=== PATIENT | male | born 1940 | race Caucasian/White ===

== ENCOUNTER 2020-01-09 10:23 | Inpatient (IN) | payer OTHER ==
[2020-01-09 10:56] LABS: Absolute Lymphocytes (CBC) 0.7 K/uL (0.7-4.9); Basophils % 0.4 % (0-1.3); Hematocrit 31.2 % (39.6-49.0); Lymphocytes % 7.2 % (15.3-44.8); MPV 8.4 fL (7.6-11.3); RBC Red Blood Cell Count 3.66 M/uL (4.33-5.43)
[2020-01-09 11:03] LABS: Protime INR 1.85
[2020-01-09 11:17] LABS: C-Reactive Protein 14.9 mg/L (<3.00); Potassium 4.8 mmol/L (3.5-5.1); Troponin (Emerg Dept Use Only) 0.05 ng/mL (0.0-0.045)
[2020-01-09 11:18] LABS: Urine Bacteria NONE SEEN /HPF (NONE SEEN); Urine Culture Reflex Order NOT NEEDED; Urine RBC <5 /HPF (NONE SEEN)
[2020-01-09] MEDS ORDERED: VANCOMYCIN/NS 1 gm 1 GM/250 ML BAG IV ONE (12:00)
--- NOTE | 2020-01-09 12:00 | RAD REPORT ---
EXAM DESCRIPTION: US - Lower Extremity Arterial Bilat - 01/09/2020 11:17 am CLINICAL HISTORY: RLE erythema and decreased pulse, dusky LLE Leg pain COMPARISON: No comparisons TECHNIQUE: Bilateral lower extremity arterial Doppler examination was performed with waveform tracin g and ankle brachial pressure measurements. FINDINGS: Doppler interrogation of both lower extremity arterial systems was performed. Triphasic waveforms are seen throughout the right lower extremity arterial system. The right poplitea l and distal vessels demonstrate mildly blunted monophasic waveforms. Left lower extremity true low system shows triphasic to biphasic waveforms throughout. No high-grade stenosis or occlusion. IMPRESSION: Distal right lower extremity arterial system demonstrates monophasic waveform suggesting mild distal peripheral vascular disease.
--- NOTE | 2020-01-09 12:01 | RAD REPORT ---
EXAM DESCRIPTION: RAD - Chest Single View - 01/09/2020 11:55 am CLINICAL HISTORY: FEVER Chest pain. COMPARISON: No comparisons FINDINGS: Portable technique limits examination quality. Mild interstitial pulmonary edema is seen. The heart is moderately enlarged in size. Dual lead pacer device is present. IMPRESSION: Mild CHF versus volume overload pattern.
--- NOTE | 2020-01-09 12:20 | EDPHYS ---
Physician Documentation [facility] Name: Man Crowley Age: 79 yrs Sex: Male : 1940 Arrival Date: 01/09/2020 Time: 10:25 Bed 4 Private MD: ED Physician Fermin Gomes HPI: 01/08 10:32 This 79 yrs old Male presents to ER via Unassigned with complaints of Altered rn Mental Status. 10:32 The patient presents with decreased mental status. Onset: The symptoms/episode rn began/occurred at an unknown time. Possible causes: unknown. It is unknown whether or not the patient has had similar symptoms in the past. It is unknown whether or not the patient has recently seen a physician. Sent by [facility] for fever to 102, AMS. Per [facility], noted this morning, given 1g tylenol, has been seeing wound care for weeping skin bilateral lower ext, no reports on any recent changes. Patient denies focal problem, denies cough/sob/chest pain/abd pain/vomiting/diarrhea. Reports legs hurt a little. . Historical: - Allergies: 11:13 Eliquis; sv 11:13 Blueberry; sv - Home Meds: 11:13 aspirin 81 mg Oral TbEC 1 tab once daily [Active]; atorvastatin 40 mg oral tab 1 tab sv once daily [Active]; furosemide 40 mg Oral tab 1 tab 2 times per day [Active]; gabapentin 300 mg oral cap 1 cap 3 times per day [Active]; lisinopril 20 mg Oral tab 1 tab once daily [Active]; melatonin 3 mg Oral tab nightly [Active]; metoprolol succinate 25 mg oral Tb24 1 tab once daily [Active]; mupirocin 2 % topical oint daily [Active]; polyethylene glycol 3350 17 gram oral pwpk 1 packet once daily [Active]; potassium chloride 20 mEq Oral TbER 1 tab once daily [Active]; trazodone 150 mg Oral tab nightly [Active]; Xarelto 20 mg oral tab 1 tab once daily [Active]; acetic acid 0.25 % IR soln three times a day [Active]; - PMHx: 11:13 DVT; bilateral; Hypertension; CHF; Obesity; Nonrheumatic aortic valve stenosis; Sleep sv Apnea; Prosthetic heart valve; osteoarthritis; - Immunization history:: Adult Immunizations. - Family history:: not pertinent. - Social history:: Smoking status: Patient denies any tobacco usage or history of. - Hospitalizations: : No recent hospitalization is reported. 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 Exam: 10:32 Constitutional: Overweight male, no acute distress Head/Face: Normocephalic, rn atraumatic. ENT: dry MM Cardiovascular: Tachycardic, regular Respiratory: Speaking full sentences, unlabored. No increased work of breathing, no retractions or nasal flaring. Abdomen/GI: soft, non-tender MS/ Extremity: + diminished pulses RLE dorsalis pedis, + RLE with warmth and redness, blanches, with weeping wounds and crusting between toes, no fluctuance. Erythema and warmth travels upward towards R knee. Neuro: Awake and alert, GCS 15, oriented to person, place, and situation. Vital Signs: 10:28 BP 75 / 46; Pulse 114; Resp 26; Temp 99(O); Pulse Ox 97% on 5 lpm NC; sv 11:00 BP 79 / 53; Pulse 113; Resp 27; Pulse Ox 97% on 5 lpm NC; sv 11:36 BP 94 / 64; Pulse 114; Resp 24; Pulse Ox 100% on 5 lpm NC; sv 12:41 BP 91 / 69; Pulse 113 MON; Resp 16; Pulse Ox 97% on 5 lpm NC; sv 13:45 BP 100 / 77; Pulse 112 MON; Resp 14; Pulse Ox 98% on 5 lpm NC; sv 14:32 BP 84 / 57; Pulse 113; Resp 15; Pulse Ox 96% on 5 lpm NC; sv 14:36 BP 117 / 69; Pulse 113; Resp 22; Pulse Ox 100% on 5 lpm NC; sv 15:22 BP 116 / 90; Pulse 112; Resp 23; Pulse Ox 98% on 5 lpm NC; sv 12:41 Sinus tachycardia sv 13:45 Sinus tachycardia sv MDM: 10:29 Patient medically screened. rn 12:16 Differential Diagnosis: sepsis, UTI, volume depletion, cellulitis. Data reviewed: vital rn signs, nurses notes, lab test result(s). 12:18 Counseling: I had a detailed discussion with the patient and/or guardian regarding: the rn historical points, exam findings, and any diagnostic results supporting the discharge/admit diagnosis, lab results, radiology results, the need for further work-up and treatment in the hospital. Response to treatment: the patient's symptoms have mildly improved after treatment, and as a result, I will admit patient. Admission orders: after a detailed discussion of the patient's condition and case, the admit orders are written by me. ED course: Admitted to Dr. Corbin for cellulitis, sepsis, improving with fluids, being gentle with fluid administration 2/2 CHF and xray already shows some pulmonary edema. . 01/08 10:32 Order name: C-Reactive Protein; Complete Time: 11:34 rn 01/08 10:32 Order name: Basic Metabolic Panel; Complete Time: 11:34 rn 01/08 10:32 Order name: Blood Culture Adult (2) rn 01/08 10:32 Order name: CBC with Diff rn 01/08 10:32 Order name: Lactate; Complete Time: 11:34 rn 01/08 10:32 Order name: Procalcitonin; Complete Time: 11:34 rn 01/08 10:32 Order name: Protime (+inr); Complete Time: 11:34 rn 01/08 10:32 Order name: Ptt, Activated; Complete Time: 11:34 rn 01/08 10:32 Order name: Troponin (emerg Dept Use Only); Complete Time: 11:34 rn 01/08 10:32 Order name: Urine Microscopic Only; Complete Time: 11:34 rn 01/08 10:32 Order name: Urine Culture rn 01/08 10:32 Order name: BNP; Complete Time: 11:34 rn 01/08 10:59 Order name: Urine Dipstick--Ancillary (enter results) em1 01/08 12:18 Order name: COVID-19 rn 01/08 10:32 Order name: Chest Single View XRAY; Complete Time: 12:14 rn 01/08 10:32 Order name: Cardiac monitoring; Complete Time: 10:57 rn 01/08 10:32 Order name: EKG - Nurse/Tech; Complete Time: 10:57 rn 01/08 10:32 Order name: IV Saline Lock - Large Bore; Complete Time: 11:16 rn 01/08 10:32 Order name: Labs collected and sent; Complete Time: 11:16 rn 01/08 10:32 Order name: Lower Extremity Arterial Bilat US; Complete Time: 12:14 rn 01/08 12:52 Order name: CBC Smear Scan EDMS 01/08 12:52 Order name: SARS-COV-2 RT PCR EDMS 01/08 13:26 Order name: EKG Electrocardiogram; Complete Time: 13:47 EDMS 01/08 14:16 Order name: Lactate Sepsis 2 HR Follow-up EDMS 01/08 10:32 Order name: O2 Per Protocol; Complete Time: 11:16 rn 01/08 10:32 Order name: O2 Sat Monitoring; Complete Time: 11:16 rn 01/08 10:32 Order name: Urine Dipstick-Ancillary (obtain specimen); Complete Time: 10:57 rn Administered Medications: 10:52 Drug: NS 0.9% 500 ml Route: IV; Rate: bolus; Site: right forearm; sv 11:41 Follow up: Response: No adverse reaction; IV Status: Completed infusion; IV Intake: sv 500ml 12:13 Drug: vancoMYCIN 1 grams Route: IVPB; Infused Over: 2 hrs; Site: right wrist; hb 14:10 Follow up: Response: No adverse reaction; IV Status: Completed infusion; IV Intake: sv 250ml 12:30 Drug: NS 0.9% 250 ml Route: IV; Rate: bolus; Site: right forearm; sv 12:50 Follow up: Response: No adverse reaction; IV Status: Completed infusion; IV Intake: sv 250ml Disposition: 12:18 Critical Care:. rn Disposition: 01/09/20 12:19 Hospitalization ordered by Iván Corbin for Inpatient Admission. Preliminary diagnosis are Cellulitis of right lower limb, Sepsis, unspecified organism, Hypotension, unspecified. - Bed requested for Telemetry/MedSurg (Inpatient). - Status is Inpatient Admission. sv - Condition is Stable. - Problem is new. - Symptoms have improved. Critical care time excluding procedures: 12:18 Critical care time: Bedside Care: 30 minutes. Total time: 30 minutes rn Signatures: Dispatcher [employer] EDSaima Bradshaw RN RN sv Nieto, Roman, MD MD rn Baxter, Heather, RN RN hb Corrections: (The following items were deleted from the chart) 11:16 10:32 Willoughby ordered. rn sv 11:16 10:32 Accucheck ordered. rn sv 12:52 12:19 CORONAVIRUS ordered. EDKS EDMS 15:48 12:19 Hospitalization Ordered by Iván Corbin for Inpatient Admission. Preliminary sv diagnosis is Cellulitis of right lower limb; Sepsis, unspecified organism; Hypotension, unspecified. Bed requested for Telemetry/MedSurg (Inpatient). Status is Inpatient Admission. Condition is Stable. Problem is new. Symptoms have improved. rn
--- NOTE | 2020-01-09 12:20 | ER ---
Nurse's Notes [facility] Name: Man Crowley Age: 79 yrs Sex: Male : 1940 Arrival Date: 01/09/2020 Time: 10:25 Bed 4 Private MD: Diagnosis: Cellulitis of right lower limb;Sepsis, unspecified organism;Hypotension, unspecified Presentation: 01/08 10:17 Chief complaint: EMS states: called out from [facility] for AMS x 1 day and leg wounds. sv BP 80/67 HR-114 ETCO2-22 RR-24 88% RA O2 \T\ 6L per NC O2 sat up to 96%. Pt has dressing to bilateral extremities. Coronavirus screen: Client denies travel out of the [place] in the last 14 days. At this time, the client does not indicate any symptoms associated with coronavirus-19. Ebola Screen: No symptoms or risks identified at this time. 10:17 Method Of Arrival: EMS: [facility] sv 10:28 Initial Sepsis Screen: Does the patient meet any 2 criteria? RR > 20 per min. Systolic sv BP < 90 mmHg. Mean Arterial Pressure (MAP) < 65. HR > 90 bpm. Yes Does the patient have a suspected source of infection? Yes: Skin breakdown/wound If YES to both, name of provider notified: Fermin Gomes MD. Risk Assessment: Do you want to hurt yourself or someone else? Patient reports no desire to harm self or others. Onset of symptoms was January 08, 2020. 10:28 Acuity: LUIS 2 sv Triage Assessment: 10:20 General: Appears in no apparent distress. comfortable, obese, well developed, Behavior sv is calm, cooperative, appropriate for age. Pain: Denies pain. Neuro: Level of Consciousness is awake, alert, obeys commands, Oriented to person, place, time, situation, Moves all extremities. Speech is normal. Cardiovascular: Rhythm is sinus tachycardia. Respiratory: Airway is patent Respiratory effort is even, unlabored, Respiratory pattern is symmetrical, tachypnea. : smells of urine. Derm: Skin is normal, Wound noted right leg and left leg Wound is LLE is scaly, dusky. RLE is red, swollen, taut. Historical: - Allergies: 11:13 Eliquis; sv 11:13 Blueberry; sv - Home Meds: 11:13 aspirin 81 mg Oral TbEC 1 tab once daily [Active]; atorvastatin 40 mg oral tab 1 tab sv once daily [Active]; furosemide 40 mg Oral tab 1 tab 2 times per day [Active]; gabapentin 300 mg oral cap 1 cap 3 times per day [Active]; lisinopril 20 mg Oral tab 1 tab once daily [Active]; melatonin 3 mg Oral tab nightly [Active]; metoprolol succinate 25 mg oral Tb24 1 tab once daily [Active]; mupirocin 2 % topical oint daily [Active]; polyethylene glycol 3350 17 gram oral pwpk 1 packet once daily [Active]; potassium chloride 20 mEq Oral TbER 1 tab once daily [Active]; trazodone 150 mg Oral tab nightly [Active]; Xarelto 20 mg oral tab 1 tab once daily [Active]; acetic acid 0.25 % IR soln three times a day [Active]; - PMHx: 11:13 DVT; bilateral; Hypertension; CHF; Obesity; Nonrheumatic aortic valve stenosis; Sleep sv Apnea; Prosthetic heart valve; osteoarthritis; - Immunization history:: Adult Immunizations. - Family history:: not pertinent. - Social history:: Smoking status: Patient denies any tobacco usage or history of. - Hospitalizations: : No recent hospitalization is reported. Screenin:15 Abuse screen: Denies threats or abuse. Denies injuries from another. Nutritional sv screening: No deficits noted. Tuberculosis screening: No symptoms or risk factors identified. Fall Risk No fall in past 12 months (0 pts). Secondary diagnosis (15 points) impaired mobility, IV access (20 points). Ambulatory Aid- None/Bed Rest/Nurse Assist (0 pts). Gait- Normal/Bed Rest/Wheelchair (0 pts) Mental Status- Oriented to own ability (0 pts). Total Wellington Fall Scale indicates Low Risk Score (25-44 pts). Fall prevention measures have been instituted. Side Rails Up X 2 Placed close to Nursing Station Frequent Obs/Assesments occuring As available Patient and Family Educated on Fall Prevention Program and strategies. Assessment: 11:37 Reassessment: Patient appears in no apparent distress at this time. No changes from sv previously documented assessment. Patient and/or family updated on plan of care and expected duration. Pain level reassessed. Patient is alert, oriented x 3, equal unlabored respirations, skin warm/dry/pink. 12:30 Reassessment: Patient appears in no apparent distress at this time. No changes from sv previously documented assessment. Patient and/or family updated on plan of care and expected duration. Pain level reassessed. Patient is alert, oriented x 3, equal unlabored respirations, skin warm/dry/pink. COVID-19 sent. 13:20 Reassessment: Patient appears in no apparent distress at this time. No changes from sv previously documented assessment. Patient and/or family updated on plan of care and expected duration. Pain level reassessed. Patient is alert, oriented x 3, equal unlabored respirations, skin warm/dry/pink. 13:46 Reassessment: Called Dr Corbin to get admission orders, stated he would be down to see sv the pt. 13:56 Reassessment: Repeat lactate sent. sv 14:04 Reassessment: Dr Corbin at bedside. sv 14:10 Reassessment: Patient appears in no apparent distress at this time. No changes from sv previously documented assessment. Patient and/or family updated on plan of care and expected duration. Pain level reassessed. Patient is alert, oriented x 3, equal unlabored respirations, skin warm/dry/pink. 15:55 Reassessment: Patient appears in no apparent distress at this time. No changes from sv previously documented assessment. Patient and/or family updated on plan of care and expected duration. Pain level reassessed. Vital Signs: 10:28 BP 75 / 46; Pulse 114; Resp 26; Temp 99(O); Pulse Ox 97% on 5 lpm NC; sv 11:00 BP 79 / 53; Pulse 113; Resp 27; Pulse Ox 97% on 5 lpm NC; sv 11:36 BP 94 / 64; Pulse 114; Resp 24; Pulse Ox 100% on 5 lpm NC; sv 12:41 BP 91 / 69; Pulse 113 MON; Resp 16; Pulse Ox 97% on 5 lpm NC; sv 13:45 BP 100 / 77; Pulse 112 MON; Resp 14; Pulse Ox 98% on 5 lpm NC; sv 14:32 BP 84 / 57; Pulse 113; Resp 15; Pulse Ox 96% on 5 lpm NC; sv 14:36 BP 117 / 69; Pulse 113; Resp 22; Pulse Ox 100% on 5 lpm NC; sv 15:22 BP 116 / 90; Pulse 112; Resp 23; Pulse Ox 98% on 5 lpm NC; sv 12:41 Sinus tachycardia sv 13:45 Sinus tachycardia sv ED Course: 10:25 Patient arrived in ED. ds1 10:25 alarm security or surveillance monitor on. Pulse ox on. NIBP on. sv 10:29 Fermin Gomes MD is Attending Physician. rn 10:30 Arm band placed on. sv 10:35 First set of blood cultures drawn by me. sv 10:42 Second set of blood cultures drawn. Inserted saline lock: 20 gauge in right forearm, sv using aseptic technique. Blood collected. Flushed right forearm with 5 ml normal saline. 10:48 Saima Wakefield, JUSTIN is Primary Nurse. sv 10:54 Urine collected: clean catch specimen, clear. mh5 10:54 Patient has correct armband on for positive identification. Placed in gown. Bed in low mh5 position. Call light in reach. Side rails up X 1. Warm blanket given. CHANGED INTO CLEAN DIAPER. alarm security or surveillance monitor on. Pulse ox on. NIBP on. 10:56 Urine Culture Sent. mh5 10:57 Urine Microscopic Only Sent. mh5 11:00 Lower Extremity Arterial Bilat US In Process Unspecified. EDMS 11:07 Triage completed. sv 11:13 EKG done, by ED staff, reviewed by Fermin Gomes MD. mh5 11:16 Notified ED physician of a critical lab result(s). lactatt-2.1. sv 11:55 Chest Single View XRAY In Process Unspecified. EDMS 12:19 Iván Corbin is Hospitalizing Provider. rn 12:42 Awaiting bed assignment. sv 12:44 COVID-19 Sent. sv 13:57 Repeat lab(s) drawn. by mt, sent to lab. mh5 14:37 Awaiting bed assignment. sv 15:47 No provider procedures requiring assistance completed. Patient admitted, IV remains in sv place. intact. Administered Medications: 10:52 Drug: NS 0.9% 500 ml Route: IV; Rate: bolus; Site: right forearm; sv 11:41 Follow up: Response: No adverse reaction; IV Status: Completed infusion; IV Intake: sv 500ml 12:13 Drug: vancoMYCIN 1 grams Route: IVPB; Infused Over: 2 hrs; Site: right wrist; hb 14:10 Follow up: Response: No adverse reaction; IV Status: Completed infusion; IV Intake: sv 250ml 12:30 Drug: NS 0.9% 250 ml Route: IV; Rate: bolus; Site: right forearm; sv 12:50 Follow up: Response: No adverse reaction; IV Status: Completed infusion; IV Intake: sv 250ml Intake: 11:41 IV: 500ml; Total: 500ml. sv 12:50 IV: 250ml; Total: 750ml. sv 14:10 IV: 250ml; Total: 1000ml. sv Outcome: 12:19 Decision to Hospitalize by Provider. rn 15:47 Admitted to ICU accompanied by nurse, via stretcher, room ICU, with chart, Report sv called to Tari ANDERSON 15:47 Condition: stable 15:47 Instructed on the need for admit. 15:48 Patient left the ED. sv Signatures: Dispatcher [employer] EDSaima Bradshaw RN RN sv Sanford, Demi ds1 Fermin Gomes MD MD rn Baxter, Heather, RN RN hb Martinez, Maria [facility] Corrections: (The following items were deleted from the chart) 11:14 10:28 BP 75 / 46; Pulse 114bpm; Resp 26bpm; Pulse Ox 97% 5 lpm Nasal Cannula; sv sv 11:41 10:17 Chief complaint: EMS states: called out from [facility] for AMS x 1 day and leg sv wounds. BP 80/67 HR-114 ETCO2-22 RR-24 88% RA O2 \T\ 6L per NC O2 sat up to 96%. sv
[2020-01-09 12:51] LABS: Anisocytosis 1+; Blood Morphology Comment NOTED (NOT SEEN); Ovalocytes 1+; Platelet Estimate DECR; Teardrop Cell 1+; White Blood Cell Scan OK (OK)
[2020-01-09 14:27] LABS: Urine Blood NEGATIVE (NEG); Urine Glucose NEGATIVE (NEG); Urine Protein NEGATIVE (NEG); Urine Specific Gravity 1.015 (1.005-1.030)
--- NOTE | 2020-01-09 14:47 | P.HP ---
Certification for Inpatient Patient admitted to: Inpatient With expected LOS: >2 Midnights Practitioner: I am a practitioner with admitting privileges, knowledge of patient current condition, hospital course, and medical plan of care. Services: Services provided to patient in accordance with Admission requirements found in Title 42 Section 412.3 of the Code of Federal Regulations Patient History Date of Service: 01/09/20 Reason for admission: INFECTED LOWER EXTREMITY WOUND History of Present Illness: 79-year-old senior living resident with a history of lower extremity lymphedema, hypertension, chronic diastolic heart failure on Lasix therapy was brought to the emergency department due to altered mental status, hypotension and worsening right lower extremity wound. Patient noted to have systolic blood pressure in the low 80s, tachycardia. Patient received about 750 mg bolus of normal saline, systolic blood pressure up to the low 90s. He has no leukocytosis. Pro leida citonin and CRP elevated, normal lactate. Chest x-ray showed mild CHF or volume overload. There is a concern for septic shock secondary infected lower extremity wound. Patient given a dose of IV vancomycin in the ED. He was awake and oriented during my assessment in the ED. Patient is admitted for further management. Allergies No Known Allergies Allergy (Verified 12/28/19 14:42) - Past Medical/Surgical History -: Chronic lower extremity lymphedema -: Chronic diastolic heart failure -: Hypertension -: Peripheral neuropathy -: Hyperlipidemia - Family History Family History: Reviewed- Non-Contributory - Social History Smoking Status: Never smoker Alcohol use: No Place of Residence: Longterm Review of Systems Other: Patient complaining of low back pain. Except as documented, all other systems reviewed and negative. Physical Examination - Physical Exam General: Alert, In no apparent distress, Oriented x3 HEENT: Mucous membr. moist/pink Neck: Supple, JVD not distended, No Thyromegaly Respiratory: Clear to auscultation bilaterally, Normal air movement Cardiovascular: Normal S1 S2, Other (Tachycardia) Gastrointestinal: Normal bowel sounds, Soft and benign, Non-distended Musculoskeletal: Swelling (Bilateral lower extremity), Erythema (Right leg) Integumentary: Venous stasis ulcer (Right leg), Other (Weeping venous stasis dermatitis of right leg. Left lower extremity xerosis.) Neurological: Normal speech, Normal strength at 5/5 x4 extr - Studies Laboratory Data (last 24 hrs) 01/09/20 10:42: PT 21.6 H, INR 1.85, APTT 35.5 01/09/20 10:42: WBC 9.9, Hgb 10.6 L, Hct 31.2 L, Plt Count 126 L 01/09/20 10:42: Sodium 138, Potassium 4.8, BUN 46 H, Creatinine 1.76 H, Glucose 94 Assessment and Plan - Problems (Diagnosis) (1) Septic shock Current Visit: Yes Status: Acute (2) Wound of lower extremity Current Visit: Yes Status: Acute (3) COPD (chronic obstructive pulmonary disease) Current Visit: No Status: Acute (4) Dementia Current Visit: No Status: Acute (5) Lymphedema Current Visit: No Status: Acute (6) Chronic kidney disease, stage 3 Current Visit: Yes Status: Acute - Plan Admit to ICU. Start aggressive antibiotic therapy-IV cefepime and vancomycin. Slow IV hydration given pulmonary vascular congestion. Low threshold for using vasopressors. Follow blood cultures. Wound care consult Hold Lasix given hypotension Keep lower extremities elevated. Monitor renal function, optimize electrolytes. Insert Willoughby catheter for strict I&Os. - Advance Directives Does patient have a Living Will: No Does patient have a Durable POA for Healthcare: No - Code Status/Comfort Care Code Status: Full Code
[2020-01-09 16:59] VITALS: BMI 35.4
[2020-01-09] MEDS ORDERED: VANCOMYCIN/NS 1 gm 1 GM/250 ML BAG IVPB SCH (17:00)
[2020-01-09] MEDS ORDERED: ONDANSETRON 4 MG/2 ML VIAL IV PRN (17:00)
[2020-01-09] MEDS: NA CHLORIDE 0.9% 1,000 ML IV SCH (17:21)
[2020-01-09] MEDS ORDERED: NA CHLORIDE 0.9% 1,000 ML ONE (17:29)
[2020-01-09] MEDS ORDERED: VANCOMYCIN 2 GM in NA CHLORIDE 0.9% 500 ML IVPB SCH (18:00)
[2020-01-09] MEDS: CEFEPIME/SWI 1gm 10 ML IVP SCH (18:14)
--- NOTE | 2020-01-09 20:00 | EKG ---
Test Date: 2020-01-09 Test Time: 11:07:03 Hook And Eye Machine Operator: NOEMI MEASUREMENT RESULTS: Intervals: Rate: 113 NV: 184 QRSD: 166 QT: 334 QTc: 458 [place]: P: 109 NV: 184 QRS: 259 T: 47 INTERPRETIVE STATEMENTS: Suspect arm lead reversal, interpretation assumes no reversal Sinus tachycardia Right bundle branch block Abnormal ECG Compared to ECG 05/16/2001 19:56:00 Left anterior fascicular block no longer present Bifascicular block no longer present Electronically Signed On 01-09-20 19:59:16 CDT by Melchor Umanzor
[2020-01-09] MEDS ORDERED: CEFEPIME 1 GM/VIAL IV SCH (21:00)
[2020-01-10] MEDS ORDERED: NA CHLORIDE 0.9% 1,000 ML ONE (03:27)
[2020-01-10 04:23] LABS: Absolute Lymphocytes (CBC) 0.7 K/uL (0.7-4.9); Basophils % 0.5 % (0-1.3); Lymphocytes % 6.8 % (15.3-44.8); MPV 8.6 fL (7.6-11.3); RBC Red Blood Cell Count 3.59 M/uL (4.33-5.43)
[2020-01-10 04:24] LABS: Protime INR 1.64
[2020-01-10 05:01] LABS: Magnesium 2.2 mg/dL (1.8-2.4); Phosphorus 2.8 mg/dL (2.5-4.9); Potassium 4.4 mmol/L (3.5-5.1)
[2020-01-10] MEDS: NA CHLORIDE 0.9% 1,000 ML IV SCH (05:57)
[2020-01-10] MEDS: CEFEPIME/SWI 1gm 10 ML IVP SCH (09:09)
[2020-01-10] MEDS ORDERED: IPRATROPIUM BROM 0.5MG/2.5ML NEB PRN (14:14)
--- NOTE | 2020-01-10 14:18 | P.PN ---
Subjective Date of Service: 01/10/20 Chief Complaint: INFECTED LOWER EXTREMITY WOUND Patient currently denies any complain. His blood pressure has improved. He has been afebrile. No change in his bilateral lower extremities swelling. Patient has been in and out of atrial fibrillation. Physical Examination - Vital Signs Temperature: 97.4 F Blood Pressure: 120/60 Pulse: 95 Respirations: 20 Pulse Ox (%): 98 - Physical Exam General: Alert, Obese Neck: Supple Respiratory: Clear to auscultation bilaterally, Normal air movement Cardiovascular: Normal S1 S2, Edema (3+ edema bilateral lower extremity), Irregular heart rate/rhythm Gastrointestinal: Normal bowel sounds, Soft and benign, Non-distended, No tenderness Musculoskeletal: Swelling (Bilateral lower extremities) Integumentary: Other (Erythema, weeping sores-right leg. Hemosiderin staining anad xerosis-left leg.) Neurological: Other (Nonfocal) Assessment And Plan - Current Problems (Diagnosis) (1) Septic shock Current Visit: Yes Status: Acute (2) Wound of lower extremity Current Visit: Yes Status: Acute (3) COPD (chronic obstructive pulmonary disease) Current Visit: No Status: Acute (4) Dementia Current Visit: No Status: Acute (5) Lymphedema Current Visit: No Status: Acute (6) Chronic kidney disease, stage 3 Current Visit: Yes Status: Acute - Plan Transition to the medical floor Continue antibiotic therapy-IV cefepime and vancomycin. Discontinue IV fluid. Follow blood cultures. Wound care team to see patient Resume Lasix at a lower dose. Keep lower extremities elevated. Monitor renal function, optimize electrolytes. Maintain Willoughby catheter. Resume Xarelto for AFib anticoagulation history of DVT. Low dose metoprolol to control heart rate as his blood pressure would permit. PT to evaluate.
[2020-01-10] MEDS: ACETIC ACID 0.25% IRRIG IRR SCH (17:00)
[2020-01-10] MEDS: METOPROLOL TAR 25 MG TAB PO SCH (17:24)
[2020-01-10] MEDS: VANCOMYCIN 2 GM in NA CHLORIDE 0.9% 500 ML IVPB SCH (17:25)
[2020-01-10] MEDS: TRAZODONE 150 MG TAB PO SCH (20:56)
[2020-01-10] MEDS: GABAPENTIN 300 MG CAP PO SCH (20:57)
[2020-01-10] MEDS: MELATONIN 3 MG TABLET PO SCH (20:57)
[2020-01-10] MEDS: ATORVASTATIN 40 MG TAB PO SCH (20:57)
[2020-01-10] MEDS: PROMOD 30 ML DOSE PO SCH (20:58)
[2020-01-11] MEDS: NA CHLORIDE 0.9% 1,000 ML IV SCH ×2 (00:13→08:53)
[2020-01-11 04:18] LABS: Absolute Lymphocytes (CBC) 0.9 K/uL (0.7-4.9); Basophils % 0.4 % (0-1.3); Hematocrit 31.3 % (39.6-49.0); Lymphocytes % 11.1 % (15.3-44.8); MPV 8.7 fL (7.6-11.3); RBC Red Blood Cell Count 3.64 M/uL (4.33-5.43)
[2020-01-11 04:43] LABS: Potassium 4.3 mmol/L (3.5-5.1)
[2020-01-11] MEDS: METOPROLOL TAR 25 MG TAB PO SCH ×2 (06:05→17:02)
[2020-01-11] MEDS: ASPIRIN EC 81 MG TAB PO SCH (08:44)
[2020-01-11] MEDS: POTASSIUM CL SA 10 MEQ TAB PO SCH (08:44)
[2020-01-11] MEDS: GABAPENTIN 300 MG CAP PO SCH ×3 (08:44→20:19)
[2020-01-11] MEDS: POLYETHYL GLY 3350 17 GM/DOSE PO SCH (08:45)
[2020-01-11] MEDS: MUPIROCIN 2% OINT 22GM TUBE TOP SCH (08:45)
[2020-01-11] MEDS: PROMOD 30 ML DOSE PO SCH ×2 (08:46→20:20)
[2020-01-11] MEDS: RIVAROXABAN 20 MG TABLET PO SCH (08:50)
[2020-01-11] MEDS ORDERED: FUROSEMIDE 40 MG/4 ML VIAL IV SCH (09:00)
[2020-01-11] MEDS: CEFEPIME/SWI 1gm 10 ML IVP SCH (10:05)
--- NOTE | 2020-01-11 13:44 | P.PN ---
Subjective Date of Service: 01/11/20 Chief Complaint: INFECTED LOWER EXTREMITY WOUND Patient reports pain in her bilaterally which is chronic. He is currently normotensive. Right lower extremity lymphedema/dermatitis is wrapped. Physical Examination - Vital Signs Temperature: 98.4 F Blood Pressure: 137/92 Pulse: 117 Respirations: 20 Pulse Ox (%): 96 - Physical Exam General: Alert, In no apparent distress, Obese Neck: Supple Respiratory: Clear to auscultation bilaterally, Diminished Cardiovascular: Normal S1 S2, Edema (3+ edema of bilateral lower extremities.), Irregular heart rate/rhythm Gastrointestinal: Normal bowel sounds, Soft and benign Musculoskeletal: Swelling (Bilateral lower extremities) Integumentary: Other (Right lower extremity erythema/venostasis dermatitis wrapped.) Neurological: Other (Bilateral lower extremity weakness likely from debility.) - Studies Microbiology Data (last 24 hrs): 01/09/20 10:40 Catheterized Urine [place]ier Count - Final BETWEEN 10,000 & 100,000 CFU/ML 01/09/20 10:40 Catheterized Urine - Final MIXED DMITRY. Assessment And Plan - Current Problems (Diagnosis) (1) Septic shock Current Visit: Yes Status: Acute (2) Wound of lower extremity Current Visit: Yes Status: Acute (3) COPD (chronic obstructive pulmonary disease) Current Visit: No Status: Acute (4) Dementia Current Visit: No Status: Acute (5) Lymphedema Current Visit: No Status: Acute (6) Chronic kidney disease, stage 3 Current Visit: Yes Status: Acute - Plan Continue antibiotic therapy-IV cefepime and vancomycin for 1 more day and transition to oral antibiotics. Blood cultures: No growth to date. Urine cultures: Mixed growth. Wound care team input appreciated. Start IV Lasix monitor blood pressure closely. Keep lower extremities elevated. Monitor renal function and optimize electrolytes. Maintain Willoughby catheter. Continue Xarelto. Continue metoprolol for rate control PT Advanced care planning: Discussed patient's current functional status. Patient is currently wheelchair-bound but able to independently transfer from bed to the wheelchair at baseline. He has not been able to move from bed yet. Physical therapy will assess patient and begin therapy. Goal is for patient to be able to transfer independently. He is an assisted living facility. Discharge planning: Disposition to assisted living facility with home health for PT. Patient is full code. Time spent discussing goals of care was about 25 min.
[2020-01-11] MEDS: VANCOMYCIN 2 GM in NA CHLORIDE 0.9% 500 ML IVPB SCH (17:01)
[2020-01-11] MEDS: ATORVASTATIN 40 MG TAB PO SCH (20:19)
[2020-01-11] MEDS: TRAZODONE 150 MG TAB PO SCH (20:19)
[2020-01-11] MEDS: MELATONIN 3 MG TABLET PO SCH (20:19)
[2020-01-12 04:05] LABS: Basophils % 0.4 % (0-1.3); Lymphocytes % 11.5 % (15.3-44.8); MPV 8.8 fL (7.6-11.3); RBC Red Blood Cell Count 3.82 M/uL (4.33-5.43)
[2020-01-12 04:12] LABS: Potassium 4.3 mmol/L (3.5-5.1)
[2020-01-12] MEDS: METOPROLOL TAR 25 MG TAB PO SCH ×2 (05:33→17:23)
[2020-01-12] MEDS: POLYETHYL GLY 3350 17 GM/DOSE PO SCH (09:00)
[2020-01-12] MEDS: PROMOD 30 ML DOSE PO SCH (09:00)
[2020-01-12] MEDS: RIVAROXABAN 20 MG TABLET PO SCH (09:31)
[2020-01-12] MEDS: POTASSIUM CL SA 10 MEQ TAB PO SCH (09:32)
[2020-01-12] MEDS: CEFEPIME/SWI 1gm 10 ML IVP SCH (09:32)
[2020-01-12] MEDS: GABAPENTIN 300 MG CAP PO SCH ×2 (09:32→14:42)
[2020-01-12] MEDS: FUROSEMIDE 40 MG/4 ML VIAL IV SCH ×2 (09:33→17:24)
[2020-01-12] MEDS: MUPIROCIN 2% OINT 22GM TUBE TOP SCH (09:33)
[2020-01-12] MEDS: ASPIRIN EC 81 MG TAB PO SCH (09:33)
--- NOTE | 2020-01-12 15:31 | P.PN ---
Subjective Date of Service: 01/12/20 Chief Complaint: INFECTED LOWER EXTREMITY WOUND Patient is doing much better today. He has been able to transfer from bed and walk with a walker. Patient lower-extremity edema have improved significantly. Physical Examination - Vital Signs Temperature: 98 F Blood Pressure: 160/92 Pulse: 114 Respirations: 16 Pulse Ox (%): 95 - Physical Exam General: Alert, In no apparent distress Neck: Supple Respiratory: Clear to auscultation bilaterally, Normal air movement Cardiovascular: Regular rate/rhythm, Normal S1 S2, Edema (Bilateral lower extremities) Gastrointestinal: Normal bowel sounds, Soft and benign, No tenderness Musculoskeletal: Other (Bilateral lower extremity lymphedema.) Integumentary: Other (Venostasis dermatitis-bilateral lower extremities.) Assessment And Plan - Current Problems (Diagnosis) (1) Septic shock Current Visit: Yes Status: Acute (2) Wound of lower extremity Current Visit: Yes Status: Acute (3) COPD (chronic obstructive pulmonary disease) Current Visit: No Status: Acute (4) Dementia Current Visit: No Status: Acute (5) Lymphedema Current Visit: No Status: Acute (6) Chronic kidney disease, stage 3 Current Visit: Yes Status: Acute - Plan Discontinue IV antibiotics. Start oral Augmentin and doxycycline Blood cultures: No growth to date. Urine cultures: Mixed growth. Wound care team input appreciated. Continue IV Lasix. Keep lower extremities elevated. Monitor renal function and optimize electrolytes. Discontinue Willoughby catheter. Continue Xarelto. Continue metoprolol for rate control PT. 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 Assisted living versus skilled rehab placement.
[2020-01-12] MEDS: ACETIC ACID 0.25% IRRIG IRR SCH (16:29)
[2020-01-12] MEDS: ATORVASTATIN 40 MG TAB PO SCH (20:58)
[2020-01-12] MEDS: DOXYCYCLINE 100 MG CAP PO SCH (20:58)
[2020-01-12] MEDS: AMOX/K CLAV 875 MG TAB PO SCH (20:58)
[2020-01-13] MEDS: MELATONIN 3 MG TABLET PO SCH ×2 (01:17→20:53)
[2020-01-13] MEDS: TRAZODONE 150 MG TAB PO SCH ×2 (01:17→20:53)
[2020-01-13] MEDS: GABAPENTIN 300 MG CAP PO SCH ×4 (01:17→20:53)
[2020-01-13] MEDS: PROMOD 30 ML DOSE PO SCH ×3 (01:18→20:53)
[2020-01-13] MEDS: METOPROLOL TAR 25 MG TAB PO SCH ×2 (06:26→17:30)
[2020-01-13] MEDS: ASPIRIN EC 81 MG TAB PO SCH (09:31)
[2020-01-13] MEDS: POTASSIUM CL SA 10 MEQ TAB PO SCH (09:31)
[2020-01-13] MEDS: DOXYCYCLINE 100 MG CAP PO SCH ×2 (09:31→20:53)
[2020-01-13] MEDS: RIVAROXABAN 20 MG TABLET PO SCH (09:31)
[2020-01-13] MEDS: POLYETHYL GLY 3350 17 GM/DOSE PO SCH (09:32)
[2020-01-13] MEDS: AMOX/K CLAV 875 MG TAB PO SCH ×2 (09:32→20:53)
[2020-01-13] MEDS: FUROSEMIDE 40 MG/4 ML VIAL IV SCH ×2 (09:32→17:31)
[2020-01-13] MEDS: MUPIROCIN 2% OINT 22GM TUBE TOP SCH (09:33)
--- NOTE | 2020-01-13 13:10 | P.PN ---
Subjective Date of Service: 01/13/20 Chief Complaint: INFECTED LOWER EXTREMITY WOUND Patient has no complain. He has improved clinically. His lower extremity edema continue to improve. Physical Examination - Vital Signs Temperature: 98.4 F Blood Pressure: 110/83 Pulse: 127 Respirations: 20 Pulse Ox (%): 97 - Physical Exam General: Alert, In no apparent distress Neck: Supple Respiratory: Clear to auscultation bilaterally, Normal air movement Cardiovascular: Regular rate/rhythm, Normal S1 S2, Edema Gastrointestinal: Normal bowel sounds, Soft and benign, No tenderness Musculoskeletal: Other (Bilateral lower extremity lymphedema) Integumentary: Other (venous stasis dermatitis bilateral lower extremities, worse on the right.) Neurological: Other (Nonfocal) Assessment And Plan - Current Problems (Diagnosis) (1) Septic shock Current Visit: Yes Status: Resolved (2) Wound of lower extremity Current Visit: Yes Status: Acute (3) COPD (chronic obstructive pulmonary disease) Current Visit: No Status: Acute (4) Dementia Current Visit: No Status: Acute (5) Lymphedema Current Visit: No Status: Acute (6) Chronic kidney disease, stage 3 Current Visit: Yes Status: Acute - Plan Oral Augmentin and doxycycline Blood cultures: No growth to date. Urine cultures: Mixed growth. Wound care team input appreciated. Continue wound care. Continue and titrate IV Lasix. Keep lower extremities elevated. Monitor renal function and optimize electrolytes. Continue Xarelto. Continue metoprolol for rate control Continue PT. pony worker consult for discharge planning. Patient planned for disposition to skilled rehab.
[2020-01-13] MEDS: ATORVASTATIN 40 MG TAB PO SCH (20:53)
[2020-01-14] MEDS: METOPROLOL TAR 25 MG TAB PO SCH ×2 (06:00→17:08)
[2020-01-14] MEDS: FUROSEMIDE 40 MG/4 ML VIAL IV SCH ×2 (08:19→17:07)
[2020-01-14] MEDS: ASPIRIN EC 81 MG TAB PO SCH (08:19)
[2020-01-14] MEDS: POLYETHYL GLY 3350 17 GM/DOSE PO SCH (08:19)
[2020-01-14] MEDS: RIVAROXABAN 20 MG TABLET PO SCH (08:19)
[2020-01-14] MEDS: GABAPENTIN 300 MG CAP PO SCH ×3 (08:19→20:34)
[2020-01-14] MEDS: AMOX/K CLAV 875 MG TAB PO SCH ×2 (08:19→20:34)
[2020-01-14] MEDS: DOXYCYCLINE 100 MG CAP PO SCH ×2 (08:19→20:34)
[2020-01-14] MEDS: POTASSIUM CL SA 10 MEQ TAB PO SCH (08:19)
[2020-01-14] MEDS: PROMOD 30 ML DOSE PO SCH ×2 (08:20→20:35)
[2020-01-14] MEDS: MUPIROCIN 2% OINT 22GM TUBE TOP SCH (08:20)
--- NOTE | 2020-01-14 13:41 | P.PN ---
Subjective Date of Service: 01/14/20 Chief Complaint: INFECTED LOWER EXTREMITY WOUND Patient has no complain. Patient states he is doing much better He has improved clinically. His lower extremity edema has improved significantly. Patient is more mobile and functional. Physical Examination - Vital Signs Temperature: 97.9 F Blood Pressure: 111/69 Pulse: 120 Respirations: 16 Pulse Ox (%): 92 - Physical Exam General: In no apparent distress Neck: Supple, JVD not distended Respiratory: Clear to auscultation bilaterally, Normal air movement Cardiovascular: Regular rate/rhythm, Normal S1 S2 Gastrointestinal: Normal bowel sounds, Soft and benign, No tenderness Musculoskeletal: Other (Bilateral lower extremity lymphedema.) Integumentary: Other (Bilateral lower extremity venostasis dermatitis, worse on the right.) Neurological: Other (Nonfocal) - Studies Microbiology Data (last 24 hrs): 01/09/20 10:35 Blood - Blood Aerobic Blood Culture - Final No growth in 5 days. 01/09/20 10:35 Blood - Blood Anaerobic Blood Culture - Final No growth in 5 days. 01/09/20 10:42 Blood - Blood Aerobic Blood Culture - Final No growth in 5 days. 01/09/20 10:42 Blood - Blood Anaerobic Blood Culture - Final No growth in 5 days. Assessment And Plan - Current Problems (Diagnosis) (1) Septic shock Current Visit: Yes Status: Resolved (2) Wound of lower extremity Current Visit: Yes Status: Acute (3) COPD (chronic obstructive pulmonary disease) Current Visit: No Status: Acute (4) Dementia Current Visit: No Status: Acute (5) Lymphedema Current Visit: No Status: Acute (6) Chronic kidney disease, stage 3 Current Visit: Yes Status: Acute - Plan Oral Augmentin and doxycycline. Patient planned for 7 days of antibiotics Blood cultures: No growth to date. Urine cultures: Mixed growth. Wound care team input appreciated. Continue wound care. Continue IV Lasix for 1 more day. Keep lower extremities elevated. Continue Xarelto. Continue metoprolol for rate control Continue PT. Patient planned for disposition to skilled rehab.
[2020-01-14] MEDS: ATORVASTATIN 40 MG TAB PO SCH (20:35)
[2020-01-14] MEDS: TRAZODONE 150 MG TAB PO SCH (22:09)
[2020-01-14] MEDS: MELATONIN 3 MG TABLET PO SCH (22:09)
[2020-01-15] MEDS: ACETAMINOPHEN 500 MG TAB PO PRN ×2 (02:12→20:47)
[2020-01-15] MEDS: METOPROLOL TAR 25 MG TAB PO SCH ×2 (05:40→16:52)
[2020-01-15] MEDS: FUROSEMIDE 40 MG/4 ML VIAL IV SCH (08:28)
[2020-01-15] MEDS: AMOX/K CLAV 875 MG TAB PO SCH ×2 (08:28→20:46)
[2020-01-15] MEDS: DOXYCYCLINE 100 MG CAP PO SCH ×2 (08:28→20:46)
[2020-01-15] MEDS: POLYETHYL GLY 3350 17 GM/DOSE PO SCH (08:28)
[2020-01-15] MEDS: POTASSIUM CL SA 10 MEQ TAB PO SCH (08:28)
[2020-01-15] MEDS: GABAPENTIN 300 MG CAP PO SCH ×3 (08:28→20:46)
[2020-01-15] MEDS: RIVAROXABAN 20 MG TABLET PO SCH (08:28)
[2020-01-15] MEDS: ASPIRIN EC 81 MG TAB PO SCH (08:28)
[2020-01-15] MEDS: MUPIROCIN 2% OINT 22GM TUBE TOP SCH (08:29)
[2020-01-15] MEDS: PROMOD 30 ML DOSE PO SCH ×2 (08:29→20:47)
[2020-01-15] MEDS: ACETIC ACID 0.25% IRRIG IRR SCH (13:49)
--- NOTE | 2020-01-15 14:57 | P.PN ---
Subjective Date of Service: 01/15/20 Chief Complaint: INFECTED LOWER EXTREMITY WOUND Patient has no complain. Patient states he is doing much better His lower extremity edema has improved significantly. Significant diuresis with negative fluid balance from yesterday. Patient is more mobile and functional. Physical Examination - Vital Signs Temperature: 98.2 F Blood Pressure: 92/73 Pulse: 124 Respirations: 18 Pulse Ox (%): 100 - Physical Exam General: Alert, In no apparent distress Neck: Supple Respiratory: Clear to auscultation bilaterally, Normal air movement Cardiovascular: Regular rate/rhythm, Normal S1 S2, Edema (Bilateral lower extremities) Gastrointestinal: Soft and benign, No tenderness Musculoskeletal: Other (Bilateral lower extremity lymphedema.) Integumentary: Other (Bilateral lower extremity venostasis dermatitis, worse on the right.) Neurological: Other (Nonfocal.) - Studies Microbiology Data (last 24 hrs): 01/09/20 10:35 Blood - Blood Aerobic Blood Culture - Final No growth in 5 days. 01/09/20 10:35 Blood - Blood Anaerobic Blood Culture - Final No growth in 5 days. 01/09/20 10:42 Blood - Blood Aerobic Blood Culture - Final No growth in 5 days. 01/09/20 10:42 Blood - Blood Anaerobic Blood Culture - Final No growth in 5 days. Assessment And Plan - Current Problems (Diagnosis) (1) Septic shock Current Visit: Yes Status: Resolved (2) Wound of lower extremity Current Visit: Yes Status: Acute (3) COPD (chronic obstructive pulmonary disease) Current Visit: No Status: Acute (4) Dementia Current Visit: No Status: Acute (5) Lymphedema Current Visit: No Status: Acute (6) Chronic kidney disease, stage 3 Current Visit: Yes Status: Acute - Plan Oral Augmentin and doxycycline. Patient planned for 7 days of antibiotics Blood cultures: No growth to date. Urine cultures: Mixed growth. Wound care team input appreciated. Continue wound care. Transition IV Lasix to to oral. Keep lower extremities elevated. Continue Xarelto. Continue metoprolol for rate control Continue PT. Patient planned for disposition to skilled rehab.
[2020-01-15] MEDS: FUROSEMIDE 40 MG TABLET PO SCH (16:52)
[2020-01-15] MEDS: MELATONIN 3 MG TABLET PO SCH (20:46)
[2020-01-15] MEDS: TRAZODONE 150 MG TAB PO SCH (20:46)
[2020-01-15] MEDS: ATORVASTATIN 40 MG TAB PO SCH (20:46)
[2020-01-16 04:21] LABS: Potassium 3.7 mmol/L (3.5-5.1)
[2020-01-16] MEDS ORDERED: POTASSIUM CL SA 10 MEQ TAB PO ONE (04:40)
[2020-01-16] MEDS: METOPROLOL TAR 25 MG TAB PO SCH ×2 (05:09→17:03)
[2020-01-16] MEDS: PROMOD 30 ML DOSE PO SCH ×2 (09:00→21:36)
[2020-01-16] MEDS: AMOX/K CLAV 875 MG TAB PO SCH ×2 (10:32→21:35)
[2020-01-16] MEDS: RIVAROXABAN 20 MG TABLET PO SCH (10:32)
[2020-01-16] MEDS: ASPIRIN EC 81 MG TAB PO SCH (10:32)
[2020-01-16] MEDS: FUROSEMIDE 40 MG TABLET PO SCH ×2 (10:33→17:02)
[2020-01-16] MEDS: DOXYCYCLINE 100 MG CAP PO SCH ×2 (10:33→21:35)
[2020-01-16] MEDS: GABAPENTIN 300 MG CAP PO SCH ×3 (10:33→21:35)
[2020-01-16] MEDS: POLYETHYL GLY 3350 17 GM/DOSE PO SCH (10:33)
[2020-01-16] MEDS: POTASSIUM CL SA 10 MEQ TAB PO SCH (10:33)
--- NOTE | 2020-01-16 16:06 | P.PN ---
Subjective Date of Service: 01/16/20 Chief Complaint: INFECTED LOWER EXTREMITY WOUND Subjective: Improving (reports doing well, concerned about exercise tolerance, wanting to go to rehab) Physical Examination - Vital Signs Temperature: 98.7 F Blood Pressure: 103/65 Pulse: 122 Respirations: 20 Pulse Ox (%): 100 - Physical Exam General: Alert, In no apparent distress HEENT: Sclerae nonicteric Neck: Supple Respiratory: Clear to auscultation bilaterally, Normal air movement Cardiovascular: Edema (Bilateral lower extremities), Irregular heart rate/rhythm Gastrointestinal: Soft and benign, Non-distended, No tenderness Integumentary: Other (Bilateral lower extremity lymphedema) Neurological: Normal speech, Normal affect Assessment & Plan Physician Review Additional Text: Septic shock Wound of lower extremity Chronic diastolic heart failure Lymphedema Chronic kidney disease, stage 3 Dementia HTN COPD Septic shock Wound of lower extremity -transitioned to oral Augmentin and doxy. plan for total 7 days of antibiotis -blood cultures: NGTD, Urine: mixed chen -wound care consulted Chronic diastolic heart failure Lymphedema Chronic kidney disease, stage 3 -transitioned from IV lasix to PO -kidney function stable -continuing to improve Dementia Chronic Aflutter -continue home beta cecil, xarelto HTN -holding her home lisinopril in setting of low-normal BP COPD (chronic obstructive pulmonary disease) -stable, no acute exacerbation Dispo: to skilled rehab, pending approval Time Spent Managing Pts Care (In Minutes): 33
[2020-01-16] MEDS: MELATONIN 3 MG TABLET PO SCH (21:35)
[2020-01-16] MEDS: ATORVASTATIN 40 MG TAB PO SCH (21:35)
[2020-01-16] MEDS: TRAZODONE 150 MG TAB PO SCH (21:35)
[2020-01-16] MEDS: MUPIROCIN 2% OINT 22GM TUBE TOP SCH (22:07)
[2020-01-17 04:38] LABS: BUN Blood Urea Nitrogen 24 mg/dL (7-18); Bicarbonate 32 mmol/L (21-32); Glucose Level 96 mg/dL (74-106); Sodium Level 141 mmol/L (136-145)
[2020-01-17] MEDS: METOPROLOL TAR 25 MG TAB PO SCH ×2 (06:26→16:45)
[2020-01-17] MEDS: AMOX/K CLAV 875 MG TAB PO SCH ×2 (08:34→20:32)
[2020-01-17] MEDS: RIVAROXABAN 20 MG TABLET PO SCH (08:34)
[2020-01-17] MEDS: POTASSIUM CL SA 10 MEQ TAB PO SCH (08:34)
[2020-01-17] MEDS: ASPIRIN EC 81 MG TAB PO SCH (08:34)
[2020-01-17] MEDS: DOXYCYCLINE 100 MG CAP PO SCH ×2 (08:34→20:32)
[2020-01-17] MEDS: FUROSEMIDE 40 MG TABLET PO SCH ×2 (08:35→16:50)
[2020-01-17] MEDS: GABAPENTIN 300 MG CAP PO SCH ×3 (08:35→20:32)
[2020-01-17] MEDS: POLYETHYL GLY 3350 17 GM/DOSE PO SCH (08:35)
[2020-01-17] MEDS: PROMOD 30 ML DOSE PO SCH ×2 (08:36→20:33)
[2020-01-17] MEDS: MUPIROCIN 2% OINT 22GM TUBE TOP SCH (08:37)
[2020-01-17] MEDS: ENSURE HIGH PROTEIN 237 ML CAN PO SCH (13:10)
--- NOTE | 2020-01-17 15:03 | P.PN ---
Subjective Date of Service: 01/17/20 Chief Complaint: INFECTED LOWER EXTREMITY WOUND Subjective: No new changes (continuing to feel well. RLE wrapped overnight feels ready to get out of the hospital) Physical Examination - Vital Signs Temperature: 98.3 F Blood Pressure: 90/61 Pulse: 121 Respirations: 20 Pulse Ox (%): 99 - Physical Exam General: Alert, In no apparent distress HEENT: EOMI, Sclerae nonicteric Neck: Supple, JVD not distended Respiratory: Clear to auscultation bilaterally, Normal air movement Cardiovascular: Regular rate/rhythm, Normal S1 S2 Gastrointestinal: Soft and benign, Non-distended, No tenderness Integumentary: Other (bilateral lower extremity lymphedema. RLE wrapped in PAMELLA bandage) Neurological: Normal speech, Normal affect Assessment & Plan Physician Review Additional Text: Septic shock Wound of lower extremity Chronic diastolic heart failure Lymphedema Chronic kidney disease, stage 3 Dementia HTN COPD Septic shock Wound of lower extremity -transitioned to oral Augmentin and doxy. plan for total 7 days of antibiotics -blood cultures: NGTD, Urine: mixed chen -wound care consulted for RLE wounds Chronic diastolic heart failure Lymphedema Chronic kidney disease, stage 3 -transitioned from IV lasix to PO (home dose) -kidney function stable -continuing to improve Dementia Chronic Aflutter -continue home beta cecil, xarelto HTN -holding home lisinopril in setting of low-normal BP COPD (chronic obstructive pulmonary disease) -stable, no acute exacerbation Dispo: to skilled rehab, pending approval could benefit from PT as well as wound care Time Spent Managing Pts Care (In Minutes): 25
[2020-01-17] MEDS: ACETIC ACID 0.25% IRRIG IRR SCH (17:01)
[2020-01-17] MEDS: TRAZODONE 150 MG TAB PO SCH (20:32)
[2020-01-17] MEDS: ATORVASTATIN 40 MG TAB PO SCH (20:32)
[2020-01-17] MEDS: MELATONIN 3 MG TABLET PO SCH (20:32)
[2020-01-18 04:28] LABS: BUN Blood Urea Nitrogen 24 mg/dL (7-18); Bicarbonate 33 mmol/L (21-32); Glucose Level 90 mg/dL (74-106); Potassium 3.8 mmol/L (3.5-5.1); Sodium Level 141 mmol/L (136-145)
[2020-01-18] MEDS: METOPROLOL TAR 25 MG TAB PO SCH ×2 (06:22→17:02)
[2020-01-18] MEDS ORDERED: POTASSIUM CL SA 10 MEQ TAB PO ONE (08:00)
[2020-01-18] MEDS: POTASSIUM CL SA 10 MEQ TAB PO SCH (08:46)
[2020-01-18] MEDS: AMOX/K CLAV 875 MG TAB PO SCH ×2 (08:47→21:15)
[2020-01-18] MEDS: DOXYCYCLINE 100 MG CAP PO SCH ×2 (08:47→21:15)
[2020-01-18] MEDS: FUROSEMIDE 40 MG TABLET PO SCH ×2 (08:47→16:53)
[2020-01-18] MEDS: RIVAROXABAN 20 MG TABLET PO SCH (08:47)
[2020-01-18] MEDS: ASPIRIN EC 81 MG TAB PO SCH (08:47)
[2020-01-18] MEDS: PROMOD 30 ML DOSE PO SCH ×2 (08:48→21:00)
[2020-01-18] MEDS: ENSURE HIGH PROTEIN 237 ML CAN PO SCH (08:48)
[2020-01-18] MEDS: GABAPENTIN 300 MG CAP PO SCH ×3 (08:48→21:15)
[2020-01-18] MEDS: POLYETHYL GLY 3350 17 GM/DOSE PO SCH (08:50)
[2020-01-18] MEDS: MUPIROCIN 2% OINT 22GM TUBE TOP SCH (08:55)
--- NOTE | 2020-01-18 15:50 | P.PN ---
Subjective Date of Service: 01/18/20 Chief Complaint: INFECTED LOWER EXTREMITY WOUND Subjective: No new changes (Continuing to do well, working with physical therapy, without complaints this morning) Physical Examination - Vital Signs Temperature: 97.8 F Blood Pressure: 112/73 Pulse: 51 Respirations: 18 Pulse Ox (%): 95 - Physical Exam General: Alert, In no apparent distress Neck: No LAD Respiratory: Clear to auscultation bilaterally, Normal air movement Cardiovascular: Regular rate/rhythm Gastrointestinal: Soft and benign, Non-distended, No tenderness Integumentary: Other (Bilateral lymphedema, RLE: Wrapped in Raciel bandage, ABD pads with slight serous drainage) Neurological: Normal speech, Normal affect Assessment & Plan Physician Review Additional Text: Septic shock Wound of lower extremity Chronic diastolic heart failure Lymphedema Chronic kidney disease, stage 3 Dementia HTN COPD Septic shock Wound of lower extremity -transitioned to oral Augmentin and doxy. Day 9 of antibiotics, will complete 10 days total -blood cultures: NGTD, Urine: mixed chen -wound care consulted for RLE wounds Chronic diastolic heart failure Lymphedema Chronic kidney disease, stage 3 -transitioned from IV lasix to PO (home dose) a few days ago -kidney function stable -continuing to improve Dementia Chronic Aflutter -continue home beta cecil, xarelto HTN -holding home lisinopril in setting of low-normal BP COPD (chronic obstructive pulmonary disease) -stable, no acute exacerbation Dispo: Had peer to peer review with [employer] - patient does not qualify for rehab, but will prepared for SNF. SW/CM discussing options with family patient will highly benefit from PT/OT Time Spent Managing Pts Care (In Minutes): 25
[2020-01-18] MEDS: ATORVASTATIN 40 MG TAB PO SCH (21:15)
[2020-01-18 21:41] VITALS: O2SAT 98
[2020-01-18] MEDS: MELATONIN 3 MG TABLET PO SCH (23:57)
[2020-01-18] MEDS: TRAZODONE 150 MG TAB PO SCH (23:57)
[2020-01-19 04:19] LABS: Potassium 3.9 mmol/L (3.5-5.1)
[2020-01-19] MEDS: METOPROLOL TAR 25 MG TAB PO SCH ×2 (06:33→18:03)
[2020-01-19] MEDS: AMOX/K CLAV 875 MG TAB PO SCH (08:42)
[2020-01-19] MEDS: RIVAROXABAN 20 MG TABLET PO SCH (08:42)
[2020-01-19] MEDS: ASPIRIN EC 81 MG TAB PO SCH (08:42)
[2020-01-19] MEDS: ACETAMINOPHEN 500 MG TAB PO PRN (08:42)
[2020-01-19] MEDS: DOXYCYCLINE 100 MG CAP PO SCH (08:42)
[2020-01-19] MEDS: POLYETHYL GLY 3350 17 GM/DOSE PO SCH (08:43)
[2020-01-19] MEDS: ENSURE HIGH PROTEIN 237 ML CAN PO SCH (08:43)
[2020-01-19] MEDS: FUROSEMIDE 40 MG TABLET PO SCH ×2 (08:43→18:02)
[2020-01-19] MEDS: POTASSIUM CL SA 10 MEQ TAB PO SCH (08:43)
[2020-01-19] MEDS: GABAPENTIN 300 MG CAP PO SCH ×2 (08:43→15:16)
[2020-01-19] MEDS: PROMOD 30 ML DOSE PO SCH (08:44)
[2020-01-19] MEDS: MUPIROCIN 2% OINT 22GM TUBE TOP SCH (08:45)
--- NOTE | 2020-01-19 11:30 | P.PN ---
Subjective Date of Service: 01/19/20 Chief Complaint: INFECTED LOWER EXTREMITY WOUND Subjective: No new changes (Reports overall doing well, walking from bed to chair, no chest pain, no shortness of breath. States right lower extremity is improving - less swollen, skin is healing) Review of Systems 10-point ROS is otherwise unremarkable Physical Examination - Vital Signs Temperature: 98.2 F Blood Pressure: 106/59 Pulse: 60 Respirations: 18 Pulse Ox (%): 99 - Physical Exam General: Alert, In no apparent distress, Obese HEENT: Sclerae nonicteric Neck: Supple, No LAD Respiratory: Clear to auscultation bilaterally, Normal air movement Cardiovascular: Irregular heart rate/rhythm Gastrointestinal: Soft and benign, Non-distended, No tenderness Integumentary: Other (b/l lower extremity lymphedema, right worse than left. RLE: dressing taking down this morning, erythema and minimal serous drainage on dorsum of foot. healing, no ulcerations) Neurological: Normal speech, Normal affect Assessment & Plan Physician Review Additional Text: Septic shock Wound of lower extremity Chronic diastolic heart failure Lymphedema Chronic kidney disease, stage 3 Dementia Chronic aflutter HTN COPD Septic shock Wound of lower extremity -transitioned to oral Augmentin and doxy. Day 10 of 10 antibiotics today -blood cultures: NGTD, Urine: mixed chen -wound care consulted for RLE wounds - continues alginate dressings, kerlix, irving bandage Chronic diastolic heart failure Lymphedema Chronic kidney disease, stage 3 -transitioned from IV lasix to PO (home dose) a few days ago -kidney function stable, doing well Dementia Chronic Aflutter -continue home beta cecil, xarelto HTN -holding home lisinopril in setting of low-normal BP COPD (chronic obstructive pulmonary disease) -stable, no acute exacerbation Dispo: [employer] denied rehab, but stated will qualify for SNF. SW/CM discussing options with family Patient will highly benefit from PT/OT Time Spent Managing Pts Care (In Minutes): 25
[2020-01-19] MEDS ORDERED: CYCLOBENZAPRINE 10 MG TAB PO ONE (11:39)
--- NOTE | 2020-01-19 16:32 | P.DS ---
Admission Date: 01/09/20 Discharge Date: 01/19/20 Disposition: TRANSFER TO JAIL Reason for Admission: INFECTED LOWER EXTREMITY WOUND Consultations: none Procedures: CXR (01/08): mild interstitial pulmonary edema is seen. heart is moderately enlarged. dual lead pacer device is present B/L lower extremity doppler U/S (01/08): Distal right lower extremity arterial system demonstrates monophasic waveform suggesting mild distal peripheral vascular disease Problem List Septic shock secondary to RLE cellulitis Chronic diastolic heart failure Lymphedema Chronic kidney disease, stage 3 Dementia Chronic aflutter/afib HTN COPD Brief History of Present Illness: 79-year-old snf resident with a history of lower extremity lymphedema, hypertension, chronic diastolic heart failure on Lasix therapy was brought to the emergency department due to altered mental status, hypotension and worsening right lower extremity wound. Patient noted to have systolic blood pressure in the low 80s, tachycardia. Patient received about 750 mg bolus of normal saline, systolic blood pressure up to the low 90s. He has no leukocytosis. Pro calcitonin and CRP elevated, normal lactate. Chest x-ray showed mild CHF or volume overload. There is a concern for septic shock secondary infected lower extremity wound. Hospital Course: Patient was treated for septic shock secondary to his RLE cellulitis with IV antibiotics and eventually transitioned to oral Augmentin and Doxycycline. His cultures remained negative. He was initially treated with IV lasix as well to aid in diuresis of his lower extremity edema / lymphedema. Over the course of his hospitalization his lower extremity edema improved and his RLE skin abrasions / weeping improved as well. (wound care noted below). His kidney function remained stable during his hospitalization. The patient and his family wanted the patient to go to inpatient rehab for aggressive physical therapy as patient had been minimally ambulatory over the past few months. Unfortunately his insurance denied approval for inpatient rehab, but he was able to get approval for SNF. He was ultimately discharged to a SNF on 01/18 for further wound care and physical therapy. He completed a 10 day course of antibiotics. Of note, patient was prescribed Tylenol #3 prior to admission, unknown reason. PDMP was reviewed and no red flags. He did not complain of significant pain and this was not continued during his hospitalization. He did not ask for it either so I removed it from his active medications. Vital Signs/Physical Exam: Temp Pulse Resp BP Pulse Ox 98.4 F 108 H 18 101/52 L 96 01/19/20 12:00 01/19/20 12:00 01/19/20 12:00 01/19/20 12:00 01/19/20 12:00 General: Alert, In no apparent distress, Obese HEENT: Mucous membr. moist/pink, Sclerae nonicteric Neck: JVD not distended Respiratory: Clear to auscultation bilaterally, Normal air movement Cardiovascular: Irregular heart rate/rhythm Gastrointestinal: Soft and benign, Non-distended, No tenderness Integumentary: Other (bilateral lower extremity lymphedema. RLE: slightly more erythematous, weeping minimal serous drainage on dorsal aspect of foot, no ulcerations.) Neurological: Normal speech, Normal affect Laboratory Data at Discharge: WBC 8.6 K/uL (4.3-10.9) 01/12/20 03:22 Hgb 10.8 g/dL (13.6-17.9) L 01/12/20 03:22 Hct 33.0 % (39.6-49.0) L 01/12/20 03:22 Plt Count 111 K/uL (152-406) L 01/12/20 03:22 PT 19.2 SECONDS (9.5-12.5) H 01/10/20 03:47 INR 1.64 01/10/20 03:47 APTT 35.5 SECONDS (24.3-36.9) 01/09/20 10:42 Sodium 140 mmol/L (136-145) 01/19/20 03:23 Potassium 3.9 mmol/L (3.5-5.1) 01/19/20 03:23 BUN 23 mg/dL (7-18) H 01/19/20 03:23 Creatinine 0.90 mg/dL (0.55-1.3) 01/19/20 03:23 Glucose 87 mg/dL (74-106) 01/19/20 03:23 Phosphorus 2.8 mg/dL (2.5-4.9) 01/10/20 03:47 Magnesium 2.0 mg/dL (1.8-2.4) 01/17/20 03:38 Home Medications: Acetic Acid 0.25% [Acetic Acid 0.25%*] 1,000 ml IRR M,W,F 01/09/20 Aspirin [Aspirin EC 81 MG] 81 mg PO DAILY 01/09/20 Atorvastatin Calcium [Lipitor] 40 mg PO BEDTIME 01/09/20 Furosemide 40 mg PO BID 01/09/20 Gabapentin 300 mg PO TID 01/09/20 Ipratropium Neb [Atrovent*] 1 aer NEB Q6HP PRN 01/09/20 Melatonin [Melatonin*] 3 mg PO BEDTIME 01/09/20 Mupirocin 2 % TOP DAILY 01/09/20 Polyethyl Gly 3350 [Glycolax*] 17 gm PO DAILY 01/09/20 Potassium Chloride [K-Dur] 20 meq PO DAILY 01/09/20 Rivaroxaban [Xarelto] 20 mg PO DAILY 01/09/20 Trazodone [Desyrel*] 150 mg PO BEDTIME 01/09/20 Metoprolol Tartrate [Lopressor*] 12.5 mg PO BID 30 Days #30 tab 01/19/20 New Medications: Metoprolol Tartrate [Lopressor*] 12.5 mg PO BID 30 Days #30 tab Patient Discharge Instructions: Follow up with PCP within 1 week of discharge from SNF. BLE wound care: soap & water, A&D ointment. RLE: Algisite & ABD pads to draining areas. Kerlix & PAMELLA to 2" below knee. Wednesday, Wed, Wed - acetic acid on RLE Diet: AHA Activity: Ad jessika Time spent managing pt's care (in minutes): 35
[2020-01-19 17:08] VITALS: BP 125/70; TEMP 98.1
== END 2020-01-19 19:00 | DRG 871 ==
LOC: ER 10:23 → ERHOLD 14:29 → 4TH 01-10 11:09
PROVIDERS: ADMIT Internal Medicine; ATTEND Hospitalist
DX: A41.9 Sepsis, unspecified organism (principal); R65.21 Severe sepsis with septic shock; I50.32 Chronic diastolic (congestive) heart failure; I13.0 Hypertensive heart and chronic kidney disease with heart failure and stage 1 through stage 4 chronic kidney disease, or unspecified chronic kidney disease; N17.9 Acute kidney failure, unspecified; I48.92 Unspecified atrial flutter; L03.115 Cellulitis of right lower limb; N18.3 Chronic kidney disease, stage 3 (moderate); E78.5 Hyperlipidemia, unspecified; F03.90 Unspecified dementia, unspecified severity, without behavioral disturbance, psychotic disturbance, mood disturbance, and anxiety; J44.9 Chronic obstructive pulmonary disease, unspecified; I89.0 Lymphedema, not elsewhere classified; E66.9 Obesity, unspecified; Z68.35 Body mass index [BMI] 35.0-35.9, adult; Z88.8 Allergy status to other drugs, medicaments and biological substances; Z91.018 Allergy to other foods; Z79.82 Long term (current) use of aspirin; Z79.01 Long term (current) use of anticoagulants; Z79.899 Other long term (current) drug therapy; Z86.718 Personal history of other venous thrombosis and embolism; Z95.2 Presence of prosthetic heart valve; Z99.3 Dependence on wheelchair; Z20.828 Contact with and (suspected) exposure to other viral communicable diseases
CPT/HCPCS: 36415; 71045; 80048; 80202; 81003; 81015; 82947; 83605; 83735; 83880; 84100; 84145; 84484; 85025; 85610; 85730; 86140; 87040; 87086; 87088; 93005; 93925; 97110; 97112; 97161; 97530; 99251; 99285; J0692; J1940; J2405; J3370; J7030; J7040; U0003

== ENCOUNTER 2020-04-17 21:42 | Inpatient (IN) | payer OTHER ==
--- OUTSIDE RECORDS SUMMARY | 2020-04-17 21:44 | XMS REPORT | Continuity of Care Document ---
:1940 Author Organization [facility] Address [address] [place] [address] Care Team Providers Name Role Phone Macie COLUNGA T. Primary Care Physician Deven Abreu MD Attending Clinician Doctor Unassigned, Name Attending Clinician Unavailable Janes Ledezma MD Attending Clinician Problems Condition Condition Condition Status Onset Resolution Last Treating Co mments Source Name Details Category Date Date Treatment Clinician Date Sciatica Sciatica Disease Active [place] on 11-25 Methodi 00:00: st 00 Allergies, Adverse Reactions, Alerts This patient has no known allergies or adverse reactions. Family History Family Member Diagnosis Comments Start Date Stop Date Source [facility] mother [facility] Social History Social Habit Start Date Stop Date Quantity Comments Source Sex Assigned At [facility] Alcohol intake 2016-12-01 2016-12-01 Current drinker [facility] 00:00:00 00:00:00 of alcohol (finding) Alcohol Comment 2016-11-25 2016-11-25 Very rare [facility] Smoking Status Start Date Stop Date Source Never smoker [facility] Medications Ordered Filled Start Stop Current Ordering Indication Dosage Frequency Signature Comments Components Source Medication Medication Date Date Medication? Clinician (SIG) Name Name sildenafil Yes 100mg Q24H Take 100 [place] (VIAGRA) 8-01 mg by [facility] 100 MG 12:31: mouth st tablet 09 daily as needed for erectile dysfunctio n. albuterol Yes 2{puff} Q6H Inhale 2 [place] (PROAIR 8-01 puffs Methodi HFA,PROVENT 12:31: every 6 st [place] 09 (six) HFA,VENTOLI hours as N HFA) 90 needed for mcg/actuati wheezing. on inhaler cyclobenzap Yes 10mg Q.5D Take 10 mg Blackman rine 8- by mouth 2 Methodi (FLEXERIL) 12:31: (two) st 10 mg 09 times a tablet day as needed for muscle spasms. lisinopril- Yes 1{tbl} QD Take 1 [place] hydrochloro 8- tablet by Met hodmarlin thiazide 12:31: mouth st (PRINZIDE,Z 09 daily. ESTORETIC) 20-25 mg per tablet zolpidem Yes 10mg QD Take 10 mg Eleazar ston (AMBIEN) 10 12-01 by mouth Meth tyler mg tablet 12:31: nightly as st 09 needed for sleep. Procedures This patient has no known procedures. Plan of Care Planned Activity Planned Date Details Comments Source Future Scheduled 2019-12-02 INFLUENZA VACCINE [place] [facility] 00:00:00 [code = INFLUENZA VACCINE] Future Scheduled 2004-11-21 65+ PNEUMOCOCCAL [place] [facility] 00:00:00 VACCINE (1 of 1 - PPSV23) [code = 65+ PNEUMOCOCCAL VACCINE (1 of 1 - PPSV23)] Future Scheduled 1989-11-21 SHINGLES VACCINES (#1) [facility] 00:00:00 [code = SHINGLES VACCINES (#1)] Future Scheduled 1955 COVID-19 VACCINE (#1) [facility] 00:00:00 [code = COVID-19 VACCINE (#1)] Encounters Start End Encounter Admission Attending Care Care Encounter Source Date/Time Date/Time Type Type Clinicians Facility Department ID 2020-02-01 2020-02-01 Telephone ELIJAH Abreu [id number] 00:00:00 00:00:00 [facility] [id number] Clear [id number] [place] [address] [phone] Medical [address] 2019-11-24 2019-11-24 Orders Doctor JHON [id number] 00:00:00 00:00:00 Only Unassigned, HALIMA [id number] [place] [facility] [id number] 2019-07-05 2019-07-05 Non [facility], [facility] [id number] 00:00:00 00:00:00 Facility Asha [facility] [id number] Janes [facility] [id number] [place] [id number] [facility] Results This patient has no known results.
--- OUTSIDE RECORDS SUMMARY | 2020-04-17 21:44 | XMS REPORT | Clinical Summary ---
:1940 Author Organization [facility] Address [address] [place] [address] Care Team Providers Name Role Phone Salvador Quijano MD Primary Care Provider Allergies No Known Active Allergies Medications Medication Sig Dispensed Refills Start Date End Date Status sildenafil (VIAGRA) 100 Take 100 mg by 0 Active MG tablet mouth daily as needed for erectile dysfunction. albuterol (PROAIR Inhale 2 puffs 0 Active HFA,PROVENTIL every 6 (six) HFA,VENTOLIN HFA) 90 hours as needed mcg/actuation inhaler for wheezing. cyclobenzaprine Take 10 mg by 0 Active (FLEXERIL) 10 mg tablet mouth 2 (two) times a day as needed for muscle spasms. lisinopril-hydrochloroth Take 1 tablet by 0 Active iazide mouth daily. (PRINZIDE,ZESTORETIC) 20-25 mg per tablet zolpidem (AMBIEN) 10 mg Take 10 mg by 0 Active tablet mouth nightly as needed for sleep. Active Problems Problem Noted Date Sciatica 11/25/2016 Surgical History Surgery Date Site/Laterality Comments KNEE ARTHROPLASTY 05/03/2012 - 05/02/2013 Left CARDIAC SURGERY CHOLECYSTECTOMY, LAPAROSCOPIC Medical History Medical History Date Comments Sleep apnea Asthma Pulmonary embolism (HCC) Cataract COPD (chronic obstructive pulmonary disease) (HCC) Deep vein thrombosis (HCC) History of transfusion Anemia Depression Coronary artery disease Hypertension Arthritis Sleep apnea, obstructive HLD (hyperlipidemia) Erectile dysfunction Family History Medical History Relation Name Comments Cancer Father Cancer Mother Heart disease Mother Relation Name Status Comments Father Mother Social History Tobacco Use Types Packs/Day Years Used Date Never Smoker Alcohol Use Drinks/Week oz/Week Comments Yes Very rare Sex Assigned at Date Recorded Not on file Last Filed Vital Signs Not on file Plan of Treatment Health Maintenance Due Date Last Done Comments COVID-19 VACCINE (#1) 1956 SHINGLES VACCINES (#1) 11/21/1989 65+ PNEUMOCOCCAL VACCINE (1 of 1 - PPSV23) 11/21/2004 INFLUENZA VACCINE 12/02/2019 Results Not on fileafter 04/17/2019 Insurance Payer Benefit Plan / Subscriber ID Effective Dates Phone Addre ss Type Group HUMANA EXCHANGE HUMANA PPO [id number] 2009-Present Exchange EXCHANGE HUMANA HUMANA CHOICE [id number] 2016-Present PPO CARE PPO Advance Directives For more information, please contact: [phone] Type Date Recorded 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
--- OUTSIDE RECORDS SUMMARY | 2020-04-17 21:44 | XMS REPORT | Summary of Care ---
:1940 Author Organization [facility] Address [address] [place] [id number] Care Team Providers Name Role Phone Grisel Oliva DO Primary Care Provider Reason for Visit Reason Comments Follow-up Encounter Details Date Type Department Care Team Description 02/01/2020 Telephone [facility] Cardiology, Tera Hoyt MD Follow-up [id number] [place] [address], [address] [place] [address] [place] [address] [phone] Allergies Active Allergy Reactions Severity Noted Date Comments Blueberry Shortness of Breath Medium 04/05/2019 Apixaban Rash Medium 01/17/2019 documented as of this encounter (statuses as of 02/01/2020) Medications Medication Sig Dispensed Refills Start Date End Date Status atorvastatin 40 mg Take 1 tablet by 30 tablet 3 12/09/2018 Active tabletIndications: mouth daily. SOB (shortness of breath) furosemide 40 mg Take 1 tablet by 30 tablet 3 12/09/2018 Active tabletIndications: mouth daily. SOB (shortness of breath) Polyethylene Glycol Take 1 Packet by 30 Packet 3 12/09/2018 Active 3350 (MIRALAX) 17 mouth daily. gram powderIndications: SOB (shortness of breath) lisinopril 20 mg Take 20 mg by 0 Active tablet mouth daily. gabapentin 300 mg Take 300 mg by 0 Active capsule mouth 3 (three) times daily. traZODone 100 mg Take 1 tablet by 0 12/28/2018 Active tablet mouth at bedtime. rivaroxaban (XARELTO) Take 1 tablet by 30 tablet 11 02/25/2019 Active 20 mg mouth daily. tabletIndications: S/P TAVR (transcatheter aortic valve replacement) aspirin 81 mg EC Take 1 tablet by 90 tablet 2 05/16/2019 Active tabletIndications: mouth daily. 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 melatonin 3 mg tablet Take 1 tablet by 0 06/07/2019 Active mouth at bedtime. acetaminophen-codeine Take 1 tablet by 120 tablet 0 07/17/2019 Active 300-30 mg mouth every 6 tabletIndications: (six) hours. Chronic pain of right knee documented as of this encounter (statuses as of 02/01/2020) Active Problems Problem Noted Date Knee pain 05/29/2019 Encounter for postoperative enabling of ICD 04/05/2019 S/P TAVR (transcatheter aortic valve replacement) 02/01 Aortic valve stenosis, etiology of cardiac valve disea se unspecified 02/10/2019 Overview: Added automatically from request for paramjit gomez [id number] Community acquired pneumonia 11/21/2018 SOB (shortness of breath) 11/19/2018 documented as of this encounter (statuses as of 02/01/2020) Social History Tobacco Use Types Packs/Day Years Used Date Never Smoker Smokeless Tobacco: Never Used Alcohol Use Drinks/Week oz/Week Comments Not Currently Sex Assigned at Date Recorded Not on file documented as of this encounter Last Filed Vital Signs Not on filedocumented in this encounter Miscellaneous Notes Telephone Encounter - Pily Hairston RN - 02/01/2020 3:21 PM CDTSpoke with patient to schedule follow up appointment. Patient stated that he is now in a jail in [place] and will be unable to follow up with our office for his 1 year s/p TAVR appointment and echo. I asked if I could arrange a telehealth appointment and he stated that he would rather not at this time. documented in this encounter Plan of Treatment Date Type Specialty Care Team Description 03/26/2020 Office Visit Cardiology Faculty, Cardiology Valve Health Maintenance Due Date Last Done Comments DTaP,Tdap,and Td Vaccines (1 - Tdap) 11/21/1958 Zoster Recombinant Vaccine (SHINGRIX) (1 of 2) 11/21/1989 Medicare Wellness Visit 11/21/2004 PNEUMOCOCCAL VACCINES 65+ (1 of 1 - PPSV23) 11/21/2004 INFLUENZA VACCINE (#1) 2020 Depression Screening 05/16/2020 05/16/2019 documented as of this encounter Implants Implanted Type Area Mortar Worker Device Shelf Model / Identifier Expiration Serial / Date Lot Occlusion Device, Gabriel Proglide 6f #[id number] - Sn/A OCCLUSION Right: Gabriel 11/30/2020 [id number] / Implanted: Qty: 2 on 02/23/2019 by Zack Coulter MD at [facility] DEVICE PlayWith N/A / Inc [id number] Rankin Padmaja 3 Tavr Valve VALVE Heart Rankin Life 11/12/2020 [id number] / Implanted: Qty: 1 on 02/23/2019 by Zack Coulter MD at [facility] Science [id number] / 0 documented as of this encounter Results Not on filedocumented in this encounter Insurance Payer Benefit Plan / Subscriber ID Effective Dates Phone Addre ss Type Group HUMANA - HUMANA [id number] 2017-[facility] [place] Adv MANAGED MEDICARE ERS t PPO MEDICARE documented as of this encounter Advance Directives Name Relationship Healthcare Agent Communication Relationship Ivy Crowley Child 2 - Health Care Agent (Medical Power of Modeling Analyst) (Mob ile)
[2020-04-17] MEDS ORDERED: NA CHLORIDE 0.9% 2,000 ML ONE (22:09)
[2020-04-17 22:15] LABS: Absolute Lymphocytes (CBC) 0.6 K/uL (0.7-4.9); Basophils % 0.4 % (0-1.3); Hematocrit 27.9 % (39.6-49.0); Lymphocytes % 8.2 % (15.3-44.8); MPV 9.3 fL (7.6-11.3); RBC Red Blood Cell Count 3.16 M/uL (4.33-5.43)
[2020-04-17 22:19] LABS: Protime INR 1.91
[2020-04-17] MEDS ORDERED: VANCOMYCIN 1 GM/VIAL ONE (22:23)
[2020-04-17] MEDS ORDERED: NA CHLORIDE 0.9% 250 ML ONE (22:23)
[2020-04-17 22:30] LABS: ALT/SGPT 15 U/L (12-78); AST/SGOT 23 U/L (15-37); Albumin 2.5 g/dL (3.4-5.0); Alkaline Phosphatase 88 U/L (45-117); Amylase 26 U/L (25-115); BUN Blood Urea Nitrogen 50 mg/dL (7-18); Bicarbonate 28 mmol/L (21-32); Bilirubin Direct 0.5 mg/dL (0-0.2); Bilirubin Total 0.9 mg/dL (0.2-1.0); CKMB Creatine Kinase MB < 1.0 ng/mL (0.3-3.6); Creatine Phosphokinase 70 U/L (39-308); Glucose Level 82 mg/dL (74-106); Lipase 79 U/L (73-393); NT PRO-BNP 2163 pg/mL (<450); Protein, Total 6.8 g/dL (6.4-8.2); Sodium Level 141 mmol/L (136-145); Troponin (Emerg Dept Use Only) 0.06 ng/mL (0.0-0.045)
[2020-04-17] MEDS ORDERED: NOREPINEPHRINE 4mg/D5W 250mL 4 MG/250 ML BAG IV ONE (22:50)
[2020-04-17 23:12] LABS: Blood Morphology Comment NOT SEEN (NOT SEEN); Platelet Estimate DECR
[2020-04-17 23:35] LABS: Arterial Blood Carboxyhemoglob 1.4 % (0-1.5); Blood Gas Oxyhemoglobin 97.6 % (94-97); Blood O2 Saturation 99.8 % (92-98.5)
--- NOTE | 2020-04-18 00:30 | ER ---
Nurse's Notes [facility] Name: Man Crowley Age: 79 yrs Sex: Male : 1940 Arrival Date: 04/17/2020 Time: 21:48 Bed 3 Private MD: Diagnosis: Right Lower Extremity Cellulitis;Sepsis Presentation: 04/17 21:49 Chief complaint: EMS states: were called out for being lethargic, hypotensive 80's em systolic, on scene had 103 temp, was sinus tach, and SPO2 88%, was given 1 G [employer]IE[employer] STATION and 1 L, 18 G LAC, pt A\T\Ox3. Coronavirus screen: Client denies travel out of the [place] in the last 14 days. Ebola Screen: Patient negative for fever greater than or equal to 101.5 degrees Fahrenheit, and additional compatible Ebola Virus Disease symptoms Patient denies exposure to infectious person. Patient denies travel to an Ebola-affected area in the 21 days before illness onset. No symptoms or risks identified at this time. Initial Sepsis Screen: Does the patient meet any 2 criteria? RR > 20 per min. Temp <36.0*C (96.8*F)) or > 38.3*C (100.9*F). HR > 90 bpm. Yes Does the patient have a suspected source of infection? Yes: Productive cough/pneumonia Skin breakdown/wound If YES to both, name of provider notified: Juan Miguel Santos MD. Risk Assessment: Do you want to hurt yourself or someone else? Patient reports no desire to harm self or others. Onset of symptoms was April 17, 2020. 21:49 Method Of Arrival: EMS: [facility] em 21:49 Acuity: LUIS 1 em Historical: - Allergies: 21:52 Blueberry; em 21:52 Eliquis; em - PMHx: 21:52 CHF; DVT; bilateral; Hypertension; Nonrheumatic aortic valve stenosis; Obesity; em osteoarthritis; Prosthetic heart valve; Sleep Apnea; - Immunization history:: Adult Immunizations unknown. - Social history:: Smoking status: unknown. Screenin:22 Abuse screen: Denies threats or abuse. Nutritional screening: No deficits noted. ea Tuberculosis screening: No symptoms or risk factors identified. Fall Risk IV access (20 points). Assessment: 22:00 General: Appears uncomfortable, obese, Behavior is appropriate for age, drowsy. Pain: ea Denies pain. Neuro: Level of Consciousness is groggy. Oriented to person, place, time. Cardiovascular: Patient's skin is warm and dry. Cardiovascular: lymphedema noted to abner lower extremity, redness, swelling and warmth noted to right lower extremity . Respiratory: Airway is patent Respiratory effort is labored, Respiratory pattern is tachypnea. GI: Abdomen is obese. Derm: Skin is dry, Skin is pale, Skin temperature is warm. 22:52 Reassessment: Patient and/or family updated on plan of care and expected duration. Pain ea level reassessed. Respiratory at bedside, pt placed on BiPAP, pt tolerating well. 23:39 Reassessment: Daughter Ivy Dumont [phone]. ea 04/18 07:00 Reassessment: RECD REPORT FROM CHILO ANDERSON. PT ON ER HOLD, SEE [facility] FOR DOCUMENTATION.bp Vital Signs: 04/17 21:49 BP 70 / 55; Pulse 114; Resp 24; Temp 100.9(O); Pulse Ox 88% on R/A; em 21:52 Pulse Ox 93% on 3 lpm NC; em 22:05 Weight 104.33 kg; rr5 22:49 BP 85 / 57; Pulse 112; Resp 32; Temp 100.8; Pulse Ox 100% on Non-rebreather mask; ea 04/18 00:43 BP 83 / 41; Pulse 99; Resp 20; Temp 99.6; Pulse Ox 28% ; ea 04/17 21:49 placed on NC 3 LPM em ED Course: 21:48 Patient arrived in ED. em 21:51 Triage completed. em 21:52 Arm band placed on. em 21:53 Juan Miguel Santos MD is Attending Physician. 7 22:00 Patient has correct armband on for positive identification. Placed in gown. Bed in low ea position. Call light in reach. Side rails up X2. conveyor monitor on. Pulse ox on. NIBP on. 22:00 Inserted saline lock: 20 gauge in right forearm, using aseptic technique. Blood ea collected. 22:20 Solomon Marquez, RN is Primary Nurse. rr5 22:20 Yeni Rutherford, JUSTIN is Primary Nurse. ea 22:24 Chest Single View XRAY In Process Unspecified. EDMS 22:32 [place]by cath inserted, using sterile technique, 16 Fr., by ED staff, balloon inflated, to ea gravity drainage, urine specimen collected. returned clear yellow urine. Patient tolerated well. 23:11 Notified ED physician of a critical lab result(s). 26 percent bands. sg 04/18 00:15 Assisted provider with central line placement. Set up central line tray. Triple lumen ea line placed in left internal jugular. Line placed by Juan Miguel Santos MD Placement verified by blood return, Dressed with Tegaderm, Patient tolerated well. 00:29 Kyree Saavedra MD is Hospitalizing Provider. mh7 00:56 Praveen Brown MD is Hospitalizing Provider. mh7 00:59 Patient admitted, IV remains in place. ea 07:12 Primary Nurse role handed off by Yeni Rutherford, RN bp 07:12 Giovanni Ochoa, RN is Primary Nurse. bp Administered Medications: 04/17 22:00 Drug: NS 0.9% (30 ml/kg) 30 ml/kg Route: IV; Rate: bolus; Site: right antecubital; ea 23:24 Follow up: Response: No adverse reaction; IV Status: Completed infusion; IV Intake: ea 2000ml 22:15 Drug: vancoMYCIN 1 grams Route: IVPB; Infused Over: 2 hrs; Site: right forearm; ea 04/18 00:00 Follow up: Response: No adverse reaction; IV Status: Completed infusion; IV Intake: ea 250ml 04/17 23:30 Drug: Levophed (4 mg/250 mL D5W 4 mcg/min Route: IV; Rate: calculated rate; Site: left ea antecubital; 04/18 00:59 Follow up: IV Status: Infusion continued upon admission ea 00:42 Drug: Cefepime 1 grams Route: IVPB; Rate: 200 ml/hr; Infused Over: 30 mins; Site: right ea forearm; 01:20 Follow up: Response: No adverse reaction; IV Status: Completed infusion ea Intake: 04/17 22:15 IV: 1000ml (IV Fluid); Total: 1000ml. ea 23:24 IV: 2000ml; Total: 3000ml. ea 04/18 00:00 IV: 250ml; Total: 3250ml. ea Outcome: 00:30 Decision to Hospitalize by Provider. mh7 00:59 Admitted to ER Hold. Please see [facility] for further documentation. ea 00:59 Condition: stable 00:59 Instructed on the need for admit, Demonstrated understanding of instructions. 04/19 12:24 Patient left the ED. ph Signatures: Dispatcher [employer] EDGarcia Cope, RN RN Celestine Mectalf RN RN em Ingrdi Juan RN RN Yeni Rutherford RN Giovanni Shannon ea RN Solomon Lowry RN RN rr5 Juan Miguel Santos MD MD 7 Corrections: (The following items were deleted from the chart) 04/17 21:53 21:49 Acuity: LUIS 2 em em 21:54 21:49 Chief complaint: EMS states: were called out for being lethargic, hypotensive em 80's systolic, on scene had 103 temp, was sinus tach, and SPO2 88%, was given 1 G [employer]ATION, pt A\T\Ox3 em
--- NOTE | 2020-04-18 00:30 | EDPHYS ---
Physician Documentation [facility] Name: Man Crowley Age: 79 yrs Sex: Male : 1940 Arrival Date: 04/17/2020 Time: 21:48 Bed 3 Private MD: CATHI Physician Juan Miguel Santos HPI: 04/18 00:30 This 79 yrs old Male presents to ER via EMS with complaints of hypotension, mh7 lethargic. 00:31 Hypotension, lethargic. Onset: The symptoms/episode began/occurred today. Severity of mh7 symptoms: At their worst the symptoms were severe today, in the emergency department the symptoms have improved moderately. Patient brought to ED by EMS from assisted living due to lethargy and hypotension. Patient found to have fever on arrival to ED. . Historical: - Allergies: 04/17 21:52 Blueberry; em 21:52 Eliquis; em - PMHx: 21:52 CHF; DVT; bilateral; Hypertension; Nonrheumatic aortic valve stenosis; Obesity; em osteoarthritis; Prosthetic heart valve; Sleep Apnea; - Immunization history:: Adult Immunizations unknown. - Social history:: Smoking status: unknown. ROS: 04/18 00:31 Eyes: Negative for injury, pain, redness, and discharge, ENT: Negative for injury, mh7 pain, and discharge, Neck: Negative for injury, pain, and swelling, Cardiovascular: Negative for chest pain, palpitations, and edema. Abdomen/GI: Negative for abdominal pain, nausea, vomiting, diarrhea, and constipation, Back: Negative for injury and pain, : Negative for injury, bleeding, discharge, and swelling. Psych: Negative for depression, anxiety, suicide ideation, homicidal ideation, and hallucinations, Allergy/Immunology: Negative for hives, rash, and allergies, Endocrine: Negative for neck swelling, polydipsia, polyuria, polyphagia, and marked weight changes, Hematologic/Lymphatic: Negative for swollen nodes, abnormal bleeding, and unusual bruising. Respiratory: Positive for cough, with no reported sputum. MS/extremity: Positive for erythema, swelling. Skin: Positive for cellulitis, erythema, swelling, of the right leg. Exam: 00:31 Head/Face: Normocephalic, atraumatic. Eyes: Pupils equal round and reactive to light, mh7 extra-ocular motions intact. Lids and lashes normal. Conjunctiva and sclera are non-icteric and not injected. Cornea within normal limits. Periorbital areas with no swelling, redness, or edema. Neck: Trachea midline, no thyromegaly or masses palpated, and no cervical lymphadenopathy. Supple, full range of motion without nuchal rigidity, or vertebral point tenderness. No Meningismus. Chest/axilla: Normal chest wall appearance and motion. Nontender with no deformity. No lesions are appreciated. Cardiovascular: Regular rate and rhythm with a normal S1 and S2. No gallops, murmurs, or rubs. Normal PMI, no JVD. No pulse deficits. 00:31 Abdomen/GI: Soft, non-tender, with normal bowel sounds. No distension or tympany. No guarding or rebound. No evidence of tenderness throughout. Back: No spinal tenderness. No costovertebral tenderness. Full range of motion. Male : Normal genitalia with no discharge or lesions. 00:31 Neuro: Awake and alert, GCS 15, oriented to person, place, time, and situation. Cranial nerves II-XII grossly intact. Motor strength 5/5 in all extremities. Sensory grossly intact. Cerebellar exam normal. Normal gait. 00:31 Psych: Awake, alert, with orientation to person, place and time. Behavior, mood, and affect are within normal limits. 00:31 Constitutional: The patient appears alert, awake, febrile, obviously ill. 00:31 Respiratory: mild respiratory distress is noted, Respirations: tachypnea, that is mild, Breath sounds: rales, that are mild, are scattered, rhonchi, that are moderate, are scattered, Respiratory rate: 24 00:31 Musculoskeletal/extremity: Extremities: noted in the right leg: erythema, swelling, ROM: intact in all extremities, Circulation is intact in all extremities. Pulses: are normal with no appreciated deficits, Sensation intact. Compartment Syndrome exam of affected extremity: is normal. no numbness, no tingling, no sensation deficit, no palor, no weak pulses, Joints: All joints appear normal with full range of motion. Weight bearing: is unable to bear weight. 00:31 Skin: cellulitis, that is moderate, well demarcated, on the right leg. Vital Signs: 04/17 21:49 BP 70 / 55; Pulse 114; Resp 24; Temp 100.9(O); Pulse Ox 88% on R/A; em 21:52 Pulse Ox 93% on 3 lpm NC; em 22:05 Weight 104.33 kg; rr5 22:49 BP 85 / 57; Pulse 112; Resp 32; Temp 100.8; Pulse Ox 100% on Non-rebreather mask; ea 04/18 00:43 BP 83 / 41; Pulse 99; Resp 20; Temp 99.6; Pulse Ox 28% ; ea 04/17 21:49 placed on NC 3 LPM em Procedures: 04/18 00:51 Central Line: the site was prepped with Betadine, in sterile fashion, a triple lumen mh7 catheter was inserted, in the left internal jugular vein, in 1 attempts. placement was verified, by CXR, by blood return, the site was dressed with Tegaderm, the patient tolerated the procedure, well. MDM: 00:27 Differential diagnosis: viral Infection, bacterial infection, bronchitis, pneumonia mh7 UTI, Cellulitis, Sepsis. Data reviewed: vital signs, nurses notes, EMS record, old medical records, lab test result(s), cardiac enzymes, CBC, electrolytes, Flu: urinalysis, EKG, radiologic studies, plain films. Data interpreted: Pulse oximetry: on 6L(s) per nasal canula, is 96 %. Interpretation: acceptable. Counseling: I had a detailed discussion with the patient and/or guardian regarding: the historical points, exam findings, and any diagnostic results supporting the discharge/admit diagnosis, lab results, radiology results, the need for further work-up and treatment in the hospital. Response to treatment: the patient's symptoms have mildly improved after treatment. 00:30 Patient medically screened. [facility] 04/17 21:54 Order name: Amylase, Serum; Complete Time: 22:30 [facility] 04/17 21:54 Order name: Basic Metabolic Panel; Complete Time: 22:30 [facility] 04/17 21:54 Order name: Blood Culture Adult (2) [facility] 04/17 21:54 Order name: CBC with Diff; Complete Time: 00:23 [facility] 04/17 21:54 Order name: Ckmb; Complete Time: 22:30 [facility] 04/17 21:54 Order name: CPK; Complete Time: 22:30 [facility] 04/17 21:54 Order name: Lactate; Complete Time: 22:26 [facility] 04/17 21:54 Order name: LFT's; Complete Time: 22:30 [facility] 04/17 21:54 Order name: Lipase; Complete Time: 22:30 [facility] 04/17 21:54 Order name: Procalcitonin; Complete Time: 00:23 [facility] 04/17 21:54 Order name: Protime (+inr); Complete Time: 22:26 [facility] 04/17 21:54 Order name: Ptt, Activated; Complete Time: 22:26 [facility] 04/17 21:54 Order name: Troponin (emerg Dept Use Only); Complete Time: 22:30 [facility] 04/17 21:54 Order name: Urine Microscopic Only [facility] 04/17 21:54 Order name: Influenza Screen (a \T\ B); Complete Time: 00:23 [facility] 04/17 21:54 Order name: Arterial Blood Gas; Complete Time: 00:23 [facility] 04/17 22:07 Order name: NT PRO-BNP; Complete Time: 22:30 [facility] 04/17 22:24 Order name: Manual Differential; Complete Time: 00:23 [facility] 04/17 22:54 Order name: Urine Dipstick--Ancillary (enter results) 04/17 22:55 Order name: Urine Dipstick-Ancillary [facility] 04/17 23:40 Order name: SARS-COV-2 RT PCR; Complete Time: 00:23 [facility] 04/18 06:12 Order name: Vancomycin Level Trough [facility] 04/19 06:21 Order name: Lactate [facility] 04/19 06:35 Order name: D-Dimer [facility] 04/19 06:43 Order name: CBC with Automated Diff [facility] 04/19 07:35 Order name: Procalcitonin [facility] 04/19 07:45 Order name: Comprehensive Metabolic Panel [facility] 04/19 07:45 Order name: Phosphorus [facility] 04/17 21:54 Order name: Chest Single View XRAY [facility] 04/17 21:54 Order name: Accucheck; Complete Time: 04:29 [facility] 04/17 21:54 Order name: Cardiac monitoring; Complete Time: 22:21 [facility] 04/17 21:54 Order name: EKG - Nurse/Tech; Complete Time: 22:21 [facility] 04/17 21:54 Order name: IV Saline Lock - Large Bore; Complete Time: 22:22 [facility] 04/17 21:54 Order name: Labs collected and sent; Complete Time: 22:22 [facility] 04/17 21:54 Order name: O2 Per Protocol; Complete Time: 22:22 [facility] 04/17 21:54 Order name: O2 Sat Monitoring; Complete Time: 22:22 [facility] 04/17 21:54 Order name: Urine Dipstick-Ancillary (obtain specimen); Complete Time: 22:54 [facility] 04/18 00:23 Order name: Chest Single View XRAY [facility] 04/18 11:17 Order name: RAD [facility] 04/19 07:45 Order name: NT PRO-BNP [facility] 04/19 07:45 Order name: C-Reactive Protein [facility] 04/19 07:45 Order name: Magnesium [facility] 04/19 08:13 Order name: RAD [facility] 04/19 08:21 Order name: Vitamin B12 Level [facility] 04/19 08:52 Order name: CBC Smear Scan EDNE Administered Medications: 04/17 22:00 Drug: NS 0.9% (30 ml/kg) 30 ml/kg Route: IV; Rate: bolus; Site: right antecubital; 23:24 Follow up: Response: No adverse reaction; IV Status: Completed infusion; IV Intake: ea 2000ml 22:15 Drug: vancoMYCIN 1 grams Route: IVPB; Infused Over: 2 hrs; Site: right forearm; ea 04/18 00:00 Follow up: Response: No adverse reaction; IV Status: Completed infusion; IV Intake: ea 250ml 04/17 23:30 Drug: Levophed (4 mg/250 mL D5W 4 mcg/min Route: IV; Rate: calculated rate; Site: left ea antecubital; 04/18 00:59 Follow up: IV Status: Infusion continued upon admission 00:42 Drug: Cefepime 1 grams Route: IVPB; Rate: 200 ml/hr; Infused Over: 30 mins; Site: right ea forearm; 01:20 Follow up: Response: No adverse reaction; IV Status: Completed infusion Disposition: 04/18/20 00:30 Hospitalization ordered by Praveen Brown for Inpatient Admission. Preliminary diagnosis are Right Lower Extremity Cellulitis, Sepsis. - Bed requested for Telemetry/MedSurg (Inpatient). - Status is Inpatient Admission. ph - Condition is Critical. - Problem is new. - Symptoms have improved. Signatures: Dispatcher [employer] [facility] Patti Akers, RN JUSTIN Celestine Tan, RN RN em Helena Naidu, RN RN tl1 Ingrid Juan, RN JUSTIN Yeni Rutherford RN Juan Miguel Bhagat ea, MD MD [facility] Corrections: (The following items were deleted from the chart) 04/17 22:07 21:57 PROBNP+C.LAB.BRZ ordered. [facility] 22:38 21:55 CORONAVIRUS+MR.LAB.BRZ ordered. [facility] 04/18 00:39 00:31 Central Line: the site was prepped with Betadine, in sterile fashion, a triple mh7 lumen catheter was inserted, in the left internal jugular vein, in 1 attempts. [facility] 00:49 00:30 Hospitalization Ordered by Kyree Saavedra MD for Inpatient Admission. Preliminary tl1 diagnosis is Right Lower Extremity Cellulitis; Sepsis. Bed requested for Telemetry/MedSurg (Inpatient). Status is Inpatient Admission. Condition is Critical. Problem is new. Symptoms have improved. [facility] 00:56 00:49 04/18/2020 00:30 Hospitalization Ordered by Kyree Saavedra MD for Inpatient [facility] Admission. Preliminary diagnosis is Right Lower Extremity Cellulitis; Sepsis. Bed requested for [facility] ER HOLD. Status is Inpatient Admission. Condition is Critical. Problem is new. Symptoms have improved. tl1 04/19 11:11 04/18 00:56 04/18/2020 00:30 Hospitalization Ordered by Praveen Brown MD for Inpatient Admission. Preliminary diagnosis is Right Lower Extremity Cellulitis; Sepsis. Bed requested for [facility] ER HOLD. Status is Inpatient Admission. Condition is Critical. Problem is new. Symptoms have improved. [facility] 04/19 12:24 11:11 04/18/2020 00:30 Hospitalization Ordered by Praveen Brown MD for Inpatient Admission. Preliminary diagnosis is Right Lower Extremity Cellulitis; Sepsis. Bed requested for Telemetry/MedSurg (Inpatient). Status is Inpatient Admission. Condition is Critical. Problem is new. Symptoms have improved.
[2020-04-18] MEDS ORDERED: CEFEPIME/SWI 1gm 10 ML ONE ×2 (00:50→08:29)
[2020-04-18] MEDS ORDERED: NA CHLORIDE 0.9% 500 ML IV PRN (01:53)
[2020-04-18] MEDS: NA CHLORIDE 0.9% 1,000 ML IV SCH ×3 (01:53→11:30)
[2020-04-18] MEDS ORDERED: ONDANSETRON 4 MG/2 ML VIAL IV PRN (01:53)
[2020-04-18] MEDS ORDERED: NOREPINEPHRINE 4 MG in D5W 250 ML IV PRN (01:53)
[2020-04-18] MEDS ORDERED: VANCOMYCIN 1.25 GM in NA CHLORIDE 0.9% 250 ML IVPB SCH (02:00)
[2020-04-18 02:29] VITALS: BMI 32.1
[2020-04-18] MEDS ORDERED: NA CHLORIDE 0.9% 500 ML ONE (03:12)
[2020-04-18] MEDS ORDERED: NA CHLORIDE 0.9% 1,000 ML ONE ×3 (03:12→18:10)
[2020-04-18] MEDS: ALBUTEROL 2.5 MG/3 ML NEB SOL NEB SCH ×4 (03:20→19:45)
[2020-04-18] MEDS: IPRATROPIUM BROM 0.5MG/2.5ML NEB SCH ×3 (03:20→13:40)
[2020-04-18] MEDS ORDERED: IPRATROPIUM BROM 0.5MG/2.5ML ONE ×3 (03:31→13:31)
[2020-04-18] MEDS ORDERED: NOREPINEPHRINE 4mg/D5W 250mL 4 MG/250 ML BAG IV ONE (06:06)
[2020-04-18] MEDS: PANTOPRAZOLE 40 MG INJ IVP SCH (07:30)
[2020-04-18] MEDS ORDERED: ALBUTEROL 2.5 MG/3 ML NEB SOL ONE ×3 (07:41→19:57)
[2020-04-18] MEDS ORDERED: PNEUMOCOCCAL VACCINE 0.5 ML IMVAC ONE ×2 (08:00→08:13)
[2020-04-18] MEDS ORDERED: PANTOPRAZOLE 40 MG INJ ONE (08:12)
--- NOTE | 2020-04-18 08:45 | RAD REPORT ---
EXAM DESCRIPTION: RAD - Chest Single View - 04/17/2020 10:26 pm CLINICAL HISTORY: Fever;Cough Chest pain. COMPARISON: Chest Single View dated 01/09/2020; Chest Single View dated 04/18/2020 FINDINGS: Portable technique limits examination quality. Mild pulmonary edema is seen. The heart is moderately enlarged with a dual lead pacer device. No disp laced fractures. IMPRESSION: Mild CHF suspected.
[2020-04-18] MEDS: VANCOMYCIN 1.75 GM in NA CHLORIDE 0.9% 500 ML IVPB SCH (09:00)
[2020-04-18] MEDS ORDERED: CEFEPIME 1 GM/VIAL IV SCH (09:00)
[2020-04-18] MEDS: CEFEPIME/SWI 1gm 10 ML IV SCH (09:00)
--- NOTE | 2020-04-18 11:16 | RAD REPORT ---
EXAM DESCRIPTION: PXR Chest, 1 View CLINICAL HISTORY: The patient is 79 years old and is Male; central line placement TECHNIQUE: Frontal view of the chest. COMPARISON: No relevant prior studies available. FINDINGS: LUNGS: Mild diffuse interstitial infiltrates are noted. PLEURAL SPACE: Unremarkable. No pneumothorax. HEART: The cardiac silhouette is enlarged. MEDIASTINUM: Unremarkable. BONES/JOINTS: Unremarkable. VASCULATURE: Prominence of central vasculature is noted. TUBES, LINES AND DEVICES: Left IJ central venous catheter is present with the tip in the region of the SVC. Left-sided pacemaker is present. IMPRESSION: 1. Left IJ central venous catheter is present with the tip in the region of the SVC. 2. Cardiomegaly with findings suggestive of vascular congestion. 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 The interpreting r adiologist is fully responsible for the content of the report.
[2020-04-18] MEDS ORDERED: IPRATROPIUM BROM 0.5MG/2.5ML NEB PRN (11:29)
[2020-04-18] MEDS ORDERED: HYDROCORTISONE SUC 100 MG INJ IV ONE (11:30)
[2020-04-18] MEDS: FENTANYL CITR 100 MCG/2 ML IV PRN ×2 (11:30→15:30)
[2020-04-18] MEDS ORDERED: ALBUMIN HUMAN 25% 100 ML IV ONE ×3 (11:30→17:00)
[2020-04-18] MEDS: GABAPENTIN 300 MG CAP PO SCH ×2 (14:00→20:29)
[2020-04-18] MEDS ORDERED: GABAPENTIN 300 MG CAP ONE ×2 (15:48→20:36)
[2020-04-18] MEDS ORDERED: FENTANYL CITR 100 MCG/2 ML ONE (15:49)
[2020-04-18] MEDS ORDERED: APIXABAN 5 MG TABLET ONE (15:49)
[2020-04-18] MEDS ORDERED: RIVAROXABAN 10 MG TABLET PO SCH (17:00)
[2020-04-18] MEDS: RIVAROXABAN 20 MG TABLET PO SCH (17:00)
[2020-04-18] MEDS: TRAZODONE 150 MG TAB PO SCH (20:18)
[2020-04-18] MEDS: METOPROLOL TAR 25 MG TAB PO SCH (20:18)
[2020-04-18] MEDS: ATORVASTATIN 40 MG TAB PO SCH (20:18)
[2020-04-18] MEDS: HYDROCORTISONE SUC 100 MG INJ IV SCH (20:29)
[2020-04-18] MEDS ORDERED: METHYLPREDNISOLONE 40 MG INJ ONE (20:36)
[2020-04-18] MEDS ORDERED: HYDROCORTISONE SUC 100 MG INJ ONE (20:48)
[2020-04-19] MEDS: NA CHLORIDE 0.9% 1,000 ML IV SCH ×2 (00:50→16:16)
[2020-04-19] MEDS: ALBUTEROL 2.5 MG/3 ML NEB SOL NEB SCH ×4 (01:20→20:00)
[2020-04-19] MEDS ORDERED: ALBUTEROL 2.5 MG/3 ML NEB SOL ONE ×2 (01:21→08:23)
[2020-04-19] MEDS ORDERED: NA CHLORIDE 0.9% 1,000 ML ONE (03:25)
[2020-04-19 06:25] LABS: Absolute Lymphocytes (CBC) 0.4 K/uL (0.7-4.9); Basophils % 0.2 % (0-1.3); Hematocrit 24.8 % (39.6-49.0); Lymphocytes % 4.5 % (15.3-44.8); MPV 9.2 fL (7.6-11.3); RBC Red Blood Cell Count 2.81 M/uL (4.33-5.43)
[2020-04-19] MEDS: PANTOPRAZOLE 40 MG INJ IVP SCH (07:30)
[2020-04-19 07:44] LABS: Albumin 2.5 g/dL (3.4-5.0); Bilirubin Total 1.2 mg/dL (0.2-1.0); Magnesium 2.5 mg/dL (1.8-2.4); Phosphorus 2.7 mg/dL (2.5-4.9); Potassium 4.1 mmol/L (3.5-5.1); Protein, Total 6.7 g/dL (6.4-8.2)
--- NOTE | 2020-04-19 07:48 | P.HP ---
Certification for Inpatient Patient admitted to: Inpatient With expected LOS: >2 Midnights Patient will require the following post-hospital care: None Practitioner: I am a practitioner with admitting privileges, knowledge of patient current condition, hospital course, and medical plan of care. Services: Services provided to patient in accordance with Admission requirements found in Title 42 Section 412.3 of the Code of Federal Regulations Patient History Date of Service: 04/18/20 Reason for admission: Patient is admitted for cellulitis with septic shock History of Present Illness: Patient is an 79-year-old gentleman who came to the hospital with cellulitis of the right lower extremity. He has had significant edema for quite a while. He came in slightly confused and the assisted living were he was at sent to the hospital. He came into the emergency room for further evaluation. He is a patient of Dr. Brown. He has followed him for many years. 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 He has been of relatively good health until the last 5-10 years. He has declined quite a bit. In the emergency room, he was hypotensive. Was started on Levophed. His procalcitonin level was elevated. Blood cultures were sent off. His history of congestive heart failure, diastolic dysfunction. He will be admitted to the hospital and will monitor his volume status closely. Will need to hydrate him aggressively initially chest get him out of his septic shock. The will cut his fluids down quickly afterwards once we are off the Levophed drip. He is on BiPAP at this time but we are gradually weaning him off of that as well. Allergies apixaban [From Eliquis] Allergy (Verified 01/10/20 10:54) Rash blueberry Allergy (Verified 01/10/20 10:54) Rash Home Medications: Acetic Acid 0.25% [Acetic Acid 0.25%*] 1,000 ml IRR M,W,F 01/09/20 Aspirin [Aspirin EC 81 MG] 81 mg PO DAILY 01/09/20 Atorvastatin Calcium [Lipitor] 40 mg PO BEDTIME 01/09/20 Furosemide 40 mg PO BID 01/09/20 Gabapentin 300 mg PO TID 01/09/20 Ipratropium Neb [Atrovent*] 1 aer NEB Q6HP PRN 01/09/20 Melatonin [Melatonin*] 3 mg PO BEDTIME 09/08/20 Mupirocin 2 % TOP DAILY 01/09/20 Polyethyl Gly 3350 [Glycolax*] 17 gm PO DAILY 01/09/20 Potassium Chloride [K-Dur] 20 meq PO DAILY 01/09/20 Rivaroxaban [Xarelto] 20 mg PO DAILY 01/09/20 Trazodone [Desyrel*] 150 mg PO BEDTIME 01/09/20 Metoprolol Tartrate [Lopressor*] 12.5 mg PO BID 30 Days #30 tab 01/19/20 - Past Medical/Surgical History Has patient received pneumonia vaccine in the past: Yes Diabetic: No -: Chronic lower extremity lymphedema -: Chronic diastolic heart failure -: Hypertension -: Peripheral neuropathy -: Hyperlipidemia -: Endoscopy -: Pacemaker placement -: Cardiac catheterization -: Left knee replacement - Family History Father Family History: Reviewed- Non-Contributory - Social History Smoking Status: Never smoker Alcohol use: No CD- Drugs: No Caffeine use: No Place of Residence: [place] Review of Systems 10-point ROS is otherwise unremarkable Physical Examination - Vital Signs Temperature: 98.5 F Blood Pressure: 122/85 Pulse: 112 Respirations: 24 Pulse Ox (%): 96 - Physical Exam General: Alert, In no apparent distress, Oriented x3, Obese HEENT: Atraumatic, PERRLA, Mucous membr. moist/pink, EOMI, Sclerae nonicteric Neck: Supple, 2+ carotid pulse no bruit, No LAD, Without JVD or thyroid abnormality Respiratory: Diminished, Other Cardiovascular: Regular rate/rhythm, Normal S1 S2 Gastrointestinal: Normal bowel sounds, Soft and benign, Non-distended, No tenderness Musculoskeletal: No tenderness Integumentary: Skin lesion, Tenderness/swelling, Erythema, Warmth Neurological: Normal speech, Normal strength at 5/5 x4 extr, Normal tone, Sensation intact, Cranial nerves 3-12 intact, Normal affect, Abnormal gait Lymphatics: No axilla or inguinal lymphadenopathy Assessment & Plan - Problems (Diagnosis) (1) Cellulitis of leg, right Current Visit: Yes Status: Acute (2) CAD (coronary artery disease) Current Visit: Yes Status: Acute (3) COPD (chronic obstructive pulmonary disease) Current Visit: No Status: Acute (4) Hypertension Current Visit: No Status: Acute (5) Lymphedema Current Visit: No Status: Acute (6) Osteoarthritis Current Visit: No Status: Acute (7) Pacemaker Current Visit: No Status: Acute (8) Sleep apnea Current Visit: No Status: Acute (9) Wound of lower extremity Current Visit: No Status: Acute (10) Septic shock Current Visit: No Status: Resolved - Plan 1. Continue with IV antibiotic 2. Monitor volume status closely while we hydrate 3. Continue Levophed-gradually wean off 4. Gentle IV hydration 5. Albumin for hypoalbuminemia and to assist w/ improving blood pressure 6. Strict blood sugar monitoring 7. Pain control 8. Monitor renal function closely 9. Recheck procalcitonin level 10. Monitor in ICU 11. Resume beta-cecil therapy and anti coagulation 12. GI and DVT prophylaxis Discharge Plan: Home Plan to discharge in: Greater than 2 days - Advance Directives Does patient have a Living Will: Yes Does patient have a Durable POA for Healthcare: No - Code Status/Comfort Care Code Status Assessed: Yes Code Status: Full Code Critical Care: Yes Time Spent Managing PTS Care (In Minutes): 45
--- NOTE | 2020-04-19 08:12 | RAD REPORT ---
EXAM DESCRIPTION: RAD - Chest Single View - 04/19/2020 6:13 am CLINICAL HISTORY: pneumonia COMPARISON: April 18 TECHNIQUE: AP portable chest image was obtained 04/19/2020 6:13 am . FINDINGS: Respiratory motion degradation is present. Interstitial and patchy alveolar opacities are present similar to the prior study. Motion exaggerates the lung parenchymal opacification. Cardiomega ly is present with widening of the mediastinum accentuated due to the patient rotation. Left subclavi an pacemaker remains in place. Left jugular vascular access catheter remains in place. No pneumothora x or enlarging pleural effusion. No acute bony abnormality seen. No acute aortic findings suspected. IMPRESSION: Bilateral interstitial and alveolar opacities accentuated by respiratory motion. No sign ificant change from April 18. Stable cardiomegaly.
[2020-04-19 08:52] LABS: Blood Morphology Comment NOTED (NOT SEEN); Ovalocytes 1+; Platelet Estimate DECR; White Blood Cell Scan OK (OK)
[2020-04-19] MEDS: GABAPENTIN 300 MG CAP PO SCH ×4 (09:00→22:27)
[2020-04-19] MEDS: MUPIROCIN 2% OINT 22GM TUBE TOP SCH (09:00)
[2020-04-19] MEDS: ACETIC ACID 0.25% IRRIG IRR SCH (09:00)
[2020-04-19] MEDS: ASPIRIN EC 81 MG TAB PO SCH (09:00)
[2020-04-19] MEDS: VANCOMYCIN 1.75 GM in NA CHLORIDE 0.9% 500 ML IVPB SCH (09:00)
[2020-04-19] MEDS ORDERED: RIVAROXABAN 20 MG TABLET PO SCH (09:00)
[2020-04-19] MEDS: HYDROCORTISONE SUC 100 MG INJ IV SCH (09:00)
[2020-04-19] MEDS: METOPROLOL TAR 25 MG TAB PO SCH ×3 (09:00→22:00)
[2020-04-19] MEDS: CEFEPIME/SWI 1gm 10 ML IV SCH (09:00)
[2020-04-19] MEDS ORDERED: ALBUMIN HUMAN 25% 100 ML IV ONE (09:11)
[2020-04-19] MEDS ORDERED: METOPROLOL TARTRATE 5 MG/5 ML INJ IV STA ×3 (09:11→20:51)
[2020-04-19] MEDS ORDERED: GABAPENTIN 300 MG CAP ONE (09:28)
[2020-04-19] MEDS ORDERED: HYDROCORTISONE SUC 100 MG INJ ONE (09:28)
[2020-04-19] MEDS ORDERED: PANTOPRAZOLE 40 MG INJ ONE (09:29)
[2020-04-19] MEDS ORDERED: ASPIRIN EC 81 MG TAB PO ONE (09:29)
[2020-04-19] MEDS ORDERED: MUPIROCIN 2% OINT 22GM TUBE TOP ONE (09:29)
[2020-04-19] MEDS ORDERED: CEFEPIME/SWI 1gm 10 ML ONE (09:29)
[2020-04-19] MEDS ORDERED: ALBUMIN HUMAN 25% 50 ML IV ONE (09:52)
[2020-04-19] MEDS ORDERED: METOPROLOL TARTRATE 5 MG/5 ML INJ IV ONE (09:52)
[2020-04-19] MEDS ORDERED: METOPROLOL TAR 25 MG TAB ONE (09:52)
[2020-04-19] MEDS: RIVAROXABAN 20 MG TABLET PO SCH (16:16)
[2020-04-19] MEDS ORDERED: CYANOCOBALAMIN 1000MCG/ML INJ IM ONE (18:23)
[2020-04-19] MEDS ORDERED: FUROSEMIDE 40 MG/4 ML VIAL IV ONE (18:25)
[2020-04-19] MEDS ORDERED: DIGOXIN 0.25 MG/ML AMP IV ONE (20:57)
[2020-04-19] MEDS ORDERED: HYDROCORTISONE SUC 100 MG INJ IV SCH (21:00)
[2020-04-19] MEDS ORDERED: DIGOXIN 0.25 MG/ML AMP ONE (21:13)
[2020-04-19] MEDS: TRAZODONE 150 MG TAB PO SCH (22:27)
[2020-04-19] MEDS: ATORVASTATIN 40 MG TAB PO SCH (22:27)
[2020-04-19] MEDS: FENTANYL CITR 100 MCG/2 ML IV PRN (22:32)
[2020-04-20 00:31] LABS: Urine Appearance CLOUDY; Urine Bilirubin NEGATIVE (NEG); Urine Blood 3+ (NEG); Urine Color YELLOW; Urine Glucose NEGATIVE (NEG); Urine Protein 1+ (NEG); Urine Urobilinogen 0.2 mg/dL (0.2-1.0)
[2020-04-20 00:35] LABS: Urine Microscopic Reflex ORDER UMIC
[2020-04-20] MEDS: FUROSEMIDE 40 MG/4 ML VIAL IV SCH ×3 (00:55→16:55)
[2020-04-20 01:00] LABS: Urine Amorphous Sediment 1+ /HPF (NONE SEEN); Urine Bacteria 20-50 /HPF (NONE SEEN); Urine Mucus 1+ /HPF (NONE SEEN); Urine RBC TNTC /HPF (NONE SEEN)
[2020-04-20] MEDS: IPRATROPIUM BROM 0.5MG/2.5ML NEB PRN (01:30)
[2020-04-20] MEDS: ALBUTEROL 2.5 MG/3 ML NEB SOL NEB SCH ×4 (02:00→20:00)
[2020-04-20 05:14] LABS: Arterial Blood Carboxyhemoglob 1.5 % (0-1.5); Blood Gas Oxyhemoglobin 93.2 % (94-97); Blood O2 Saturation 95.5 % (92-98.5)
[2020-04-20 06:05] LABS: Absolute Lymphocytes (CBC) 0.4 K/uL (0.7-4.9); Basophils % 0.2 % (0-1.3); Hematocrit 26.9 % (39.6-49.0); Lymphocytes % 4.4 % (15.3-44.8); MPV 9.5 fL (7.6-11.3); RBC Red Blood Cell Count 3.03 M/uL (4.33-5.43)
[2020-04-20 06:21] LABS: Albumin 2.6 g/dL (3.4-5.0); Bilirubin Total 1.1 mg/dL (0.2-1.0); Magnesium 2.5 mg/dL (1.8-2.4); Phosphorus 2.9 mg/dL (2.5-4.9); Potassium 4.2 mmol/L (3.5-5.1); Protein, Total 6.7 g/dL (6.4-8.2)
--- NOTE | 2020-04-20 06:59 | P.PN ---
Subjective Date of Service: 04/19/20 Patient is feeling better overall. He does have some shortness of breath. We will go ahead and diurese him since he got a large amount of fluids yesterday and today and we will finally able to get him weaned off of the Levophed. Continue with IV antibiotic therapy along with wound care therapy. Encourage physical therapy. Working on trying to get patient over to [facility]. May need to repeat echocardiogram. Will check a BNP level. We will start patient on a low-dose Lasix. We can probably continue this in 24-48 hours. Stress dose steroids are also being weaned down. Patient was in septic shock on arrival but this has improved. Will need to monitor his volume status closely. Patient wears a BiPAP at night for resting. This will be also ordered for this evening. Review of Systems 10-point ROS is otherwise unremarkable Physical Examination - Vital Signs Temperature: 97.0 F Blood Pressure: 114/60 Pulse: 113 Respirations: 26 Pulse Ox (%): 97 - Physical Exam General: Alert, In no apparent distress, Oriented x3, Obese Neck: Supple, JVD not distended Respiratory: Diminished, Crackles/rales Cardiovascular: Regular rate/rhythm, Normal S1 S2, No murmurs Gastrointestinal: Normal bowel sounds, Soft and benign, Non-distended, No tenderness Musculoskeletal: No clubbing, Swelling, Erythema, Tenderness Integumentary: Tenderness/swelling, Erythema, Warmth Neurological: Normal strength at 5/5 x4 extr, Sensation intact, Cranial nerves 3-12 intact, Normal affect Lymphatics: No axilla or inguinal lymphadenopathy - Studies Medications List Reviewed: Yes Assessment & Plan - Problems (Diagnosis) (1) Cellulitis of leg, right Current Visit: Yes Status: Acute (2) CAD (coronary artery disease) Current Visit: Yes Status: Acute (3) COPD (chronic obstructive pulmonary disease) Current Visit: No Status: Acute (4) Hypertension Current Visit: No Status: Acute (5) Lymphedema Current Visit: No Status: Acute (6) Osteoarthritis Current Visit: No Status: Acute (7) Pacemaker Current Visit: No Status: Acute (8) Sleep apnea Current Visit: No Status: Acute (9) Wound of lower extremity Current Visit: No Status: Acute (10) Septic shock Current Visit: No Status: Resolved - Plan 1. Continue with IV antibiotic 2. Monitor volume status closely; 3. Levophed--weaned off 4. heplock IV and lasix 5. Albumin for hypoalbuminemia and to assist w/ improving blood pressure 6. Strict blood sugar monitoring 7. Pain control 8. Monitor renal function closely 9. Recheck procalcitonin level 10. Transfer to Gen med/surg 11. Resume beta-cecil therapy and anti coagulation 12. GI and DVT prophylaxis Discharge Plan: Longterm Plan to discharge in: Greater than 2 days - Advance Directives Does patient have a Living Will: Yes Does patient have a Durable POA for Healthcare: No - Code Status/Comfort Care Code Status: Full Code Critical Care: No Time Spent Managing PTS Care (In Minutes): 35
[2020-04-20] MEDS: HYDROCORTISONE SUC 100 MG INJ IV SCH ×2 (08:23→20:38)
[2020-04-20] MEDS: PANTOPRAZOLE 40 MG INJ IVP SCH (08:23)
[2020-04-20] MEDS: CYANOCOBALAMIN 1,000 MCG TAB SL SCH (08:24)
[2020-04-20] MEDS: METOPROLOL TAR 25 MG TAB PO SCH ×2 (08:24→20:39)
[2020-04-20] MEDS: GABAPENTIN 300 MG CAP PO SCH ×3 (08:24→20:39)
[2020-04-20] MEDS: ASPIRIN EC 81 MG TAB PO SCH (08:25)
[2020-04-20] MEDS: VANCOMYCIN 1.75 GM in NA CHLORIDE 0.9% 500 ML IVPB SCH (08:25)
[2020-04-20] MEDS: MUPIROCIN 2% OINT 22GM TUBE TOP SCH (08:25)
--- NOTE | 2020-04-20 08:30 | RAD REPORT ---
EXAM DESCRIPTION: RAD - Chest Single View - 04/20/2020 6:03 am CLINICAL HISTORY: pneumonia COMPARISON: April 19 TECHNIQUE: AP portable chest image was obtained 04/20/2020 6:03 am . FINDINGS: Respiratory motion degradation is present along with significant rotation. Pleural and par enchymal opacification in the left lung field has not changed. Development of a small right pleural e ffusion is suspected. Right lung parenchymal opacification not significantly different. Enlarged card iac silhouette remains. No pneumothorax. IMPRESSION: Chest is not significantly different from the prior day study. Patient does appear to conner ve developed a small right pleural effusion.
[2020-04-20] MEDS: CEFEPIME/SWI 1gm 10 ML IV SCH ×2 (09:00→10:36)
--- NOTE | 2020-04-20 10:48 | P.PN ---
Subjective Date of Service: 04/20/20 Chief Complaint: Patient is admitted for cellulitis with septic shock Subjective: No new changes, No C/O voiced Review of Systems 10-point ROS is otherwise unremarkable Physical Examination - Vital Signs Temperature: 97.0 F Blood Pressure: 117/66 Pulse: 113 Respirations: 20 Pulse Ox (%): 94 - Physical Exam General: Alert, In no apparent distress, Oriented x3 HEENT: Atraumatic, Normocephalic Neck: Supple Respiratory: Clear to auscultation bilaterally Cardiovascular: Regular rate/rhythm, Normal S1 S2 Capillary refill: <2 Seconds Gastrointestinal: Soft and benign, Non-distended Musculoskeletal: No clubbing Integumentary: Tenderness/swelling, Erythema, Warmth Neurological: Normal speech Lymphatics: No axilla or inguinal lymphadenopathy - Studies Medications List Reviewed: Yes Assessment & Plan - Problems (Diagnosis) (1) Cellulitis of leg, right Current Visit: Yes Status: Acute (2) COPD (chronic obstructive pulmonary disease) Current Visit: No Status: Acute (3) Chronic kidney disease, stage 3 Current Visit: No Status: Acute (4) Wound of lower extremity Current Visit: No Status: Acute (5) Septic shock Current Visit: No Status: Resolved Physician Review Additional Text: Continue with IV antibiotic Monitor closely under telemetry Was on Levophed which was weaned off Cultures negative so far Monitor volume status closely; Albumin for hypoalbuminemia and to assist w/ improving blood pressure Strict blood sugar monitoring Pain control Monitor renal function closely Resume home medication and titrate as needed GI and DVT prophylaxis Discharge Plan: Intermediate Plan to discharge in: Greater than 2 days Time Spent Managing Pts Care (In Minutes): 42
[2020-04-20] MEDS: ACETAMINOPHEN 325 MG TABLET PO PRN ×2 (11:23→20:52)
--- NOTE | 2020-04-20 13:59 | EKG ---
Test Date: 2020-04-19 Test Time: 20:03:41 Utility Manager: RT-O MEASUREMENT RESULTS: Intervals: Rate: 136 DC: 136 QRSD: 154 QT: 412 QTc: 620 [place]: P: 73 DC: 136 QRS: 246 T: 32 INTERPRETIVE STATEMENTS: Sinus tachycardia with fusion complexes Right bundle branch block Abnormal ECG Compared to ECG 04/19/2020 20:02:48 No significant changes Electronically Signed On 04-20-20 13:58:20 IRRIGATION TECHNICIAN by Melchor Umanzor
--- NOTE | 2020-04-20 13:59 | EKG ---
Test Date: 2020-04-19 Test Time: 20:02:48 [place] Supervisor: RT-O MEASUREMENT RESULTS: Intervals: Rate: 136 ND: 160 QRSD: 156 QT: 408 QTc: 614 [place]: P: 91 ND: 160 QRS: 244 T: 44 INTERPRETIVE STATEMENTS: Suspect arm lead reversal, interpretation assumes no reversal Sinus tachycardia with fusion complexes Right bundle branch block Abnormal ECG Compared to ECG 04/17/2020 21:47:31 Fusion complex(es) now present Myocardial infarct finding no longer present Electronically Signed On 04-20-20 13:58:21 BIOMEDICAL SERVICE ENGINEER by Melchor Umanzor
--- NOTE | 2020-04-20 14:56 | PN ---
Date of Progress Note: 04/20/2020 Subjective: Mr. Crowley is an 79-year-old who came in on 04/18/2020 initially for sepsis, hypotension requiring Levophed. He also has rapid chronic atrial fibrillation secondary to sepsis, cellulitis, hypoxia, and anemia. He has been getting digoxin and beta-blockers as well as Lasix, Lipitor, aspiri n, Xarelto, antibiotics and inhalers. His heart rate remains at about 120-130, although he is asympt omatic with it. He is not complaining of any shortness of breath. He does not having any chest pain or palpitation. I would continue his present regimen for now. He has an echocardiogram pending for early next week. I would suggest increasing the dose of beta-cecil for heart rate control as long as his blood pressure tolerates it. His other issues include chronic diastolic congestive heart vu lure, history of DVT, aortic stenosis status post bioprosthetic aortic valve, obesity, sleep apnea, C OPD, and chronic renal disease appears to be stable at this point. We will continue to follow him. ARNIE/CAROLANN Voice ID: [id number] Report ID: [id number]
--- NOTE | 2020-04-20 15:06 | CON ---
Date of Consultation: 04/18/2020 Reason For Consultation: Atrial fibrillation with rapid ventricular response. History Of Present Illness: Mr. Crowley is an 79-year-old [facility]. He stays at [facility]. He came in with severe sepsis secondary UTI, elevated procalcitonin. He was found to be in atria l fibrillation with rapid ventricular response. His atrial fibrillation is chronic. He is intoleran t to Eliquis because of bleeding. He is now on Xarelto. He also has cellulitis and nonhealing leg w ounds. Mr. Crowley does not have any palpitation or syncope. He denied chest pain. He denied any un explained nausea, vomiting, or diaphoresis. He denied any PND, orthopnea, or pedal edema. Past Medical History: Includes aortic stenosis, status post aortic valve replacement, obesity, sleep apnea, COPD, chronic renal disease, history of DVT and history of chronic diastolic congestive heart failure. Allergies: INCLUDE BLUEBERRY AND ELIQUIS. Review of Systems: Negative. Social History: Positive for being a penitentiary resident. Family History: Noncontributory. Medications: Medications at home include aspirin, Lipitor, Lasix, metoprolol. Physical Examination: GENERAL: Mr. Crowley is bedridden, alert, and oriented x3. VITAL SIGNS: Stable. He was afebrile. He was in atrial fibrillation, rate of 120. HEENT: Negative. NECK: Supple with no bruit. CHEST: Reveals decreased breath sound bilaterally with some expiratory wheezing. CARDIAC: Revealed atrial fibrillation. No murmurs, gallops, or rubs. Abdomen: Obese, but benign. EXTREMITIES: Revealed no clubbing or cyanosis. He has 1+ edema and he has a nonhealing wound on the left leg. Diagnostic Data: Chest x-ray shows small pleural effusion. He has had an arterial Doppler showing diffuse peripheral arterial disease in the past. His saturati on is 95% on CPAP, BiPAP. His hemoglobin is 8.8. D-dimer was 930. EKG showed AFib, rate 113. BNP is 5093. Procalcitonin 2.80. Impression And Plan: 1.Sepsis, initially hypotensive on Levophed that has been stopped. 2.Chronic atrial fibrillation with rapid ventricular response, appropriate for him being septic and dehydrated and anemic. 3.History of deep vein thrombosis. 4.History of chronic diastolic congestive heart failure. 5.History of aortic valve replacement that is bioprosthetic. 6.Obesity. 7.Sleep apnea. 8.Chronic obstructive pulmonary disease. 9.Allergy to Eliquis. 10.Chronic renal disease. 11.Peripheral arterial disease. I think we need to continue his aspirin Lipitor, digoxin, metoprolol, Xarelto, Lasix, antibiotics, an d inhalers for now. Echocardiogram is pending. He is not a candidate for any further cardiac interv ention at this point. Hopefully, his rate will improve after his sepsis is treated better. ARNIE/CAROLANN Voice ID: [id number] Report ID: [id number]
[2020-04-20] MEDS: RIVAROXABAN 20 MG TABLET PO SCH (16:56)
[2020-04-20] MEDS: ATORVASTATIN 40 MG TAB PO SCH (20:38)
[2020-04-20] MEDS: TRAZODONE 150 MG TAB PO SCH (20:40)
[2020-04-21] MEDS: FUROSEMIDE 40 MG/4 ML VIAL IV SCH ×3 (00:45→16:57)
[2020-04-21] MEDS: ALBUTEROL 2.5 MG/3 ML NEB SOL NEB SCH ×2 (02:20→07:45)
[2020-04-21 05:46] LABS: Magnesium 2.5 mg/dL (1.8-2.4); Phosphorus 3.4 mg/dL (2.5-4.9); Potassium 3.9 mmol/L (3.5-5.1)
[2020-04-21 05:47] LABS: Absolute Lymphocytes (CBC) 0.6 K/uL (0.7-4.9); Basophils % 0.3 % (0-1.3); Hematocrit 26.5 % (39.6-49.0); Lymphocytes % 9.2 % (15.3-44.8); MPV 9.9 fL (7.6-11.3); RBC Red Blood Cell Count 2.95 M/uL (4.33-5.43)
[2020-04-21] MEDS: ASPIRIN EC 81 MG TAB PO SCH (08:19)
[2020-04-21] MEDS: GABAPENTIN 300 MG CAP PO SCH ×3 (08:19→20:24)
[2020-04-21] MEDS: VANCOMYCIN 1.75 GM in NA CHLORIDE 0.9% 500 ML IVPB SCH (08:19)
[2020-04-21] MEDS: CYANOCOBALAMIN 1,000 MCG TAB SL SCH (08:20)
[2020-04-21] MEDS: METOPROLOL TAR 25 MG TAB PO SCH ×2 (08:20→20:24)
[2020-04-21] MEDS: HYDROCORTISONE SUC 100 MG INJ IV SCH ×2 (08:21→20:23)
[2020-04-21] MEDS: MUPIROCIN 2% OINT 22GM TUBE TOP SCH (08:23)
[2020-04-21] MEDS: PANTOPRAZOLE 40 MG INJ IVP SCH (08:33)
[2020-04-21] MEDS ORDERED: ALBUTEROL 2.5 MG/3 ML NEB SOL NEB PRN (09:05)
--- NOTE | 2020-04-21 09:12 | P.PN ---
Subjective Date of Service: 04/21/20 Chief Complaint: Patient is admitted for cellulitis with septic shock Subjective: No new changes (Patient) Still tachycardic up to 136 Denies chest pain or shortness of breath Blood pressure stable Afebrile Review of Systems 10-point ROS is otherwise unremarkable Physical Examination - Vital Signs Temperature: 97.0 F Blood Pressure: 153/80 Pulse: 87 Respirations: 17 Pulse Ox (%): 96 - Physical Exam General: Alert, In no apparent distress, Obese HEENT: Atraumatic, Normocephalic Neck: Supple, 2+ carotid pulse no bruit Respiratory: Diminished, Crackles/rales Cardiovascular: Other (Tachycardia), Irregular heart rate/rhythm Capillary refill: <2 Seconds Gastrointestinal: Soft and benign, W/out hepatosplenomegaly Musculoskeletal: No clubbing, No swelling Integumentary: Rash(es), Tenderness/swelling Neurological: Normal speech, Normal strength at 5/5 x4 extr Lymphatics: No axilla or inguinal lymphadenopathy - Studies Medications List Reviewed: Yes Assessment & Plan - Problems (Diagnosis) (1) Cellulitis of leg, right Current Visit: Yes Status: Acute (2) COPD (chronic obstructive pulmonary disease) Current Visit: No Status: Acute (3) Chronic kidney disease, stage 3 Current Visit: No Status: Acute (4) Wound of lower extremity Current Visit: No Status: Acute Physician Review Additional Text: Continue with IV antibiotic Monitor closely under telemetry Was on Levophed which was weaned off Cultures negative so far Monitor volume status closely; Albumin for hypoalbuminemia and to assist w/ improving blood pressure Strict blood sugar monitoring Pain control Monitor renal function closely Resume home medication and titrate as needed Patient still tachycardic, history of chronic diastolic CHF and AFib Appreciate help from cardiology Restarted on Xarelto and digoxin Monitor closely under telemetry slightly short of breath on oxygen supplementation Will get an x-ray of the chest Pulmonology consulted GI and DVT prophylaxis Time Spent Managing Pts Care (In Minutes): 42
[2020-04-21] MEDS: DIGOXIN 0.125 MG TABLET PO SCH (10:35)
[2020-04-21] MEDS: CEFEPIME/SWI 1gm 10 ML IV SCH (10:35)
--- NOTE | 2020-04-21 10:53 | RAD REPORT ---
EXAM DESCRIPTION: RAD - Chest Single View - 04/21/2020 10:19 am CLINICAL HISTORY: SOB Chest pain. COMPARISON: Chest Single View dated 04/20/2020; Chest Single View dated 04/19/2020; Chest Single Vie w dated 04/18/2020; Chest Single View dated 04/17/2020 FINDINGS: Portable technique limits examination quality. Mild pulmonary edema with bilateral pleural again seen, slightly progressive. Heart moderately enlarg ed with pacer device present. No displaced fractures. IMPRESSION: Mild to moderate CHF versus volume overload pattern. The findings are mildly progressive since yesterday's study.
[2020-04-21] MEDS: RIVAROXABAN 20 MG TABLET PO SCH (16:57)
[2020-04-21] MEDS: ACETAMINOPHEN 325 MG TABLET PO PRN (18:13)
[2020-04-21] MEDS: ATORVASTATIN 40 MG TAB PO SCH (20:24)
[2020-04-21] MEDS: SODIUM CHLORIDE 0.9% 10ML INJ IV PRN (20:25)
[2020-04-21] MEDS: TRAZODONE 150 MG TAB PO SCH (20:25)
[2020-04-22] MEDS: FUROSEMIDE 40 MG/4 ML VIAL IV SCH ×2 (00:31→09:01)
[2020-04-22] MEDS: HYDROCORTISONE SUC 100 MG INJ IV SCH (08:59)
[2020-04-22] MEDS: ASPIRIN EC 81 MG TAB PO SCH (09:01)
[2020-04-22] MEDS: PANTOPRAZOLE 40 MG INJ IVP SCH (09:01)
[2020-04-22] MEDS: GABAPENTIN 300 MG CAP PO SCH ×3 (09:01→20:37)
[2020-04-22] MEDS: DIGOXIN 0.125 MG TABLET PO SCH (09:01)
[2020-04-22] MEDS: CYANOCOBALAMIN 1,000 MCG TAB SL SCH (09:02)
[2020-04-22] MEDS: METOPROLOL TAR 25 MG TAB PO SCH ×2 (09:02→20:37)
[2020-04-22] MEDS: VANCOMYCIN 1.75 GM in NA CHLORIDE 0.9% 500 ML IVPB SCH (09:39)
[2020-04-22] MEDS: ACETIC ACID 0.25% IRRIG IRR SCH (10:31)
[2020-04-22] MEDS: CEFEPIME/SWI 1gm 10 ML IV SCH (10:32)
[2020-04-22] MEDS: MUPIROCIN 2% OINT 22GM TUBE TOP SCH (10:32)
[2020-04-22] MEDS ORDERED: LEVALBUTEROL 0.63 MG/3 ML NEB NEB PRN (11:12)
--- NOTE | 2020-04-22 11:15 | P.PN ---
Subjective Date of Service: 04/22/20 <Tres Garvin - Last Filed: 04/22/20 11:59> Date of Service: 04/22/20 Primary Care Provider: Dr. Brown Chief Complaint: Patient is admitted for cellulitis with septic shock Subjective: Improving <Abdirahman Lyle - Last Filed: 04/22/20 12:18> Review of Systems General: Weakness Respiratory: Cough, Shortness of Breath <Tres Garvin - Last Filed: 04/22/20 11:59> Physical Examination - Physical Exam General: Alert Respiratory: Clear to auscultation bilaterally, Normal air movement <Tres Garvin - Last Filed: 04/22/20 11:59> - Vital Signs Temperature: 97.2 F Blood Pressure: 158/80 Pulse: 98 Respirations: 20 Pulse Ox (%): 94 - Physical Exam General: Alert, In no apparent distress, Oriented x3, Cooperative HEENT: Atraumatic Neck: Supple Respiratory: Clear to auscultation bilaterally, Normal air movement Cardiovascular: Irregular heart rate/rhythm (AFib rate controlled) Gastrointestinal: No tenderness, No masses, No rebound, No guarding Integumentary: Other (Right lower extremity shows improvement with erythema, swelling.) Neurological: Normal speech, Normal strength at 5/5 x4 extr, Normal tone, Normal affect - Studies Medications List Reviewed: Yes <Abdirahman Lyle - Last Filed: 04/22/20 12:18> Assessment & Plan - Problems (Diagnosis) (1) COPD (chronic obstructive pulmonary disease) Current Visit: No Status: Acute Qualifiers: COPD type: unspecified COPD Qualified Code(s): J44.9 - Chronic obstructive pulmonary disease, unspecified <Tres Garvin - Last Filed: 04/22/20 11:59> Discharge Plan: Other (penitentiary facility) Plan to discharge in: 48 Hours Physician Review Additional Text: Impression: Right lower extremity cellulitis with septic shock resolved Atrial fibrillation on chronic anti coagulation therapy Acute on chronic renal disease stage III COPD on chronic oxygen Hypertension Chronic diastolic CHF Hyperlipidemia Neuropathy Plan: Right lower extremity cellulitis with septic shock resolved: Patient much improved. Discontinue cefepime and vancomycin. Will switch over to Augmentin and doxycycline orally. Physical therapy to assess for skilled placement evaluation. Advanced care planning address in detail-30 min. Spoke with daughter who reports patient comes from [facility]. She prefers that the patient go to [facility]. Will have social sciences professor address this in detail. Will also discuss this in detail with his PCP. Atrial fibrillation on chronic anti coagulation therapy: Continue with Xarelto. Increase metoprolol for better rate control. Patient also on digoxin Acute on chronic renal disease stage III: Overall stable. COPD on chronic oxygen: Pulmonology provided prednisone. Continue with oxygen to maintain sats above 93%. Dayami added. Hypertension: Continue to adjust medication. Chronic diastolic CHF: Discontinue IV Lasix. Switch to oral Lasix. Continue 1500 cc per day fluid restriction. Hyperlipidemia: Continue with medication Neuropathy: Continue medication Time Spent Managing Pts Care (In Minutes): 55 <Abdirahman Lyle - Last Filed: 04/22/20 12:18>
--- NOTE | 2020-04-22 11:56 | P.CNS ---
Date of Consult: 04/22/20 Primary Care Provider: Dr. Brown Chief Complaint: COPD History of Present Illness: Patient has a history of COPD heavy smoker still complaining of chronic dyspnea has gotten worse over the past 2 weeks he was admitted with cellulitis of his right leg blood cultures are all negative he is improving Allergies apixaban [From Eliquis] Allergy (Verified 01/10/20 10:54) Rash blueberry Allergy (Verified 01/10/20 10:54) Rash Home Medications: Acetic Acid 0.25% [Acetic Acid 0.25%*] 1,000 ml IRR M,W,F 01/09/20 Aspirin [Aspirin EC 81 MG] 81 mg PO DAILY 01/09/20 Atorvastatin Calcium [Lipitor] 40 mg PO BEDTIME 01/09/20 Furosemide 40 mg PO BID 01/09/20 Gabapentin 300 mg PO TID 01/09/20 Ipratropium Neb [Atrovent*] 1 aer NEB Q6HP PRN 01/09/20 Melatonin [Melatonin*] 3 mg PO BEDTIME 01/09/20 Mupirocin 2 % TOP DAILY 01/09/20 Polyethyl Gly 3350 [Glycolax*] 17 gm PO DAILY 01/09/20 Potassium Chloride [K-Dur] 20 meq PO DAILY 01/09/20 Rivaroxaban [Xarelto] 20 mg PO DAILY 01/09/20 Trazodone [Desyrel*] 150 mg PO BEDTIME 01/09/20 Metoprolol Tartrate [Lopressor*] 12.5 mg PO BID 30 Days #30 tab 01/19/20 - Past Medical/Surgical History Diabetic: No -: Chronic lower extremity lymphedema -: Chronic diastolic heart failure -: Hypertension -: Peripheral neuropathy -: Hyperlipidemia -: Endoscopy -: Pacemaker placement -: Cardiac catheterization -: Left knee replacement - Family History Father Family History: Reviewed- Non-Contributory - Social History Alcohol use: No CD- Drugs: No Caffeine use: No Place of Residence: [facility] Review of Systems 10-point ROS is otherwise unremarkable General: Weakness Respiratory: Cough, Shortness of Breath Physical Examination Temp Pulse Resp BP Pulse Ox 97.2 F 98 H 20 158/80 H 94 04/22/20 11:14 04/22/20 11:14 04/22/20 11:14 04/22/20 11:14 04/22/20 11:14 General: Alert, Oriented x3, Mild distress Respiratory: Expiratory wheezes Cardiovascular: Regular rate/rhythm, Edema Gastrointestinal: Normal bowel sounds, Non-distended - Problems (1) COPD (chronic obstructive pulmonary disease) Current Visit: No Status: Acute Plan: Patient is 79 years of age admitted with sepsis cellulitis is improving he has COPD hypoxic hypercarbic evaluate for home O2 patient is mildly anemic patient has a pacemaker chest x-ray rotated BNP is over 7000 may have underlying heart failure no evidence of ongoing sepsis the renal function is normal patient is in AFib add Brovana change to p.o. antibiotics Qualifiers: COPD type: unspecified COPD Qualified Code(s): J44.9 - Chronic obstructive pulmonary disease, unspecified
[2020-04-22] MEDS: ARFORMOTEROL TARTRATE 15 MCG/2 ML VIAL.NEB NEB SCH ×2 (11:58→19:50)
--- NOTE | 2020-04-22 14:30 | RAD REPORT ---
EXAM DESCRIPTION: RAD - Chest Pa And Lat (2 Views) - 04/22/2020 1:59 pm CLINICAL HISTORY: Possible CHF Chest pain. COMPARISON: Chest Single View dated 04/21/2020; Chest Single View dated 04/20/2020; Chest Single Vie w dated 04/19/2020; Chest Single View dated 04/18/2020 FINDINGS: Bilateral pulmonary opacities are present, having the appearance of pulmonary edema. Small bilateral pleural effusions are noted. Heart is moderately enlarged in size with dual lead pacer dev ice present. IMPRESSION: Mild CHF pattern is seen, essentially stable since comparative study.
[2020-04-22] MEDS: RIVAROXABAN 20 MG TABLET PO SCH (16:08)
[2020-04-22] MEDS: FUROSEMIDE 40 MG TABLET PO SCH (16:09)
[2020-04-22] MEDS ORDERED: FUROSEMIDE 20 MG/ 2ML VIAL IV SCH (17:00)
[2020-04-22] MEDS: TRAZODONE 150 MG TAB PO SCH (20:36)
[2020-04-22] MEDS: ATORVASTATIN 40 MG TAB PO SCH (20:36)
[2020-04-22] MEDS: AMOX/K CLAV 500 MG TAB PO SCH (20:36)
[2020-04-22] MEDS: MELATONIN 3 MG TABLET PO SCH (20:37)
[2020-04-22] MEDS: predniSONE 20 MG TAB PO SCH (20:37)
[2020-04-22] MEDS: DOXYCYCLINE 100 MG CAP PO SCH (20:37)
[2020-04-22] MEDS: SODIUM CHLORIDE 0.9% 10ML INJ IV PRN (20:38)
[2020-04-23 05:34] LABS: Magnesium 2.3 mg/dL (1.8-2.4)
[2020-04-23 05:39] LABS: Absolute Lymphocytes (CBC) 0.5 K/uL (0.7-4.9); Basophils % 0.3 % (0-1.3); Hematocrit 27.3 % (39.6-49.0); MPV 9.8 fL (7.6-11.3); RBC Red Blood Cell Count 3.07 M/uL (4.33-5.43)
--- NOTE | 2020-04-23 08:05 | PN ---
Date of Progress Note: 04/21/2020 Mr. Crowley had come in with rapid atrial fibrillation, most likely secondary to dehydration and sepsi s. He has COPD. He has chronic systolic congestive heart failure. Patient is on inhalers for COPD. He is on Lasix for his congestive heart failure. He is on antibiotics for his sepsis. His atrial fibrillation rate is down after digoxin and beta-cecil. He is on Xarelto. We can certainly increa se the beta-cecil dose on an as-needed basis for his heart rate. His last heart rate is 93. His O 2 saturation is 96% on nasal cannula 3 L. His last hemoglobin is 8.9. We will continue present ottoniel shaw. I am ready to sign off his case for now. I will be available for questions if the need arises. ARNIE/CAROLANN Voice ID: [id number] Report ID: [id number]
--- NOTE | 2020-04-23 08:40 | ECHO ---
HEIGHT: 5 ft 11 in WEIGHT: 230 lb 0 oz DATE OF STUDY: 04/22/[address]: Melchor Umanzor MD 2-DIMENSIONAL: YES M.MODE: YES DOPPLER: YES COLOR FLOW: YES TDS: YES PORTABLE: NO DEFINITY: NO BUBBLE STUDY: NO DIAGNOSIS: ATRIAL FIBRILLATION CARDIAC HISTORY: CATHERIZATION: YES SURGERY: NO PROSTHETIC VALVE: YES PACEMAKER: YES MEASUREMENTS (cm) DIASTOLIC (NORMALS) SYSTOLIC (NORMALS) IVSd 1.3 (0.6-1.2) LA Diam 3.5 (1.9-4.0) LVEF 55-60% LVIDd 3.1 (3.5-5.7) LVIDs 2.4 (2.0-3.5) %FS 21% LVPWd 1.3 (0.6-1.2) Ao Diam 3.0 (2.0-3.7) 2 DIMENSIONAL ASSESSMENT: RIGHT ATRIUM: NORMAL LEFT ATRIUM: NORMAL RIGHT VENTRICLE: NORMAL LEFT VENTRICLE: SEE BELOW TRICUSPID VALVE: MITRAL VALVE: PULMONIC VALVE: NORMAL AORTIC VALVE: PROSTHESIS IN PLACE PERICARDIAL EFFUSION: NONE AORTIC ROOT: NORMAL LEFT VENTRICULAR WALL MOTION: SEPTAL WALL MOTION LIKELY POST SURGERY CHANGES. DOPPLER/COLOR FLOW: SEE BELOW. COMMENTS: NORMAL LEFT VENTRICULAR EJECTION FRACTION 55-60% WITH SEPTAL WALL MOTION LIKELY POST SURGICAL. MODERATE TRICUSPID REGURGITATION. MILD MITRAL REGURGITATION. SEVERE PULMONARY HYPERTENSION WITH RIGHT VENTRICULAR SYSTOLIC PRESSURE OF >60 mmHg. AORTIC PROSTHESIS IS PLACED, POOR WINDOWS BUT FUNCTIONING WELL WITH DVI OF 0.54 TECHNOLOGIST: Primitivo ARNETT
[2020-04-23] MEDS: ARFORMOTEROL TARTRATE 15 MCG/2 ML VIAL.NEB NEB SCH ×2 (08:52→20:10)
[2020-04-23] MEDS: DOXYCYCLINE 100 MG CAP PO SCH ×2 (09:00→20:45)
[2020-04-23] MEDS ORDERED: VANCOMYCIN 1.5 GM in NA CHLORIDE 0.9% 500 ML IVPB SCH (09:00)
[2020-04-23] MEDS: PANTOPRAZOLE 40 MG INJ IVP SCH (10:17)
[2020-04-23] MEDS: predniSONE 20 MG TAB PO SCH ×2 (10:17→20:44)
[2020-04-23] MEDS: METOPROLOL TAR 25 MG TAB PO SCH ×2 (10:18→20:44)
[2020-04-23] MEDS: GABAPENTIN 300 MG CAP PO SCH ×3 (10:18→20:44)
[2020-04-23] MEDS: DIGOXIN 0.125 MG TABLET PO SCH (10:18)
[2020-04-23] MEDS: AMOX/K CLAV 500 MG TAB PO SCH ×2 (10:18→20:44)
[2020-04-23] MEDS: ASPIRIN EC 81 MG TAB PO SCH (10:19)
[2020-04-23] MEDS: FUROSEMIDE 40 MG TABLET PO SCH ×2 (10:19→18:32)
[2020-04-23] MEDS: CYANOCOBALAMIN 1,000 MCG TAB SL SCH (10:28)
[2020-04-23] MEDS: MUPIROCIN 2% OINT 22GM TUBE TOP SCH (13:50)
[2020-04-23] MEDS: RIVAROXABAN 20 MG TABLET PO SCH (18:32)
[2020-04-23] MEDS: ATORVASTATIN 40 MG TAB PO SCH (20:44)
[2020-04-23] MEDS: MELATONIN 3 MG TABLET PO SCH (20:44)
[2020-04-23] MEDS: TRAZODONE 150 MG TAB PO SCH (20:44)
[2020-04-24 05:53] LABS: Absolute Lymphocytes (CBC) 0.7 K/uL (0.7-4.9); Basophils % 0.3 % (0-1.3); Hematocrit 26.7 % (39.6-49.0); Lymphocytes % 11.5 % (15.3-44.8); MPV 9.8 fL (7.6-11.3); RBC Red Blood Cell Count 3.01 M/uL (4.33-5.43)
[2020-04-24 06:06] LABS: BUN Blood Urea Nitrogen 35 mg/dL (7-18); Bicarbonate 38 mmol/L (21-32); Glucose Level 116 mg/dL (74-106); Sodium Level 146 mmol/L (136-145)
[2020-04-24 06:07] LABS: Magnesium 2.3 mg/dL (1.8-2.4); Potassium 3.9 mmol/L (3.5-5.1)
[2020-04-24] MEDS: LEVALBUTEROL 0.63 MG/3 ML NEB NEB PRN (08:30)
[2020-04-24] MEDS: ARFORMOTEROL TARTRATE 15 MCG/2 ML VIAL.NEB NEB SCH ×2 (08:30→19:35)
[2020-04-24 08:57] LABS: Blood Morphology Comment NOT SEEN (NOT SEEN); Platelet Estimate DECR
[2020-04-24] MEDS: DOXYCYCLINE 100 MG CAP PO SCH ×2 (09:00→21:06)
[2020-04-24] MEDS: ACETIC ACID 0.25% IRRIG IRR SCH (09:00)
[2020-04-24] MEDS: MUPIROCIN 2% OINT 22GM TUBE TOP SCH (09:00)
[2020-04-24] MEDS: PANTOPRAZOLE 40 MG INJ IVP SCH (10:39)
[2020-04-24] MEDS: GABAPENTIN 300 MG CAP PO SCH ×3 (10:40→21:07)
[2020-04-24] MEDS: AMOX/K CLAV 500 MG TAB PO SCH ×2 (10:40→21:06)
[2020-04-24] MEDS: CYANOCOBALAMIN 1,000 MCG TAB SL SCH (10:41)
[2020-04-24] MEDS: predniSONE 20 MG TAB PO SCH ×2 (10:41→21:06)
[2020-04-24] MEDS: FUROSEMIDE 40 MG TABLET PO SCH ×2 (10:41→16:30)
[2020-04-24] MEDS: ASPIRIN EC 81 MG TAB PO SCH (10:41)
[2020-04-24] MEDS: METOPROLOL TAR 25 MG TAB PO SCH ×2 (10:42→21:06)
[2020-04-24] MEDS: DIGOXIN 0.125 MG TABLET PO SCH (10:42)
--- NOTE | 2020-04-24 13:52 | CON ---
History Of Present Illness: The patient is an 79-year-old male. I was consulted for evaluation of r ight lower extremity cellulitis and also septic shock. The patient has significant history of lymphe laz. The patient denies any headache, nausea, vomiting, chest pain, abdominal pain, constipation, o r diarrhea. Feeling better since he has been in the hospital. Denies any other problem. The patien t has significant past medical history of lymphedema for 3 years and being treated by the primary car e doctor. Also has atrial fibrillation, COPD. Past Medical History: As per HPI. Social History: Nonsmoker, nondrinker. Medications: Augmentin and doxycycline. See MAR for other medications. Allergies: APIXABAN AND BLUEBERRY. Review of Systems: A 10-point review was performed. Physical Examination: General: This is an 79-year-old male, lying in bed, not in any acute cardiopulmonary distress. Vital Signs: Temperature 98.2, pulse 70, respirations 20, blood pressure 105/61. HEENT: Unremarkable. Neck: Supple. Lungs: Basal crackles. Heart: S1, S2. Regular. Abdomen: Soft, nontender. Bowel sounds present. Extremities: 2+ nonpitting edema with erythematous changes to the right leg. Laboratory Data: Shows WBC 6000, hemoglobin 8.6, platelets are 99 with thrombocytopenia and anemia. Chemistry shows sodium 146, potassium 3.9, chloride 107, bicarb 38, BUN 35, creatinine 0.8, glucose 116. Procalcitonin is 0.93. Culture shows no growth from the urine. Blood cultures are negative fo r 5 days. Assessment And Plan: 1.Right lower extremity cellulitis in an 79-year-old male with history of lymphedema and septic shoc k. The patient is doing much better. I agree with rehab for the patient. 2.Chronic obstructive pulmonary disease and anemia and thrombocytopenia. We will monitor for signs of infection. Continue supportive care. Keep legs elevated when possible. We will recommend the zafar sanchez to go to rehab for further management. NF/MODL Voice ID: [id number] Report ID: [id number]
[2020-04-24] MEDS: RIVAROXABAN 20 MG TABLET PO SCH (16:30)
[2020-04-24] MEDS: ATORVASTATIN 40 MG TAB PO SCH (21:07)
[2020-04-24] MEDS: MELATONIN 3 MG TABLET PO SCH (21:07)
[2020-04-24] MEDS: TRAZODONE 150 MG TAB PO SCH (21:08)
[2020-04-25 05:19] LABS: Absolute Lymphocytes (CBC) 0.6 K/uL (0.7-4.9); Basophils % 0.2 % (0-1.3); Hematocrit 26.3 % (39.6-49.0); Lymphocytes % 9.6 % (15.3-44.8); MPV 8.7 fL (7.6-11.3); RBC Red Blood Cell Count 2.97 M/uL (4.33-5.43)
[2020-04-25 05:30] LABS: Magnesium 2.2 mg/dL (1.8-2.4); Potassium 4.1 mmol/L (3.5-5.1)
[2020-04-25] MEDS: GABAPENTIN 300 MG CAP PO SCH ×3 (08:20→20:44)
[2020-04-25] MEDS: DOXYCYCLINE 100 MG CAP PO SCH ×2 (08:20→20:44)
[2020-04-25] MEDS: predniSONE 20 MG TAB PO SCH ×2 (08:20→20:44)
[2020-04-25] MEDS: DIGOXIN 0.125 MG TABLET PO SCH (08:20)
[2020-04-25] MEDS: PANTOPRAZOLE 40 MG INJ IVP SCH (08:20)
[2020-04-25] MEDS: ASPIRIN EC 81 MG TAB PO SCH (08:21)
[2020-04-25] MEDS: AMOX/K CLAV 500 MG TAB PO SCH ×2 (08:21→20:44)
[2020-04-25] MEDS: METOPROLOL TAR 25 MG TAB PO SCH ×2 (08:21→20:45)
[2020-04-25] MEDS: FUROSEMIDE 40 MG TABLET PO SCH ×2 (08:21→16:47)
[2020-04-25] MEDS: CYANOCOBALAMIN 1,000 MCG TAB SL SCH (08:22)
[2020-04-25] MEDS: ARFORMOTEROL TARTRATE 15 MCG/2 ML VIAL.NEB NEB SCH ×2 (08:45→20:50)
[2020-04-25] MEDS: LEVALBUTEROL 0.63 MG/3 ML NEB NEB PRN (08:45)
[2020-04-25] MEDS ORDERED: BISACODYL 10 MG RECTAL SUPP PR ONE (13:08)
--- NOTE | 2020-04-25 15:38 | PN ---
Date of Progress Note: 04/25/2020 The patient continues to feel better physically and mentally as well. The edema continues to improve as well as cellulitis. Vital signs are stable. Awaiting insurance clearance for disposition. Seen by infectious disease. Recommended continuation of oral antibiotics for at least the next 4 to 5 da ys; however, since we are coming to [place] weekend, I suspect the insurance situation will not maryam nged and therefore, we will continue to monitor him here. Biggest problem he has now is constipation . This should be treated symptomatically. HR/MODL Voice ID: [id number] Report ID: [id number]
--- NOTE | 2020-04-25 15:38 | PN ---
Date of Progress Note: 04/25/2020 The patient awaiting insurance's decision as far as transfer to . His vital signs are stab le. He feels considerably better. Mental status is improved. Physically, other than in the leg, edema seems to have improved as well compared to the initial edema has gone down considerabl y probable baseline. We will consult Infectious Disease for his length of antibiotic treatment. HR/MODL Voice ID: [id number] Report ID: [id number]
[2020-04-25] MEDS: RIVAROXABAN 20 MG TABLET PO SCH (16:47)
[2020-04-25] MEDS: MUPIROCIN 2% OINT 22GM TUBE TOP SCH (16:48)
[2020-04-25] MEDS: MELATONIN 3 MG TABLET PO SCH (20:44)
[2020-04-25] MEDS: ATORVASTATIN 40 MG TAB PO SCH (20:44)
[2020-04-25] MEDS: TRAZODONE 150 MG TAB PO SCH (20:45)
[2020-04-26 04:56] LABS: Absolute Lymphocytes (CBC) 0.6 K/uL (0.7-4.9); Basophils % 0.3 % (0-1.3); Hematocrit 28.5 % (39.6-49.0); Lymphocytes % 11.9 % (15.3-44.8); MPV 8.5 fL (7.6-11.3); RBC Red Blood Cell Count 3.18 M/uL (4.33-5.43)
[2020-04-26 05:11] LABS: BUN Blood Urea Nitrogen 31 mg/dL (7-18); Glucose Level 109 mg/dL (74-106); Potassium 3.9 mmol/L (3.5-5.1); Sodium Level 148 mmol/L (136-145)
[2020-04-26 05:13] LABS: Bicarbonate 42 mmol/L (21-32)
[2020-04-26] MEDS: ARFORMOTEROL TARTRATE 15 MCG/2 ML VIAL.NEB NEB SCH ×2 (07:57→20:15)
[2020-04-26] MEDS: PANTOPRAZOLE 40 MG INJ IVP SCH (08:52)
[2020-04-26] MEDS: GABAPENTIN 300 MG CAP PO SCH ×3 (08:52→20:44)
[2020-04-26] MEDS: ASPIRIN EC 81 MG TAB PO SCH (08:52)
[2020-04-26] MEDS: CYANOCOBALAMIN 1,000 MCG TAB SL SCH (08:52)
[2020-04-26] MEDS: DIGOXIN 0.125 MG TABLET PO SCH (08:52)
[2020-04-26] MEDS: predniSONE 20 MG TAB PO SCH (08:52)
[2020-04-26] MEDS: DOXYCYCLINE 100 MG CAP PO SCH ×2 (08:52→20:43)
[2020-04-26] MEDS: AMOX/K CLAV 500 MG TAB PO SCH ×2 (08:52→20:44)
[2020-04-26] MEDS: FUROSEMIDE 40 MG TABLET PO SCH (08:54)
[2020-04-26] MEDS: METOPROLOL TAR 25 MG TAB PO SCH ×2 (08:54→20:42)
--- NOTE | 2020-04-26 12:26 | P.PN ---
Subjective Date of Service: 04/26/20 Primary Care Provider: Dr. Brown Chief Complaint: COPD Subjective: Improving (Patient is improving breathing is doing better bicarbonate is mildly elevated is a little hypernatremic is probably volume depleted) Review of Systems General: Weakness Respiratory: Shortness of Breath Physical Examination - Vital Signs Temperature: 97.4 F Blood Pressure: 139/75 Pulse: 69 Respirations: 18 Pulse Ox (%): 96 - Physical Exam General: Alert, Oriented x3 Respiratory: Clear to auscultation bilaterally, Diminished Cardiovascular: Regular rate/rhythm - Studies Medications List Reviewed: Yes Assessment & Plan - Problems (Diagnosis) (1) COPD (chronic obstructive pulmonary disease) Current Visit: No Status: Acute Plan: Patient has underlying COPD is becoming more hypernatremic have started him on half-normal saline bicarbonate is elevated most likely to contraction alkalosis is white count is normal he is on p.o. antibiotics blood gases only shows mild hypernatremia patient is on Lasix twice a day patient has normal left ventricular function severe pulmonary hypertension [place] secondary to some diastolic dysfunction I recommend adding spironolactone instead of Lasix patient is anti coagulated Qualifiers: COPD type: unspecified COPD Qualified Code(s): J44.9 - Chronic obstructive pulmonary disease, unspecified Physician Review Additional Text: Impression: Right lower extremity cellulitis with septic shock resolved Atrial fibrillation on chronic anti coagulation therapy Acute on chronic renal disease stage III COPD on chronic oxygen Hypertension Chronic diastolic CHF Hyperlipidemia Neuropathy Plan: Right lower extremity cellulitis with septic shock resolved: Patient much improved. Discontinue cefepime and vancomycin. Will switch over to Augmentin and doxycycline orally. Physical therapy to assess for skilled placement evaluation. Advanced care planning address in detail-30 min. Spoke with daughter who reports patient comes from [facility]. She prefers t hat the patient go to [facility] skilled facility. Will have social work faculty member address this in detail. Will also discuss this in detail with his PCP. Atrial fibrillation on chronic anti coagulation therapy: Continue with Xarelto. Increase metoprolol for better rate control. Patient also on digoxin Acute on chronic renal disease stage III: Overall stable. COPD on chronic oxygen: Pulmonology provided prednisone. Continue with oxygen to maintain sats above 93%. Dayami added. Hypertension: Continue to adjust medication. Chronic diastolic CHF: Discontinue IV Lasix. Switch to oral Lasix. Continue 1500 cc per day fluid restriction. Hyperlipidemia: Continue with medication Neuropathy: Continue medication
[2020-04-26] MEDS: ACETAMINOPHEN 325 MG TABLET PO PRN (14:00)
[2020-04-26] MEDS: NACHLORIDE 0.45% 1,000 ML IV SCH (14:00)
--- NOTE | 2020-04-26 14:15 | PN ---
Date of Progress Note: 04/26/2020 The patient states he feels considerably better today. He is much more orientated. He is eating and urinating and his bowel movements are starting to function and he is still awaiting placement depend ing on it on Wednesday morning. In the meantime, his dressing was changed to Bactroban. There was some cracking noted in the lymphedematous portion of the right leg, however, he has marked decrease in th e edema, combination of the CHF chronic with acute response and the lymphedema. He will continue to be wrapped and evaluated for placement. HR/MODL Voice ID: [id number] Report ID: [id number]
[2020-04-26] MEDS: MUPIROCIN 2% OINT 22GM TUBE TOP SCH (14:30)
[2020-04-26] MEDS: RIVAROXABAN 20 MG TABLET PO SCH (16:42)
[2020-04-26] MEDS: ATORVASTATIN 40 MG TAB PO SCH (20:42)
[2020-04-26] MEDS: MELATONIN 3 MG TABLET PO SCH (20:44)
[2020-04-26] MEDS: TRAZODONE 150 MG TAB PO SCH (20:44)
[2020-04-27] MEDS: NACHLORIDE 0.45% 1,000 ML IV SCH ×2 (03:10→15:05)
[2020-04-27] MEDS: AMOX/K CLAV 500 MG TAB PO SCH ×2 (08:28→20:13)
[2020-04-27] MEDS: CYANOCOBALAMIN 1,000 MCG TAB SL SCH (08:28)
[2020-04-27] MEDS: METOPROLOL TAR 25 MG TAB PO SCH ×2 (08:28→20:14)
[2020-04-27] MEDS: ASPIRIN EC 81 MG TAB PO SCH (08:29)
[2020-04-27] MEDS: GABAPENTIN 300 MG CAP PO SCH ×3 (08:29→20:13)
[2020-04-27] MEDS: DOXYCYCLINE 100 MG CAP PO SCH ×2 (08:29→20:13)
[2020-04-27] MEDS: DIGOXIN 0.125 MG TABLET PO SCH (08:30)
[2020-04-27] MEDS: MUPIROCIN 2% OINT 22GM TUBE TOP SCH (08:31)
[2020-04-27] MEDS: PANTOPRAZOLE 40 MG INJ IVP SCH (08:34)
[2020-04-27] MEDS ORDERED: predniSONE 20 MG TAB PO SCH (09:00)
[2020-04-27] MEDS: IPRATROPIUM BROM 0.5MG/2.5ML NEB PRN ×2 (09:50→19:55)
[2020-04-27] MEDS: LEVALBUTEROL 0.63 MG/3 ML NEB NEB PRN (09:50)
[2020-04-27] MEDS: ARFORMOTEROL TARTRATE 15 MCG/2 ML VIAL.NEB NEB SCH ×2 (09:50→19:55)
[2020-04-27] MEDS ORDERED: SPIRONOLACTONE 25 MG TABLET PO ONE (12:51)
[2020-04-27] MEDS: RIVAROXABAN 20 MG TABLET PO SCH (16:31)
--- NOTE | 2020-04-27 18:06 | PN ---
Date of Progress Note: 04/27/2020 Patient states he feels more comfortable today. He is urinating better. Bowel movement is still maximilian ewhat of a problem. I will put him on stool softener and laxative as necessary. Discussion of dispo sition, he says he [facility] [place] a number of m onths ago. We will discuss this further with Case Planner on Wednesday morning. HR/MODL Voice ID: [id number] Report ID: [id number]
[2020-04-27] MEDS: MELATONIN 3 MG TABLET PO SCH (20:13)
[2020-04-27] MEDS: ATORVASTATIN 40 MG TAB PO SCH (20:14)
[2020-04-27] MEDS: TRAZODONE 150 MG TAB PO SCH (20:15)
[2020-04-28] MEDS: NACHLORIDE 0.45% 1,000 ML IV SCH ×3 (03:55→18:20)
[2020-04-28] MEDS: ARFORMOTEROL TARTRATE 15 MCG/2 ML VIAL.NEB NEB SCH ×2 (08:00→19:40)
[2020-04-28] MEDS: AMOX/K CLAV 500 MG TAB PO SCH ×2 (08:17→20:47)
[2020-04-28] MEDS: ASPIRIN EC 81 MG TAB PO SCH (08:17)
[2020-04-28] MEDS: PANTOPRAZOLE 40MG TABLET PO SCH (08:18)
[2020-04-28] MEDS: CYANOCOBALAMIN 1,000 MCG TAB SL SCH (08:18)
[2020-04-28] MEDS: DIGOXIN 0.125 MG TABLET PO SCH (08:18)
[2020-04-28] MEDS: GABAPENTIN 300 MG CAP PO SCH ×3 (08:18→20:47)
[2020-04-28] MEDS: SPIRONOLACTONE 25 MG TABLET PO SCH (08:18)
[2020-04-28] MEDS: DOXYCYCLINE 100 MG CAP PO SCH ×2 (08:19→20:46)
[2020-04-28] MEDS: MUPIROCIN 2% OINT 22GM TUBE TOP SCH (08:19)
[2020-04-28] MEDS: METOPROLOL TAR 25 MG TAB PO SCH ×2 (10:49→20:46)
--- NOTE | 2020-04-28 15:59 | PN ---
Date of Progress Note: 04/28/2020 The patient states he feels better today; however, his walking is still limited. Disposition discuss ion was made with the patient as far as Rehab and Nursing. He prefers [facility] to which he has been before; however, I feel to get a more mobilized. Physical therapy intensity would be greater in [facility]. A will be held tomorrow morning and further discussion will be made wit h the patient after the consultation as far as where to send him. HR/MODL Voice ID: [id number] Report ID: [id number]
[2020-04-28] MEDS: RIVAROXABAN 20 MG TABLET PO SCH (17:08)
[2020-04-28] MEDS: TRAZODONE 150 MG TAB PO SCH (20:46)
[2020-04-28] MEDS: ATORVASTATIN 40 MG TAB PO SCH (20:46)
[2020-04-28] MEDS: MELATONIN 3 MG TABLET PO SCH (20:47)
[2020-04-29] MEDS: NACHLORIDE 0.45% 1,000 ML IV SCH (06:06)
[2020-04-29] MEDS: ARFORMOTEROL TARTRATE 15 MCG/2 ML VIAL.NEB NEB SCH ×2 (08:05→20:25)
[2020-04-29] MEDS ORDERED: IPRATROPIUM BROM 0.5MG/2.5ML NEB PRN (08:48)
[2020-04-29] MEDS: DOXYCYCLINE 100 MG CAP PO SCH ×2 (09:00→21:00)
[2020-04-29] MEDS: MUPIROCIN 2% OINT 22GM TUBE TOP SCH (09:00)
[2020-04-29] MEDS: ACETIC ACID 0.25% IRRIG IRR SCH (09:00)
[2020-04-29] MEDS: PANTOPRAZOLE 40MG TABLET PO SCH (09:31)
[2020-04-29] MEDS: BISACODYL E.C. 5 MG TAB PO PRN (09:31)
[2020-04-29] MEDS: GABAPENTIN 300 MG CAP PO SCH ×3 (09:31→21:21)
[2020-04-29] MEDS: ASPIRIN EC 81 MG TAB PO SCH (09:32)
[2020-04-29] MEDS: CYANOCOBALAMIN 1,000 MCG TAB SL SCH (09:32)
[2020-04-29] MEDS: AMOX/K CLAV 500 MG TAB PO SCH ×2 (09:32→21:21)
[2020-04-29] MEDS: DIGOXIN 0.125 MG TABLET PO SCH (09:32)
[2020-04-29] MEDS: SPIRONOLACTONE 25 MG TABLET PO SCH (09:32)
[2020-04-29] MEDS: METOPROLOL TAR 25 MG TAB PO SCH ×2 (10:06→21:00)
--- NOTE | 2020-04-29 13:30 | PN ---
Date of Progress Note: 04/29/2020 Subjective: Basically stable as far as symptoms are concerned. The patient has decided to go to SNF unit in [place] where he has been in the past. We will therefore put this in motion and discontinu e the idea of him going to rehab. He has some hypernatremia. We will try D5 to improve this and con tinue on his spironolactone. Legs seem to be stabilized as far as the infection and size is concerne d. If the electrolytes are normal tomorrow, he can perhaps be transferred in the next day or so. HR/MODL Voice ID: [id number] Report ID: [id number]
[2020-04-29] MEDS: D5W 1,000 ML IV SCH (13:59)
[2020-04-29] MEDS: RIVAROXABAN 20 MG TABLET PO SCH (18:02)
[2020-04-29] MEDS: TRAZODONE 150 MG TAB PO SCH (21:20)
[2020-04-29] MEDS: ATORVASTATIN 40 MG TAB PO SCH (21:22)
[2020-04-30] MEDS: D5W 1,000 ML IV SCH ×2 (02:48→16:33)
[2020-04-30] MEDS: ARFORMOTEROL TARTRATE 15 MCG/2 ML VIAL.NEB NEB SCH ×2 (07:45→20:05)
[2020-04-30] MEDS: MUPIROCIN 2% OINT 22GM TUBE TOP SCH (09:00)
[2020-04-30] MEDS: DOXYCYCLINE 100 MG CAP PO SCH ×2 (09:00→21:04)
[2020-04-30] MEDS: CYANOCOBALAMIN 1,000 MCG TAB SL SCH (09:00)
[2020-04-30] MEDS: GABAPENTIN 300 MG CAP PO SCH ×3 (09:11→21:06)
[2020-04-30] MEDS: ASPIRIN EC 81 MG TAB PO SCH (09:11)
[2020-04-30] MEDS: DIGOXIN 0.125 MG TABLET PO SCH (09:12)
[2020-04-30] MEDS: SPIRONOLACTONE 25 MG TABLET PO SCH (09:12)
[2020-04-30] MEDS: AMOX/K CLAV 500 MG TAB PO SCH ×2 (09:12→21:04)
[2020-04-30] MEDS: METOPROLOL TAR 25 MG TAB PO SCH ×2 (09:13→21:00)
[2020-04-30] MEDS: PANTOPRAZOLE 40MG TABLET PO SCH (09:13)
[2020-04-30 10:25] LABS: ALT/SGPT 28 U/L (12-78); AST/SGOT 24 U/L (15-37); Albumin 2.2 g/dL (3.4-5.0); Alkaline Phosphatase 85 U/L (45-117); BUN Blood Urea Nitrogen 16 mg/dL (7-18); Bicarbonate 37 mmol/L (21-32); Bilirubin Total 1.7 mg/dL (0.2-1.0); Glucose Level 120 mg/dL (74-106); Potassium 3.8 mmol/L (3.5-5.1); Protein, Total 5.6 g/dL (6.4-8.2); Sodium Level 140 mmol/L (136-145)
[2020-04-30] MEDS ORDERED: FUROSEMIDE 20 MG/ 2ML VIAL IV ONE (15:00)
--- NOTE | 2020-04-30 15:03 | PN ---
Date of Progress Note: 04/30/2020 Subjective: The patient seems with increased dyspnea today, slight increase in the fluid in his legs . Will use Lasix IV. Continue on the spironolactone as well. Denied placement in the rehab. Await ing placement in the SNF unit at [facility]. The patient has done well on BiPAP. We will start this again until we see what use of Lasix does in regard to his dyspnea and if stable, possibly coul d be discharged to SNF Unit tomorrow or the next day. His has improved considerably with the anabaptism of the D5. HR/MODL Voice ID: [id number] Report ID: [id number]
[2020-04-30] MEDS: RIVAROXABAN 20 MG TABLET PO SCH (16:34)
[2020-04-30] MEDS ORDERED: FUROSEMIDE 20 MG TABLET PO ONE (17:12)
[2020-04-30] MEDS: ATORVASTATIN 40 MG TAB PO SCH (21:00)
[2020-04-30] MEDS: MELATONIN 3 MG TABLET PO SCH (21:06)
[2020-04-30] MEDS: TRAZODONE 150 MG TAB PO SCH (21:06)
[2020-04-30] MEDS: ENSURE HIGH PROTEIN 237 ML CAN PO PRN (21:10)
[2020-05-01] MEDS: D5W 1,000 ML IV SCH (05:56)
[2020-05-01 07:28] LABS: Absolute Lymphocytes (CBC) 0.9 K/uL (0.7-4.9); Basophils % 0.5 % (0-1.3); Hematocrit 26.4 % (39.6-49.0); Lymphocytes % 13.5 % (15.3-44.8); MPV 9.4 fL (7.6-11.3)
[2020-05-01 07:47] LABS: BUN Blood Urea Nitrogen 14 mg/dL (7-18); Bicarbonate 38 mmol/L (21-32); Glucose Level 103 mg/dL (74-106); Potassium 3.9 mmol/L (3.5-5.1); Sodium Level 141 mmol/L (136-145)
[2020-05-01] MEDS: ARFORMOTEROL TARTRATE 15 MCG/2 ML VIAL.NEB NEB SCH (08:08)
[2020-05-01] MEDS: PANTOPRAZOLE 40MG TABLET PO SCH (08:43)
[2020-05-01] MEDS: DIGOXIN 0.125 MG TABLET PO SCH (08:43)
[2020-05-01] MEDS: SPIRONOLACTONE 25 MG TABLET PO SCH (08:44)
[2020-05-01] MEDS: DOXYCYCLINE 100 MG CAP PO SCH ×2 (08:44→20:42)
[2020-05-01] MEDS: ASPIRIN EC 81 MG TAB PO SCH (08:44)
[2020-05-01] MEDS: AMOX/K CLAV 500 MG TAB PO SCH ×2 (08:44→20:42)
[2020-05-01] MEDS: METOPROLOL TAR 25 MG TAB PO SCH ×2 (08:45→20:43)
[2020-05-01] MEDS: GABAPENTIN 300 MG CAP PO SCH ×3 (08:45→20:42)
[2020-05-01] MEDS: CYANOCOBALAMIN 1,000 MCG TAB SL SCH (08:46)
[2020-05-01 12:06] LABS: Arterial Blood Carboxyhemoglob 1.9 % (0-1.5); Blood Gas Oxyhemoglobin 95.4 % (94-97); Blood O2 Saturation 98.3 % (92-98.5)
--- NOTE | 2020-05-01 12:17 | P.PN ---
Subjective Date of Service: 05/01/20 Primary Care Provider: Dr. Brown Chief Complaint: COPD Subjective: Improving (Patient is doing very well as a little beta chest congestion this morning very weak) Review of Systems General: Weakness Respiratory: Shortness of Breath Physical Examination - Vital Signs Temperature: 97.6 F Blood Pressure: 138/64 Pulse: 69 Respirations: 20 Pulse Ox (%): 98 - Physical Exam General: Alert, Oriented x3 Respiratory: Expiratory wheezes Cardiovascular: No edema, Normal S1 S2 - Studies Medications List Reviewed: Yes Assessment & Plan - Problems (Diagnosis) (1) COPD (chronic obstructive pulmonary disease) Current Visit: No Status: Acute Plan: Patient admitted with COPD doing better continue with bronchodilators labs all reviewed bicarbonate as decline continue with spironolactone and Lasix p.r.n. in addition he will need a long-acting bronchodilator recommend adding some trilogy right now patient has hypoxemia and hypercarbia Qualifiers: COPD type: unspecified COPD Qualified Code(s): J44.9 - Chronic obstructive pulmonary disease, unspecified Physician Review Additional Text: I
--- NOTE | 2020-05-01 13:21 | RAD REPORT ---
EXAM DESCRIPTION: RAD - Chest Single View - 05/01/2020 1:01 pm CLINICAL HISTORY: COPD Chest pain. COMPARISON: Chest Pa And Lat (2 Views) dated 04/22/2020; Chest Single View dated 04/21/2020; Chest S farheen View dated 04/20/2020; Chest Single View dated 04/19/2020 FINDINGS: Portable technique limits examination quality. Bilateral pulmonary opacities are again noted, slightly progressive since the comparative study. The heart is prominent in size with dual lead pacer device present. Small bilateral pleural effusions. IMPRESSION: Mild worsening in lung aeration since comparative study.
[2020-05-01] MEDS: DULERA 200/5 (MOMETASONE/FORMOTEROL) INHALER IH SCH ×2 (13:32→20:44)
[2020-05-01] MEDS: MUPIROCIN 2% OINT 22GM TUBE TOP SCH (13:34)
[2020-05-01] MEDS ORDERED: FUROSEMIDE 20 MG/ 2ML VIAL IV ONE (15:00)
--- NOTE | 2020-05-01 15:17 | PN ---
Date of Progress Note: 05/01/2020 Subjective: The patient seems somewhat better today, both mentally and physically, although his melvin ry problem was still persistent. Examination of his legs showed no evidence of cellulitis. The breanna a has remained less than the originally, although some lymphedema is obviously still present. States he is not having trouble breathing. His oxygen situation is stabilized. He needed BiPAP 1 episode just today. His electrolytes and chemistries were back to baseline. Awaiting insurance okay for [facility] in the SNF. HR/MODL Voice ID: [id number] Report ID: [id number]
[2020-05-01] MEDS: RIVAROXABAN 20 MG TABLET PO SCH (16:56)
[2020-05-01] MEDS ORDERED: FUROSEMIDE 20 MG TABLET PO ONE (17:00)
[2020-05-01] MEDS: IPRATROPIUM BROM 0.5MG/2.5ML NEB SCH (19:30)
[2020-05-01] MEDS: MELATONIN 3 MG TABLET PO SCH (20:42)
[2020-05-01] MEDS: ATORVASTATIN 40 MG TAB PO SCH (20:43)
[2020-05-01] MEDS: TRAZODONE 150 MG TAB PO SCH (20:43)
[2020-05-02] MEDS: IPRATROPIUM BROM 0.5MG/2.5ML NEB SCH (02:55)
[2020-05-02] MEDS ORDERED: FUROSEMIDE 20 MG/ 2ML VIAL IV ONE (06:40)
--- NOTE | 2020-05-02 08:48 | RAD REPORT ---
EXAM DESCRIPTION: RAD - Chest Single View - 05/02/2020 6:07 am CLINICAL HISTORY: COPD Chest pain. COMPARISON: Chest Single View dated 05/01/2020; Chest Pa And Lat (2 Views) dated 04/22/2020; Chest S farheen View dated 04/21/2020; Chest Single View dated 04/20/2020 FINDINGS: Portable technique limits examination quality. Moderate bilateral pulmonary edema is again noted, unchanged. The heart is significantly enlarged wit h dual lead pacer device present. Left-sided venous catheter is stable. Moderate bilateral pleural ef fusions are again seen, unchanged. IMPRESSION: Moderate CHF or volume overload pattern remains stable since comparative study.
[2020-05-02] MEDS: CYANOCOBALAMIN 1,000 MCG TAB SL SCH (09:00)
[2020-05-02] MEDS: DULERA 200/5 (MOMETASONE/FORMOTEROL) INHALER IH SCH ×2 (09:00→21:00)
[2020-05-02] MEDS: DOXYCYCLINE 100 MG CAP PO SCH ×2 (09:00→21:00)
[2020-05-02] MEDS: MUPIROCIN 2% OINT 22GM TUBE TOP SCH (09:00)
[2020-05-02] MEDS: PANTOPRAZOLE 40MG TABLET PO SCH (09:27)
[2020-05-02] MEDS: SPIRONOLACTONE 25 MG TABLET PO SCH ×2 (09:27→21:47)
[2020-05-02] MEDS: ASPIRIN EC 81 MG TAB PO SCH (09:27)
[2020-05-02] MEDS: AMOX/K CLAV 500 MG TAB PO SCH ×2 (09:28→21:47)
[2020-05-02] MEDS: GABAPENTIN 300 MG CAP PO SCH ×3 (09:28→21:47)
[2020-05-02] MEDS: METOPROLOL TAR 25 MG TAB PO SCH ×2 (09:28→21:46)
[2020-05-02] MEDS: DIGOXIN 0.125 MG TABLET PO SCH (09:28)
[2020-05-02] MEDS: ACETIC ACID 0.25% IRRIG IRR SCH (09:30)
--- NOTE | 2020-05-02 11:33 | P.PN ---
Subjective Date of Service: 05/02/20 Primary Care Provider: Dr. Brown Chief Complaint: COPD Subjective: Improving (Patient had is a significant desat last night he is doing much better usually is worse at night) Review of Systems General: Weakness Respiratory: Shortness of Breath Physical Examination - Vital Signs Temperature: 97 F Blood Pressure: 133/60 Pulse: 75 Respirations: 20 Pulse Ox (%): 95 - Physical Exam General: In no apparent distress, Oriented x3 Respiratory: Expiratory wheezes Cardiovascular: Normal S1 S2, Edema - Studies Medications List Reviewed: Yes Assessment & Plan - Problems (Diagnosis) (1) COPD (chronic obstructive pulmonary disease) Current Visit: No Status: Acute Plan: Patient admitted with COPD doing better continue with bronchodilators labs all reviewed bicarbonate as decline continue with spironolactone and Lasix p.r.n. in addition he will need a long-acting bronchodilator recommend adding some trilogy right now patient has hypoxemia and hypercarbia increase spironolactone to 25 b.i.d. at 20 mg of Lasix p.o. Qualifiers: COPD type: unspecified COPD Qualified Code(s): J44.9 - Chronic obstructive pulmonary disease, unspecified (2) Chronic respiratory failure with hypoxia and hypercapnia Current Visit: Yes Status: Acute Plan: Patient has chronic respiratory failure secondary to severe COPD patient needs noninvasive positive pressure ventilation to prevent hospital readmission zafar sanchez will benefit from a trilogy volume and later for nocturnal and daytime uses needed reduce the risk of hospitalization home BiPAP insufficient due to severity of the condition evaluate for LTAC Discharge Plan: LTAC
[2020-05-02] MEDS: FUROSEMIDE 40 MG TABLET PO SCH (13:05)
[2020-05-02] MEDS: RIVAROXABAN 20 MG TABLET PO SCH (16:59)
[2020-05-02] MEDS: MELATONIN 3 MG TABLET PO SCH (21:00)
[2020-05-02] MEDS: TRAZODONE 150 MG TAB PO SCH (21:46)
[2020-05-02] MEDS: ATORVASTATIN 40 MG TAB PO SCH (21:47)
[2020-05-03] MEDS: FUROSEMIDE 40 MG TABLET PO SCH (08:43)
[2020-05-03] MEDS: AMOX/K CLAV 500 MG TAB PO SCH ×2 (08:43→21:25)
[2020-05-03] MEDS: DIGOXIN 0.125 MG TABLET PO SCH (08:43)
[2020-05-03] MEDS: GABAPENTIN 300 MG CAP PO SCH ×3 (08:43→21:25)
[2020-05-03] MEDS: ASPIRIN EC 81 MG TAB PO SCH (08:45)
[2020-05-03] MEDS: PANTOPRAZOLE 40MG TABLET PO SCH (08:45)
[2020-05-03] MEDS: SPIRONOLACTONE 25 MG TABLET PO SCH ×2 (08:45→21:24)
[2020-05-03] MEDS: METOPROLOL TAR 25 MG TAB PO SCH ×2 (08:45→21:24)
[2020-05-03] MEDS: DOXYCYCLINE 100 MG CAP PO SCH ×2 (08:46→21:00)
[2020-05-03] MEDS: CYANOCOBALAMIN 1,000 MCG TAB SL SCH (08:46)
[2020-05-03] MEDS: DULERA 200/5 (MOMETASONE/FORMOTEROL) INHALER IH SCH ×2 (08:48→21:27)
[2020-05-03] MEDS: MUPIROCIN 2% OINT 22GM TUBE TOP SCH (08:49)
[2020-05-03] MEDS: ACETIC ACID 0.25% IRRIG IRR SCH (09:00)
--- NOTE | 2020-05-03 12:00 | PN ---
Date of Progress Note: 05/02/2020 Patient seems to be in the a.m., when he had a significant desaturation episode, responded well to accelerated oxygen with a BiPAP. He has also been notified that the SNF transfer has been n ot okay, pending, however, in view of his findings today's episode, I think the best solution is the sepsis and cellulitis of really under good control. He is on oral antibiotics only. 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 Therefore, we will refile the disposition perhaps to a LTAC. HR/MODL Voice ID: [id number] Report ID: [id number]
--- NOTE | 2020-05-03 12:03 | PN ---
Date of Progress Note: 05/03/2020 Patient had a better night. He states he feels okay today. However, he has mostly been in bed. He stated he has some occasional episodes of difficulty swallowing, which he says has been going on for a couple of weeks. We should evaluate this further on Wednesday with a barium swallow, as I do not thin k to be any insurance decision until then on LTAC for respiratory problems. HR/MODL Voice ID: [id number] Report ID: [id number]
[2020-05-03 14:56] LABS: Blood Gas Oxyhemoglobin 90.7 % (94-97); Blood O2 Saturation 93.8 % (92-98.5)
[2020-05-03] MEDS: RIVAROXABAN 20 MG TABLET PO SCH (16:51)
[2020-05-03] MEDS: MELATONIN 3 MG TABLET PO SCH (21:00)
[2020-05-03] MEDS: TRAZODONE 150 MG TAB PO SCH (21:25)
[2020-05-03] MEDS: ATORVASTATIN 40 MG TAB PO SCH (21:25)
[2020-05-04] MEDS: DOXYCYCLINE 100 MG CAP PO SCH ×2 (09:00→21:00)
[2020-05-04] MEDS: PANTOPRAZOLE 40MG TABLET PO SCH (09:31)
[2020-05-04] MEDS: DIGOXIN 0.125 MG TABLET PO SCH (09:31)
[2020-05-04] MEDS: METOPROLOL TAR 25 MG TAB PO SCH ×2 (09:31→21:01)
[2020-05-04] MEDS: CYANOCOBALAMIN 1,000 MCG TAB SL SCH (09:32)
[2020-05-04] MEDS: SPIRONOLACTONE 25 MG TABLET PO SCH ×2 (09:32→20:59)
[2020-05-04] MEDS: ASPIRIN EC 81 MG TAB PO SCH (09:32)
[2020-05-04] MEDS: GABAPENTIN 300 MG CAP PO SCH ×3 (09:32→20:58)
[2020-05-04] MEDS: AMOX/K CLAV 500 MG TAB PO SCH ×2 (09:32→20:58)
[2020-05-04] MEDS: SODIUM CHLORIDE 0.9% 10ML INJ IV PRN (09:32)
[2020-05-04] MEDS: FUROSEMIDE 40 MG TABLET PO SCH (09:32)
[2020-05-04] MEDS: ACETAMINOPHEN 500 MG TAB PO PRN ×2 (09:50→16:02)
[2020-05-04] MEDS: DULERA 200/5 (MOMETASONE/FORMOTEROL) INHALER IH SCH ×2 (10:00→21:01)
[2020-05-04 14:13] LABS: Absolute Lymphocytes (CBC) 0.8 K/uL (0.7-4.9); Hematocrit 25.4 % (39.6-49.0); Lymphocytes % 14.4 % (15.3-44.8); MPV 9.7 fL (7.6-11.3); RBC Red Blood Cell Count 2.87 M/uL (4.33-5.43)
[2020-05-04 14:22] LABS: BUN Blood Urea Nitrogen 16 mg/dL (7-18); Bicarbonate 39 mmol/L (21-32); Glucose Level 86 mg/dL (74-106); Potassium 4.6 mmol/L (3.5-5.1); Sodium Level 142 mmol/L (136-145)
[2020-05-04] MEDS: MUPIROCIN 2% OINT 22GM TUBE TOP SCH (15:00)
[2020-05-04] MEDS: RIVAROXABAN 20 MG TABLET PO SCH (16:02)
[2020-05-04] MEDS ORDERED: FUROSEMIDE 20 MG/ 2ML VIAL IV ONE (17:11)
--- NOTE | 2020-05-04 18:32 | PN ---
Date of Progress Note: 05/04/2020 Patient continues to regress somewhat on his pulmonary problems, although he states he is not having trouble breathing and in fact, he does with minimal exertion. Discussion with the family at length a bout disposition was made. Possibility of hospice was considered. They decided on DNR and this was added to the chart. Hospice will also be consulted. In the meantime, we will continue with the harriet thing situation as is. HR/MODL Voice ID: [id number] Report ID: [id number]
[2020-05-04] MEDS: TRAZODONE 150 MG TAB PO SCH (20:58)
[2020-05-04] MEDS: ATORVASTATIN 40 MG TAB PO SCH (21:00)
[2020-05-04] MEDS: MELATONIN 3 MG TABLET PO SCH (21:02)
[2020-05-05 06:08] LABS: Absolute Lymphocytes (CBC) 0.8 K/uL (0.7-4.9); Hematocrit 25.9 % (39.6-49.0); Lymphocytes % 15.8 % (15.3-44.8); MPV 9.8 fL (7.6-11.3); RBC Red Blood Cell Count 2.92 M/uL (4.33-5.43)
[2020-05-05 06:33] LABS: BUN Blood Urea Nitrogen 17 mg/dL (7-18); Glucose Level 85 mg/dL (74-106); Potassium 4.3 mmol/L (3.5-5.1); Sodium Level 141 mmol/L (136-145)
[2020-05-05 06:37] LABS: Bicarbonate 42 mmol/L (21-32)
[2020-05-05] MEDS: MUPIROCIN 2% OINT 22GM TUBE TOP SCH (09:00)
[2020-05-05] MEDS: CYANOCOBALAMIN 1,000 MCG TAB SL SCH (10:57)
[2020-05-05] MEDS: FUROSEMIDE 40 MG TABLET PO SCH (10:57)
[2020-05-05] MEDS: AMOX/K CLAV 500 MG TAB PO SCH ×2 (10:57→21:06)
[2020-05-05] MEDS: GABAPENTIN 300 MG CAP PO SCH ×3 (10:57→21:06)
[2020-05-05] MEDS: METOPROLOL TAR 25 MG TAB PO SCH ×2 (10:57→21:07)
[2020-05-05] MEDS: ASPIRIN EC 81 MG TAB PO SCH (10:57)
[2020-05-05] MEDS: DIGOXIN 0.125 MG TABLET PO SCH (10:58)
[2020-05-05] MEDS: PANTOPRAZOLE 40MG TABLET PO SCH (10:58)
[2020-05-05] MEDS: SPIRONOLACTONE 25 MG TABLET PO SCH ×2 (10:58→21:06)
[2020-05-05] MEDS: DULERA 200/5 (MOMETASONE/FORMOTEROL) INHALER IH SCH ×2 (10:58→21:08)
[2020-05-05] MEDS: DOXYCYCLINE 100 MG CAP PO SCH ×2 (10:59→21:09)
[2020-05-05] MEDS: ENSURE HIGH PROTEIN 237 ML CAN PO PRN (12:54)
[2020-05-05] MEDS: D5W 1,000 ML IV SCH (13:35)
[2020-05-05] MEDS: RIVAROXABAN 20 MG TABLET PO SCH (17:37)
--- NOTE | 2020-05-05 17:42 | PN ---
Date of Progress Note: 05/05/2020 The patient basically status quo except for the hemoglobin, which continues to drop. He is on blood thinners, however, these are of some consequence due to his underlying cardiac disease. We will re-d iscuss the case with Cardiology and in the meantime given 1 unit of packed cells. Also given some IV fluids as his intake is decreased. Considerably, he is also felt today too fatigued to do PT in vie w of the multiple underlying pathology. I feel prudent to administer the blood. The disposition is on hold until this is stabilized. He has maintained his oxygen for the most part on nasal cannula fl uctuating between 5 and 6. We will continue with the present breathing regimen. HR/MODL Voice ID: [id number] Report ID: [id number]
[2020-05-05] MEDS ORDERED: NA CHLORIDE 0.9% 250 ML ONE (18:30)
--- NOTE | 2020-05-05 19:11 | P.PN ---
Subjective Date of Service: 05/09/20 Primary Care Provider: Dr. Brown Chief Complaint: Chronic respiratory failure Subjective: Improving (Patient is improving doing better he does better on BiPAP very weak) Review of Systems General: Weakness Respiratory: Shortness of Breath Physical Examination - Vital Signs Temperature: 97.5 F Blood Pressure: 104/51 Pulse: 63 Respirations: 20 Pulse Ox (%): 96 - Physical Exam General: Alert, In no apparent distress, Oriented x3 Respiratory: Clear to auscultation bilaterally, Diminished Cardiovascular: Regular rate/rhythm, Edema - Studies Medications List Reviewed: Yes Assessment & Plan - Problems (Diagnosis) (1) COPD (chronic obstructive pulmonary disease) Current Visit: No Status: Acute Plan: COPD stable tolerating inhaler vital signs oxygenation satisfactory Qualifiers: COPD type: unspecified COPD Qualified Code(s): J44.9 - Chronic obstructive pulmonary disease, unspecified (2) Chronic respiratory failure with hypoxia and hypercapnia Current Visit: Yes Status: Acute Plan: Chronic respiratory failure patient is hypercapnic qualifies for noninvasive ventilator mildly anemic prognosis poor I have also added Diamox Dc Lasix his white count is now normal cellulitis under control
[2020-05-05] MEDS: TRAZODONE 150 MG TAB PO SCH (21:00)
[2020-05-05] MEDS: MELATONIN 3 MG TABLET PO SCH (21:00)
[2020-05-05] MEDS: predniSONE 10 MG TAB PO SCH (21:06)
[2020-05-05] MEDS: ATORVASTATIN 40 MG TAB PO SCH (21:07)
[2020-05-06 00:58] LABS: Hematocrit 27.3 % (39.6-49.0)
[2020-05-06 04:42] LABS: Absolute Lymphocytes (CBC) 0.6 K/uL (0.7-4.9); Basophils % 0.7 % (0-1.3); Hematocrit 27.3 % (39.6-49.0); Lymphocytes % 13.4 % (15.3-44.8); MPV 9.7 fL (7.6-11.3); RBC Red Blood Cell Count 3.12 M/uL (4.33-5.43)
[2020-05-06 05:08] LABS: BUN Blood Urea Nitrogen 16 mg/dL (7-18); Bicarbonate 40 mmol/L (21-32); Glucose Level 106 mg/dL (74-106); Potassium 4.3 mmol/L (3.5-5.1); Sodium Level 141 mmol/L (136-145)
[2020-05-06] MEDS: ACETIC ACID 0.25% IRRIG IRR SCH (09:00)
[2020-05-06] MEDS: MUPIROCIN 2% OINT 22GM TUBE TOP SCH (09:00)
[2020-05-06] MEDS: DOXYCYCLINE 100 MG CAP PO SCH ×2 (09:00→20:54)
[2020-05-06] MEDS: CYANOCOBALAMIN 1,000 MCG TAB SL SCH (09:20)
[2020-05-06] MEDS: ASPIRIN EC 81 MG TAB PO SCH (09:20)
[2020-05-06] MEDS: predniSONE 10 MG TAB PO SCH ×2 (09:20→20:50)
[2020-05-06] MEDS: AMOX/K CLAV 500 MG TAB PO SCH ×2 (09:20→20:50)
[2020-05-06] MEDS: DIGOXIN 0.125 MG TABLET PO SCH (09:21)
[2020-05-06] MEDS: SPIRONOLACTONE 25 MG TABLET PO SCH ×2 (09:21→20:52)
[2020-05-06] MEDS: METOPROLOL TAR 25 MG TAB PO SCH ×2 (09:21→20:51)
[2020-05-06] MEDS: GABAPENTIN 300 MG CAP PO SCH ×3 (09:21→20:51)
[2020-05-06] MEDS: PANTOPRAZOLE 40MG TABLET PO SCH (09:21)
[2020-05-06] MEDS: DULERA 200/5 (MOMETASONE/FORMOTEROL) INHALER IH SCH ×2 (09:24→20:52)
[2020-05-06] MEDS: acetaZOLAMIDE 250 MG TAB PO SCH (10:18)
--- NOTE | 2020-05-06 14:52 | PN ---
Date of Progress Note: 05/06/2020 The patient seems more alert today since he got his unit of blood. His strength has improved slightl y. He is willing to do PT. They are waiting barium swallow. If his blood work remained stable, the possibility could be to discharge to a custodial within the next 24-48 hours. HR/MODL Voice ID: [id number] Report ID: [id number]
--- NOTE | 2020-05-06 15:03 | RAD REPORT ---
EXAM DESCRIPTION: RAD - Barium Swallow Modified - 05/06/2020 2:50 pm CLINICAL HISTORY: Dysphagia FINDINGS: laryngeal penetration cleared. No aspiration seen. pharyngeal residue trace vallecula unable to visualize esophagus due to body habitus fluoro time 2.08 14 fluoroscopic spot series obtained
[2020-05-06] MEDS: RIVAROXABAN 20 MG TABLET PO SCH (17:31)
[2020-05-06] MEDS: BISACODYL E.C. 5 MG TAB PO PRN (20:50)
[2020-05-06] MEDS: ATORVASTATIN 40 MG TAB PO SCH (20:50)
[2020-05-06] MEDS: MELATONIN 3 MG TABLET PO SCH (20:51)
[2020-05-06] MEDS: SODIUM CHLORIDE 0.9% 10ML INJ IV PRN (20:53)
[2020-05-06] MEDS: ENSURE HIGH PROTEIN 237 ML CAN PO PRN (20:54)
[2020-05-07] MEDS: TRAZODONE 150 MG TAB PO SCH ×2 (00:35→21:51)
[2020-05-07 04:27] LABS: Absolute Lymphocytes (CBC) 0.6 K/uL (0.7-4.9); Basophils % 0.4 % (0-1.3); Hematocrit 29.3 % (39.6-49.0); Lymphocytes % 13.7 % (15.3-44.8); RBC Red Blood Cell Count 3.32 M/uL (4.33-5.43)
[2020-05-07 04:48] LABS: BUN Blood Urea Nitrogen 15 mg/dL (7-18); Bicarbonate 39 mmol/L (21-32); Glucose Level 113 mg/dL (74-106); Potassium 4.5 mmol/L (3.5-5.1); Sodium Level 140 mmol/L (136-145)
[2020-05-07] MEDS: D5W 1,000 ML IV SCH (07:23)
[2020-05-07] MEDS: DOXYCYCLINE 100 MG CAP PO SCH ×2 (09:00→20:33)
[2020-05-07] MEDS: AMOX/K CLAV 500 MG TAB PO SCH (10:37)
[2020-05-07] MEDS: acetaZOLAMIDE 250 MG TAB PO SCH (10:37)
[2020-05-07] MEDS: DIGOXIN 0.125 MG TABLET PO SCH (10:38)
[2020-05-07] MEDS: ASPIRIN EC 81 MG TAB PO SCH (10:38)
[2020-05-07] MEDS: GABAPENTIN 300 MG CAP PO SCH ×3 (10:38→20:33)
[2020-05-07] MEDS: CYANOCOBALAMIN 1,000 MCG TAB SL SCH (10:39)
[2020-05-07] MEDS: predniSONE 10 MG TAB PO SCH ×2 (10:39→20:32)
[2020-05-07] MEDS: METOPROLOL TAR 25 MG TAB PO SCH ×2 (10:39→20:32)
[2020-05-07] MEDS: SPIRONOLACTONE 25 MG TABLET PO SCH ×2 (10:40→20:33)
[2020-05-07] MEDS: PANTOPRAZOLE 40MG TABLET PO SCH (10:41)
[2020-05-07] MEDS: DULERA 200/5 (MOMETASONE/FORMOTEROL) INHALER IH SCH ×2 (10:44→21:00)
[2020-05-07] MEDS: MUPIROCIN 2% OINT 22GM TUBE TOP SCH (10:45)
--- NOTE | 2020-05-07 11:14 | PN ---
n Subjective: Patient is lying in bed, sitting in easy chair. Denies any headache, nausea, vomiting, chest pain, abdominal pain, constipation, or diarrhea. Objective: Vital Signs: Stable. Lungs: Basal crackles. Heart: S1, S2. Regular. Abdomen: Soft, nontender. Bowel sounds present. Extremities: 1+ edema with erythematous changes noted on both legs. No open wounds at this time. Laboratory Data: Reviewed. Assessment/plan: Cellulitis of lower extremity with stasis dermatitis and stasis edema. Continue th e wraps. Continue current treatment. No new recommendation at this time. Keep legs elevated when p ossible. Monitor for signs of infection. NF/MODL Voice ID: [id number] Report ID: [id number]
--- NOTE | 2020-05-07 15:38 | PN ---
Date of Progress Note: 05/07/2020 The patient seems somewhat better today as far as his breathing. His orientation has improved consid erably. His hemoglobin is stabilized. We will continue on his blood thinners. Disposition remains a problem. There are some questions whether there are any local handle him with BiPAP. I nquiries will be made by Social Service Department as far as a further placement. HR/MODL Voice ID: [id number] Report ID: [id number]
[2020-05-07] MEDS: RIVAROXABAN 20 MG TABLET PO SCH (17:25)
[2020-05-07] MEDS: ATORVASTATIN 40 MG TAB PO SCH (20:33)
[2020-05-07] MEDS: MELATONIN 3 MG TABLET PO SCH (20:33)
[2020-05-08] MEDS: ACETIC ACID 0.25% IRRIG IRR SCH (09:00)
[2020-05-08] MEDS: CYANOCOBALAMIN 1,000 MCG TAB SL SCH (09:00)
[2020-05-08] MEDS: DOXYCYCLINE 100 MG CAP PO SCH ×2 (09:00→21:00)
[2020-05-08] MEDS: predniSONE 10 MG TAB PO SCH ×2 (09:34→21:03)
[2020-05-08] MEDS: METOPROLOL TAR 25 MG TAB PO SCH ×2 (09:35→21:03)
[2020-05-08] MEDS: GABAPENTIN 300 MG CAP PO SCH ×3 (09:36→21:03)
[2020-05-08] MEDS: PANTOPRAZOLE 40MG TABLET PO SCH (09:36)
[2020-05-08] MEDS: SODIUM CHLORIDE 0.9% 10ML INJ IV PRN (09:37)
[2020-05-08] MEDS: ASPIRIN EC 81 MG TAB PO SCH (09:37)
[2020-05-08] MEDS: DIGOXIN 0.125 MG TABLET PO SCH (09:37)
[2020-05-08] MEDS: SPIRONOLACTONE 25 MG TABLET PO SCH ×2 (09:37→21:03)
[2020-05-08] MEDS: acetaZOLAMIDE 250 MG TAB PO SCH (09:37)
[2020-05-08] MEDS: DULERA 200/5 (MOMETASONE/FORMOTEROL) INHALER IH SCH ×2 (09:39→21:05)
[2020-05-08] MEDS: MUPIROCIN 2% OINT 22GM TUBE TOP SCH (09:40)
[2020-05-08] MEDS: RIVAROXABAN 20 MG TABLET PO SCH (17:35)
--- NOTE | 2020-05-08 19:21 | PN ---
Date of Progress Note: 05/08/2020 The patient seems to be stabilized over the past 24 hours. He has been sitting in a chair for a numb er of hours now. His vital signs are more stable. He still requires nasal oxygen. He has a stable blood work. He will see if he can be transferred to [facility] which has stated they will allow him to take his breathing machine with him, especially the BiPAP, and we are awaiting insurance sharon shane. HR/MODL Voice ID: [id number] Report ID: [id number]
[2020-05-08] MEDS: MELATONIN 3 MG TABLET PO SCH (21:00)
[2020-05-08] MEDS: ATORVASTATIN 40 MG TAB PO SCH (21:03)
[2020-05-08] MEDS: D5W 1,000 ML IV SCH (21:05)
[2020-05-08] MEDS: TRAZODONE 150 MG TAB PO SCH (22:15)
[2020-05-09 05:29] LABS: Absolute Lymphocytes (CBC) 0.6 K/uL (0.7-4.9); Basophils % 0.2 % (0-1.3); Hematocrit 28.6 % (39.6-49.0); Lymphocytes % 14.9 % (15.3-44.8); MPV 9.1 fL (7.6-11.3); RBC Red Blood Cell Count 3.24 M/uL (4.33-5.43)
[2020-05-09 05:46] LABS: BUN Blood Urea Nitrogen 17 mg/dL (7-18); Bicarbonate 35 mmol/L (21-32); Glucose Level 109 mg/dL (74-106); Magnesium 2.1 mg/dL (1.8-2.4); Potassium 4.4 mmol/L (3.5-5.1); Sodium Level 140 mmol/L (136-145)
[2020-05-09] MEDS: METOPROLOL TAR 25 MG TAB PO SCH ×2 (09:00→21:00)
[2020-05-09] MEDS: DOXYCYCLINE 100 MG CAP PO SCH ×2 (09:00→21:00)
[2020-05-09] MEDS: CYANOCOBALAMIN 1,000 MCG TAB SL SCH (09:00)
[2020-05-09 09:04] LABS: Anisocytosis 1+; Blood Morphology Comment NOTED (NOT SEEN); Platelet Estimate DECR; Platelets, Giant FEW PRESENT; White Blood Cell Scan OK (OK)
[2020-05-09] MEDS: PANTOPRAZOLE 40MG TABLET PO SCH (09:46)
[2020-05-09] MEDS: ASPIRIN EC 81 MG TAB PO SCH (09:46)
[2020-05-09] MEDS: SPIRONOLACTONE 25 MG TABLET PO SCH ×2 (09:47→22:05)
[2020-05-09] MEDS: DIGOXIN 0.125 MG TABLET PO SCH (09:47)
[2020-05-09] MEDS: GABAPENTIN 300 MG CAP PO SCH ×3 (09:47→22:05)
[2020-05-09] MEDS: predniSONE 10 MG TAB PO SCH ×2 (09:47→22:06)
[2020-05-09] MEDS: acetaZOLAMIDE 250 MG TAB PO SCH (09:49)
[2020-05-09] MEDS: DULERA 200/5 (MOMETASONE/FORMOTEROL) INHALER IH SCH ×2 (09:53→21:00)
[2020-05-09] MEDS: MUPIROCIN 2% OINT 22GM TUBE TOP SCH (09:53)
--- NOTE | 2020-05-09 15:15 | PN ---
Subjective: The patient is sitting in easy chair, not in any acute distress. Objective: Vital Signs: Temperature 98.7, pulse 66, respiration 23, blood pressure 140/60. No simpson ges in examination. Lungs: Basal crackles. Heart: S1, S2 regular. Abdomen: Soft, nontender. Bowel sounds present. Extremities: Trace edema. Erythematous changes noted most likely is stasis dermatitis. Laboratory Data: Shows WBC 4.2, hemoglobin 9.2, and platelets are 67. No new labs available today. Assessment And Plan: Cellulitis of lower legs, right lower leg is improving. Stasis dermatitis. Co ntinue supportive care and wound care. We will follow the patient as needed. The patient is off ant ibiotic at this time. NF/MODL Voice ID: [id number] Report ID: [id number]
[2020-05-09] MEDS: RIVAROXABAN 20 MG TABLET PO SCH (16:52)
--- NOTE | 2020-05-09 20:49 | CON ---
Date of Consultation: 05/06/2020 Reason For Consultation: Possible bleeding from Eliquis, history of aortic valve replacement and def ibrillator. History Of Present Illness: Mr. Crowley is an 79-year-old male, who is a do not resuscitate, has mult iple medical problems including COPD, chronic dyspnea, admitted with cellulitis of his right leg, has a history of chronic lower extremity lymphedema, chronic diastolic congestive heart failure, hyperte nsion, peripheral neuropathy, hyperlipidemia, pacemaker defibrillator placement. He has been seen by Dr. Cleveland in my office for regular followup. When he initially came in, he was hypoxic and hyperca pnic, mildly anemic, elevated BNP, no sepsis, chronic atrial fibrillation. He was being treated for his cellulitis and COPD. Denied any chest pain. Denied any palpitation or syncope. Denied any feve r or chills. Denied PND or orthopnea. Denied chest pain, nausea or vomiting or diaphoresis. Past Medical History: As stated above. Allergies: ELIQUIS AND BLUEBERRY. Review of Systems: Negative. Social History: Positive for being a DNR. Medications: Presently include aspirin, Lipitor, Diamox, Lanoxin. He is on antibiotics, Neurontin, inhaler, Lopressor 25 mg b.i.d., Protonix 40 daily. He is on Xarelto 20 mg daily, prednisone 10 mg b .i.d. He is on Aldactone 25 mg 1 p.o. b.i.d. Physical Examination: Vital Signs: He was in atrial fibrillation, rate of 60, blood pressure was 160/80, respiratory rate was 20. He was afebrile. His saturation was 93% and is on a CPAP, BiPAP. HEENT: Negative. Neck: Supple. No bruit, lymphadenopathy, JVD, or thyromegaly. Chest: Reveals basilar rales with expiratory wheezing. Abdomen: Obese. Extremities: Revealed cellulitis and chronic lymphedema. Diagnostic Data: His creatinine was 0.54, hemoglobin was 9.1, white count was 4.1. His BNP was elev ated, creatinine is 0.54. Echocardiogram that was done in April showed an ejection fraction of 55 to 60%, normal bioprosthetic aortic valve, mild mitral regurgitation with severe pulmonary hypertens ion with right ventricular systolic pressure more than 60. Diastolic dysfunction. Last chest x-ray showed moderate congestive heart failure with volume overload. Last EKG showed paced rhythm with und erlying atrial fibrillation. Impression And Plan: 1.Cellulitis, chronic lower extremity lymphedema, being treated by Dr. Diego and Dr. Brown. 2.Chronic diastolic congestive heart failure. 3.Status post bioprosthetic aortic valve replacement, functioning well. 4.Severe pulmonary hypertension. 5.Hyperlipidemia. 6.Peripheral neuropathy. 7.DNR status. 8.History of pacemaker defibrillator placement. 9.Paroxysmal atrial fibrillation. I personally agree with his present regimen. I do not think we need to do any further cardiac workup . He just had a recent echocardiogram. I would definitely continue his metoprolol and Xarelto regar ding his atrial fibrillation. I would continue his Lasix and Aldactone and atorvastatin as well as a spirin. I think if he bleeds any more or if he becomes anemic, certainly stopping the aspirin would be reasonable and continue the Xarelto only. I will discuss the case further with Dr. Brown, but f or now, I will sign off his case. ARNIE/CAROLANN Voice ID: [id number] Report ID: [id number]
[2020-05-09] MEDS: MELATONIN 3 MG TABLET PO SCH (21:00)
[2020-05-09] MEDS: ATORVASTATIN 40 MG TAB PO SCH (22:05)
[2020-05-09] MEDS: TRAZODONE 150 MG TAB PO SCH (22:06)
--- NOTE | 2020-05-09 23:33 | PN ---
Date of Progress Note: 05/09/2020 Patient has had improvement in his breathing status. He is down to 3 on a nasal cannula. Arrangemen ts are being made, awaiting insurance, okay to go to SNF. Discussion is held with Pulmonology as far as use of his BiPAP there and apparently this will be taken care of as soon as he is okay to be admi tted there. He has had some changes in his medications as well with the addition of doxycycline for cellulitis of the leg. The digoxin 0.125 for cardiovascular problems and metoprolol was increased to 25 mg b.i.d. Continue on prednisone 10 mg and Diamox 125 was also added to the regimen. HR/MODL Voice ID: [id number] Report ID: [id number]
[2020-05-10 05:09] LABS: Absolute Lymphocytes (CBC) 0.6 K/uL (0.7-4.9); Basophils % 0.2 % (0-1.3); Hematocrit 28.8 % (39.6-49.0); Lymphocytes % 12.4 % (15.3-44.8); MPV 9.3 fL (7.6-11.3); RBC Red Blood Cell Count 3.22 M/uL (4.33-5.43)
[2020-05-10 05:27] LABS: BUN Blood Urea Nitrogen 18 mg/dL (7-18); Bicarbonate 35 mmol/L (21-32); Glucose Level 103 mg/dL (74-106); Potassium 4.4 mmol/L (3.5-5.1); Sodium Level 141 mmol/L (136-145)
[2020-05-10] MEDS: CYANOCOBALAMIN 1,000 MCG TAB SL SCH (09:00)
[2020-05-10] MEDS: ACETIC ACID 0.25% IRRIG IRR SCH (09:00)
[2020-05-10] MEDS: DOXYCYCLINE 100 MG CAP PO SCH ×2 (09:00→21:00)
[2020-05-10] MEDS: MUPIROCIN 2% OINT 22GM TUBE TOP SCH (09:12)
[2020-05-10] MEDS: DIGOXIN 0.125 MG TABLET PO SCH (09:12)
[2020-05-10] MEDS: ASPIRIN EC 81 MG TAB PO SCH (09:12)
[2020-05-10] MEDS: METOPROLOL TAR 25 MG TAB PO SCH ×2 (09:13→22:24)
[2020-05-10] MEDS: SPIRONOLACTONE 25 MG TABLET PO SCH ×2 (09:13→22:24)
[2020-05-10] MEDS: predniSONE 10 MG TAB PO SCH ×2 (09:13→22:24)
[2020-05-10] MEDS: acetaZOLAMIDE 250 MG TAB PO SCH (09:13)
[2020-05-10] MEDS: PANTOPRAZOLE 40MG TABLET PO SCH (09:13)
[2020-05-10] MEDS: GABAPENTIN 300 MG CAP PO SCH ×3 (09:13→22:24)
[2020-05-10] MEDS: DULERA 200/5 (MOMETASONE/FORMOTEROL) INHALER IH SCH ×2 (09:15→21:00)
[2020-05-10] MEDS: RIVAROXABAN 20 MG TABLET PO SCH (16:39)
[2020-05-10] MEDS: MELATONIN 3 MG TABLET PO SCH (21:00)
[2020-05-10] MEDS: ENSURE HIGH PROTEIN 237 ML CAN PO SCH (21:00)
[2020-05-10] MEDS: ATORVASTATIN 40 MG TAB PO SCH (22:25)
[2020-05-10] MEDS: TRAZODONE 150 MG TAB PO SCH (22:27)
[2020-05-11 05:22] LABS: Absolute Lymphocytes (CBC) 0.7 K/uL (0.7-4.9); Basophils % 0.7 % (0-1.3); Hematocrit 29.2 % (39.6-49.0); Lymphocytes % 14.1 % (15.3-44.8); MPV 9.5 fL (7.6-11.3); RBC Red Blood Cell Count 3.28 M/uL (4.33-5.43)
[2020-05-11 05:28] LABS: BUN Blood Urea Nitrogen 25 mg/dL (7-18); Bicarbonate 33 mmol/L (21-32); Glucose Level 106 mg/dL (74-106); Potassium 4.4 mmol/L (3.5-5.1); Sodium Level 141 mmol/L (136-145)
[2020-05-11] MEDS: ENSURE HIGH PROTEIN 237 ML CAN PO SCH ×2 (09:00→23:08)
[2020-05-11] MEDS: CYANOCOBALAMIN 1,000 MCG TAB SL SCH (09:00)
[2020-05-11] MEDS: DULERA 200/5 (MOMETASONE/FORMOTEROL) INHALER IH SCH ×2 (09:00→21:00)
[2020-05-11] MEDS: DOXYCYCLINE 100 MG CAP PO SCH ×2 (09:00→23:00)
[2020-05-11] MEDS: MUPIROCIN 2% OINT 22GM TUBE TOP SCH (09:00)
[2020-05-11] MEDS: GABAPENTIN 300 MG CAP PO SCH ×3 (09:24→23:15)
[2020-05-11] MEDS: DIGOXIN 0.125 MG TABLET PO SCH (09:24)
[2020-05-11] MEDS: ASPIRIN EC 81 MG TAB PO SCH ×2 (09:24→23:01)
[2020-05-11] MEDS: METOPROLOL TAR 25 MG TAB PO SCH ×2 (09:25→23:01)
[2020-05-11] MEDS: SPIRONOLACTONE 25 MG TABLET PO SCH ×2 (09:25→23:02)
[2020-05-11] MEDS: predniSONE 10 MG TAB PO SCH ×2 (09:26→23:03)
[2020-05-11] MEDS: acetaZOLAMIDE 250 MG TAB PO SCH (09:26)
[2020-05-11] MEDS: PANTOPRAZOLE 40MG TABLET PO SCH (09:26)
--- NOTE | 2020-05-11 12:24 | P.PN ---
Subjective Date of Service: 05/11/20 Primary Care Provider: Dr. Brown Chief Complaint: Chronic respiratory failure Subjective: Other (Patient stable this time.) Physical Examination - Vital Signs Temperature: 96.4 F Blood Pressure: 126/64 Pulse: 61 Respirations: 20 Pulse Ox (%): 97 - Physical Exam General: Alert HEENT: Atraumatic Neck: Supple Respiratory: Clear to auscultation bilaterally Cardiovascular: Normal pulses, Regular rate/rhythm Neurological: Normal speech, Normal strength at 5/5 x4 extr, Normal tone - Studies Medications List Reviewed: Yes Assessment & Plan Discharge Plan: Other (longterm) Plan to discharge in: 48 Hours Physician Review Additional Text: Impression: Dyspnea secondary to acute on chronic respiratory failure with hypoxia and hypercapnia secondary to COPD complicated with severe pulmonary HTN Atrial fibrillation on chronic anticoagulation Cellulitis of the lower extremity Plan: Awaiting approval to go to skilled facility to continue with current treatment plan. Continue with BIPAP and oxygen. Diuretics adjusted. Medication adjusted yesterday. Continue with antibiotics. May go to SNF today if approved and accepted. Time Spent Managing Pts Care (In Minutes): 55
[2020-05-11] MEDS: RIVAROXABAN 20 MG TABLET PO SCH (16:23)
[2020-05-11] MEDS: MELATONIN 3 MG TABLET PO SCH (21:00)
[2020-05-11] MEDS: ATORVASTATIN 40 MG TAB PO SCH (23:02)
[2020-05-11] MEDS: TRAZODONE 150 MG TAB PO SCH (23:03)
[2020-05-12 05:56] LABS: Absolute Lymphocytes (CBC) 0.6 K/uL (0.7-4.9); Basophils % 0.2 % (0-1.3); Hematocrit 28.5 % (39.6-49.0); Lymphocytes % 11.5 % (15.3-44.8); MPV 9.3 fL (7.6-11.3); RBC Red Blood Cell Count 3.23 M/uL (4.33-5.43)
[2020-05-12 06:09] LABS: BUN Blood Urea Nitrogen 22 mg/dL (7-18); Bicarbonate 35 mmol/L (21-32); Glucose Level 101 mg/dL (74-106); Magnesium 1.9 mg/dL (1.8-2.4); Potassium 4.3 mmol/L (3.5-5.1); Sodium Level 140 mmol/L (136-145)
[2020-05-12] MEDS: GABAPENTIN 300 MG CAP PO SCH ×3 (09:00→21:22)
[2020-05-12] MEDS: DULERA 200/5 (MOMETASONE/FORMOTEROL) INHALER IH SCH ×2 (09:00→21:00)
[2020-05-12] MEDS: MUPIROCIN 2% OINT 22GM TUBE TOP SCH (09:00)
[2020-05-12] MEDS: ENSURE HIGH PROTEIN 237 ML CAN PO SCH ×2 (09:00→21:28)
[2020-05-12] MEDS: DIGOXIN 0.125 MG TABLET PO SCH (09:00)
[2020-05-12] MEDS: acetaZOLAMIDE 250 MG TAB PO SCH (09:02)
[2020-05-12] MEDS: DOXYCYCLINE 100 MG CAP PO SCH ×2 (09:03→21:21)
[2020-05-12] MEDS: METOPROLOL TAR 25 MG TAB PO SCH ×2 (09:05→21:00)
[2020-05-12] MEDS: predniSONE 10 MG TAB PO SCH ×2 (09:05→21:22)
[2020-05-12] MEDS: PANTOPRAZOLE 40MG TABLET PO SCH (09:05)
[2020-05-12] MEDS: CYANOCOBALAMIN 1,000 MCG TAB SL SCH (09:05)
[2020-05-12] MEDS: SPIRONOLACTONE 25 MG TABLET PO SCH ×2 (09:05→21:00)
--- NOTE | 2020-05-12 13:02 | P.PN ---
Subjective Date of Service: 05/12/20 Primary Care Provider: Dr. Brown Chief Complaint: Chronic respiratory failure Subjective: Improving, Doing well Physical Examination - Vital Signs Temperature: 96.9 F Blood Pressure: 124/59 Pulse: 60 Respirations: 18 Pulse Ox (%): 95 - Physical Exam General: Alert, Cooperative HEENT: Atraumatic Neck: Supple Respiratory: Clear to auscultation bilaterally Cardiovascular: Normal pulses, Regular rate/rhythm Gastrointestinal: Normal bowel sounds Neurological: Normal speech, Normal strength at 5/5 x4 extr, Normal tone - Studies Medications List Reviewed: Yes Assessment & Plan Discharge Plan: Other (SNF) Plan to discharge in: 24 Hours Physician Review Additional Text: Impression: Dyspnea secondary to acute on chronic respiratory failure with hypoxia and hypercapnia secondary to COPD complicated with severe pulmonary HTN Atrial fibrillation on chronic anticoagulation Cellulitis of the lower extremity Plan: Patient main stable. Patient uses BiPAP at times. Maintain oxygen above 93%. Continue antibiotic therapy. Diuretics and medications have been adjusted. Continue with current plan of care. PCP-Dr. Brown will come on board on Wednesday. Awaiting approval for skilled placement. If approved tomorrow patient can be discharged. I will turn the service over to the hospitalist team tomorrow. If the patient remains here on Wednesday then PCP will continue care. Time Spent Managing Pts Care (In Minutes): 55
[2020-05-12] MEDS: RIVAROXABAN 20 MG TABLET PO SCH (17:17)
[2020-05-12] MEDS: MELATONIN 3 MG TABLET PO SCH (21:00)
[2020-05-12] MEDS: TRAZODONE 150 MG TAB PO SCH (21:21)
[2020-05-12] MEDS: BISACODYL E.C. 5 MG TAB PO PRN (21:21)
[2020-05-12] MEDS: ATORVASTATIN 40 MG TAB PO SCH (21:23)
[2020-05-13 05:10] LABS: Absolute Lymphocytes (CBC) 0.8 K/uL (0.7-4.9); Basophils % 0.1 % (0-1.3); Hematocrit 27.8 % (39.6-49.0); Lymphocytes % 15.8 % (15.3-44.8); MPV 9.9 fL (7.6-11.3); RBC Red Blood Cell Count 3.18 M/uL (4.33-5.43)
[2020-05-13 05:22] LABS: BUN Blood Urea Nitrogen 25 mg/dL (7-18); Bicarbonate 33 mmol/L (21-32); Glucose Level 106 mg/dL (74-106); Magnesium 1.9 mg/dL (1.8-2.4); Potassium 4.3 mmol/L (3.5-5.1); Sodium Level 140 mmol/L (136-145)
[2020-05-13] MEDS: ASPIRIN EC 81 MG TAB PO SCH (08:59)
[2020-05-13] MEDS: DOXYCYCLINE 100 MG CAP PO SCH ×2 (08:59→20:54)
[2020-05-13] MEDS: CYANOCOBALAMIN 1,000 MCG TAB SL SCH (08:59)
[2020-05-13] MEDS: METOPROLOL TAR 25 MG TAB PO SCH ×2 (08:59→20:58)
[2020-05-13] MEDS: GABAPENTIN 300 MG CAP PO SCH ×3 (08:59→20:54)
[2020-05-13] MEDS: predniSONE 10 MG TAB PO SCH ×2 (08:59→20:57)
[2020-05-13] MEDS: acetaZOLAMIDE 250 MG TAB PO SCH (08:59)
[2020-05-13] MEDS: SPIRONOLACTONE 25 MG TABLET PO SCH ×2 (08:59→20:54)
[2020-05-13] MEDS: DIGOXIN 0.125 MG TABLET PO SCH (09:00)
[2020-05-13] MEDS: ACETIC ACID 0.25% IRRIG IRR SCH (09:00)
[2020-05-13] MEDS: ENSURE HIGH PROTEIN 237 ML CAN PO SCH ×2 (09:00→20:58)
[2020-05-13] MEDS: PANTOPRAZOLE 40MG TABLET PO SCH (09:00)
[2020-05-13] MEDS: MUPIROCIN 2% OINT 22GM TUBE TOP SCH (09:00)
[2020-05-13] MEDS: DULERA 200/5 (MOMETASONE/FORMOTEROL) INHALER IH SCH ×2 (09:00→20:53)
--- NOTE | 2020-05-13 14:41 | PN ---
Subjective: The patient is sitting in easy chair, not in any acute distress. Objective: Vital Signs: Temperature 98.5, pulse 61, respirations 18, blood pressure 140/65. Lungs: Basal crackles. Heart: S1, S2. Regular. Abdomen: Soft, nontender. Bowel sounds present. Extremities: Trace edema. Laboratory Data: WBC 5.1, hemoglobin 9, platelets are 65. Chemistry shows sodium 140, potassium 4.3 , chloride 106, bicarb 33, BUN 25, creatinine 0.6, glucose is 106. The patient is currently on 3 L nasal cannula. Assessment And Plan: Cellulitis of right lower extremity, chronic obstructive pulmonary disease, con gestive heart failure. Continue supportive care and monitor for signs of infection. No other recomm endation at this time. NF/MODL Voice ID: [id number] Report ID: [id number]
[2020-05-13] MEDS: RIVAROXABAN 20 MG TABLET PO SCH (17:32)
[2020-05-13] MEDS: ATORVASTATIN 40 MG TAB PO SCH (20:54)
[2020-05-13] MEDS: TRAZODONE 150 MG TAB PO SCH (20:54)
[2020-05-13] MEDS: MELATONIN 3 MG TABLET PO SCH (21:00)
[2020-05-14 04:43] LABS: Absolute Lymphocytes (CBC) 0.8 K/uL (0.7-4.9); Basophils % 0.2 % (0-1.3); Hematocrit 27.7 % (39.6-49.0); Lymphocytes % 16.4 % (15.3-44.8); MPV 9.7 fL (7.6-11.3); RBC Red Blood Cell Count 3.17 M/uL (4.33-5.43)
[2020-05-14 04:59] LABS: BUN Blood Urea Nitrogen 28 mg/dL (7-18); Bicarbonate 34 mmol/L (21-32); Glucose Level 110 mg/dL (74-106); Potassium 4.4 mmol/L (3.5-5.1); Sodium Level 140 mmol/L (136-145)
[2020-05-14] MEDS: ENSURE HIGH PROTEIN 237 ML CAN PO SCH ×2 (09:00→20:59)
[2020-05-14] MEDS: MUPIROCIN 2% OINT 22GM TUBE TOP SCH (09:00)
[2020-05-14] MEDS: DOXYCYCLINE 100 MG CAP PO SCH ×2 (09:00→20:56)
[2020-05-14] MEDS: GABAPENTIN 300 MG CAP PO SCH ×3 (09:23→20:56)
[2020-05-14] MEDS: METOPROLOL TAR 25 MG TAB PO SCH ×2 (09:23→20:57)
[2020-05-14] MEDS: CYANOCOBALAMIN 1,000 MCG TAB SL SCH (09:23)
[2020-05-14] MEDS: DIGOXIN 0.125 MG TABLET PO SCH (09:24)
[2020-05-14] MEDS: SPIRONOLACTONE 25 MG TABLET PO SCH ×2 (09:24→20:57)
[2020-05-14] MEDS: predniSONE 10 MG TAB PO SCH ×2 (09:24→20:56)
[2020-05-14] MEDS: acetaZOLAMIDE 250 MG TAB PO SCH (09:24)
[2020-05-14] MEDS: ASPIRIN EC 81 MG TAB PO SCH (09:24)
[2020-05-14] MEDS: PANTOPRAZOLE 40MG TABLET PO SCH (09:24)
[2020-05-14] MEDS: DULERA 200/5 (MOMETASONE/FORMOTEROL) INHALER IH SCH ×2 (09:25→20:59)
--- NOTE | 2020-05-14 15:27 | P.PN ---
Subjective Date of Service: 05/13/20 No new complaints; patient is feeling better. Swelling has improved in his lower extremity. He is excited to go home. Arrangements are being made by case planner to plan for discharge in the next 24-48 hours. Patient's PCP, Dr. Brown will take over patient's care in the morning. Review of Systems 10-point ROS is otherwise unremarkable Physical Examination - Vital Signs Temperature: 97.6 F Blood Pressure: 119/58 Pulse: 60 Respirations: 18 Pulse Ox (%): 94 - Physical Exam General: Alert, In no apparent distress HEENT: Atraumatic, PERRLA, EOMI Neck: Supple, JVD not distended Respiratory: Crackles/rales Cardiovascular: Regular rate/rhythm, Normal S1 S2 Gastrointestinal: Normal bowel sounds, Soft and benign, Non-distended, No tenderness Musculoskeletal: Swelling Neurological: Normal speech, Normal tone, Normal affect Lymphatics: No axilla or inguinal lymphadenopathy - Studies Medications List Reviewed: Yes Assessment & Plan - Problems (Diagnosis) (1) Cellulitis of leg, right Status: Acute (2) CAD (coronary artery disease) Status: Acute (3) COPD (chronic obstructive pulmonary disease) Status: Acute Qualifiers: COPD type: unspecified COPD Qualified Code(s): J44.9 - Chronic obstructive pulmonary disease, unspecified (4) Hypertension Status: Acute (5) Lymphedema Status: Acute (6) Osteoarthritis Status: Acute (7) Pacemaker Status: Acute (8) Sleep apnea Status: Acute (9) Wound of lower extremity Status: Acute (10) Septic shock Status: Resolved - Plan 1. Continue with IV antibiotic 2. Monitor volume status closely; 3. Outpatient arrangements for discharge being completed by case management 4. heplock IV and lasix 5. Albumin for hypoalbuminemia and to assist w/ improving blood pressure 6. Strict blood sugar monitoring 7. Pain control 8. Monitor renal function closely 9. Recheck procalcitonin level 10. Transfer to Gen med/surg 11. Resume beta-cecil therapy and anti coagulation 12. GI and DVT prophylaxis Discharge Plan: Home Plan to discharge in: Greater than 2 days - Advance Directives Does patient have a Living Will: Yes Does patient have a Durable POA for Healthcare: No - Code Status/Comfort Care Code Status: Full Code Critical Care: No Time Spent Managing PTS Care (In Minutes): 35
[2020-05-14] MEDS: RIVAROXABAN 20 MG TABLET PO SCH (17:34)
[2020-05-14] MEDS: MELATONIN 3 MG TABLET PO SCH (20:56)
[2020-05-14] MEDS: ATORVASTATIN 40 MG TAB PO SCH (20:57)
[2020-05-14] MEDS: TRAZODONE 150 MG TAB PO SCH (20:58)
[2020-05-15] MEDS: acetaZOLAMIDE 250 MG TAB PO SCH (08:55)
[2020-05-15] MEDS: ASPIRIN EC 81 MG TAB PO SCH (08:55)
[2020-05-15] MEDS: METOPROLOL TAR 25 MG TAB PO SCH (08:56)
[2020-05-15] MEDS: GABAPENTIN 300 MG CAP PO SCH ×2 (08:56→13:10)
[2020-05-15] MEDS: predniSONE 10 MG TAB PO SCH (08:56)
[2020-05-15] MEDS: SPIRONOLACTONE 25 MG TABLET PO SCH (08:56)
[2020-05-15] MEDS: PANTOPRAZOLE 40MG TABLET PO SCH (08:56)
[2020-05-15] MEDS: DOXYCYCLINE 100 MG CAP PO SCH (08:57)
[2020-05-15] MEDS: DIGOXIN 0.125 MG TABLET PO SCH (08:58)
[2020-05-15] MEDS: ENSURE HIGH PROTEIN 237 ML CAN PO SCH (08:58)
[2020-05-15] MEDS: ACETIC ACID 0.25% IRRIG IRR SCH (09:00)
[2020-05-15] MEDS: CYANOCOBALAMIN 1,000 MCG TAB SL SCH (09:01)
[2020-05-15] MEDS: DULERA 200/5 (MOMETASONE/FORMOTEROL) INHALER IH SCH (09:02)
[2020-05-15] MEDS: MUPIROCIN 2% OINT 22GM TUBE TOP SCH (09:03)
[2020-05-15 11:17] VITALS: O2SAT 96
[2020-05-15 12:49] VITALS: TEMP 97.6
--- NOTE | 2020-05-15 13:47 | PN ---
Subjective: The patient is sitting in easy chair, not in any acute distress. Denies any headache, n ausea, vomiting, chest pain, abdominal pain, constipation, or diarrhea. Objective: Vital Signs: Temperature 97.6, pulse 60, respirations 20, blood pressure 124/60. Lungs: Basal crackles. Heart: S1, S2. Regular. Abdomen: Soft, nontender. Bowel sounds present. EXTREMITIES: Trace edema. Laboratory Data: WBC from yesterday 4.9, hemoglobin 9, platelets are 74. Chemistry shows sodium 140 , potassium 4.4, chloride 34, bicarb 28, creatinine 0.6, glucose is 110. Assessment And Plan: Right lower extremity cellulitis with stasis dermatitis and hyperpigmentation. The patient has thrombocytopenia and anemia of chronic disease. Continue supportive care. The vinod ent is currently on doxycycline. No new recommendation at this time. Keep legs elevated. NF/MODL Voice ID: [id number] Report ID: [id number]
[2020-05-15] MEDS: RIVAROXABAN 20 MG TABLET PO SCH (17:00)
--- NOTE | 2020-05-15 18:08 | PN ---
Date of Progress Note: 05/15/2020 The patient has tolerated nasal cannula O2, which is a marked improvement from a few days ago; erikae r, he is still having significant trouble transferring according to the staff, although the patient s till feels that is improved as well. He is not mobile; however, he is using a wheelchair at home ayan or to having this episode. Physical therapy has improved his condition considerably. Awaiting insur ance as far as disposition to a SNF is concerned. Vital signs remained stable. HR/MODL Voice ID: [id number] Report ID: [id number]
[2020-05-22 02:31] VITALS: BP 119/58
--- NOTE | 2020-06-27 08:21 | DS ---
Date of Discharge: 05/15/2020 Hospital Course: The patient was admitted to the hospital on 04/18/2020. The patient presented to [facility] emergency room from the [place] [facility] with marked cellulitis of the right lower extremity with amy ed edema, dyspnea, and altered mental status. He was seen by the hospitalist with diffuse 2 days of his admission, he was obviously septic, slightly elevated procalcitonin. He required Levophed to con trol his blood pressure as he was markedly hypotensive. During this time, he was also seen by Cardio logy who felt that there is rapid atrial fibrillation was secondary to dehydration and sepsis. He wa nted to continue his beta-blockers and Xarelto, latter depending on his H and H and as depending on h is blood pressure. Within a few days he gradually stabilized and his mental status improved somewhat as well. However, he did have recurrent episodes of desaturation and required significant pulmonary therapy with BiPAP and inhalation. During this period of time, his cellulitis gradually improved on IV antibiotics and by 04/24/2020 his mental status has improved. His edema has gone down considerab ly from when he was admitted and determination of placement was discussed with the family and somewha t dependent on insurance decision as far as an LTAC, rehab, or SNF. His vital signs were stable and he was switched to oral antibiotics due to the holiday season who has some delay in his insurance det ermination and therefore he was kept in the hospital and PT was also consulted. By 04/26/2020, he wa s eating better and had a marked decrease in the edema with good response to diuresis. However, he w as still rather immobile, he felt he would like to return to [facility] where he has been stayin . He had some problems with constipation, required stool softener and laxatives. By 05/01/2020, hi s cellulitis was gone, lymph edema was still present. He stated he was not really dyspneic and his o xygen had stabilized, but he did require BiPAP from time to time. He was switched to nasal oxygen, s een by Pulmonology and monitored over the next few days. He had difficulty transferring basically im mobile and apparently he was using a wheelchair at home prior to the hospitalization episode. He was still awaiting insurance disposition for a SNF. He was restarted on his usual medication including his Xarelto, did receive 1 unit of blood which seemed to make a significant difference in his overall condition especially sepsis. He was seen once again by Cardiology on the , who felt that his car diac status was stable as it could be under the circumstances, aspirin was stopped and he was started on Xarelto. He did have some episodes of paroxysmal atrial fibrillation. After much discussion wit h the family, he was made a DNR. Because of the underlying cardiological problem, septic problem and he was given 1 unit of blood on the . For the next few days he did show significant improvement required with oxygen and decision was made to return him to the SNF and this wa s done. His condition is quite serious, however, he seemed to the stabilized. Final Diagnoses: 1.Cellulitis of lower leg. 2.Atrial fibrillation with rapid response. 3.Dehydration. 4.Sepsis. 5.Chronic systolic congestive heart failure. 6.Chronic obstructive pulmonary disease. 7.Anemia secondary to blood loss. 8.Altered mental status. HR/MODL Voice ID: [id number] Report ID: [id number]
== END 2020-05-15 17:12 | DRG 871 ==
LOC: ER 21:42 → ERHOLD 04-18 00:33 → 2ND 04-19 12:13
PROVIDERS: ADMIT Family Medicine; ATTEND Family Medicine
PROC: 02HV33Z Insertion of Infusion Device into Superior Vena Cava, Percutaneous Approach (ICD-10-PCS; principal; 2020-04-18)
PROC: 30233N1 Transfusion of Nonautologous Red Blood Cells into Peripheral Vein, Percutaneous Approach (ICD-10-PCS; 2020-05-05)
DX: A41.9 Sepsis, unspecified organism (principal); J96.21 Acute and chronic respiratory failure with hypoxia; I50.43 Acute on chronic combined systolic (congestive) and diastolic (congestive) heart failure; R65.21 Severe sepsis with septic shock; L03.115 Cellulitis of right lower limb; I13.0 Hypertensive heart and chronic kidney disease with heart failure and stage 1 through stage 4 chronic kidney disease, or unspecified chronic kidney disease; E87.1 Hypo-osmolality and hyponatremia; N18.30 Chronic kidney disease, stage 3 unspecified; M19.90 Unspecified osteoarthritis, unspecified site; E78.5 Hyperlipidemia, unspecified; E66.9 Obesity, unspecified; I25.10 Atherosclerotic heart disease of native coronary artery without angina pectoris; J44.9 Chronic obstructive pulmonary disease, unspecified; I89.0 Lymphedema, not elsewhere classified; G47.30 Sleep apnea, unspecified; E88.09 Other disorders of plasma-protein metabolism, not elsewhere classified; I73.9 Peripheral vascular disease, unspecified; I27.20 Pulmonary hypertension, unspecified; I48.0 Paroxysmal atrial fibrillation; L81.9 Disorder of pigmentation, unspecified; D63.8 Anemia in other chronic diseases classified elsewhere; G62.9 Polyneuropathy, unspecified; E86.0 Dehydration; D69.6 Thrombocytopenia, unspecified; K59.00 Constipation, unspecified; I87.2 Venous insufficiency (chronic) (peripheral); Z68.32 Body mass index [BMI] 32.0-32.9, adult; Z66 Do not resuscitate; Z91.018 Allergy to other foods; Z95.2 Presence of prosthetic heart valve; Z96.652 Presence of left artificial knee joint; Z79.82 Long term (current) use of aspirin; Z86.718 Personal history of other venous thrombosis and embolism; Z79.899 Other long term (current) drug therapy; Z79.01 Long term (current) use of anticoagulants; Z88.8 Allergy status to other drugs, medicaments and biological substances; Z99.81 Dependence on supplemental oxygen; Z20.822 Contact with and (suspected) exposure to COVID-19; Z23 Encounter for immunization
CPT/HCPCS: 36415; 51702; 71045; 71046; 74230; 80048; 80053; 80076; 80202; 81003; 81015; 82150; 82550; 82553; 82607; 82805; 83605; 83690; 83735; 83880; 84100; 84145; 84484; 85014; 85018; 85025; 85379; 85610; 85730; 86140; 86850; 86900; 86901; 87040; 87086; 87088; 87804; 90471; 90732; 92611; 93005; 93306; 94640; 94660; 94760; 97110; 97112; 97161; 97530; 97535; 99291; 99292; C9113; J0692; J1160; J1720; J1940; J2920; J3010; J3370; J3420; J7030; J7040; J7050; J7060; J7512; J7605; J7606; P9016; P9047; U0002; U0003

== ENCOUNTER 2020-06-25 16:55 | Inpatient (IN) | payer OTHER ==
--- OUTSIDE RECORDS SUMMARY | 2020-06-25 16:58 | XMS REPORT | Continuity of Care Document ---
:[address] [facility] t Address [address] [place] [address] Dr. [address] [place] [address] Care Team Providers Name Role Phone Macie COLUNGA, T. Primary Care Physician Jovani Donahue DO Attending Clinician Doctor Unassigned, Name Attending Clinician Unavailable Deven Abreu MD Attending Clinician Janes Ledezma MD Attending Clinician Problems Condition Condition Condition Status Onset Resolution Last Treating Co mments Source Name Details Category Date Date Treatment Clinician Date Sciatica Sciatica Disease Active [place] on 11-25 [place] 00:00: st 00 Allergies, Adverse Reactions, Alerts This patient has no known allergies or adverse reactions. Family History Family Member Diagnosis Comments Start Date Stop Date Source Natural father Cancer [facility] Natural mother Heart disease [facility] Social History Social Habit Start Date Stop Date Quantity Comments Source Sex Assigned At [facility] ethodi Alcohol intake 2016-12-01 2016-12-01 Current drinker [place] [facility] [place] 00:00:00 00:00:00 of alcohol (finding) Alcohol Comment 2016-11-25 2016-11-25 Very rare [facility] ethodist 00:00:00 00:00:00 Smoking Status Start Date Stop Date Source Never smoker [facility] Medications Ordered Filled Start Stop Current Ordering [...] 10mg Q.5D Take 10 mg [place] rine 8-01 by mouth 2 Methodi (FLEXERIL) 12:31: (two) st 10 mg 09 times a tablet day as needed for muscle spasms. lisinopril- Yes 1{tbl} QD Take 1 [place] hydrochloro 8-01 tablet by Met [place] thiazide 12:31: mouth st (PRINZIDE,Z 09 daily. ESTORETIC) 20-25 mg per tablet zolpidem Yes 10mg QD Take 10 mg Eleazar ston (AMBIEN) 10 8-01 by mouth Meth tylre mg tablet 12:31: nightly as st 09 needed for sleep. Procedures This patient has no known procedures. Plan of Care Planned Activity Planned Date Details Comments Source Future Scheduled 2019-12-02 INFLUENZA VACCINE [place] [facility] 00:00:00 [code = INFLUENZA VACCINE] Future Scheduled 2004-11-21 65+ PNEUMOCOCCAL [place] [facility] 00:00:00 VACCINE (1 of 1 - PPSV23) [code = 65+ PNEUMOCOCCAL VACCINE (1 of 1 - PPSV23)] Future Scheduled 1989-11-21 SHINGLES VACCINES (#1) [facility] 00:00:00 [code = SHINGLES VACCINES (#1)] Future Scheduled 1956 COVID-19 VACCINE (1 of [facility] 00:00:00 2) [code = COVID-19 VACCINE (1 of 2)] Encounters Start End Encounter Admission Attending Care Care Encounter Source Date/Time Date/Time Type Type Clinicians Facility Department ID 2020-05-09 2020-05-09 Patient ELIJAH Donahue [id number] 00:00:00 00:00:00 Outreach Kadeem PRIMARY [id number] [facility] [id number] [facility] [id number] 2020-05-06 2020-05-06 Orders Doctor HJON [id number] 00:00:00 00:00:00 Only Unassigned, HALIMA [id number] [facility] [id number] 2020-02-01 2020-02-01 Telephone [facility] [id number] 00:00:00 00:00:00 [facility] [id number] [place] [id number] [place] [id number] Medical [address] 2019-11-24 2019-11-24 Orders Doctor JHON [id number] 00:00:00 00:00:00 Only Unassigned, HALIMA [id number] [facility] [id number] 2019-07-05 2019-07-05 [facility] [id number] 00:00:00 00:00:00 Facility Asha [facility] [id number] [facility] [id number] [place] [id number] [facility] Results This patient has no known results.
[2020-06-25] MEDS ORDERED: NA CHLORIDE 0.9% 3,000 ML ONE (17:44)
[2020-06-25 18:19] LABS: Absolute Lymphocytes (CBC) 1.1 K/uL (0.7-4.9); Basophils % 0.2 % (0-1.3); Hematocrit 28.2 % (39.6-49.0); MPV 9.5 fL (7.6-11.3); RBC Red Blood Cell Count 3.17 M/uL (4.33-5.43)
[2020-06-25 18:22] LABS: Protime INR 3.09
[2020-06-25 18:29] LABS: Albumin 1.9 g/dL (3.4-5.0); Bilirubin Direct 0.5 mg/dL (0-0.2); CKMB Creatine Kinase MB 1.3 ng/mL (0.3-3.6); Protein, Total 5.7 g/dL (6.4-8.2); Troponin (Emerg Dept Use Only) 0.04 ng/mL (0.0-0.045)
[2020-06-25 18:36] LABS: SARS-COV-2 RT PCR NEGATIVE (NEGATIVE)
--- NOTE | 2020-06-25 19:02 | RAD REPORT ---
EXAM DESCRIPTION: CT - Head Brain Wo Cont - 06/25/2020 6:48 pm CLINICAL HISTORY: MENTAL STATUS CHANGE COMPARISON: No comparisons TECHNIQUE: Axial 5 mm thick images of the head were obtained without IV contrast. All CT scans are performed using dose optimization technique as appropriate and may include automated exposure control or mA/KV adjustment according to patient size. FINDINGS: No intracranial hemorrhage, mass, edema or shift of mid-line structures. No acute cortical based infarction. No cortical edema or sulcal effacement. Mild to moderate atrophy is present with v entricles in proportion. Chronic ischemic changes present in the cerebral white matter and the left b ivy ganglia. Arterial and physiologic calcifications are present. No abnormal extra-axial fluid jaki ections. Asymmetry is created by head tilt. Mastoid air cells and visualized portions of the paranasal sinuses are clear. No acute bony findings. IMPRESSION: Atrophy and chronic ischemic changes are present. No acute intracranial finding.
--- NOTE | 2020-06-25 19:08 | RAD REPORT ---
EXAM DESCRIPTION: RAD - Chest Single View - 06/25/2020 5:37 pm CLINICAL HISTORY: AMS, confusion, history of CHF COMPARISON: Portable May 02, 2020 TECHNIQUE: AP portable chest image was obtained 06/25/2020 5:37 pm . FINDINGS: Interstitial opacification is present throughout the lung armenta with some mild patchy air space opacification. Pattern is much less prominent than seen on the May 02 examination. Cardiom egaly is present with mild vascular engorgement. Pacemaker is in place. No pneumothorax. Small left p leural effusion is seen. No acute bony abnormality seen. No acute aortic findings suspected. IMPRESSION: Mild CHF/volume overload pattern. Findings are much less pronounced than seen on the May 02, 2020 study.
[2020-06-25 19:24] LABS: Platelet Estimate DECR; Toxic Granulation 1+
[2020-06-25 19:25] LABS: Blood Morphology Comment NOT SEEN (NOT SEEN); Platelets, Giant PRESENT
[2020-06-25] MEDS ORDERED: CEFTRIAXONE/SWI 1gm 1 GM/10 ML SYR ONE (19:26)
[2020-06-25 19:28] LABS: Urine Amorphous Sediment 2+ /HPF (NONE SEEN); Urine Bacteria <20 /HPF (NONE SEEN); Urine Mucus HEAVY /HPF (NONE SEEN); Urine RBC <5 /HPF (NONE SEEN)
[2020-06-25 19:58] LABS: Urine Blood TRACE (NEG); Urine Glucose NEGATIVE (NEG); Urine Protein TRACE (NEG); Urine Specific Gravity 1.025 (1.005-1.030)
--- NOTE | 2020-06-25 20:57 | ER ---
Nurse's Notes [facility] Name: Man Crowley Age: 79 yrs Sex: Male : 1940 Arrival Date: 06/25/2020 Time: 17:01 Bed 14 Private MD: Diagnosis: Hypotension;Altered mental status, unspecified;Sepsis, unspecified organism Presentation: 06/25 17:01 Chief complaint: EMS states: On ABX day 3 for UTI, NH reports confusion this afternoon. hb ABP 80s, HR 100, T99, on 2LNC home O2. Coronavirus screen: At this time, the client does not indicate any symptoms associated with coronavirus-19. Ebola Screen: No symptoms or risks identified at this time. Initial Sepsis Screen: Does the patient meet any 2 criteria? Altered Mental Status. HR > 90 bpm. Yes Does the patient have a suspected source of infection? Yes: Dysuria/Frequency/Urgency/UTI. Risk Assessment: Do you want to hurt yourself or someone else? Patient reports no desire to harm self or others. Onset of symptoms was June 25, 2020. 17:01 Method Of Arrival: EMS: [facility] hb 17:01 Acuity: LUIS 2 hb Historical: - Allergies: 17:05 Blueberry; hb 17:05 Eliquis; hb - Home Meds: 17:05 acetic acid 0.25 % IR soln three times a day [Active]; aspirin 81 mg Oral TbEC 1 tab hb once daily [Active]; atorvastatin 40 mg Oral tab 1 tab once daily [Active]; furosemide 40 mg Oral tab 1 tab 2 times per day [Active]; gabapentin 300 mg Oral cap 1 cap 3 times per day [Active]; lisinopril 20 mg Oral tab 1 tab once daily [Active]; melatonin 3 mg Oral tab nightly [Active]; metoprolol succinate 25 mg Oral Tb24 1 tab once daily [Active]; mupirocin 2 % Topical oint daily [Active]; polyethylene glycol 3350 17 gram Oral pwpk 1 packet once daily [Active]; potassium chloride 20 mEq Oral TbER 1 tab once daily [Active]; trazodone 150 mg Oral tab nightly [Active]; Xarelto 20 mg Oral tab 1 tab once daily [Active]; - PMHx: 17:05 Hypertension; DVT; bilateral; CHF; Nonrheumatic aortic valve stenosis; Obesity; hb osteoarthritis; Prosthetic heart valve; Sleep Apnea; - Immunization history:: Adult Immunizations up to date. - Social history:: Smoking status: Patient denies any tobacco usage or history of. Screenin:15 Abuse screen: Denies threats or abuse. Denies injuries from another. Nutritional hb screening: No deficits noted. Tuberculosis screening: No symptoms or risk factors identified. Fall Risk Total Wellington Fall Scale indicates High Risk Score (45 or more points). Fall prevention measures have been instituted. Side Rails Up X 2 Frequent Obs/Assessments Occuring As available patient and family educated on Fall Prevention Program and Strategies. Assessment: 17:15 General: Appears in no apparent distress. Behavior is calm, cooperative. Pain: Denies hb pain. Neuro: Level of Consciousness is obeys commands, lethargic, Oriented to person, place. Cardiovascular: Capillary refill < 3 seconds Patient's skin is warm and dry. Respiratory: Respiratory effort is even, unlabored, Respiratory pattern is regular, symmetrical. GI: No signs and/or symptoms were reported involving the gastrointestinal system. : No signs and/or symptoms were reported regarding the genitourinary system. EENT: No signs and/or symptoms were reported regarding the EENT system. Derm: Skin is pink, warm \T\ dry. Musculoskeletal: No signs and/or symptoms reported regarding the musculoskeletal system. 18:07 Reassessment: Patient appears in no apparent distress at this time. No changes from hb previously documented assessment. Patient and/or family updated on plan of care and expected duration. Pain level reassessed. 19:00 Reassessment: Patient appears in no apparent distress at this time. No changes from hb previously documented assessment. Patient and/or family updated on plan of care and expected duration. Pain level reassessed. 20:20 Reassessment: Patient appears in no apparent distress at this time. Patient and/or jb4 family updated on plan of care and expected duration. Pain level reassessed. Pt remains alert and oriented x3, pt's daughter reports that the patient is becoming more confused, blood pressure has not improved after NS bolus, provider notified of pt's current condition. 21:00 Reassessment: Patient appears in no apparent distress at this time. Patient and/or jb4 family updated on plan of care and expected duration. Pain level reassessed. Patient is alert, oriented x 3, equal unlabored respirations, skin warm/dry/pink. 22:00 Reassessment: Patient appears in no apparent distress at this time. Patient and/or jb4 family updated on plan of care and expected duration. Pain level reassessed. Patient is alert, oriented x 3, equal unlabored respirations, skin warm/dry/pink. Patient states symptoms have improved. 22:50 Reassessment: Patient appears in no apparent distress at this time. Patient and/or jb4 family updated on plan of care and expected duration. Pain level reassessed. Pt is resting in bed with eyes closed, respirations are even and unlabored. Vital Signs: 17:01 BP 62 / 43; Pulse 103; Resp 18; Temp 98.9; Pulse Ox 99% on R/A; Pain 0/10; hb 17:26 Weight 111.13 kg; dh3 18:06 BP 93 / 60; Pulse 93; Resp 17; Pulse Ox 100% on R/A; hb 20:20 BP 87 / 68; Pulse 103; Resp 17; Pulse Ox 100% on 3 lpm NC; jb4 21:00 BP 79 / 48; Pulse 102; Resp 17; Pulse Ox 100% on 3 lpm NC; jb4 21:15 BP 86 / 52; Pulse 103; Resp 16; Pulse Ox 100% on 3 lpm NC; jb4 21:25 BP 104 / 71; Pulse 106; Resp 18; Pulse Ox 100% on 3 lpm NC; jb4 21:45 BP 97 / 74; Pulse 102; Resp 16; Pulse Ox 100% on 3 lpm NC; jb4 22:15 BP 96 / 57; Pulse 102; Resp 17; Pulse Ox 100% on 3 lpm NC; jb4 22:50 BP 100 / 67; Pulse 105; Resp 17; Pulse Ox 100% on 3 lpm NC; jb4 ED Course: 17:01 Patient arrived in ED. hb 17:03 Triage completed. hb 17:05 Arm band placed on. hb 17:15 Patient has correct armband on for positive identification. Bed in low position. Call hb light in reach. Side rails up X 1. 17:15 Maintain EMS IV. Dressing intact. Good blood return noted. Site clean \T\ dry. Gauge \T\ hb site: 20g LAC. 17:18 Zack Sun NP is PHCP. pm1 17:18 Jian Christianson MD is Attending Physician. pm1 17:26 Rayne Dupree, RN is Primary Nurse. hb 17:37 Chest Single View XRAY In Process Unspecified. EDMS 18:48 CT Head Brain wo Cont In Process Unspecified. EDMS 19:39 Primary Nurse role handed off by Rayne Dupree RN mw2 20:29 Nic Nunez, RN is Primary Nurse. jb4 20:56 Praveen Brown MD is Hospitalizing Provider. pm1 21:45 Assisted provider with central line placement. Set up central line tray. Triple lumen jb4 line placed in right femoral. Line placed by Rodrigo Carmona MD Placement verified by blood return, Dressed with Tegaderm, Patient tolerated well. 22:55 Patient admitted, IV remains in place. [facility] 06/26 00:00 Report received from Phill ANDERSON. 09:38 Primary Nurse role handed off by Nic Nunez, JUSTIN 5 06/27 07:29 Giovanni Ochoa, JUSTIN is Primary Nurse. bp Administered Medications: 06/25 17:48 Drug: NS 0.9% (30 ml/kg) 30 ml/kg Route: IV; Rate: bolus; Site: left antecubital; hb 06/26 00:38 Follow up: Response: No adverse reaction; IV Status: Completed infusion 06/25 19:38 Drug: Rocephin 1 grams Route: IV; Rate: calculated rate; Site: left antecubital; [facility] 06/26 00:37 Follow up: Response: No adverse reaction; IV Status: Completed infusion 06/25 20:29 Drug: NS 0.9% 1000 ml Route: IV; Rate: 100 ml/hr; Site: left antecubital; [facility] 06/26 00:37 Follow up: Response: No adverse reaction; IV Status: Infusion continued upon admission 06/25 20:49 CANCELLED (Duplicate Order): vancoMYCIN 1 grams IVPB once over 2 hrs bb 21:25 Drug: Levophed (4 mg/250 mL D5W 4 mcg/min Route: IV; Rate: calculated rate; Site: left jb4 antecubital; 21:51 Follow up: Iv changed to Right groin [facility] 06/26 00:37 Follow up: Response: No adverse reaction; IV Status: Infusion continued upon admission 06/25 21:56 Drug: vancoMYCIN 1 grams Route: IVPB; Infused Over: 2 hrs; Site: right femoral; jb4 06/26 00:37 Follow up: Response: No adverse reaction; IV Status: Completed infusion Intake: Outcome: 06/25 20:57 Decision to Hospitalize by Provider. pm1 22:55 Admitted to ER Hold. Please see [facility] for further documentation. jb4 22:55 Condition: stable 22:55 Discharge instructions given to family, Instructed on the need for admit, Demonstrated understanding of instructions. 06/28 14:24 Admitted to Med/surg accompanied by tech, via stretcher, room 419, with chart, Report vg1 called to JUSTIN Light Condition: stable Instructed on the need for admit. 15:43 Patient left the ED. vg1 Signatures: Dispatcher [employer] EDMS Cindi Maldonado, RN RN aa5 Zack Sun, [facility] pm1 Rayne Dupree, RN RN Nic Medrano RN RN jb4 Kristin Basurto [facility] Emiliana Molina RN JUSTIN Giovanni Ochoa RN RN bp Edouard Cagle 2 Nell Holcomb RN RN vg1 Latisha Dwyer RN bb Corrections: (The following items were deleted from the chart) 06/25 22:55 20:20 BP 87 / 68; Pulse 103bpm; Resp 17bpm; Pulse Ox 100% RA; jb4 jb4
--- NOTE | 2020-06-25 20:58 | EDPHYS ---
Physician Documentation [facility] Name: Man Crowley Age: 79 yrs Sex: Male : 1940 Arrival Date: 06/25/2020 Time: 17:01 Bed 14 Private MD: CATHI Physician Jian Christianson HPI: 06/25 17:59 This 79 yrs old Male presents to ER via EMS with complaints of Altered Mental pm1 Status. 17:59 The patient presents with confusion. Onset: The symptoms/episode began/occurred 1 pm1 week(s) ago, and became worse today. Possible causes: sepsis, the patient has a known UTI history, the patient lives in a skilled nursing. Associated signs and symptoms: Pertinent positives: cough, Pertinent negatives: diarrhea, vomiting. Patient's baseline: Neuro: alert but confused, Motor: no deficits. 17:59 Admission through the ER for sepsis due to right lower extremity cellulitis 04/19/2020. pm1 17:[address] Brown. Patient with 1 week of AMS per daughter but worse today. He had labs pm1 on Wednesday and it was determined that he has a UTI. Started on Cipro. Today AMS is worse per skilled nursing and daughter. Historical: - Allergies: 17:05 Blueberry; hb 17:05 Eliquis; hb - Home Meds: 17:05 acetic acid 0.25 % IR soln three times a day [Active]; aspirin 81 mg Oral TbEC 1 tab hb once daily [Active]; atorvastatin 40 mg Oral tab 1 tab once daily [Active]; furosemide 40 mg Oral tab 1 tab 2 times per day [Active]; gabapentin 300 mg Oral cap 1 cap 3 times per day [Active]; lisinopril 20 mg Oral tab 1 tab once daily [Active]; melatonin 3 mg Oral tab nightly [Active]; metoprolol succinate 25 mg Oral Tb24 1 tab once daily [Active]; mupirocin 2 % Topical oint daily [Active]; polyethylene glycol 3350 17 gram Oral pwpk 1 packet once daily [Active]; potassium chloride 20 mEq Oral TbER 1 tab once daily [Active]; trazodone 150 mg Oral tab nightly [Active]; Xarelto 20 mg Oral tab 1 tab once daily [Active]; - PMHx: 17:05 Hypertension; DVT; bilateral; CHF; Nonrheumatic aortic valve stenosis; Obesity; hb osteoarthritis; Prosthetic heart valve; Sleep Apnea; - Immunization history:: Adult Immunizations up to date. - Social history:: Smoking status: Patient denies any tobacco usage or history of. ROS: 17:59 Constitutional: Negative for fever, chills, and weight loss, Cardiovascular: Negative pm1 for chest pain, palpitations, and edema, Abdomen/GI: Negative for abdominal pain, nausea, vomiting, diarrhea, and constipation, Back: Negative for injury and pain, MS/Extremity: Negative for injury and deformity, Skin: Negative for injury, rash, and discoloration. 17:59 Respiratory: Positive for cough, Negative for shortness of breath. 17:59 Neuro: Positive for altered mental status. Exam: 17:59 Constitutional: This is a well developed, well nourished patient who is awake, alert, pm1 and in no acute distress. Head/Face: Normocephalic, atraumatic. 17:59 Back: No spinal tenderness. No costovertebral tenderness. Full range of motion. 17:59 Cardiovascular: Exam negative for acute changes, Rate: tachycardic, actual rate is 105 bpm, Rhythm: regular, Pulses: no pulse deficits are appreciated. 17:59 Respiratory: the patient does not display signs of respiratory distress, Respirations: normal, Breath sounds: decreased breath sounds, are located in both bases. 17:59 Abdomen/GI: Inspection: obese Palpation: abdomen is soft and non-tender, in all quadrants. 17:59 Skin: Appearance: normal except for affected area, dried darkened skin to bilateral lower extremities. 2 small, 1 cm diameter stage 1-2 decubitus to buttocks and sacral area , abscess, not appreciated, cellulitis, is not appreciated. 17:59 Neuro: Orientation: to person, Not oriented to place, time, situation. Vital Signs: 17:01 BP 62 / 43; Pulse 103; Resp 18; Temp 98.9; Pulse Ox 99% on R/A; Pain 0/10; hb 17:26 Weight 111.13 kg; dh3 18:06 BP 93 / 60; Pulse 93; Resp 17; Pulse Ox 100% on R/A; hb 20:20 BP 87 / 68; Pulse 103; Resp 17; Pulse Ox 100% on 3 lpm NC; jb4 21:00 BP 79 / 48; Pulse 102; Resp 17; Pulse Ox 100% on 3 lpm NC; jb4 21:15 BP 86 / 52; Pulse 103; Resp 16; Pulse Ox 100% on 3 lpm NC; jb4 21:25 BP 104 / 71; Pulse 106; Resp 18; Pulse Ox 100% on 3 lpm NC; jb4 21:45 BP 97 / 74; Pulse 102; Resp 16; Pulse Ox 100% on 3 lpm NC; jb4 22:15 BP 96 / 57; Pulse 102; Resp 17; Pulse Ox 100% on 3 lpm NC; jb4 22:50 BP 100 / 67; Pulse 105; Resp 17; Pulse Ox 100% on 3 lpm NC; jb4 Procedures: 21:51 Central Line: the site was prepped with Betadine, in sterile fashion, a triple lumen pm1 catheter was inserted, in the right femoral vein, in 1 attempts. placement was verified, by blood return, the site was dressed with Tegaderm, using sterile technique, the patient tolerated the procedure, well. MDM: 17:18 Patient medically screened. pm1 20:43 Physician consultation: Praveen Brown MD regarding admission, patient's condition, and pm1 will see patient. 20:55 Data reviewed: vital signs. Counseling: I had a detailed discussion with the patient pm1 and/or guardian regarding: the historical points, exam findings, and any diagnostic results supporting the discharge/admit diagnosis, lab results, radiology results, the need for further work-up and treatment in the hospital. 06/25 17:19 Order name: Urine Culture pm06/25 17:19 Order name: Amylase, Serum pm1 06/25 17:19 Order name: Basic Metabolic Panel pm1 06/25 17:19 Order name: Blood Culture Adult (2) pm06/25 17:19 Order name: CBC with Diff pm06/25 17:19 Order name: Ckmb pm06/25 17:19 Order name: CPK pm06/25 17:19 Order name: Lactate; Complete Time: 18:20 pm06/25 17:19 Order name: LFT's; Complete Time: 18:35 pm06/25 17:19 Order name: Lipase; Complete Time: 18:35 pm1 06/25 17:19 Order name: Procalcitonin; Complete Time: 18:35 pm1 06/25 17:19 Order name: Protime (+inr); Complete Time: 18:35 pm1 06/25 17:19 Order name: Ptt, Activated; Complete Time: 18:35 pm1 06/25 17:19 Order name: Troponin (emerg Dept Use Only); Complete Time: 18:35 pm1 06/25 17:19 Order name: Urine Microscopic Only; Complete Time: 19:38 pm1 06/25 17:19 Order name: Urine Culture EDMS 06/25 17:19 Order name: Amylase; Complete Time: 18:35 EDMS 06/25 17:19 Order name: Basic Metabolic Panel; Complete Time: 18:35 EDMS 06/25 17:19 Order name: Blood Culture EDMS 06/25 17:19 Order name: CBC with Automated Diff; Complete Time: 19:38 EDMS 06/25 17:19 Order name: CKMB Creatine Kinase MB; Complete Time: 18:35 EDMS 06/25 17:19 Order name: Creatine Phosphokinase; Complete Time: 18:35 EDMS 06/25 17:22 Order name: Flu pm1 06/25 17:22 Order name: Strep; Complete Time: 18:48 pm1 06/25 18:36 Order name: COVID-19/FLU A+B; Complete Time: 18:38 EDMS 06/25 18:47 Order name: Throat Culture EDMS 06/25 19:11 Order name: Urine Dipstick--Ancillary (enter results) [facility] 06/25 19:11 Order name: Urine Dipstick-Ancillary; Complete Time: 19:59 EDMS 06/25 17:19 Order name: Chest Single View XRAY; Complete Time: 19:13 pm06/25 18:20 Order name: CT Head Brain wo Cont; Complete Time: 19:13 pm1 06/25 19:23 Order name: Manual Differential; Complete Time: 19:38 EDMS 06/26 05:51 Order name: CBC with Automated Diff EDMS 06/26 06:08 Order name: Basic Metabolic Panel EDMS 06/26 07:12 Order name: Manual Differential EDMS 06/26 08:25 Order name: Gram Stain--Aerobic Bottle EDMS 06/26 08:25 Order name: Gram Stain--Anaerobic Bottle EDMS 06/26 08:29 Order name: Gram Stain--Aerobic Bottle EDMS 06/26 08:29 Order name: Gram Stain--Anaerobic Bottle EDMS 06/26 14:55 Order name: Protime (+INR) EDMS 06/26 14:55 Order name: PTT, Activated Partial Thromb EDMS 06/26 15:38 Order name: Type and Screen EDMS 06/27 02:23 Order name: Hemoglobin EDMS 06/27 02:23 Order name: Hematocrit EDMS 06/27 04:55 Order name: CBC with Automated Diff EDMS 06/27 05:10 Order name: Basic Metabolic Panel EDMS 06/27 15:12 Order name: Vancomycin Level Trough EDMS 06/27 15:18 Order name: Potassium EDMS 06/28 03:32 Order name: Blood Culture EDMS 06/28 05:43 Order name: CBC with Automated Diff EDMS 06/28 05:45 Order name: Basic Metabolic Panel EDMS 06/28 08:26 Order name: Urine Culture EDMS 06/28 09:19 Order name: Manual Differential EDMS 06/28 09:26 Order name: Procalcitonin EDMS 06/28 13:54 Order name: Vancomycin Level Trough EDMS 06/28 14:49 Order name: Gram Stain--Aerobic Bottle EDMS 06/28 14:49 Order name: Gram Stain--Anaerobic Bottle EDMS 06/28 14:49 Order name: Gram Stain--Aerobic Bottle EDMS 06/28 14:49 Order name: Gram Stain--Anaerobic Bottle EDWA 06/25 17:19 Order name: Accucheck; Complete Time: 17:48 pm06/25 17:19 Order name: Cardiac monitoring; Complete Time: 17:48 pm06/25 17:19 Order name: EKG - Nurse/Tech; Complete Time: 17:48 pm06/25 17:19 Order name: IV Saline Lock - Large Bore; Complete Time: 17:48 pm06/25 17:19 Order name: Labs collected and sent; Complete Time: 17:48 pm06/25 17:19 Order name: O2 Per Protocol; Complete Time: 17:48 pm06/25 17:19 Order name: O2 Sat Monitoring; Complete Time: 17:48 pm1 06/25 17:19 Order name: Urine Dipstick-Ancillary (obtain specimen); Complete Time: 20:10 pm06/25 17:22 Order name: Straight Cath - Urine; Complete Time: 19:12 pm1 06/25 20:49 Order name: Central Line Kit; Complete Time: 20:50 pm1 Administered Medications: 17:48 Drug: NS 0.9% (30 ml/kg) 30 ml/kg Route: IV; Rate: bolus; Site: left antecubital; 06/26 00:38 Follow up: Response: No adverse reaction; IV Status: Completed infusion 06/25 19:38 Drug: Rocephin 1 grams Route: IV; Rate: calculated rate; Site: left antecubital; [facility] 06/26 00:37 Follow up: Response: No adverse reaction; IV Status: Completed infusion 06/25 20:29 Drug: NS 0.9% 1000 ml Route: IV; Rate: 100 ml/hr; Site: left antecubital; [facility] 06/26 00:37 Follow up: Response: No adverse reaction; IV Status: Infusion continued upon admission 06/25 20:49 CANCELLED (Duplicate Order): vancoMYCIN 1 grams IVPB once over 2 hrs 21:25 Drug: Levophed (4 mg/250 mL D5W 4 mcg/min Route: IV; Rate: calculated rate; Site: left [facility] antecubital; 21:51 Follow up: Iv changed to Right groin [facility] 06/26 00:37 Follow up: Response: No adverse reaction; IV Status: Infusion continued upon admission 06/25 21:56 Drug: vancoMYCIN 1 grams Route: IVPB; Infused Over: 2 hrs; Site: right femoral; [facility] 06/26 00:37 Follow up: Response: No adverse reaction; IV Status: Completed infusion Disposition: 06/25/20 20:57 Hospitalization ordered by Praveen Brown for Inpatient Admission. Preliminary diagnosis are Hypotension, Altered mental status, unspecified, Sepsis, unspecified organism. - Bed requested for Telemetry/MedSurg (Inpatient). - Status is Inpatient Admission. vg1 - Condition is Stable. - Problem is new. - Symptoms have improved. Addendum: 07/01/2020 06:08 Co-signature as Attending Physician, Jian Christianson MD I agree with the assessment and c conner plan of care. Signatures: Dispatcher [employer] Patti Lee RN RN dw Anderson, Corey, MD MD cha Garcia, Cindy, RN RN cg Marinas, Zack, BEARING RING ASSEMBLER BEARING RING ASSEMBLER pm1 Rayne Dupree, RN RN Nic Nunez, RN RN jb4 Rodrigo Carmona MD MD 4 Nell Holcomb, JUSTIN RN 1 Latisha Dwyer RN Emiliana Molina RN Corrections: (The following items were deleted from the chart) 06/25 17:52 17:28 CORONAVIRUS+MR.LAB.BRZ ordered. EDMS EDMS 20:49 20:48 vancoMYCIN 1 grams IVPB once over 2 hrs ordered. pm1 bb 20:57 20:57 Hospitalization Ordered by Praveen Brown MD for Inpatient Admission. Preliminary pm1 diagnosis is Hypotension; Altered mental status, unspecified; Sepsis, unspecified organism. Bed requested for Telemetry/MedSurg (Inpatient). Status is Inpatient Admission. Condition is Stable. Problem is new. Symptoms have improved. pm1 22:28 20:57 06/25/2020 20:57 Hospitalization Ordered by Praveen Brown MD for Inpatient cg Admission. Preliminary diagnosis is Hypotension; Altered mental status, unspecified; Sepsis, unspecified organism. Bed requested for Intensive Care Unit. Status is Inpatient Admission. Condition is Stable. Problem is new. Symptoms have improved. pm1 06/26 00:58 06/25 17:59 Admission through the ER for sepsis due to right lower extremity pm1 cellulitis, pm1 06/28 14:14 06/25 22:28 06/25/2020 20:57 Hospitalization Ordered by Praveen Brown MD for Inpatient dw Admission. Preliminary diagnosis is Hypotension; Altered mental status, unspecified; Sepsis, unspecified organism. Bed requested for [facility] ER HOLD. Status is Inpatient Admission. Condition is Stable. Problem is new. Symptoms have improved. cg 06/28 15:43 14:14 06/25/2020 20:57 Hospitalization Ordered by Praveen Brown MD for Inpatient vg1 Admission. Preliminary diagnosis is Hypotension; Altered mental status, unspecified; Sepsis, unspecified organism. Bed requested for Telemetry/MedSurg (Inpatient). Status is Inpatient Admission. Condition is Stable. Problem is new. Symptoms have improved. dw
[2020-06-25] MEDS ORDERED: NOREPINEPHRINE 4mg/D5W 250mL 4 MG/250 ML BAG IV ONE (21:14)
[2020-06-25] MEDS ORDERED: VANCOMYCIN 1 GM/VIAL ONE (21:45)
[2020-06-25] MEDS ORDERED: NA CHLORIDE 0.9% 250 ML ONE (21:50)
[2020-06-25] MEDS ORDERED: NOREPINEPHRINE 4 MG in D5W 250 ML IV PRN (23:32)
[2020-06-25] MEDS ORDERED: VANCOMYCIN/NS 1 gm 1 GM/250 ML BAG IVPB SCH (23:32)
[2020-06-26] MEDS ORDERED: VANCOMYCIN 2.75 GM in NA CHLORIDE 0.9% 500 ML IVPB ONE ×2
[2020-06-26] MEDS ORDERED: VANCOMYCIN 1.75 GM in NA CHLORIDE 0.9% 500 ML IVPB ONE ×2 (00:15→01:00)
[2020-06-26] MEDS ORDERED: NA CHLORIDE 0.9% 500 ML ONE (01:01)
[2020-06-26] MEDS ORDERED: VANCOMYCIN 1 GM/VIAL ONE (01:19)
[2020-06-26] MEDS: NA CHLORIDE 0.9% 1,000 ML IV SCH ×4 (02:00→22:00)
[2020-06-26] MEDS ORDERED: NA CHLORIDE 0.9% 1,000 ML ONE ×2 (03:33→13:16)
[2020-06-26] MEDS ORDERED: NOREPINEPHRINE 4mg/D5W 250mL 4 MG/250 ML BAG IV ONE (04:16)
[2020-06-26 05:45] LABS: Absolute Lymphocytes (CBC) 1.1 K/uL (0.7-4.9); Basophils % 0.2 % (0-1.3); Hematocrit 27.5 % (39.6-49.0); Lymphocytes % 5.2 % (15.3-44.8); RBC Red Blood Cell Count 3.09 M/uL (4.33-5.43)
[2020-06-26 06:08] LABS: BUN Blood Urea Nitrogen 27 mg/dL (7-18); Bicarbonate 17 mmol/L (21-32); Glucose Level 96 mg/dL (74-106); Potassium 3.4 mmol/L (3.5-5.1); Sodium Level 144 mmol/L (136-145)
[2020-06-26 07:10] LABS: Blood Morphology Comment NOT SEEN (NOT SEEN); Platelet Estimate DECR
[2020-06-26] MEDS: CEFEPIME/SWI 2gm 2 GM/20 ML SYR IV SCH ×2 (09:00→21:00)
[2020-06-26] MEDS ORDERED: CEFEPIME 2 GM VIAL IV SCH (09:00)
[2020-06-26] MEDS: VANCOMYCIN 1.75 GM in NA CHLORIDE 0.9% 500 ML IVPB SCH (14:00)
[2020-06-26 14:54] LABS: Protime INR 1.59
[2020-06-26] MEDS ORDERED: POLYETHYL GLY 3350 17 GM/DOSE PO PRN (15:19)
[2020-06-26] MEDS ORDERED: VANCOMYCIN 1.75 GM in NA CHLORIDE 0.9% 500 ML IVPB SCH (19:00)
--- NOTE | 2020-06-26 20:19 | PN ---
Date of Progress Note: 06/26/2020 Subjective: The patient has stabilized somewhat as far as his mental status, and according to his da ughter he is basically back at baseline, not confused as he was last night. His white count has drop ped slightly. Positive blood cultures x4, probable Staph. We will continue with the IV antibiotics. He is still on Levophed drip. We will continue to monitor this and trying to remove when feasible. The hemoglobin seems stable, little over 8 after marked hydration. Similar scenario to the last ad mission when he had cellulitis of his legs and due to the underlying cardiac status and general debil ity and obvious septic condition, I feel justified in giving a unit of blood at this time. Once this was done on the last admission, he showed marked improvement. We will continue to hold his hyperten patricia medicine as well as his blood thinners with the use of aspirin as he does have the chronic atria l fibrillation. We will continue to monitor his vital signs. The patient confirmed to be a DNR by kayce is daughter who has power of tax associate attorney for his medical care. Had a history and physical on [employer] and just complaint of altered mental status, anorexia, general malaise. History Of Present Illness: The patient presented to the emergency room with the above outlined symp toms. Apparently, he had what was felt to be a UTI a couple days earlier at the long-term where kayce gonzalez has been residing since he was hospitalized about a month ago for his severe cellulitis and pulmona ry distress. He was placed on Cipro and seemed to really somewhat for a short period of time and the n became markedly confused and was sent to the emergency room where he was obviously septic, hypotens angelo, and had altered mental status and was admitted and treated with boluses, Levophed, IV antibiotic s and monitored. His chest x-ray was basically normal for him. His CT scan showed significant chron ic ischemic changes. EKG showed some tachycardia. Past History: The patient has had significant cardiovascular problems including a valve replacement, DVTs, marked cellulitis of the lower extremities with lymphedema. However, this has improved. He h as had continued weight loss. Social History: Nonsmoker. Nondrinker. Family History: Noncontributory. Physical Examination: General: Patient is an obviously confused elderly male with stable vital signs other than a little s inus tachycardia. Head and Neck: Normocephalic. Pupils equal and reactive to light and accommodation. Fundi negative . Trachea midline. Thyroid not palpable. ENT: Negative. Chest: Clear to P and A. Cardiovascular: PMI midclavicular line. Heart: Sounds normal. Peripheral pulses are present and equal bilaterally. Abdomen: No organomegaly. Bowel sounds present. Extremities: Marked dehydration. Good tone and movement bilaterally. Reflexes physiologic. Rectal: Deferred. Impression: Sepsis, unknown etiology, hypotension, dehydration, marked altered mental status. Plan: As mentioned above place and be hydrated, monitor if necessary to maintain blood pressure, Lev ophed drip will be started and a septic workup will be instituted. HR/MODL Voice ID: [id number] Report ID: [id number]
[2020-06-26] MEDS ORDERED: ATORVASTATIN 20 MG TAB ONE (20:32)
[2020-06-26] MEDS ORDERED: GABAPENTIN 300 MG CAP ONE (20:32)
[2020-06-26] MEDS ORDERED: CEFEPIME/SWI 1gm 20 ML ONE (20:33)
[2020-06-26] MEDS ORDERED: MELATONIN 3 MG TABLET PO ONE (20:43)
[2020-06-26] MEDS ORDERED: NA CHLORIDE 0.9% 250 ML ONE (20:52)
[2020-06-26] MEDS: ATORVASTATIN 40 MG TAB PO SCH (21:00)
[2020-06-26] MEDS: MELATONIN 3 MG TABLET PO SCH (21:00)
[2020-06-26] MEDS: GABAPENTIN 300 MG CAP PO SCH (21:00)
[2020-06-27] MEDS ORDERED: NA CHLORIDE 0.9% 0 ML ONE (01:49)
[2020-06-27] MEDS ORDERED: VANCOMYCIN 1 GM/VIAL ONE (01:49)
[2020-06-27] MEDS ORDERED: NA CHLORIDE 0.9% 1,000 ML ONE ×2 (01:49→09:08)
[2020-06-27] MEDS ORDERED: NA CHLORIDE 0.9% 500 ML ONE ×2 (01:57→02:06)
[2020-06-27] MEDS: VANCOMYCIN 1.75 GM in NA CHLORIDE 0.9% 500 ML IVPB SCH (02:00)
[2020-06-27] MEDS: IPRATROPIUM BROM 0.5MG/2.5ML NEB PRN (02:15)
[2020-06-27 02:22] LABS: Hematocrit 30.2 % (39.6-49.0)
[2020-06-27] MEDS ORDERED: IPRATROPIUM BROM 0.5MG/2.5ML ONE (02:31)
[2020-06-27 04:53] LABS: Absolute Lymphocytes (CBC) 1.4 K/uL (0.7-4.9); Basophils % 0.2 % (0-1.3); Hematocrit 29.4 % (39.6-49.0); Lymphocytes % 10.7 % (15.3-44.8); MPV 9.4 fL (7.6-11.3)
[2020-06-27 05:07] LABS: BUN Blood Urea Nitrogen 16 mg/dL (7-18); Bicarbonate 18 mmol/L (21-32); Glucose Level 94 mg/dL (74-106); Sodium Level 143 mmol/L (136-145)
[2020-06-27 05:10] LABS: Potassium 2.8 mmol/L (3.5-5.1)
[2020-06-27] MEDS: KCL 20 MEQ/100 mL IVPB 20 MEQ/100 ML BAG IV SCH ×3 (08:00→12:00)
[2020-06-27] MEDS: NA CHLORIDE 0.9% 1,000 ML IV SCH ×2 (08:00→18:00)
[2020-06-27] MEDS: GABAPENTIN 300 MG CAP PO SCH ×3 (09:00→21:00)
[2020-06-27] MEDS: CEFEPIME/SWI 2gm 2 GM/20 ML SYR IV SCH (09:00)
[2020-06-27] MEDS: ASPIRIN EC 81 MG TAB PO SCH (09:00)
[2020-06-27] MEDS: RIVAROXABAN 20 MG TABLET PO SCH (09:00)
[2020-06-27] MEDS ORDERED: RIVAROXABAN 10 MG TABLET PO SCH (09:00)
[2020-06-27] MEDS: HOME MED 1 EA UNK (Fluticasone/Umeclidin/Vilanter [Trelegy Ellipta 200-62.5-25] Blst.W.Dev IH SCH (09:00)
[2020-06-27] MEDS ORDERED: NA CHLORIDE 0.9% 100 ML ONE (09:07)
[2020-06-27] MEDS ORDERED: GABAPENTIN 300 MG CAP ONE ×2 (09:07→21:57)
[2020-06-27] MEDS ORDERED: CEFEPIME 2 GM VIAL ONE (09:07)
[2020-06-27] MEDS ORDERED: ASPIRIN 81 MG CHEWABLE TABLET ONE (09:07)
[2020-06-27] MEDS ORDERED: KCL 20 MEQ/100 mL IVPB 60 MEQ/300 ML BAG IV ONE (09:08)
[2020-06-27 09:50] VITALS: BMI 33.3
[2020-06-27] MEDS ORDERED: FUROSEMIDE 20 MG/ 2ML VIAL IV ONE (13:30)
[2020-06-27] MEDS: ATORVASTATIN 40 MG TAB PO SCH (21:00)
[2020-06-27] MEDS: CEFTRIAXONE/SWI 1gm 1 GM/10 ML SYR IV SCH (21:00)
[2020-06-27] MEDS: MELATONIN 3 MG TABLET PO SCH (21:00)
[2020-06-27] MEDS ORDERED: ATORVASTATIN 20 MG TAB ONE (21:57)
[2020-06-27] MEDS ORDERED: CEFTRIAXONE/SWI 1gm 1 GM/10 ML SYR ONE (21:57)
[2020-06-27] MEDS ORDERED: MELATONIN 3 MG TABLET PO ONE (22:36)
[2020-06-28] MEDS ORDERED: ACETAMINOPHEN 325 MG TABLET ONE (02:29)
[2020-06-28] MEDS: NA CHLORIDE 0.9% 1,000 ML IV SCH ×2 (04:00→17:15)
[2020-06-28 05:37] LABS: Absolute Lymphocytes (CBC) 1.5 K/uL (0.7-4.9); Basophils % 0.2 % (0-1.3); Hematocrit 28.5 % (39.6-49.0); Lymphocytes % 12.5 % (15.3-44.8); MPV 9.1 fL (7.6-11.3); RBC Red Blood Cell Count 3.29 M/uL (4.33-5.43)
[2020-06-28 05:44] LABS: BUN Blood Urea Nitrogen 13 mg/dL (7-18); Bicarbonate 17 mmol/L (21-32); Glucose Level 91 mg/dL (74-106); Potassium 3.1 mmol/L (3.5-5.1); Sodium Level 143 mmol/L (136-145)
[2020-06-28] MEDS: ASPIRIN EC 81 MG TAB PO SCH (09:00)
[2020-06-28] MEDS: HOME MED 1 EA UNK (Fluticasone/Umeclidin/Vilanter [Trelegy Ellipta 200-62.5-25] Blst.W.Dev IH SCH (09:00)
[2020-06-28] MEDS: CEFTRIAXONE/SWI 1gm 1 GM/10 ML SYR IV SCH (09:00)
[2020-06-28] MEDS: RIVAROXABAN 20 MG TABLET PO SCH (09:00)
[2020-06-28] MEDS ORDERED: SPIRONOLACTONE 25 MG TABLET PO SCH (09:00)
[2020-06-28 09:19] LABS: Blood Morphology Comment NOT SEEN (NOT SEEN); Platelet Estimate DECR
--- NOTE | 2020-06-28 10:58 | P.CNS ---
Date of Consult: 06/28/20 Reason for Consult: ID Chief Complaint: Sepsis, AMS History of Present Illness: History: A 59-year-old male with a past medical history including significant cardiovascular disease, congestive heart failure, chronic atrial fibrillation presented to the emergency room with hypotension and altered mental status. Upon admission the patient is found have septic shock with positive anaerobic and anaerobic blood cultures-awaiting organism identification. The patient is currently on ceftriaxone 1 g q.12 hr IV. UA was negative. Chest x-ray was completed which showed signs of volume overload. Assist these have been consulted to monitor and manage patient's antibiotics. Patient also has significant wounds to bilateral upper and lower extremities including: bilateral stasis dermatitis, multiple bilateral lower extremity skin tears and hematomas, multiple upper extremity skin tears in hematomas, left heel deep tissue injury, left lateral foot deep tissue injury,and DTI left 5th metatarsal, bilateral buttocks deep tissue injury. Patient denies nausea, vomiting, diarrhea, shortness breath or chest pain. His perineum on 2 L via nasal cannula. 10 point RS has been completed with pertinent positives and negatives listed above. Plan of care discussed with Dr. Diego. Allergies apixaban [From Eliquis] Allergy (Verified 06/26/20 00:20) Rash blueberry Allergy (Verified 06/26/20 00:20) Rash Home Medications: Aspirin [Aspirin EC 81 MG] 81 mg PO DAILY 01/09/20 Atorvastatin Calcium [Lipitor] 40 mg PO BEDTIME 01/09/20 Gabapentin 300 mg PO TID 01/09/20 Ipratropium Neb [Atrovent*] 1 aer NEB Q6HP PRN 01/09/20 Melatonin [Melatonin*] 3 mg PO BEDTIME 01/09/20 Potassium Chloride [K-Dur] 20 meq PO DAILY 01/09/20 Rivaroxaban [Xarelto] 20 mg PO DAILY 01/09/20 Trazodone [Desyrel*] 150 mg PO BEDTIME 01/09/20 Metoprolol Tartrate [Lopressor*] 12.5 mg PO BID 30 Days #30 tab 01/19/20 Spironolactone 25 mg PO 30 MIN BEFORE HS #30 tablet 05/09/20 acetaZOLAMIDE [Diamox] 250 mg PO DAILY 30 Days #30 tab 05/09/20 Acetaminophen [Tylenol] 650 mg PO Q6H PRN 06/26/20 Ascorbic Acid 500 mg PO DAILY 06/26/20 Codeine/APAP [Tylenol W/Codeine #3 tab] 1 tab PO Q12H PRN 06/26/20 Docusate Sodium 100 mg PO BID PRN 06/26/20 Fluticasone/Umeclidin/Vilanter [Trelegy Ellipta 200-62.5-25] 1 each IH DAILY 06/26/20 Mirtazapine 15 mg PO BEDTIME 06/26/20 Polyethylene Glycol 3350 [Glycolax] 17 gm PO DAILY PRN 06/26/20 - Past Medical/Surgical History Diabetic: No -: Chronic lower extremity lymphedema -: Chronic diastolic heart failure -: Hypertension -: Peripheral neuropathy -: Hyperlipidemia -: Aortic Valve Stenosis -: DVT -: Endoscopy -: Pacemaker placement -: Cardiac catheterization -: Left knee replacement - Social History Smoking Status: Unknown if ever smoked Alcohol use: No CD- Drugs: No Caffeine use: No Place of Residence: [facility] Review of Systems 10-point ROS is otherwise unremarkable Physical Examination Temp Pulse Resp BP Pulse Ox 97.6 F 110 H 22 H 112/78 100 06/28/20 07:00 06/28/20 08:00 06/28/20 08:00 06/28/20 08:00 06/28/20 07:00 General: Alert, In no apparent distress, Oriented x3 HEENT: Atraumatic, Normocephalic Neck: Supple, 2+ carotid pulse no bruit, JVD not distended Respiratory: Other (Bilateral auscultation findings of volume overload including crackles and expiratory wheezing.) Cardiovascular: No edema, Normal pulses Capillary refill: <2 Seconds Gastrointestinal: Normal bowel sounds, Soft and benign Musculoskeletal: No clubbing, No swelling Integumentary: Other (Multiple bilateral lower extremity skin tears and hematomas, multiple other extremity hematomas, DTIS to left foot, bilateral buttocks Deep tissue injury) Neurological: Normal speech Urinary: Willoughby catheter External genitalia: Deferred Laboratory Last Values WBC 21.80 K/uL (4.3-10.9) H* D 06/25/20 17:39 RBC 3.17 M/uL (4.33-5.43) L 06/25/20 17:39 Hgb 8.8 g/dL (13.6-17.9) L 06/25/20 17:39 Hct 28.2 % (39.6-49.0) L 06/25/20 17:39 MCV 88.8 fL (80-100) 06/25/20 17:39 MCH 27.7 pg (27.0-35.0) 06/25/20 17:39 MCHC 31.1 g/dL (32.0-36.0) L 06/25/20 17:39 RDW 17.9 % (12.1-15.2) H 06/25/20 17:39 Plt Count 76 K/uL (152-406) L D 06/25/20 17:39 MPV 9.5 fL (7.6-11.3) 06/25/20 17:39 Neutrophils % 88.4 % (41.7-73.7) H 06/25/20 17:39 Lymphocytes % 5.0 % (15.3-44.8) L 06/25/20 17:39 Monocytes % 6.4 % (3.3-12.3) 06/25/20 17:39 Eosinophils % 0.0 % (0-4.4) 06/25/20 17:39 Basophils % 0.2 % (0-1.3) 06/25/20 17:39 Absolute Neutrophils 19.3 K/uL (1.8-8.0) H 06/25/20 17:39 Segmented Neutrophils 88 % (40-80) H 06/25/20 17:39 Band Neutrophils 3 % (0-1) H 06/25/20 17:39 Absolute Lymphocytes 1.1 K/uL (0.7-4.9) 06/25/20 17:39 Lymphocytes 3 % (15-42) L 06/25/20 17:39 Monocytes 5 % (0-10) 06/25/20 17:39 Absolute Monocytes 1.4 K/uL (0.1-1.3) H 06/25/20 17:39 Eosinophils 1 % (0-3) 06/25/20 17:39 Absolute Eosinophils 0.0 K/uL (0-0.5) 06/25/20 17:39 Absolute Basophils 0.1 K/uL (0-0.5) 06/25/20 17:39 Toxic Granulation 1+ 06/25/20 17:39 Platelet Estimate Decr 06/25/20 17:39 Giant Platelets Present 06/25/20 17:39 Morphology Comment Not seen (NOT SEEN) 06/25/20 17:39 PT 36.0 SECONDS (9.5-12.5) H 06/25/20 17:39 INR 3.09 06/25/20 17:39 APTT 33.3 SECONDS (24.3-36.9) 06/25/20 17:39 Sodium 142 mmol/L (136-145) 06/25/20 17:39 Potassium 4.0 mmol/L (3.5-5.1) 06/25/20 17:39 Chloride 116 mmol/L (98-107) H 06/25/20 17:39 Carbon Dioxide 17 mmol/L (21-32) L 06/25/20 17:39 BUN 35 mg/dL (7-18) H 06/25/20 17:39 Creatinine 0.86 mg/dL (0.55-1.3) 06/25/20 17:39 Estimated GFR 86 mL/min (=/>90) L 06/25/20 17:39 Glucose 77 mg/dL (74-106) 06/25/20 17:39 Lactic Acid 1.2 mmol/L (0.4-2.0) 06/25/20 17:39 Calcium 7.8 mg/dL (8.5-10.1) L D 06/25/20 17:39 Total Bilirubin 1.0 mg/dL (0.2-1.0) 06/25/20 17:39 Direct Bilirubin 0.5 mg/dL (0-0.2) H 06/25/20 17:39 AST 28 U/L (15-37) 06/25/20 17:39 ALT 14 U/L (12-78) 06/25/20 17:39 Alkaline Phosphatase 99 U/L (45-117) 06/25/20 17:39 Creatine Kinase 35 U/L (39-308) L 06/25/20 17:39 CK-MB (CK-2) 1.3 ng/mL (0.3-3.6) 06/25/20 17:39 Rapid Troponin I 0.04 ng/mL (0.0-0.045) 06/25/20 17:39 Serum Total Protein 5.7 g/dL (6.4-8.2) L 06/25/20 17:39 Albumin 1.9 g/dL (3.4-5.0) L 06/25/20 17:39 Globulin 3.8 g/dL (2.3-3.5) H 06/25/20 17:39 Albumin/Globulin Ratio 0.5 (1.1-1.8) L 06/25/20 17:39 Amylase 16 U/L (25-115) L 06/25/20 17:39 Lipase 53 U/L (73-393) L 06/25/20 17:39 Procalcitonin 0.45 ng/mL (<0.050) H 06/25/20 17:39 Urine pH 5.0 (5.0-7.0) 06/25/20 19:11 Ur Specific [place] 1.025 (1.005-1.030) 06/25/20 19:11 Glucose (UA)(Auto) Negative (NEG) 06/25/20 19:11 Urine Ketones Trace (NEG) 06/25/20 19:11 Urine Blood Trace (NEG) H 06/25/20 19:11 Urine Nitrite Negative (NEG) 06/25/20 19:11 Ur Leukocyte Esterase Negative (NEG) 06/25/20 19:11 Urine RBC <5 /HPF (NONE SEEN) 06/25/20 19:01 Urine WBC <5 /HPF (<5) 06/25/20 19:01 Ur Squamous Epith Cells <5 /HPF (NONE SEEN) 06/25/20 19:01 Amorphous Sediment 2+ /HPF (NONE SEEN) H 06/25/20 19:01 Urine Bacteria <20 /HPF (NONE SEEN) 06/25/20 19:01 Urine Mucus Heavy /HPF (NONE SEEN) 06/25/20 19:01 Urine Culture Reflexed Not needed 06/25/20 19:01 Urine Total Protein Trace (NEG) 06/25/20 19:11 Influenza Type A RNA Negative (NEGATIVE) 06/25/20 17:25 Influenza Type B RNA Negative (NEGATIVE) 06/25/20 17:25 SARS-CoV-2 RNA (RT-PCR) Negative (NEGATIVE) 06/25/20 17:25 Conclusions/Impression: Assessment: -sepsis -multiple skin tears/hematoma to upper and lower arm extremities -bilateral buttocks deep tissue injury -left foot deep tissue injurys -altered mental status/hypertension -congestive heart failure Plan -sepsis: Positive anaerobic and anaerobic blood cultures: Still awaiting organism identification. Patient has normal renal function and creatinine of 0.35 and GFR greater than 90%. As such We will start patient on IV vancomycin to cover for possible MRSA(appreciate trough level monitoring and dosing from pharmacy) and IV meropenem as the patient's anaerobic blood cultures are positive. We will reassess antibiotics after organism identification. Leukocytosis is down trending -recommend applying xerofrom to open skin tears on upper and lower extremities -recommend applying barrier cream to bilateral buttocks the DTI, also offload the wound and avoid direct pressure. -recommend offloading left heel treated deep tissue injuries avoid direct pressure on area -recommend air mattress to offload wounds -medical management per primary team -continue to monitor CBC and BMP -continue to monitor for signs of infection Plan of care discussed with Dr. Diego Thank you for consultation.
[2020-06-28] MEDS ORDERED: POTASSIUM CL SA 10 MEQ TAB PO ONE ×2 (11:00→11:51)
[2020-06-28] MEDS ORDERED: ASPIRIN 81 MG CHEWABLE TABLET ONE (11:50)
[2020-06-28] MEDS ORDERED: CEFTRIAXONE/SWI 1gm 1 GM/10 ML SYR ONE (11:51)
[2020-06-28] MEDS ORDERED: GABAPENTIN 300 MG CAP ONE (11:51)
[2020-06-28] MEDS: GABAPENTIN 300 MG CAP PO SCH ×3 (12:00→20:35)
--- NOTE | 2020-06-28 12:41 | P.CNS ---
Date of Consult: 06/27/20 Reason for Consult: Septic shock Chief Complaint: Sepsis, AMS History of Present Illness: Patient is 79 years of age admitted with septic shock positive blood cultures/multiple medical problems was just recently discharged lives in a correction he is doing much better he was volume resuscitated currently being weaned down off the Levophed also received some blood transfusion There is mention of altered mental status more hypoxemia Allergies apixaban [From Eliquis] Allergy (Verified 06/26/20 00:20) Rash blueberry Allergy (Verified 06/26/20 00:20) Rash Home Medications: Aspirin [Aspirin EC 81 MG] 81 mg PO DAILY 01/09/20 Atorvastatin Calcium [Lipitor] 40 mg PO BEDTIME 01/09/20 Gabapentin 300 mg PO TID 01/09/20 Ipratropium Neb [Atrovent*] 1 aer NEB Q6HP PRN 01/09/20 Melatonin [Melatonin*] 3 mg PO BEDTIME 01/09/20 Potassium Chloride [K-Dur] 20 meq PO DAILY 01/09/20 Rivaroxaban [Xarelto] 20 mg PO DAILY 01/09/20 Trazodone [Desyrel*] 150 mg PO BEDTIME 01/09/20 Metoprolol Tartrate [Lopressor*] 12.5 mg PO BID 30 Days #30 tab 01/19/20 Spironolactone 25 mg PO 30 MIN BEFORE HS #30 tablet 05/09/20 acetaZOLAMIDE [Diamox] 250 mg PO DAILY 30 Days #30 tab 05/09/20 Acetaminophen [Tylenol] 650 mg PO Q6H PRN 06/26/20 Ascorbic Acid 500 mg PO DAILY 06/26/20 Codeine/APAP [Tylenol W/Codeine #3 tab] 1 tab PO Q12H PRN 06/26/20 Docusate Sodium 100 mg PO BID PRN 06/26/20 Fluticasone/Umeclidin/Vilanter [Trelegy Ellipta 200-62.5-25] 1 each IH DAILY 06/26/20 Mirtazapine 15 mg PO BEDTIME 06/26/20 Polyethylene Glycol 3350 [Glycolax] 17 gm PO DAILY PRN 06/26/20 - Past Medical/Surgical History Diabetic: No -: Chronic lower extremity lymphedema -: Chronic diastolic heart failure -: Hypertension -: Peripheral neuropathy -: Hyperlipidemia -: Aortic Valve Stenosis -: DVT -: Endoscopy -: Pacemaker placement -: Cardiac catheterization -: Left knee replacement - Social History Smoking Status: Unknown if ever smoked Alcohol use: No CD- Drugs: No Caffeine use: No Place of Residence: [facility] Review of Systems General: Weakness Respiratory: Shortness of Breath Cardiovascular: Edema Physical Examination Temp Pulse Resp BP Pulse Ox 97.6 F 110 H 22 H 112/78 100 06/28/20 07:00 06/28/20 08:00 06/28/20 08:00 06/28/20 08:00 06/28/20 07:00 General: Alert, Oriented x3 Neck: Supple Respiratory: Clear to auscultation bilaterally, Diminished Cardiovascular: Normal S1 S2, Edema - Problems (1) Septic shock Current Visit: Yes Status: Acute Plan: Patient is 79 years of age admitted with septic shock blood cultures positive he is improving non hemolytic beta strep isolated in the blood all cultures are positive white count is elevated again in another fluid bolus change to Rocephin patient has some vancomycin Dc cefepime is x-rays clear oxygenation satisfactory
--- NOTE | 2020-06-28 12:44 | P.PN ---
Subjective Date of Service: 06/28/20 Chief Complaint: Sepsis, AMS Subjective: Improving (Patient is doing much better septic shock has resolved limb being weaned off the vasopressors very alert responsive) Review of Systems General: Weakness Respiratory: Shortness of Breath Physical Examination - Vital Signs Temperature: 97.6 F Blood Pressure: 112/78 Pulse: 110 Respirations: 22 Pulse Ox (%): 100 - Physical Exam General: Alert, Oriented x3 Respiratory: Clear to auscultation bilaterally Cardiovascular: Regular rate/rhythm, Edema - Studies Microbiology Data (last 24 hrs): 06/25/20 19:01 Catheterized Urine [place] Count - Final No growth. 06/25/20 19:01 Catheterized Urine - Final No growth. 06/25/20 17:25 Throat Culture & Sensitivity - Final NORMAL UPPER RESPIRATORY DMITRY GROWN. Assessment & Plan - Problems (Diagnosis) (1) Septic shock Current Visit: Yes Status: Acute Plan: Admitted with septic shock blood cultures positive for Enterococcus continue with vancomycin patient was started on meropenem will wait id before in the antibiotic again Dc Rocephin pro calcitonin level has declined mildly hypokalemic white count is declined to 11.7 urine cultures are negative repeat blood cultures are still positive cannot be transferred to the floor hemoglobin stable
[2020-06-28] MEDS ORDERED: ALBUMIN HUMAN 25% 100 ML IV ONE ×3 (13:45→15:00)
[2020-06-28] MEDS ORDERED: HYDROCODONE/APAP 10/325 TAB PO PRN (15:22)
[2020-06-28] MEDS ORDERED: HYDROCODONE/APAP 10/325 TAB ONE (15:29)
[2020-06-28] MEDS ORDERED: VANCOMYCIN 1.25 GM in NA CHLORIDE 0.9% 250 ML IVPB SCH (18:00)
[2020-06-28] MEDS: ATORVASTATIN 40 MG TAB PO SCH (20:34)
[2020-06-28] MEDS: MELATONIN 3 MG TABLET PO SCH (20:35)
[2020-06-28] MEDS: Meropenem 1,000 MG in NA CHLORIDE 0.9% 100 ML IV SCH (20:53)
[2020-06-28] MEDS ORDERED: Meropenem 1000 MG/VIAL IV SCH (21:00)
[2020-06-29 05:33] LABS: Absolute Lymphocytes (CBC) 1.3 K/uL (0.7-4.9); Basophils % 1.1 % (0-1.3); Hematocrit 30.9 % (39.6-49.0); Lymphocytes % 11.2 % (15.3-44.8); MPV 10.7 fL (7.6-11.3); RBC Red Blood Cell Count 3.54 M/uL (4.33-5.43)
[2020-06-29] MEDS: NA CHLORIDE 0.9% 1,000 ML IV SCH ×2 (05:42→10:00)
--- NOTE | 2020-06-29 07:54 | EKG ---
Test Date: 2020-06-29 Test Time: 00:41:23 Dredge Captain: DOMINGO MEASUREMENT RESULTS: Intervals: Rate: 116 MN: QRSD: 172 QT: 406 QTc: 564 [place]: P: MN: QRS: 249 T: 19 INTERPRETIVE STATEMENTS: junctional rhythm Right bundle branch block Septal infarct, age undetermined Abnormal ECG Compared to ECG 04/19/2020 21:41:02 Myocardial infarct finding now present Sinus tachycardia no longer present Electronically Signed On 06-29-20 07:53:53 SEMI DRIVER by Melchor Umanzor
[2020-06-29] MEDS: GABAPENTIN 300 MG CAP PO SCH ×3 (08:52→20:04)
[2020-06-29] MEDS: ASPIRIN EC 81 MG TAB PO SCH (08:53)
[2020-06-29] MEDS: RIVAROXABAN 20 MG TABLET PO SCH (08:53)
[2020-06-29] MEDS: HOME MED 1 EA UNK (Fluticasone/Umeclidin/Vilanter [Trelegy Ellipta 200-62.5-25] Blst.W.Dev IH SCH (08:54)
[2020-06-29] MEDS: ACETAMINOPHEN 325 MG TABLET PO PRN (08:58)
[2020-06-29] MEDS: Meropenem 1,000 MG in NA CHLORIDE 0.9% 100 ML IV SCH ×2 (09:00→10:11)
[2020-06-29 10:09] LABS: Blood Morphology Comment NOTED (NOT SEEN); Platelet Estimate DECR; White Blood Cell Scan OK (OK)
[2020-06-29 10:10] LABS: Burr Cells 1+; Ovalocytes 1+
[2020-06-29] MEDS ORDERED: AMPICILLIN SODIUM 1 GM/VIAL IVPB SCH (12:00)
[2020-06-29] MEDS: AMPICILLIN SODIUM 1 GM in NA CHLORIDE 0.9% 100 ML IVPB SCH ×2 (13:10→17:35)
[2020-06-29] MEDS: MELATONIN 3 MG TABLET PO SCH (20:04)
[2020-06-29] MEDS: ATORVASTATIN 40 MG TAB PO SCH (20:05)
[2020-06-30] MEDS: AMPICILLIN SODIUM 1 GM in NA CHLORIDE 0.9% 100 ML IVPB SCH ×4 (00:12→18:11)
[2020-06-30] MEDS: IPRATROPIUM BROM 0.5MG/2.5ML NEB PRN (00:55)
[2020-06-30] MEDS: ASPIRIN EC 81 MG TAB PO SCH (08:24)
[2020-06-30] MEDS: RIVAROXABAN 20 MG TABLET PO SCH (08:24)
[2020-06-30] MEDS: HOME MED 1 EA UNK (Fluticasone/Umeclidin/Vilanter [Trelegy Ellipta 200-62.5-25] Blst.W.Dev IH SCH (08:24)
[2020-06-30] MEDS: GABAPENTIN 300 MG CAP PO SCH ×3 (08:24→20:44)
--- NOTE | 2020-06-30 09:08 | P.PN ---
Subjective Date of Service: 06/28/20 Subjective: No new changes, No C/O voiced, Improving Patient states his volume status is someone better. Continue with diuresing and will reassess mental morning. Review of Systems 10-point ROS is otherwise unremarkable Physical Examination - Vital Signs Temperature: 97 F Blood Pressure: 109/74 Pulse: 118 Respirations: 20 Pulse Ox (%): 100 - Physical Exam General: Alert, In no apparent distress, Oriented x3 Respiratory: Clear to auscultation bilaterally, Normal air movement Cardiovascular: Regular rate/rhythm, Normal S1 S2 Gastrointestinal: Normal bowel sounds, No tenderness Musculoskeletal: No tenderness - Studies Microbiology Data (last 24 hrs): 06/25/20 17:53 Blood - Blood Aerobic Blood Culture - Final Enterococcus Faecalis 06/25/20 17:53 Blood - Blood Blood Culture Gram Stain - Final 06/25/20 17:53 Blood - Blood Anaerobic Blood Culture - Final Enterococcus Faecalis 06/25/20 17:53 Blood - Blood Gram Stain - Final Medications List Reviewed: Yes Assessment & Plan - Problems (Diagnosis) (1) Lower extremity edema Current Visit: Yes Status: Acute (2) Hypotension Current Visit: Yes Status: Acute (3) Altered mental status Current Visit: Yes Status: Acute (4) CAD (coronary artery disease) Current Visit: No Status: Acute (5) COPD (chronic obstructive pulmonary disease) Current Visit: No Status: Acute Qualifiers: COPD type: unspecified COPD Qualified Code(s): J44.9 - Chronic obstructive pulmonary disease, unspecified (6) Chronic kidney disease, stage 3 Current Visit: No Status: Acute (7) Chronic respiratory failure with hypoxia and hypercapnia Current Visit: No Status: Acute (8) Hx of heart artery stent Current Visit: No Status: Acute (9) Hx of sciatica Current Visit: No Status: Acute (10) Hypertension Current Visit: No Status: Acute - Plan Plan: 1. Continue with IV antibiotics 2. Continue with monitoring volume status closely 3. Await blood culture results 4. Monitor labs closely 5. Strict blood pressure and blood sugar control 6. GI and DVT prophylaxis Discharge Plan: Home Plan to discharge in: Greater than 2 days - Advance Directives Does patient have a Living Will: Yes Does patient have a Durable POA for Healthcare: No - Code Status/Comfort Care Code Status Assessed: Yes Code Status: Full Code Critical Care: No Time Spent Managing PTS Care (In Minutes): 35
--- NOTE | 2020-06-30 09:09 | P.PN ---
Date of Service: 06/29/20 Subjective Subjective: Patient continues to improve with no new complaints. Clinical symptoms continuing to get better. Anticipate discharge back to [facility] in the morning Review of Systems 10-point ROS is otherwise unremarkable Physical Examination - Vital Signs Reviewed - Physical Exam General: Alert, In no apparent distress, Oriented x3 Respiratory: Clear to auscultation bilaterally, Normal air movement Cardiovascular: Regular rate/rhythm, Normal S1 S2 Gastrointestinal: Normal bowel sounds, No tenderness Musculoskeletal: No tenderness Assessment & Plan - Problems (Diagnosis) (1) Lower extremity edema Current Visit: Yes Status: Acute (2) Hypotension Current Visit: Yes Status: Acute (3) Altered mental status Current Visit: Yes Status: Acute (4) CAD (coronary artery disease) Current Visit: No Status: Acute (5) COPD (chronic obstructive pulmonary disease) Current Visit: No Status: Acute Qualifiers: COPD type: unspecified COPD Qualified Code(s): J44.9 - Chronic obstructive pulmonary disease, unspecified (6) Chronic kidney disease, stage 3 Current Visit: No Status: Acute (7) Chronic respiratory failure with hypoxia and hypercapnia Current Visit: No Status: Acute (8) Hx of heart artery stent Current Visit: No Status: Acute (9) Hx of sciatica Current Visit: No Status: Acute (10) Hypertension Current Visit: No Status: Acute - Plan Plan: Continue with plan of care as mentioned below 1. Continue with IV antibiotics 2. Continue with monitoring volume status closely 3. Await blood culture results 4. Monitor labs closely 5. Strict blood pressure and blood sugar control 6. GI and DVT prophylaxis
[2020-06-30 12:00] LABS: BUN Blood Urea Nitrogen 8 mg/dL (7-18); Bicarbonate 20 mmol/L (21-32); Glucose Level 103 mg/dL (74-106); Sodium Level 144 mmol/L (136-145)
[2020-06-30 12:02] LABS: Absolute Lymphocytes (CBC) 1.1 K/uL (0.7-4.9); Basophils % 0.8 % (0-1.3); Hematocrit 33.8 % (39.6-49.0); Lymphocytes % 10.3 % (15.3-44.8); MPV 10.5 fL (7.6-11.3); RBC Red Blood Cell Count 3.89 M/uL (4.33-5.43)
[2020-06-30] MEDS ORDERED: POTASSIUM CL SA 10 MEQ TAB PO ONE (17:40)
[2020-06-30] MEDS ORDERED: CODEINE 30MG/APAP 300MG TAB PO ONE (20:27)
[2020-06-30] MEDS: ATORVASTATIN 40 MG TAB PO SCH (20:44)
[2020-06-30] MEDS: MELATONIN 3 MG TABLET PO SCH (22:12)
[2020-07-01] MEDS: AMPICILLIN SODIUM 1 GM in NA CHLORIDE 0.9% 100 ML IVPB SCH ×4 (00:23→16:53)
[2020-07-01] MEDS ORDERED: POTASSIUM 25 MEQ EFFERV TAB PO ONE ×2 (01:17→12:00)
--- NOTE | 2020-07-01 02:16 | P.PN ---
Date of Service: 06/30/20 Subjective Subjective: Patient continues to improve with no new complaints. Anticipate discharge home in the next 48 hours. Plan was to discharge today however patient is at a long-term facility and needed to get approval from nursing team Review of Systems 10-point ROS is otherwise unremarkable Physical Examination - Vital Signs Reviewed - Physical Exam General: Alert, In no apparent distress, Oriented x3 Respiratory: Clear to auscultation bilaterally, Normal air movement Cardiovascular: Regular rate/rhythm, Normal S1 S2 Gastrointestinal: Normal bowel sounds, No tenderness Musculoskeletal: No tenderness Assessment & Plan - Problems (Diagnosis) (1) Lower extremity edema Current Visit: Yes Status: Acute (2) Hypotension Current Visit: Yes Status: Acute (3) Altered mental status Current Visit: Yes Status: Acute (4) CAD (coronary artery disease) Current Visit: No Status: Acute (5) COPD (chronic obstructive pulmonary disease) Current Visit: No Status: Acute Qualifiers: COPD type: unspecified COPD Qualified Code(s): J44.9 - Chronic obstructive pulmonary disease, unspecified (6) Chronic kidney disease, stage 3 Current Visit: No Status: Acute (7) Chronic respiratory failure with hypoxia and hypercapnia Current Visit: No Status: Acute (8) Hx of heart artery stent Current Visit: No Status: Acute (9) Hx of sciatica Current Visit: No Status: Acute (10) Hypertension Current Visit: No Status: Acute - Plan Plan: Continue with plan of care as mentioned below 1. Continue with IV antibiotics/ may need to start antiviral therapy 2. Continue with monitoring volume status closely 3. Blood cultures with Enterococcus which is Sensitive to penicillin 4. Monitor labs closely 5. Strict blood pressure and blood sugar control 6. GI and DVT prophylaxis
[2020-07-01] MEDS: RIVAROXABAN 20 MG TABLET PO SCH (08:11)
[2020-07-01] MEDS: GABAPENTIN 300 MG CAP PO SCH ×3 (08:13→20:54)
[2020-07-01] MEDS: ASPIRIN EC 81 MG TAB PO SCH (08:20)
[2020-07-01] MEDS: HOME MED 1 EA UNK (Fluticasone/Umeclidin/Vilanter [Trelegy Ellipta 200-62.5-25] Blst.W.Dev IH SCH (08:21)
--- NOTE | 2020-07-01 09:56 | P.PN ---
Subjective Date of Service: 07/01/20 Chief Complaint: Sepsis, AMS Patient seen and examined at bedside with no acute complaints-denies pain, N/V/D, SOB, or chest pain. He remains afebrile with a Tmax of 97.8, he is tachycardic with a pulse of 108. Physical Examination - Vital Signs Temperature: 97.8 F Blood Pressure: 123/82 Pulse: 108 Respirations: 18 Pulse Ox (%): 95 - Physical Exam Other Physical/Emotional Findings: General: Alert, In no apparent distress, Oriented x3. HEENT: Atraumatic, Normocephalic. Neck: Supple, 2+ carotid pulse no bruit, JVD not distended. Respiratory: Other (Bilateral auscultation findings of volume overload including crackles and expiratory wheezing.). Cardiovascular: No edema, Normal pulses. Capillary refill: <2 Seconds. Gastrointestinal: Normal bowel sounds, Soft and benign. Musculoskeletal: No clubbing, No swelling. 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 Neurological: Normal speech. Urinary: Willoughby catheter. External genitalia: Deferred - Studies Microbiology 06/25/20 17:53 Blood - Blood Aerobic Blood Culture - Final Enterococcus Faecalis 06/25/20 17:53 Blood - Blood Blood Culture Gram Stain - Final 06/25/20 17:53 Blood - Blood Anaerobic Blood Culture - Final Enterococcus Faecalis 06/25/20 17:53 Blood - Blood Gram Stain - Final 06/25/20 17:39 Blood - Blood Aerobic Blood Culture - Final Enterococcus Faecalis 06/25/20 17:39 Blood - Blood Blood Culture Gram Stain - Final 06/25/20 17:39 Blood - Blood Anaerobic Blood Culture - Final Enterococcus Faecalis 06/25/20 17:39 Blood - Blood Gram Stain - Final 06/25/20 19:01 Catheterized Urine [place] Count - Final No growth. 06/25/20 19:01 Catheterized Urine - Final No growth. 06/25/20 17:25 Throat Culture & Sensitivity - Final NORMAL UPPER RESPIRATORY DMITRY GROWN. 06/25/20 17:25 Throat Group A Streptococcus Rapid Screen - Final Medications List Reviewed: Yes Assessment And Plan - Plan Assessment: -sepsis -multiple skin tears/hematoma to upper and lower arm extremities -bilateral buttocks deep tissue injury -left foot deep tissue injurys -altered mental status/hypertension -congestive heart failure Plan -sepsis: Positive anaerobic and anaerobic blood cultures: grew Enterococcus facecalis sensitive to ampicillin. Ampicillin started, continue for wo weeks after repeat negative blood culture. UA negative. Leukocytosis is down trending -recommend applying xerofrom to open skin tears on upper and lower extremities -recommend applying barrier cream to bilateral buttocks the DTI, also offload the wound and avoid direct pressure. -recommend offloading left heel deep tissue injuries avoid direct pressure on area -recommend air mattress to offload wounds -medical management per primary team -continue to monitor CBC and BMP -continue to monitor for signs of infection Plan of care discussed with Dr. Diego Thank you for consultation.
[2020-07-01] MEDS ORDERED: IPRATROPIUM BROM 0.5MG/2.5ML NEB PRN (17:00)
--- NOTE | 2020-07-01 20:01 | PN ---
Date of Progress Note: 07/01/2020 The patient seems considerably better than when I last saw him a couple of days ago. He is doing wel l on his nasal cannula. He is much more alert, orientated. His vital signs are stable. Because com plaint that he had was his appetite is decreased, PT has done some work with him, but he is basically bedridden. Awaiting SNF okay for insurance company to return to [facility]. HR/MODL Voice ID: [id number] Report ID: [id number]
[2020-07-01] MEDS: ATORVASTATIN 40 MG TAB PO SCH (20:47)
[2020-07-01] MEDS: MELATONIN 3 MG TABLET PO SCH (20:54)
[2020-07-02] MEDS: AMPICILLIN SODIUM 1 GM in NA CHLORIDE 0.9% 100 ML IVPB SCH ×4 (00:33→17:30)
[2020-07-02 06:01] LABS: BUN Blood Urea Nitrogen 7 mg/dL (7-18); Bicarbonate 25 mmol/L (21-32); Glucose Level 97 mg/dL (74-106); Potassium 3.5 mmol/L (3.5-5.1); Sodium Level 145 mmol/L (136-145)
[2020-07-02] MEDS: HOME MED 1 EA UNK (Fluticasone/Umeclidin/Vilanter [Trelegy Ellipta 200-62.5-25] Blst.W.Dev IH SCH (08:38)
[2020-07-02] MEDS: RIVAROXABAN 20 MG TABLET PO SCH (08:38)
[2020-07-02] MEDS: ASPIRIN EC 81 MG TAB PO SCH (08:38)
[2020-07-02] MEDS: GABAPENTIN 300 MG CAP PO SCH ×3 (08:38→20:32)
[2020-07-02] MEDS ORDERED: POTASSIUM CL SA 10 MEQ TAB PO ONE (09:00)
[2020-07-02] MEDS: CODEINE 30MG/APAP 300MG TAB PO PRN ×2 (09:23→18:13)
--- NOTE | 2020-07-02 10:54 | PN ---
Date of Progress Note: 07/02/2020 The patient basically is status quo. I will advance his diet awaiting the last blood cultures. We s tart his PT and awaiting insurance clearance for SNF. HR/MODL Voice ID: [id number] Report ID: [id number]
--- NOTE | 2020-07-02 12:40 | P.PN ---
Subjective Date of Service: 07/02/20 Chief Complaint: Sepsis, AMS Patient seen and examined at bedside with no acute complaints-denies pain, N/V/D, SOB, or chest pain. Review of Systems 10-point ROS is otherwise unremarkable Physical Examination - Vital Signs Temperature: 96.8 F Blood Pressure: 106/62 Pulse: 110 Respirations: 16 Pulse Ox (%): 96 - Physical Exam Other Physical/Emotional Findings: General: Alert, In no apparent distress, Oriented x3. HEENT: Atraumatic, Normocephalic. Neck: Supple, 2+ carotid pulse no bruit, JVD not distended. Respiratory: clear to ascultation. Cardiovascular: No edema, Normal pulses. Capillary refill: <2 Seconds. Gastrointestinal: Normal bowel sounds, Soft and benign. Musculoskeletal: No clubbing, No swelling. 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 Neurological: Normal speech. Urinary: Willoughby catheter. External genitalia: Deferred - Studies Laboratory Last Values WBC 21.80 K/uL (4.3-10.9) H* D 06/25/20 17:39 RBC 3.17 M/uL (4.33-5.43) L 06/25/20 17:39 Hgb 8.8 g/dL (13.6-17.9) L 06/25/20 17:39 Hct 28.2 % (39.6-49.0) L 06/25/20 17:39 MCV 88.8 fL (80-100) 06/25/20 17:39 MCH 27.7 pg (27.0-35.0) 06/25/20 17:39 MCHC 31.1 g/dL (32.0-36.0) L 06/25/20 17:39 RDW 17.9 % (12.1-15.2) H 06/25/20 17:39 Plt Count 76 K/uL (152-406) L D 06/25/20 17:39 MPV 9.5 fL (7.6-11.3) 06/25/20 17:39 Neutrophils % 88.4 % (41.7-73.7) H 06/25/20 17:39 Lymphocytes % 5.0 % (15.3-44.8) L 06/25/20 17:39 Monocytes % 6.4 % (3.3-12.3) 06/25/20 17:39 Eosinophils % 0.0 % (0-4.4) 06/25/20 17:39 Basophils % 0.2 % (0-1.3) 06/25/20 17:39 Absolute Neutrophils 19.3 K/uL (1.8-8.0) H 06/25/20 17:39 Segmented Neutrophils 88 % (40-80) H 06/25/20 17:39 Band Neutrophils 3 % (0-1) H 06/25/20 17:39 Absolute Lymphocytes 1.1 K/uL (0.7-4.9) 06/25/20 17:39 Lymphocytes 3 % (15-42) L 06/25/20 17:39 Monocytes 5 % (0-10) 06/25/20 17:39 Absolute Monocytes 1.4 K/uL (0.1-1.3) H 06/25/20 17:39 Eosinophils 1 % (0-3) 06/25/20 17:39 Absolute Eosinophils 0.0 K/uL (0-0.5) 06/25/20 17:39 Absolute Basophils 0.1 K/uL (0-0.5) 06/25/20 17:39 Toxic Granulation 1+ 06/25/20 17:39 Platelet Estimate Decr 06/25/20 17:39 Giant Platelets Present 06/25/20 17:39 Morphology Comment Not seen (NOT SEEN) 06/25/20 17:39 PT 36.0 SECONDS (9.5-12.5) H 06/25/20 17:39 INR 3.09 06/25/20 17:39 APTT 33.3 SECONDS (24.3-36.9) 06/25/20 17:39 Sodium 142 mmol/L (136-145) 06/25/20 17:39 Potassium 4.0 mmol/L (3.5-5.1) 06/25/20 17:39 Chloride 116 mmol/L (98-107) H 06/25/20 17:39 Carbon Dioxide 17 mmol/L (21-32) L 06/25/20 17:39 BUN 35 mg/dL (7-18) H 06/25/20 17:39 Creatinine 0.86 mg/dL (0.55-1.3) 06/25/20 17:39 Estimated GFR 86 mL/min (=/>90) L 06/25/20 17:39 Glucose 77 mg/dL (74-106) 06/25/20 17:39 Lactic Acid 1.2 mmol/L (0.4-2.0) 06/25/20 17:39 Calcium 7.8 mg/dL (8.5-10.1) L D 06/25/20 17:39 Total Bilirubin 1.0 mg/dL (0.2-1.0) 06/25/20 17:39 Direct Bilirubin 0.5 mg/dL (0-0.2) H 06/25/20 17:39 AST 28 U/L (15-37) 06/25/20 17:39 ALT 14 U/L (12-78) 06/25/20 17:39 Alkaline Phosphatase 99 U/L (45-117) 06/25/20 17:39 Creatine Kinase 35 U/L (39-308) L 06/25/20 17:39 CK-MB (CK-2) 1.3 ng/mL (0.3-3.6) 06/25/20 17:39 Rapid Troponin I 0.04 ng/mL (0.0-0.045) 06/25/20 17:39 Serum Total Protein 5.7 g/dL (6.4-8.2) L 06/25/20 17:39 Albumin 1.9 g/dL (3.4-5.0) L 06/25/20 17:39 Globulin 3.8 g/dL (2.3-3.5) H 06/25/20 17:39 Albumin/Globulin Ratio 0.5 (1.1-1.8) L 06/25/20 17:39 Amylase 16 U/L (25-115) L 06/25/20 17:39 Lipase 53 U/L (73-393) L 06/25/20 17:39 Procalcitonin 0.45 ng/mL (<0.050) H 06/25/20 17:39 Urine pH 5.0 (5.0-7.0) 06/25/20 19:11 Ur Specific [place] 1.025 (1.005-1.030) 06/25/20 19:11 Glucose (UA)(Auto) Negative (NEG) 06/25/20 19:11 Urine Ketones Trace (NEG) 06/25/20 19:11 Urine Blood Trace (NEG) H 06/25/20 19:11 Urine Nitrite Negative (NEG) 06/25/20 19:11 Ur Leukocyte Esterase Negative (NEG) 06/25/20 19:11 Urine RBC <5 /HPF (NONE SEEN) 06/25/20 19:01 Urine WBC <5 /HPF (<5) 06/25/20 19:01 Ur Squamous Epith Cells <5 /HPF (NONE SEEN) 06/25/20 19:01 Amorphous Sediment 2+ /HPF (NONE SEEN) H 06/25/20 19:01 Urine Bacteria <20 /HPF (NONE SEEN) 06/25/20 19:01 Urine Mucus Heavy /HPF (NONE SEEN) 06/25/20 19:01 Urine Culture Reflexed Not needed 06/25/20 19:01 Urine Total Protein Trace (NEG) 06/25/20 19:11 Influenza Type A RNA Negative (NEGATIVE) 06/25/20 17:25 Influenza Type B RNA Negative (NEGATIVE) 06/25/20 17:25 SARS-CoV-2 RNA (RT-PCR) Negative (NEGATIVE) 06/25/20 17:25 Medications List Reviewed: Yes Assessment And Plan - Plan Assessment: -sepsis -multiple skin tears/hematoma to upper and lower arm extremities -bilateral buttocks deep tissue injury -left foot deep tissue injurys -altered mental status/hypertension -congestive heart failure Plan -sepsis: Positive anaerobic and anaerobic blood cultures: grew Enterococcus facecalis sensitive to ampicillin. Ampicillin started, continue for two weeks after repeat negative blood culture. UA negative. Leukocytosis is down trending -recommend applying xerofrom to open skin tears on upper and lower extremities -recommend applying barrier cream to bilateral buttocks the DTI, also offload the wound and avoid direct pressure. -recommend offloading left heel deep tissue injuries avoid direct pressure on area -recommend air mattress to offload wounds -medical management per primary team -continue to monitor CBC and BMP -continue to monitor for signs of infection Plan of care discussed with Dr. Diego Thank you for consultation.
[2020-07-02] MEDS: MELATONIN 3 MG TABLET PO SCH (20:32)
[2020-07-02] MEDS: ATORVASTATIN 40 MG TAB PO SCH (20:32)
[2020-07-03] MEDS: AMPICILLIN SODIUM 1 GM in NA CHLORIDE 0.9% 100 ML IVPB SCH ×5 (05:35→17:00)
[2020-07-03 07:32] LABS: BUN Blood Urea Nitrogen 7 mg/dL (7-18); Bicarbonate 29 mmol/L (21-32); Glucose Level 90 mg/dL (74-106); Potassium 3.5 mmol/L (3.5-5.1); Sodium Level 142 mmol/L (136-145)
[2020-07-03] MEDS ORDERED: POTASSIUM CL SA 10 MEQ TAB PO ONE (07:34)
[2020-07-03] MEDS: CODEINE 30MG/APAP 300MG TAB PO PRN (08:15)
[2020-07-03] MEDS: GABAPENTIN 300 MG CAP PO SCH ×3 (08:16→20:41)
[2020-07-03] MEDS: RIVAROXABAN 20 MG TABLET PO SCH (08:16)
[2020-07-03] MEDS: HOME MED 1 EA UNK (Fluticasone/Umeclidin/Vilanter [Trelegy Ellipta 200-62.5-25] Blst.W.Dev IH SCH (08:16)
[2020-07-03] MEDS: ASPIRIN EC 81 MG TAB PO SCH (08:16)
--- NOTE | 2020-07-03 14:41 | P.PN ---
Subjective Date of Service: 07/03/20 Chief Complaint: Sepsis, AMS Patient seen and examined at bedside with no acute complaints-remains afebrile with normal vital signs. Review of Systems 10-point ROS is otherwise unremarkable Physical Examination - Vital Signs Temperature: 97.5 F Blood Pressure: 118/73 Pulse: 98 Respirations: 18 Pulse Ox (%): 99 - Physical Exam Other Physical/Emotional Findings: General: Alert, In no apparent distress, Oriented x3. HEENT: Atraumatic, Normocephalic. Neck: Supple, 2+ carotid pulse no bruit, JVD not distended. Respiratory: clear to ascultation. Cardiovascular: No edema, Normal pulses. Capillary refill: <2 Seconds. Gastrointestinal: Normal bowel sounds, Soft and benign. Musculoskeletal: No clubbing, No swelling. 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 Neurological: Normal speech. Urinary: Willoughby catheter. External genitalia: Deferred - Studies Acetaminophen (Acetaminophen 325 Mg Tablet) 650 mg PO Q6H PRN PRN Reason: Pain scale 2-4 (Mild) Last Admin: 06/29/20 08:58 Dose: 650 mg Documented by: Acetaminophen/Codeine Phosphate (Codeine 30mg/Apap 300mg Tab) 1 tab PO Q6H PRN PRN Reason: Pain scale 5-7 (Moderate) Last Admin: 07/03/20 08:15 Dose: 1 tab Documented by: Aspirin (Aspirin Ec 81 Mg Tab) 81 mg PO DAILY [facility] Last Admin: 07/03/20 08:16 Dose: 81 mg Documented by: Atorvastatin Calcium (Atorvastatin 40 Mg Tab) 40 mg PO BEDTIME [facility] Last Admin: 07/02/20 20:32 Dose: 40 mg Documented by: Docusate Sodium (Docusate Na 100 Mg Cap) 100 mg PO BID PRN PRN Reason: CONSTIPATION Gabapentin (Gabapentin 300 Mg Cap) 300 mg PO TID [facility] Last Admin: 07/03/20 08:16 Dose: 300 mg Documented by: Home Med (Fluticasone/Umeclidin/Vilanter [Trelegy Ellipta 200-62.5-25]) 1 each IH DAILY [facility] Last Admin: 07/03/20 08:16 Dose: Not Given Documented by: Ampicillin Sodium 1 gm/ Sodium (Chloride) 100 mls @ 200 mls/hr IVPB Q6HR [facility] Last Admin: 07/03/20 12:03 Dose: 100 mls Documented by: Ipratropium [place] (Ipratropium Brom 0.5mg/2.5ml) 0.5 mg NEB [id number] PRN PRN Reason: COUGH Melatonin (Melatonin 3 Mg Tablet) 3 mg PO BEDTIME [facility] Last Admin: 07/02/20 20:32 Dose: 3 mg Documented by: Polyethylene Glycol (Polyethyl Gly 3350 17 Gm/Dose) 17 gm PO DAILY PRN PRN Reason: CONSTIPATION Rivaroxaban (Rivaroxaban 20 Mg Tablet) 20 mg PO DAILY [facility] Last Admin: 07/03/20 08:16 Dose: 20 mg Documented by: Sodium Chloride (Flush Normal Saline 10 Ml) 10 ml IV BID [facility] Last Admin: 07/03/20 08:16 Dose: 10 ml Documented by: Medications List Reviewed: Yes Assessment And Plan - Plan Assessment: -sepsis -multiple skin tears/hematoma to upper and lower arm extremities -bilateral buttocks deep tissue injury -left foot deep tissue injurys -altered mental status/hypertension -congestive heart failure Plan -sepsis: Positive anaerobic and anaerobic blood cultures: grew Enterococcus facecalis sensitive to ampicillin. Repeat blood culture on 07/02 showed no growth. Continue ampicillin for two weeks-until 07/16. For DC can change to PO ampicillin option. -recommend applying xerofrom to open skin tears on upper and lower extremities -recommend applying barrier cream to bilateral buttocks the DTI, also offload the wound and avoid direct pressure. -recommend offloading left heel deep tissue injuries avoid direct pressure on area -recommend air mattress to offload wounds -medical management per primary team -continue to monitor CBC and BMP -continue to monitor for signs of infection Plan of care discussed with Dr. Diego Thank you for consultation.
[2020-07-03 15:51] LABS: Absolute Lymphocytes (CBC) 1.1 K/uL (0.7-4.9); Basophils % 0.7 % (0-1.3); Hematocrit 33.2 % (39.6-49.0); Lymphocytes % 10.2 % (15.3-44.8); MPV 9.7 fL (7.6-11.3); RBC Red Blood Cell Count 3.76 M/uL (4.33-5.43)
[2020-07-03 16:38] LABS: Blood Morphology Comment NOT SEEN (NOT SEEN); Platelet Estimate DECR; White Blood Cell Scan OK (OK)
[2020-07-03] MEDS: MELATONIN 3 MG TABLET PO SCH (20:41)
[2020-07-03] MEDS: ATORVASTATIN 40 MG TAB PO SCH (20:41)
[2020-07-03] MEDS ORDERED: AMPICILLIN TRIHYDRATE 250 MG CAP PO SCH (21:00)
--- NOTE | 2020-07-03 21:15 | PN ---
Date of Progress Note: 07/03/2020 Subjective: The patient basically is status quo. Physical Therapy did come by and tried to work wit h him. There was no ability to weight bear, which he says has been in decline since his initial hosp italization for the septic condition secondary to cellulitis in April. He states he has been usin g the wheelchair and has not been able to walk for some time. However, he does use a walker prior to this episode in referencing. At the present time, he is awaiting transfer depending on the [employer] to a SNF. His blood work is stable as well. His appetite has improved and his diet h as been increased. HR/MODL Voice ID: [id number] Report ID: [id number]
[2020-07-04 04:42] LABS: Absolute Lymphocytes (CBC) 1.1 K/uL (0.7-4.9); Basophils % 0.7 % (0-1.3); Hematocrit 32.1 % (39.6-49.0); Lymphocytes % 9.2 % (15.3-44.8); RBC Red Blood Cell Count 3.63 M/uL (4.33-5.43)
[2020-07-04 04:47] LABS: BUN Blood Urea Nitrogen 7 mg/dL (7-18); Bicarbonate 27 mmol/L (21-32); Glucose Level 101 mg/dL (74-106); Potassium 3.8 mmol/L (3.5-5.1); Sodium Level 142 mmol/L (136-145)
[2020-07-04] MEDS: HOME MED 1 EA UNK (Fluticasone/Umeclidin/Vilanter [Trelegy Ellipta 200-62.5-25] Blst.W.Dev IH SCH (08:36)
[2020-07-04] MEDS: RIVAROXABAN 20 MG TABLET PO SCH (08:36)
[2020-07-04] MEDS: ASPIRIN EC 81 MG TAB PO SCH (08:36)
[2020-07-04] MEDS: GABAPENTIN 300 MG CAP PO SCH ×3 (08:37→21:26)
[2020-07-04] MEDS: CODEINE 30MG/APAP 300MG TAB PO PRN (08:46)
[2020-07-04] MEDS ORDERED: POTASSIUM CL SA 10 MEQ TAB PO ONE (09:00)
--- NOTE | 2020-07-04 12:19 | HP ---
Date of Admission: 06/25/2020 The patient continues to be well orientated. Appetite is improved. Some memory deficit. Breathing is stable. Blood culture review was negative. He was therefore changed from IV ampicillin to p.o. Awaiting disposition to a SNF. Awaiting insurance situation. HR/MODLuis Voice ID: [id number]
[2020-07-04] MEDS: AMPICILLIN TRIHYDRATE 500 MG CAP PO SCH ×4 (12:42→21:25)
--- NOTE | 2020-07-04 13:53 | P.PN ---
Subjective Date of Service: 07/04/20 Chief Complaint: Sepsis, AMS Patient seen and examined at bedside with no acute complaints-remains afebrile. Patient is slightly tachycardic with a pulse of 100, patient is also tachycardic yesterday with a pulse of 117 beats per min. Patient also had slight increase in white blood cell count at 11.4. Continue oral ampicillin and continue to monitor. Repeat CBC ordered. Review of Systems 10-point ROS is otherwise unremarkable Physical Examination - Vital Signs Temperature: 97 F Blood Pressure: 92/69 Pulse: 100 Respirations: 20 Pulse Ox (%): 97 - Physical Exam Other Physical/Emotional Findings: General: Alert, In no apparent distress, Oriented x3. HEENT: Atraumatic, Normocephalic. Neck: Supple, 2+ carotid pulse no bruit, JVD not distended. Respiratory: clear to ascultation. Cardiovascular: No edema, Normal pulses. Capillary refill: <2 Seconds. Gastrointestinal: Normal bowel sounds, Soft and benign. Musculoskeletal: No clubbing, No swelling. 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 Neurological: Normal speech. Urinary: Willoughby catheter. External genitalia: Deferred - Studies Laboratory Last Values WBC 21.80 K/uL (4.3-10.9) H* D 06/25/20 17:39 RBC 3.17 M/uL (4.33-5.43) L 06/25/20 17:39 Hgb 8.8 g/dL (13.6-17.9) L 06/25/20 17:39 Hct 28.2 % (39.6-49.0) L 06/25/20 17:39 MCV 88.8 fL (80-100) 06/25/20 17:39 MCH 27.7 pg (27.0-35.0) 06/25/20 17:39 MCHC 31.1 g/dL (32.0-36.0) L 06/25/20 17:39 RDW 17.9 % (12.1-15.2) H 06/25/20 17:39 Plt Count 76 K/uL (152-406) L D 06/25/20 17:39 MPV 9.5 fL (7.6-11.3) 06/25/20 17:39 Neutrophils % 88.4 % (41.7-73.7) H 06/25/20 17:39 Lymphocytes % 5.0 % (15.3-44.8) L 06/25/20 17:39 Monocytes % 6.4 % (3.3-12.3) 06/25/20 17:39 Eosinophils % 0.0 % (0-4.4) 06/25/20 17:39 Basophils % 0.2 % (0-1.3) 06/25/20 17:39 Absolute Neutrophils 19.3 K/uL (1.8-8.0) H 06/25/20 17:39 Segmented Neutrophils 88 % (40-80) H 06/25/20 17:39 Band Neutrophils 3 % (0-1) H 06/25/20 17:39 Absolute Lymphocytes 1.1 K/uL (0.7-4.9) 06/25/20 17:39 Lymphocytes 3 % (15-42) L 06/25/20 17:39 Monocytes 5 % (0-10) 06/25/20 17:39 Absolute Monocytes 1.4 K/uL (0.1-1.3) H 06/25/20 17:39 Eosinophils 1 % (0-3) 06/25/20 17:39 Absolute Eosinophils 0.0 K/uL (0-0.5) 06/25/20 17:39 Absolute Basophils 0.1 K/uL (0-0.5) 06/25/20 17:39 Toxic Granulation 1+ 06/25/20 17:39 Platelet Estimate Decr 06/25/20 17:39 Giant Platelets Present 06/25/20 17:39 Morphology Comment Not seen (NOT SEEN) 06/25/20 17:39 PT 36.0 SECONDS (9.5-12.5) H 06/25/20 17:39 INR 3.09 06/25/20 17:39 APTT 33.3 SECONDS (24.3-36.9) 06/25/20 17:39 Sodium 142 mmol/L (136-145) 06/25/20 17:39 Potassium 4.0 mmol/L (3.5-5.1) 06/25/20 17:39 Chloride 116 mmol/L (98-107) H 06/25/20 17:39 Carbon Dioxide 17 mmol/L (21-32) L 06/25/20 17:39 BUN 35 mg/dL (7-18) H 06/25/20 17:39 Creatinine 0.86 mg/dL (0.55-1.3) 06/25/20 17:39 Estimated GFR 86 mL/min (=/>90) L 06/25/20 17:39 Glucose 77 mg/dL (74-106) 06/25/20 17:39 Lactic Acid 1.2 mmol/L (0.4-2.0) 06/25/20 17:39 Calcium 7.8 mg/dL (8.5-10.1) L D 06/25/20 17:39 Total Bilirubin 1.0 mg/dL (0.2-1.0) 06/25/20 17:39 Direct Bilirubin 0.5 mg/dL (0-0.2) H 06/25/20 17:39 AST 28 U/L (15-37) 06/25/20 17:39 ALT 14 U/L (12-78) 06/25/20 17:39 Alkaline Phosphatase 99 U/L (45-117) 06/25/20 17:39 Creatine Kinase 35 U/L (39-308) L 06/25/20 17:39 CK-MB (CK-2) 1.3 ng/mL (0.3-3.6) 06/25/20 17:39 Rapid Troponin I 0.04 ng/mL (0.0-0.045) 06/25/20 17:39 Serum Total Protein 5.7 g/dL (6.4-8.2) L 06/25/20 17:39 Albumin 1.9 g/dL (3.4-5.0) L 06/25/20 17:39 Globulin 3.8 g/dL (2.3-3.5) H 06/25/20 17:39 Albumin/Globulin Ratio 0.5 (1.1-1.8) L 06/25/20 17:39 Amylase 16 U/L (25-115) L 06/25/20 17:39 Lipase 53 U/L (73-393) L 06/25/20 17:39 Procalcitonin 0.45 ng/mL (<0.050) H 06/25/20 17:39 Urine pH 5.0 (5.0-7.0) 06/25/20 19:11 Ur Specific [place] 1.025 (1.005-1.030) 06/25/20 19:11 Glucose (UA)(Auto) Negative (NEG) 06/25/20 19:11 Urine Ketones Trace (NEG) 06/25/20 19:11 Urine Blood Trace (NEG) H 06/25/20 19:11 Urine Nitrite Negative (NEG) 06/25/20 19:11 Ur Leukocyte Esterase Negative (NEG) 06/25/20 19:11 Urine RBC <5 /HPF (NONE SEEN) 06/25/20 19:01 Urine WBC <5 /HPF (<5) 06/25/20 19:01 Ur Squamous Epith Cells <5 /HPF (NONE SEEN) 06/25/20 19:01 Amorphous Sediment 2+ /HPF (NONE SEEN) H 06/25/20 19:01 Urine Bacteria <20 /HPF (NONE SEEN) 06/25/20 19:01 Urine Mucus Heavy /HPF (NONE SEEN) 06/25/20 19:01 Urine Culture Reflexed Not needed 06/25/20 19:01 Urine Total Protein Trace (NEG) 06/25/20 19:11 Influenza Type A RNA Negative (NEGATIVE) 06/25/20 17:25 Influenza Type B RNA Negative (NEGATIVE) 06/25/20 17:25 SARS-CoV-2 RNA (RT-PCR) Negative (NEGATIVE) 06/25/20 17:25 Medications List Reviewed: Yes Assessment And Plan - Plan Assessment: -sepsis -multiple skin tears/hematoma to upper and lower arm extremities -bilateral buttocks deep tissue injury -left foot deep tissue injurys -altered mental status/hypertension -congestive heart failure Plan -sepsis: Positive anaerobic and anaerobic blood cultures: grew Enterococcus facecalis sensitive to ampicillin. Repeat blood culture on 07/02 showed no maria teresa wth. Continue ampicillin for two weeks-until 07/16. For DC can change to PO ampicillin option. -recommend applying xerofrom to open skin tears on upper and lower extremities -recommend applying barrier cream to bilateral buttocks the DTI, also offload the wound and avoid direct pressure. -recommend offloading left heel deep tissue injuries avoid direct pressure on area -recommend air mattress to offload wounds -medical management per primary team -continue to monitor CBC and BMP -continue to monitor for signs of infection Plan of care discussed with Dr. Diego Thank you for consultation.
[2020-07-04] MEDS: JUVEN PACKET PO SCH (21:00)
[2020-07-04] MEDS: MELATONIN 3 MG TABLET PO SCH (21:00)
[2020-07-04] MEDS: ATORVASTATIN 40 MG TAB PO SCH (21:27)
[2020-07-04] MEDS: ENSURE ENLIVE 237 ML CAN PO SCH (21:28)
[2020-07-05 05:35] LABS: Absolute Lymphocytes (CBC) 1.1 K/uL (0.7-4.9); Basophils % 0.8 % (0-1.3); Hematocrit 30.6 % (39.6-49.0); Lymphocytes % 11.3 % (15.3-44.8); MPV 9.5 fL (7.6-11.3); RBC Red Blood Cell Count 3.46 M/uL (4.33-5.43)
[2020-07-05 05:54] LABS: BUN Blood Urea Nitrogen 9 mg/dL (7-18); Bicarbonate 29 mmol/L (21-32); Glucose Level 104 mg/dL (74-106); Potassium 3.9 mmol/L (3.5-5.1); Sodium Level 142 mmol/L (136-145)
[2020-07-05 07:32] LABS: Anisocytosis 1+; Blood Morphology Comment NOTED (NOT SEEN); Platelet Estimate DECR; White Blood Cell Scan OK (OK)
[2020-07-05] MEDS ORDERED: POTASSIUM 25 MEQ EFFERV TAB PO ONE (09:00)
[2020-07-05] MEDS: HOME MED 1 EA UNK (Fluticasone/Umeclidin/Vilanter [Trelegy Ellipta 200-62.5-25] Blst.W.Dev IH SCH (09:00)
[2020-07-05] MEDS: ENSURE ENLIVE 237 ML CAN PO SCH ×2 (09:00→21:00)
[2020-07-05] MEDS: JUVEN PACKET PO SCH ×2 (09:00→21:00)
--- NOTE | 2020-07-05 09:40 | P.PN ---
Subjective Date of Service: 07/05/20 Chief Complaint: Sepsis, AMS Patient seen and examined at bedside with no acute complaints-remains afebrile. Leukocytosis resolved. Review of Systems 10-point ROS is otherwise unremarkable Physical Examination - Vital Signs Temperature: 97.9 F Blood Pressure: 140/63 Pulse: 104 Respirations: 19 Pulse Ox (%): 95 - Physical Exam Other Physical/Emotional Findings: General: Alert, In no apparent distress, Oriented x3. HEENT: Atraumatic, Normocephalic. Neck: Supple, 2+ carotid pulse no bruit, JVD not distended. Respiratory: clear to ascultation. Cardiovascular: No edema, Normal pulses. Capillary refill: <2 Seconds. Gastrointestinal: Normal bowel sounds, Soft and benign. Musculoskeletal: No clubbing, No swelling. 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 Neurological: Normal speech. Urinary: Willoughby catheter. External genitalia: Deferred - Studies Laboratory Last Values WBC 21.80 K/uL (4.3-10.9) H* D 06/25/20 17:39 RBC 3.17 M/uL (4.33-5.43) L 06/25/20 17:39 Hgb 8.8 g/dL (13.6-17.9) L 06/25/20 17:39 Hct 28.2 % (39.6-49.0) L 06/25/20 17:39 MCV 88.8 fL (80-100) 06/25/20 17:39 MCH 27.7 pg (27.0-35.0) 06/25/20 17:39 MCHC 31.1 g/dL (32.0-36.0) L 06/25/20 17:39 RDW 17.9 % (12.1-15.2) H 06/25/20 17:39 Plt Count 76 K/uL (152-406) L D 06/25/20 17:39 MPV 9.5 fL (7.6-11.3) 06/25/20 17:39 Neutrophils % 88.4 % (41.7-73.7) H 06/25/20 17:39 Lymphocytes % 5.0 % (15.3-44.8) L 06/25/20 17:39 Monocytes % 6.4 % (3.3-12.3) 06/25/20 17:39 Eosinophils % 0.0 % (0-4.4) 06/25/20 17:39 Basophils % 0.2 % (0-1.3) 06/25/20 17:39 Absolute Neutrophils 19.3 K/uL (1.8-8.0) H 06/25/20 17:39 Segmented Neutrophils 88 % (40-80) H 06/25/20 17:39 Band Neutrophils 3 % (0-1) H 06/25/20 17:39 Absolute Lymphocytes 1.1 K/uL (0.7-4.9) 06/25/20 17:39 Lymphocytes 3 % (15-42) L 06/25/20 17:39 Monocytes 5 % (0-10) 06/25/20 17:39 Absolute Monocytes 1.4 K/uL (0.1-1.3) H 06/25/20 17:39 Eosinophils 1 % (0-3) 06/25/20 17:39 Absolute Eosinophils 0.0 K/uL (0-0.5) 06/25/20 17:39 Absolute Basophils 0.1 K/uL (0-0.5) 06/25/20 17:39 Toxic Granulation 1+ 06/25/20 17:39 Platelet Estimate Decr 06/25/20 17:39 Giant Platelets Present 06/25/20 17:39 Morphology Comment Not seen (NOT SEEN) 06/25/20 17:39 PT 36.0 SECONDS (9.5-12.5) H 06/25/20 17:39 INR 3.09 06/25/20 17:39 APTT 33.3 SECONDS (24.3-36.9) 06/25/20 17:39 Sodium 142 mmol/L (136-145) 06/25/20 17:39 Potassium 4.0 mmol/L (3.5-5.1) 06/25/20 17:39 Chloride 116 mmol/L (98-107) H 06/25/20 17:39 Carbon Dioxide 17 mmol/L (21-32) L 06/25/20 17:39 BUN 35 mg/dL (7-18) H 06/25/20 17:39 Creatinine 0.86 mg/dL (0.55-1.3) 06/25/20 17:39 Estimated GFR 86 mL/min (=/>90) L 06/25/20 17:39 Glucose 77 mg/dL (74-106) 06/25/20 17:39 Lactic Acid 1.2 mmol/L (0.4-2.0) 06/25/20 17:39 Calcium 7.8 mg/dL (8.5-10.1) L D 06/25/20 17:39 Total Bilirubin 1.0 mg/dL (0.2-1.0) 06/25/20 17:39 Direct Bilirubin 0.5 mg/dL (0-0.2) H 06/25/20 17:39 AST 28 U/L (15-37) 06/25/20 17:39 ALT 14 U/L (12-78) 06/25/20 17:39 Alkaline Phosphatase 99 U/L (45-117) 06/25/20 17:39 Creatine Kinase 35 U/L (39-308) L 06/25/20 17:39 CK-MB (CK-2) 1.3 ng/mL (0.3-3.6) 06/25/20 17:39 Rapid Troponin I 0.04 ng/mL (0.0-0.045) 06/25/20 17:39 Serum Total Protein 5.7 g/dL (6.4-8.2) L 06/25/20 17:39 Albumin 1.9 g/dL (3.4-5.0) L 06/25/20 17:39 Globulin 3.8 g/dL (2.3-3.5) H 06/25/20 17:39 Albumin/Globulin Ratio 0.5 (1.1-1.8) L 06/25/20 17:39 Amylase 16 U/L (25-115) L 06/25/20 17:39 Lipase 53 U/L (73-393) L 06/25/20 17:39 Procalcitonin 0.45 ng/mL (<0.050) H 06/25/20 17:39 Urine pH 5.0 (5.0-7.0) 06/25/20 19:11 Ur Specific [place] 1.025 (1.005-1.030) 06/25/20 19:11 Glucose (UA)(Auto) Negative (NEG) 06/25/20 19:11 Urine Ketones Trace (NEG) 06/25/20 19:11 Urine Blood Trace (NEG) H 06/25/20 19:11 Urine Nitrite Negative (NEG) 06/25/20 19:11 Ur Leukocyte Esterase Negative (NEG) 06/25/20 19:11 Urine RBC <5 /HPF (NONE SEEN) 06/25/20 19:01 Urine WBC <5 /HPF (<5) 06/25/20 19:01 Ur Squamous Epith Cells <5 /HPF (NONE SEEN) 06/25/20 19:01 Amorphous Sediment 2+ /HPF (NONE SEEN) H 06/25/20 19:01 Urine Bacteria <20 /HPF (NONE SEEN) 06/25/20 19:01 Urine Mucus Heavy /HPF (NONE SEEN) 06/25/20 19:01 Urine Culture Reflexed Not needed 06/25/20 19:01 Urine Total Protein Trace (NEG) 06/25/20 19:11 Influenza Type A RNA Negative (NEGATIVE) 06/25/20 17:25 Influenza Type B RNA Negative (NEGATIVE) 06/25/20 17:25 SARS-CoV-2 RNA (RT-PCR) Negative (NEGATIVE) 06/25/20 17:25 Medications List Reviewed: Yes Assessment And Plan - Plan Assessment: -sepsis -multiple skin tears/hematoma to upper and lower arm extremities -bilateral buttocks deep tissue injury -left foot deep tissue injurys -altered mental status/hypertension -congestive heart failure Plan -sepsis: Positive anaerobic and anaerobic blood cultures: grew Enterococcus facecalis sensitive to ampicillin. Repeat blood culture on 07/02 showed no growth. Continue ampicillin for two weeks-until 07/16. -recommend applying xerofrom to open skin tears on upper and lower extremities -recommend applying barrier cream to bilateral buttocks the DTI, also offload the wound and avoid direct pressure. -recommend offloading left heel deep tissue injuries avoid direct pressure on area -recommend air mattress to offload wounds -medical management per primary team -continue to monitor CBC and BMP -continue to monitor for signs of infection Plan of care discussed with Dr. Diego Thank you for consultation.
[2020-07-05] MEDS: ASPIRIN EC 81 MG TAB PO SCH (10:33)
[2020-07-05] MEDS: DOCUSATE NA 100 MG CAP PO PRN (10:33)
[2020-07-05] MEDS: RIVAROXABAN 20 MG TABLET PO SCH (10:33)
[2020-07-05] MEDS: GABAPENTIN 300 MG CAP PO SCH ×3 (10:33→21:20)
[2020-07-05] MEDS: AMPICILLIN TRIHYDRATE 500 MG CAP PO SCH ×4 (12:02→21:21)
--- NOTE | 2020-07-05 20:16 | PN ---
Date of Progress Note: 07/05/2020 The patient states he feels about the same. Physical therapy has been working with him. Some days h e is able to prolong with therapy, other days not. Discussion was had this morning. Apparently they did not have sufficient physical therapy notes to make a determination. He was supposed to be sent to the insurance company and then further determination would be made. HR/MODL Voice ID: [id number] Report ID: [id number]
[2020-07-05] MEDS: MELATONIN 3 MG TABLET PO SCH (21:00)
[2020-07-05] MEDS: ATORVASTATIN 40 MG TAB PO SCH (21:20)
[2020-07-06 05:25] LABS: BUN Blood Urea Nitrogen 10 mg/dL (7-18); Bicarbonate 32 mmol/L (21-32); Glucose Level 99 mg/dL (74-106); Potassium 3.9 mmol/L (3.5-5.1); Sodium Level 141 mmol/L (136-145)
[2020-07-06] MEDS ORDERED: POTASSIUM 25 MEQ EFFERV TAB PO ONE (06:00)
[2020-07-06] MEDS: JUVEN PACKET PO SCH ×2 (09:00→20:35)
[2020-07-06] MEDS: ENSURE ENLIVE 237 ML CAN PO SCH ×2 (09:00→20:35)
[2020-07-06] MEDS: RIVAROXABAN 20 MG TABLET PO SCH (09:22)
[2020-07-06] MEDS: GABAPENTIN 300 MG CAP PO SCH ×3 (09:22→20:35)
[2020-07-06] MEDS: AMPICILLIN TRIHYDRATE 500 MG CAP PO SCH ×4 (09:22→20:35)
[2020-07-06] MEDS: ASPIRIN EC 81 MG TAB PO SCH (09:22)
[2020-07-06] MEDS: ATORVASTATIN 40 MG TAB PO SCH (20:35)
[2020-07-06] MEDS: MELATONIN 3 MG TABLET PO SCH (20:35)
--- NOTE | 2020-07-06 20:54 | PN ---
Date of Progress Note: 07/06/2020 Status quo, awaiting disposition. The patient states he feels okay. He still has trouble transferri ng basically limitation as far as his disposition is concerned. By Wednesday, should have been answered from the insurance company. We discussed the issue with his family. HR/MODL Voice ID: [id number] Report ID: [id number]
[2020-07-07] MEDS: CODEINE 30MG/APAP 300MG TAB PO PRN ×2 (02:51→08:49)
[2020-07-07] MEDS: GABAPENTIN 300 MG CAP PO SCH ×3 (08:49→20:32)
[2020-07-07] MEDS: AMPICILLIN TRIHYDRATE 500 MG CAP PO SCH ×5 (08:50→20:32)
[2020-07-07] MEDS: ENSURE ENLIVE 237 ML CAN PO SCH ×2 (08:51→20:33)
[2020-07-07] MEDS: ASPIRIN EC 81 MG TAB PO SCH (08:51)
[2020-07-07] MEDS: JUVEN PACKET PO SCH ×2 (08:51→20:33)
[2020-07-07] MEDS: RIVAROXABAN 20 MG TABLET PO SCH (08:51)
--- NOTE | 2020-07-07 19:10 | PN ---
Date of Progress Note: 07/07/2020 Status quo, the patient has not had Therapy come by as yet, perhaps they can come by later so that he can progress. His appetite is somewhat decreased and according to his daughter, has been for some t elizabeth now. I encouraged him to increase his activity level and his dietary input. Awaiting insurance decisions for his disposition. HR/MODL Voice ID: [id number] Report ID: [id number]
[2020-07-07] MEDS: ATORVASTATIN 40 MG TAB PO SCH (20:32)
[2020-07-07] MEDS: MELATONIN 3 MG TABLET PO SCH (20:33)
[2020-07-08] MEDS: CODEINE 30MG/APAP 300MG TAB PO PRN (00:22)
[2020-07-08] MEDS: DOCUSATE NA 100 MG CAP PO PRN (08:51)
[2020-07-08] MEDS: ASPIRIN EC 81 MG TAB PO SCH (08:51)
[2020-07-08] MEDS: GABAPENTIN 300 MG CAP PO SCH ×3 (08:51→20:49)
[2020-07-08] MEDS: RIVAROXABAN 20 MG TABLET PO SCH (08:51)
[2020-07-08] MEDS: ENSURE ENLIVE 237 ML CAN PO SCH ×2 (08:52→20:51)
[2020-07-08] MEDS: HOME MED 1 EA UNK (Fluticasone/Umeclidin/Vilanter [Trelegy Ellipta 200-62.5-25] Blst.W.Dev IH SCH (08:52)
[2020-07-08] MEDS: AMPICILLIN TRIHYDRATE 500 MG CAP PO SCH ×4 (08:52→21:00)
[2020-07-08] MEDS: JUVEN PACKET PO SCH ×2 (08:53→20:51)
--- NOTE | 2020-07-08 11:56 | P.PN ---
Subjective Date of Service: 07/08/20 Chief Complaint: Sepsis, AMS Patient seen and examined at bedside with no acute complaints-sacral deep tissue injury has opened up showing a stage III wound. Wound orders have been changed to Medihoney and foam q Wednesday. Continue to offload the wound. Review of Systems 10-point ROS is otherwise unremarkable Physical Examination - Vital Signs Temperature: 97.6 F Blood Pressure: 110/72 Pulse: 100 Respirations: 18 Pulse Ox (%): 98 - Physical Exam Other Physical/Emotional Findings: General: Alert, In no apparent distress, Oriented x3. HEENT: Atraumatic, Normocephalic. Neck: Supple, 2+ carotid pulse no bruit, JVD not distended. Respiratory: clear to ascultation. Cardiovascular: No edema, Normal pulses. Capillary refill: <2 Seconds. Gastrointestinal: Normal bowel sounds, Soft and benign. Musculoskeletal: No clubbing, No swelling. 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 Neurological: Normal speech. Urinary: Willoughby catheter. External genitalia: Deferred - Studies Laboratory Last Values WBC 21.80 K/uL (4.3-10.9) H* D 06/25/20 17:39 RBC 3.17 M/uL (4.33-5.43) L 06/25/20 17:39 Hgb 8.8 g/dL (13.6-17.9) L 06/25/20 17:39 Hct 28.2 % (39.6-49.0) L 06/25/20 17:39 MCV 88.8 fL (80-100) 06/25/20 17:39 MCH 27.7 pg (27.0-35.0) 06/25/20 17:39 MCHC 31.1 g/dL (32.0-36.0) L 06/25/20 17:39 RDW 17.9 % (12.1-15.2) H 06/25/20 17:39 Plt Count 76 K/uL (152-406) L D 06/25/20 17:39 MPV 9.5 fL (7.6-11.3) 06/25/20 17:39 Neutrophils % 88.4 % (41.7-73.7) H 06/25/20 17:39 Lymphocytes % 5.0 % (15.3-44.8) L 06/25/20 17:39 Monocytes % 6.4 % (3.3-12.3) 06/25/20 17:39 Eosinophils % 0.0 % (0-4.4) 06/25/20 17:39 Basophils % 0.2 % (0-1.3) 06/25/20 17:39 Absolute Neutrophils 19.3 K/uL (1.8-8.0) H 06/25/20 17:39 Segmented Neutrophils 88 % (40-80) H 06/25/20 17:39 Band Neutrophils 3 % (0-1) H 06/25/20 17:39 Absolute Lymphocytes 1.1 K/uL (0.7-4.9) 06/25/20 17:39 Lymphocytes 3 % (15-42) L 06/25/20 17:39 Monocytes 5 % (0-10) 06/25/20 17:39 Absolute Monocytes 1.4 K/uL (0.1-1.3) H 06/25/20 17:39 Eosinophils 1 % (0-3) 06/25/20 17:39 Absolute Eosinophils 0.0 K/uL (0-0.5) 06/25/20 17:39 Absolute Basophils 0.1 K/uL (0-0.5) 06/25/20 17:39 Toxic Granulation 1+ 06/25/20 17:39 Platelet Estimate Decr 06/25/20 17:39 Giant Platelets Present 06/25/20 17:39 Morphology Comment Not seen (NOT SEEN) 06/25/20 17:39 PT 36.0 SECONDS (9.5-12.5) H 06/25/20 17:39 INR 3.09 06/25/20 17:39 APTT 33.3 SECONDS (24.3-36.9) 06/25/20 17:39 Sodium 142 mmol/L (136-145) 06/25/20 17:39 Potassium 4.0 mmol/L (3.5-5.1) 06/25/20 17:39 Chloride 116 mmol/L (98-107) H 06/25/20 17:39 Carbon Dioxide 17 mmol/L (21-32) L 06/25/20 17:39 BUN 35 mg/dL (7-18) H 06/25/20 17:39 Creatinine 0.86 mg/dL (0.55-1.3) 06/25/20 17:39 Estimated GFR 86 mL/min (=/>90) L 06/25/20 17:39 Glucose 77 mg/dL (74-106) 06/25/20 17:39 Lactic Acid 1.2 mmol/L (0.4-2.0) 06/25/20 17:39 Calcium 7.8 mg/dL (8.5-10.1) L D 06/25/20 17:39 Total Bilirubin 1.0 mg/dL (0.2-1.0) 06/25/20 17:39 Direct Bilirubin 0.5 mg/dL (0-0.2) H 06/25/20 17:39 AST 28 U/L (15-37) 06/25/20 17:39 ALT 14 U/L (12-78) 06/25/20 17:39 Alkaline Phosphatase 99 U/L (45-117) 06/25/20 17:39 Creatine Kinase 35 U/L (39-308) L 06/25/20 17:39 CK-MB (CK-2) 1.3 ng/mL (0.3-3.6) 06/25/20 17:39 Rapid Troponin I 0.04 ng/mL (0.0-0.045) 06/25/20 17:39 Serum Total Protein 5.7 g/dL (6.4-8.2) L 06/25/20 17:39 Albumin 1.9 g/dL (3.4-5.0) L 06/25/20 17:39 Globulin 3.8 g/dL (2.3-3.5) H 06/25/20 17:39 Albumin/Globulin Ratio 0.5 (1.1-1.8) L 06/25/20 17:39 Amylase 16 U/L (25-115) L 06/25/20 17:39 Lipase 53 U/L (73-393) L 06/25/20 17:39 Procalcitonin 0.45 ng/mL (<0.050) H 06/25/20 17:39 Urine pH 5.0 (5.0-7.0) 06/25/20 19:11 Ur Specific [place] 1.025 (1.005-1.030) 06/25/20 19:11 Glucose (UA)(Auto) Negative (NEG) 06/25/20 19:11 Urine Ketones Trace (NEG) 06/25/20 19:11 Urine Blood Trace (NEG) H 06/25/20 19:11 Urine Nitrite Negative (NEG) 06/25/20 19:11 Ur Leukocyte Esterase Negative (NEG) 06/25/20 19:11 Urine RBC <5 /HPF (NONE SEEN) 06/25/20 19:01 Urine WBC <5 /HPF (<5) 06/25/20 19:01 Ur Squamous Epith Cells <5 /HPF (NONE SEEN) 06/25/20 19:01 Amorphous Sediment 2+ /HPF (NONE SEEN) H 06/25/20 19:01 Urine Bacteria <20 /HPF (NONE SEEN) 06/25/20 19:01 Urine Mucus Heavy /HPF (NONE SEEN) 06/25/20 19:01 Urine Culture Reflexed Not needed 06/25/20 19:01 Urine Total Protein Trace (NEG) 06/25/20 19:11 Influenza Type A RNA Negative (NEGATIVE) 06/25/20 17:25 Influenza Type B RNA Negative (NEGATIVE) 06/25/20 17:25 SARS-CoV-2 RNA (RT-PCR) Negative (NEGATIVE) 06/25/20 17:25 Medications List Reviewed: Yes Assessment And Plan - Plan Assessment: -sepsis -multiple skin tears/hematoma to upper and lower arm extremities -bilateral buttocks deep tissue injury--now stage 3 -left foot deep tissue injurys -altered mental status/hypertension -congestive heart failure Plan -sepsis: Positive anaerobic and anaerobic blood cultures: grew Enterococcus facecalis sensitive to ampicillin. Repeat blood culture on 07/02 showed no growth. Continue ampicillin for two weeks-until 07/16. -recommend applying xerofrom to open skin tears on upper and lower extremities -bilateral buttock deep tissue injury: tissue has opened up-area has minimal bleeding and shows a stage III decubitus pressure ulcer more prominent over sacral area. Wound care orders include applying Medihoney to the area and covering with foam q Wednesday also offload the wound and avoid direct pressure. -recommend offloading left heel deep tissue injuries avoid direct pressure on area -recommend air mattress to offload wounds -medical management per primary team -continue to monitor CBC and BMP -continue to monitor for signs of infection Plan of care discussed with Dr. Diego Thank you for consultation. Physician Review: Patient Assessed, Agree with Above Assessment and Plan
[2020-07-08] MEDS: ACETAMINOPHEN 325 MG TABLET PO PRN (15:40)
--- NOTE | 2020-07-08 19:16 | PN ---
Date of Progress Note: 07/08/2020 The patient and family, both state that his appetite has returned. We will therefore encourage his d iet intake and he also says that he has been more cooperative with physical therapy, sitting on the e dge of the bed, although it does create some discomfort and he still feels his legs could not support him. Awaiting insurance decision as far as deposition is concerned. HR/MODL Voice ID: [id number] Report ID: [id number]
[2020-07-08] MEDS: ATORVASTATIN 40 MG TAB PO SCH (20:49)
[2020-07-08] MEDS: MELATONIN 3 MG TABLET PO SCH (23:00)
[2020-07-09] MEDS: ENSURE ENLIVE 237 ML CAN PO SCH ×2 (09:00→22:07)
[2020-07-09] MEDS: HOME MED 1 EA UNK (Fluticasone/Umeclidin/Vilanter [Trelegy Ellipta 200-62.5-25] Blst.W.Dev IH SCH (09:00)
[2020-07-09] MEDS: JUVEN PACKET PO SCH ×2 (09:00→22:07)
[2020-07-09] MEDS: DOCUSATE NA 100 MG CAP PO PRN (11:01)
[2020-07-09] MEDS: AMPICILLIN TRIHYDRATE 500 MG CAP PO SCH ×4 (11:01→22:00)
[2020-07-09] MEDS: RIVAROXABAN 20 MG TABLET PO SCH (11:01)
[2020-07-09] MEDS: ASPIRIN EC 81 MG TAB PO SCH (11:01)
[2020-07-09] MEDS: GABAPENTIN 300 MG CAP PO SCH ×3 (11:02→22:00)
--- NOTE | 2020-07-09 14:57 | P.PN ---
Subjective Date of Service: 07/09/20 Chief Complaint: Sepsis, AMS Patient seen and examined at bedside with no acute complaints-he remains afebrile. He has been tachycardic today it with a pulse of 110 beats per min. Continue to monitor, patient denies any pain. Review of Systems 10-point ROS is otherwise unremarkable Physical Examination - Vital Signs Temperature: 98.3 F Blood Pressure: 120/78 Pulse: 110 Respirations: 19 Pulse Ox (%): 94 - Physical Exam Other Physical/Emotional Findings: General: Alert, In no apparent distress, Oriented x3. HEENT: Atraumatic, Normocephalic. Neck: Supple, 2+ carotid pulse no bruit, JVD not distended. Respiratory: clear to ascultation. Cardio vascular: No edema, Normal pulses. Capillary refill: <2 Seconds. Gastrointestinal: Normal bowel sounds, Soft and benign. Musculoskeletal: No clubbing, No swelling. 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 Neurological: Normal speech. Urinary: Willoughby catheter. External genitalia: Deferred - Studies Laboratory Last Values WBC 21.80 K/uL (4.3-10.9) H* D 06/25/20 17:39 RBC 3.17 M/uL (4.33-5.43) L 06/25/20 17:39 Hgb 8.8 g/dL (13.6-17.9) L 06/25/20 17:39 Hct 28.2 % (39.6-49.0) L 06/25/20 17:39 MCV 88.8 fL (80-100) 06/25/20 17:39 MCH 27.7 pg (27.0-35.0) 06/25/20 17:39 MCHC 31.1 g/dL (32.0-36.0) L 06/25/20 17:39 RDW 17.9 % (12.1-15.2) H 06/25/20 17:39 Plt Count 76 K/uL (152-406) L D 06/25/20 17:39 MPV 9.5 fL (7.6-11.3) 06/25/20 17:39 Neutrophils % 88.4 % (41.7-73.7) H 06/25/20 17:39 Lymphocytes % 5.0 % (15.3-44.8) L 06/25/20 17:39 Monocytes % 6.4 % (3.3-12.3) 06/25/20 17:39 Eosinophils % 0.0 % (0-4.4) 06/25/20 17:39 Basophils % 0.2 % (0-1.3) 06/25/20 17:39 Absolute Neutrophils 19.3 K/uL (1.8-8.0) H 06/25/20 17:39 Segmented Neutrophils 88 % (40-80) H 06/25/20 17:39 Band Neutrophils 3 % (0-1) H 06/25/20 17:39 Absolute Lymphocytes 1.1 K/uL (0.7-4.9) 06/25/20 17:39 Lymphocytes 3 % (15-42) L 06/25/20 17:39 Monocytes 5 % (0-10) 06/25/20 17:39 Absolute Monocytes 1.4 K/uL (0.1-1.3) H 06/25/20 17:39 Eosinophils 1 % (0-3) 06/25/20 17:39 Absolute Eosinophils 0.0 K/uL (0-0.5) 06/25/20 17:39 Absolute Basophils 0.1 K/uL (0-0.5) 06/25/20 17:39 Toxic Granulation 1+ 06/25/20 17:39 Platelet Estimate Decr 06/25/20 17:39 Giant Platelets Present 06/25/20 17:39 Morphology Comment Not seen (NOT SEEN) 06/25/20 17:39 PT 36.0 SECONDS (9.5-12.5) H 06/25/20 17:39 INR 3.09 06/25/20 17:39 APTT 33.3 SECONDS (24.3-36.9) 06/25/20 17:39 Sodium 142 mmol/L (136-145) 06/25/20 17:39 Potassium 4.0 mmol/L (3.5-5.1) 06/25/20 17:39 Chloride 116 mmol/L (98-107) H 06/25/20 17:39 Carbon Dioxide 17 mmol/L (21-32) L 06/25/20 17:39 BUN 35 mg/dL (7-18) H 06/25/20 17:39 Creatinine 0.86 mg/dL (0.55-1.3) 06/25/20 17:39 Estimated GFR 86 mL/min (=/>90) L 06/25/20 17:39 Glucose 77 mg/dL (74-106) 06/25/20 17:39 Lactic Acid 1.2 mmol/L (0.4-2.0) 06/25/20 17:39 Calcium 7.8 mg/dL (8.5-10.1) L D 06/25/20 17:39 Total Bilirubin 1.0 mg/dL (0.2-1.0) 06/25/20 17:39 Direct Bilirubin 0.5 mg/dL (0-0.2) H 06/25/20 17:39 AST 28 U/L (15-37) 06/25/20 17:39 ALT 14 U/L (12-78) 06/25/20 17:39 Alkaline Phosphatase 99 U/L (45-117) 06/25/20 17:39 Creatine Kinase 35 U/L (39-308) L 06/25/20 17:39 CK-MB (CK-2) 1.3 ng/mL (0.3-3.6) 06/25/20 17:39 Rapid Troponin I 0.04 ng/mL (0.0-0.045) 06/25/20 17:39 Serum Total Protein 5.7 g/dL (6.4-8.2) L 06/25/20 17:39 Albumin 1.9 g/dL (3.4-5.0) L 06/25/20 17:39 Globulin 3.8 g/dL (2.3-3.5) H 06/25/20 17:39 Albumin/Globulin Ratio 0.5 (1.1-1.8) L 06/25/20 17:39 Amylase 16 U/L (25-115) L 06/25/20 17:39 Lipase 53 U/L (73-393) L 06/25/20 17:39 Procalcitonin 0.45 ng/mL (<0.050) H 06/25/20 17:39 Urine pH 5.0 (5.0-7.0) 06/25/20 19:11 Ur Specific [place] 1.025 (1.005-1.030) 06/25/20 19:11 Glucose (UA)(Auto) Negative (NEG) 06/25/20 19:11 Urine Ketones Trace (NEG) 06/25/20 19:11 Urine Blood Trace (NEG) H 06/25/20 19:11 Urine Nitrite Negative (NEG) 06/25/20 19:11 Ur Leukocyte Esterase Negative (NEG) 06/25/20 19:11 Urine RBC <5 /HPF (NONE SEEN) 06/25/20 19:01 Urine WBC <5 /HPF (<5) 06/25/20 19:01 Ur Squamous Epith Cells <5 /HPF (NONE SEEN) 06/25/20 19:01 Amorphous Sediment 2+ /HPF (NONE SEEN) H 06/25/20 19:01 Urine Bacteria <20 /HPF (NONE SEEN) 06/25/20 19:01 Urine Mucus Heavy /HPF (NONE SEEN) 06/25/20 19:01 Urine Culture Reflexed Not needed 06/25/20 19:01 Urine Total Protein Trace (NEG) 06/25/20 19:11 Influenza Type A RNA Negative (NEGATIVE) 06/25/20 17:25 Influenza Type B RNA Negative (NEGATIVE) 06/25/20 17:25 SARS-CoV-2 RNA (RT-PCR) Negative (NEGATIVE) 06/25/20 17:25 Medications List Reviewed: Yes Assessment And Plan - Plan Assessment: -sepsis -multiple skin tears/hematoma to upper and lower arm extremities -bilateral buttocks deep tissue injury--now stage 3 -left foot deep tissue injurys -altered mental status/hypertension -congestive heart failure Plan -sepsis: Positive anaerobic and anaerobic blood cultures: grew Enterococcus facecalis sensitive to ampicillin. Repeat blood culture on 07/02 showed no growth. Continue ampicillin for two weeks-until 07/16. -recommend applying xerofrom to open skin tears on upper and lower extremities -bilateral buttock deep tissue injury: tissue has opened up-area has minimal bleeding and shows a stage III decubitus pressure ulcer more prominent over sacral area. Wound care orders include applying Medihoney to the area and covering with foam q Wednesday also offload the wound and avoid direct pressure. -recommend offloading left heel deep tissue injuries avoid direct pressure on area -recommend air mattress to offload wounds -medical management per primary team -continue to monitor CBC and BMP -continue to monitor for signs of infection Plan of care discussed with Dr. Diego Thank you for consultation. Physician Review: Patient Assessed, Agree with Above Assessment and Plan
--- NOTE | 2020-07-09 19:48 | PN ---
The patient continues to improve clinically and symptomatically awaiting insurance disposition, discu ssion with Asset Protection Representative with the family as far as transferring him back to the [facility]. Eric reyes have an answer by tomorrow. HR/MODL Voice ID: [id number] Report ID: [id number]
[2020-07-09] MEDS: MELATONIN 3 MG TABLET PO SCH (21:00)
[2020-07-09] MEDS: ATORVASTATIN 40 MG TAB PO SCH (22:00)
[2020-07-09] MEDS: ACETAMINOPHEN 325 MG TABLET PO PRN (22:10)
[2020-07-10] MEDS: ACETAMINOPHEN 325 MG TABLET PO PRN ×2 (03:57→22:35)
[2020-07-10] MEDS: ENSURE ENLIVE 237 ML CAN PO SCH ×2 (09:00→21:00)
[2020-07-10] MEDS: JUVEN PACKET PO SCH ×2 (09:00→21:00)
[2020-07-10] MEDS: HOME MED 1 EA UNK (Fluticasone/Umeclidin/Vilanter [Trelegy Ellipta 200-62.5-25] Blst.W.Dev IH SCH (09:00)
[2020-07-10] MEDS: GABAPENTIN 300 MG CAP PO SCH ×3 (10:03→22:36)
[2020-07-10] MEDS: DOCUSATE NA 100 MG CAP PO PRN (10:03)
[2020-07-10] MEDS: AMPICILLIN TRIHYDRATE 500 MG CAP PO SCH ×4 (10:04→22:35)
[2020-07-10] MEDS: ASPIRIN EC 81 MG TAB PO SCH (10:04)
[2020-07-10] MEDS: RIVAROXABAN 20 MG TABLET PO SCH (10:10)
--- NOTE | 2020-07-10 11:00 | P.PN ---
Subjective Date of Service: 07/10/20 Chief Complaint: Sepsis, AMS Patient seen and examined at bedside with no acute complaints-he remains afebrile. Glucose stable. Plan for DC today. Review of Systems 10-point ROS is otherwise unremarkable Physical Examination - Vital Signs Temperature: 97.5 F Blood Pressure: 132/90 Pulse: 104 Respirations: 23 Pulse Ox (%): 94 - Physical Exam Other Physical/Emotional Findings: General: Alert, In no apparent distress, Oriented x3. HEENT: Atraumatic, Normocephalic. Neck: Supple, 2+ carotid pulse no bruit, JVD not distended. Respiratory: clear to ascultation. Cardiovascular: No edema, Normal pulses. Capillary refill: <2 Seconds. Gastrointestinal: Normal bowel sounds, Soft and benign. Musculoskeletal: No clubbing, No swelling. 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 Neurological: Normal speech. Urinary: Willoughby catheter. External genitalia: Deferred - Studies Laboratory Last Values WBC 21.80 K/uL (4.3-10.9) H* D 06/25/20 17:39 RBC 3.17 M/uL (4.33-5.43) L 06/25/20 17:39 Hgb 8.8 g/dL (13.6-17.9) L 06/25/20 17:39 Hct 28.2 % (39.6-49.0) L 06/25/20 17:39 MCV 88.8 fL (80-100) 06/25/20 17:39 MCH 27.7 pg (27.0-35.0) 06/25/20 17:39 MCHC 31.1 g/dL (32.0-36.0) L 06/25/20 17:39 RDW 17.9 % (12.1-15.2) H 06/25/20 17:39 Plt Count 76 K/uL (152-406) L D 06/25/20 17:39 MPV 9.5 fL (7.6-11.3) 06/25/20 17:39 Neutrophils % 88.4 % (41.7-73.7) H 06/25/20 17:39 Lymphocytes % 5.0 % (15.3-44.8) L 06/25/20 17:39 Monocytes % 6.4 % (3.3-12.3) 06/25/20 17:39 Eosinophils % 0.0 % (0-4.4) 06/25/20 17:39 Basophils % 0.2 % (0-1.3) 06/25/20 17:39 Absolute Neutrophils 19.3 K/uL (1.8-8.0) H 06/25/20 17:39 Segmented Neutrophils 88 % (40-80) H 06/25/20 17:39 Band Neutrophils 3 % (0-1) H 06/25/20 17:39 Absolute Lymphocytes 1.1 K/uL (0.7-4.9) 06/25/20 17:39 Lymphocytes 3 % (15-42) L 06/25/20 17:39 Monocytes 5 % (0-10) 06/25/20 17:39 Absolute Monocytes 1.4 K/uL (0.1-1.3) H 06/25/20 17:39 Eosinophils 1 % (0-3) 06/25/20 17:39 Absolute Eosinophils 0.0 K/uL (0-0.5) 06/25/20 17:39 Absolute Basophils 0.1 K/uL (0-0.5) 06/25/20 17:39 Toxic Granulation 1+ 06/25/20 17:39 Platelet Estimate Decr 06/25/20 17:39 Giant Platelets Present 06/25/20 17:39 Morphology Comment Not seen (NOT SEEN) 06/25/20 17:39 PT 36.0 SECONDS (9.5-12.5) H 06/25/20 17:39 INR 3.09 06/25/20 17:39 APTT 33.3 SECONDS (24.3-36.9) 06/25/20 17:39 Sodium 142 mmol/L (136-145) 06/25/20 17:39 Potassium 4.0 mmol/L (3.5-5.1) 06/25/20 17:39 Chloride 116 mmol/L (98-107) H 06/25/20 17:39 Carbon Dioxide 17 mmol/L (21-32) L 06/25/20 17:39 BUN 35 mg/dL (7-18) H 06/25/20 17:39 Creatinine 0.86 mg/dL (0.55-1.3) 06/25/20 17:39 Estimated GFR 86 mL/min (=/>90) L 06/25/20 17:39 Glucose 77 mg/dL (74-106) 06/25/20 17:39 Lactic Acid 1.2 mmol/L (0.4-2.0) 06/25/20 17:39 Calcium 7.8 mg/dL (8.5-10.1) L D 06/25/20 17:39 Total Bilirubin 1.0 mg/dL (0.2-1.0) 06/25/20 17:39 Direct Bilirubin 0.5 mg/dL (0-0.2) H 06/25/20 17:39 AST 28 U/L (15-37) 06/25/20 17:39 ALT 14 U/L (12-78) 06/25/20 17:39 Alkaline Phosphatase 99 U/L (45-117) 06/25/20 17:39 Creatine Kinase 35 U/L (39-308) L 06/25/20 17:39 CK-MB (CK-2) 1.3 ng/mL (0.3-3.6) 06/25/20 17:39 Rapid Troponin I 0.04 ng/mL (0.0-0.045) 06/25/20 17:39 Serum Total Protein 5.7 g/dL (6.4-8.2) L 06/25/20 17:39 Albumin 1.9 g/dL (3.4-5.0) L 06/25/20 17:39 Globulin 3.8 g/dL (2.3-3.5) H 06/25/20 17:39 Albumin/Globulin Ratio 0.5 (1.1-1.8) L 06/25/20 17:39 Amylase 16 U/L (25-115) L 06/25/20 17:39 Lipase 53 U/L (73-393) L 06/25/20 17:39 Procalcitonin 0.45 ng/mL (<0.050) H 06/25/20 17:39 Urine pH 5.0 (5.0-7.0) 06/25/20 19:11 Ur Specific [place] 1.025 (1.005-1.030) 06/25/20 19:11 Glucose (UA)(Auto) Negative (NEG) 06/25/20 19:11 Urine Ketones Trace (NEG) 06/25/20 19:11 Urine Blood Trace (NEG) H 06/25/20 19:11 Urine Nitrite Negative (NEG) 06/25/20 19:11 Ur Leukocyte Esterase Negative (NEG) 06/25/20 19:11 Urine RBC <5 /HPF (NONE SEEN) 06/25/20 19:01 Urine WBC <5 /HPF (<5) 06/25/20 19:01 Ur Squamous Epith Cells <5 /HPF (NONE SEEN) 06/25/20 19:01 Amorphous Sediment 2+ /HPF (NONE SEEN) H 06/25/20 19:01 Urine Bacteria <20 /HPF (NONE SEEN) 06/25/20 19:01 Urine Mucus Heavy /HPF (NONE SEEN) 06/25/20 19:01 Urine Culture Reflexed Not needed 06/25/20 19:01 Urine Total Protein Trace (NEG) 06/25/20 19:11 Influenza Type A RNA Negative (NEGATIVE) 06/25/20 17:25 Influenza Type B RNA Negative (NEGATIVE) 06/25/20 17:25 SARS-CoV-2 RNA (RT-PCR) Negative (NEGATIVE) 06/25/20 17:25 Medications List Reviewed: Yes Assessment And Plan - Plan Assessment: -sepsis -multiple skin tears/hematoma to upper and lower arm extremities -bilateral buttocks deep tissue injury--now stage 3 -bilateral foot deep tissue injurys -altered mental status/hypertension -congestive heart failure Plan -sepsis: Positive anaerobic and anaerobic blood cultures: grew Enterococcus facecalis sensitive to ampicillin. Repeat blood culture on 07/02 showed no growth. Continue ampicillin for two weeks-until 07/16. -recommend applying xerofrom to open skin tears on upper and lower extremities -bilateral buttock deep tissue injury: tissue has opened up-area has minimal bleeding and shows a stage III decubitus pressure ulcer more prominent over sacral area. Wound care orders include applying Medihoney to the area and covering with foam q Wednesday also offload the wound and avoid direct pressure. -recommend offloading bilateral heel deep tissue injuries avoid direct pressure on area-paint with Betadine -recommend air mattress to offload wounds -medical management per primary team -continue to monitor CBC and BMP -continue to monitor for signs of infection Plan of care discussed with Dr. Diego Thank you for consultation. Physician Review: Patient Assessed, Agree with Above Assessment and Plan
--- NOTE | 2020-07-10 18:01 | PN ---
Date of Progress Note: 07/10/2020 The patient continues to improve on his physical therapy. His general condition has been stabilized and awaiting disposition from his insurance company. In my opinion, the continued aggressive PT woul d be much more beneficial at a SNF unit and generalized halfway care. He continues to sit on th e edge of the bed and uses some weight shifting. However, he cannot transfer as yet. We will contin ue therapy here until disposition is made. Multiple discussions have been made with the insurance co sydni both myself x1, which apparently was not available when they discussed his transfer to the halfway. That it was not done, but I did do the peer to peer at 8:30 on that Wednesday a.m. At that time, they requested more physical therapy information few days preceding my con versation and this was sent on Wednesday afternoon. HR/MODL Voice ID: [id number] Report ID: [id number]
[2020-07-10] MEDS: MELATONIN 3 MG TABLET PO SCH (21:00)
[2020-07-10] MEDS: ATORVASTATIN 40 MG TAB PO SCH (22:35)
[2020-07-11] MEDS: HOME MED 1 EA UNK (Fluticasone/Umeclidin/Vilanter [Trelegy Ellipta 200-62.5-25] Blst.W.Dev IH SCH (09:00)
[2020-07-11] MEDS: RIVAROXABAN 20 MG TABLET PO SCH (11:07)
[2020-07-11] MEDS: AMPICILLIN TRIHYDRATE 500 MG CAP PO SCH ×4 (11:07→20:59)
[2020-07-11] MEDS: GABAPENTIN 300 MG CAP PO SCH ×3 (11:07→20:59)
[2020-07-11] MEDS: JUVEN PACKET PO SCH ×2 (11:08→21:00)
[2020-07-11] MEDS: ENSURE ENLIVE 237 ML CAN PO SCH ×2 (11:08→21:00)
--- NOTE | 2020-07-11 12:46 | PN ---
Date of Progress Note: 07/11/2020 The patient states he feels okay, but in actual fact he is getting some respiratory symptomatology, s omewhat similar to his past history. Today he is requiring O2 around 5, where he has been stabilized at 2-3, orientated. He is not required his medication over the past 4 or 5 days. We will restart h is spironolactone and reconsult Dr. Garvin. At this stage, we feel he is not stable enough to be t ransferred. HR/MODL Voice ID: [id number] Report ID: [id number]
--- NOTE | 2020-07-11 12:53 | RAD REPORT ---
EXAM DESCRIPTION: RAD - Chest Single View - 07/11/2020 12:14 pm CLINICAL HISTORY: shotness of breath COMPARISON: Portable June 25 TECHNIQUE: AP portable chest image was obtained 07/11/2020 12:14 pm . FINDINGS: Portable technique, shallow inspiration and large body habitus limit the examination. Inte rstitial and alveolar opacities are present similar to comparison. Left pleural effusion is seen. Car diomegaly and mild vascular engorgement are present. 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 No pneumothorax. No large right pleural effusion. No acute bony abnormality seen. No acute aortic findings suspected. IMPRESSION: CHF/volume overload pattern is evident similar in severity to the June 25 exam.
[2020-07-11 12:56] LABS: Basophils % 0.8 % (0-1.3); Hematocrit 32.7 % (39.6-49.0); Lymphocytes % 12.7 % (15.3-44.8); RBC Red Blood Cell Count 3.65 M/uL (4.33-5.43)
[2020-07-11 13:14] LABS: BUN Blood Urea Nitrogen 10 mg/dL (7-18); Bicarbonate 36 mmol/L (21-32); Glucose Level 117 mg/dL (74-106); Potassium 3.8 mmol/L (3.5-5.1); Sodium Level 141 mmol/L (136-145)
--- NOTE | 2020-07-11 14:13 | P.PN ---
Subjective Date of Service: 07/11/20 Chief Complaint: Sepsis, AMS Subjective: No new changes, Doing well Patient seen and examined at bedside with no acute complaints-he remains afebrile. Glucose stable. Plan for DC today. Review of Systems 10-point ROS is otherwise unremarkable Physical Examination - Vital Signs Temperature: 96.9 F Blood Pressure: 118/83 Pulse: 102 Respirations: 25 Pulse Ox (%): 93 - Physical Exam Other Physical/Emotional Findings: General: Alert, In no apparent distress, Oriented x3. HEENT: Atraumatic, Normocephalic. Neck: Supple, 2+ carotid pulse no bruit, JVD not distended. Respiratory: clear to ascultation. Cardiovascular: No edema, Normal pulses. Capillary refill: <2 Seconds. Gastrointestinal: Normal bowel sounds, Soft and benign. Musculoskeletal: No clubbing, No swelling. 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 Neurological: Normal speech. Urinary: Willoughby catheter. External genitalia: Deferred - Studies Laboratory Last Values WBC 21.80 K/uL (4.3-10.9) H* D 06/25/20 17:39 RBC 3.17 M/uL (4.33-5.43) L 06/25/20 17:39 Hgb 8.8 g/dL (13.6-17.9) L 06/25/20 17:39 Hct 28.2 % (39.6-49.0) L 06/25/20 17:39 MCV 88.8 fL (80-100) 06/25/20 17:39 MCH 27.7 pg (27.0-35.0) 06/25/20 17:39 MCHC 31.1 g/dL (32.0-36.0) L 06/25/20 17:39 RDW 17.9 % (12.1-15.2) H 06/25/20 17:39 Plt Count 76 K/uL (152-406) L D 06/25/20 17:39 MPV 9.5 fL (7.6-11.3) 06/25/20 17:39 Neutrophils % 88.4 % (41.7-73.7) H 06/25/20 17:39 Lymphocytes % 5.0 % (15.3-44.8) L 06/25/20 17:39 Monocytes % 6.4 % (3.3-12.3) 06/25/20 17:39 Eosinophils % 0.0 % (0-4.4) 06/25/20 17:39 Basophils % 0.2 % (0-1.3) 06/25/20 17:39 Absolute Neutrophils 19.3 K/uL (1.8-8.0) H 06/25/20 17:39 Segmented Neutrophils 88 % (40-80) H 06/25/20 17:39 Band Neutrophils 3 % (0-1) H 06/25/20 17:39 Absolute Lymphocytes 1.1 K/uL (0.7-4.9) 06/25/20 17:39 Lymphocytes 3 % (15-42) L 06/25/20 17:39 Monocytes 5 % (0-10) 06/25/20 17:39 Absolute Monocytes 1.4 K/uL (0.1-1.3) H 06/25/20 17:39 Eosinophils 1 % (0-3) 06/25/20 17:39 Absolute Eosinophils 0.0 K/uL (0-0.5) 06/25/20 17:39 Absolute Basophils 0.1 K/uL (0-0.5) 06/25/20 17:39 Toxic Granulation 1+ 06/25/20 17:39 Platelet Estimate Decr 06/25/20 17:39 Giant Platelets Present 06/25/20 17:39 Morphology Comment Not seen (NOT SEEN) 06/25/20 17:39 PT 36.0 SECONDS (9.5-12.5) H 06/25/20 17:39 INR 3.09 06/25/20 17:39 APTT 33.3 SECONDS (24.3-36.9) 06/25/20 17:39 Sodium 142 mmol/L (136-145) 06/25/20 17:39 Potassium 4.0 mmol/L (3.5-5.1) 06/25/20 17:39 Chloride 116 mmol/L (98-107) H 06/25/20 17:39 Carbon Dioxide 17 mmol/L (21-32) L 06/25/20 17:39 BUN 35 mg/dL (7-18) H 06/25/20 17:39 Creatinine 0.86 mg/dL (0.55-1.3) 06/25/20 17:39 Estimated GFR 86 mL/min (=/>90) L 06/25/20 17:39 Glucose 77 mg/dL (74-106) 06/25/20 17:39 Lactic Acid 1.2 mmol/L (0.4-2.0) 06/25/20 17:39 Calcium 7.8 mg/dL (8.5-10.1) L D 06/25/20 17:39 Total Bilirubin 1.0 mg/dL (0.2-1.0) 06/25/20 17:39 Direct Bilirubin 0.5 mg/dL (0-0.2) H 06/25/20 17:39 AST 28 U/L (15-37) 06/25/20 17:39 ALT 14 U/L (12-78) 06/25/20 17:39 Alkaline Phosphatase 99 U/L (45-117) 06/25/20 17:39 Creatine Kinase 35 U/L (39-308) L 06/25/20 17:39 CK-MB (CK-2) 1.3 ng/mL (0.3-3.6) 06/25/20 17:39 Rapid Troponin I 0.04 ng/mL (0.0-0.045) 06/25/20 17:39 Serum Total Protein 5.7 g/dL (6.4-8.2) L 06/25/20 17:39 Albumin 1.9 g/dL (3.4-5.0) L 06/25/20 17:39 Globulin 3.8 g/dL (2.3-3.5) H 06/25/20 17:39 Albumin/Globulin Ratio 0.5 (1.1-1.8) L 06/25/20 17:39 Amylase 16 U/L (25-115) L 06/25/20 17:39 Lipase 53 U/L (73-393) L 06/25/20 17:39 Procalcitonin 0.45 ng/mL (<0.050) H 06/25/20 17:39 Urine pH 5.0 (5.0-7.0) 06/25/20 19:11 Ur Specific [place] 1.025 (1.005-1.030) 06/25/20 19:11 Glucose (UA)(Auto) Negative (NEG) 06/25/20 19:11 Urine Ketones Trace (NEG) 06/25/20 19:11 Urine Blood Trace (NEG) H 06/25/20 19:11 Urine Nitrite Negative (NEG) 06/25/20 19:11 Ur Leukocyte Esterase Negative (NEG) 06/25/20 19:11 Urine RBC <5 /HPF (NONE SEEN) 06/25/20 19:01 Urine WBC <5 /HPF (<5) 06/25/20 19:01 Ur Squamous Epith Cells <5 /HPF (NONE SEEN) 06/25/20 19:01 Amorphous Sediment 2+ /HPF (NONE SEEN) H 06/25/20 19:01 Urine Bacteria <20 /HPF (NONE SEEN) 06/25/20 19:01 Urine Mucus Heavy /HPF (NONE SEEN) 06/25/20 19:01 Urine Culture Reflexed Not needed 06/25/20 19:01 Urine Total Protein Trace (NEG) 06/25/20 19:11 Influenza Type A RNA Negative (NEGATIVE) 06/25/20 17:25 Influenza Type B RNA Negative (NEGATIVE) 06/25/20 17:25 SARS-CoV-2 RNA (RT-PCR) Negative (NEGATIVE) 06/25/20 17:25 Medications List Reviewed: Yes Assessment And Plan - Plan Assessment: -sepsis -multiple skin tears/hematoma to upper and lower arm extremities -bilateral buttocks deep tissue injury--now stage 3 -bilateral foot deep tissue injurys -altered mental status/hypertension -congestive heart failure Plan -sepsis: Positive anaerobic and anaerobic blood cultures: grew Enterococcus facecalis sensitive to ampicillin. Repeat blood culture on 07/02 showed no growth. Continue ampicillin for two weeks-until 07/16. -recommend applying xerofrom to open skin tears on upper and lower extremities -bilateral buttock deep tissue injury: tissue has opened up-area has minimal bleeding and shows a stage III decubitus pressure ulcer more prominent over sacral area. Wound care orders include applying Medihoney to the area and covering with foam q Wednesday also offload the wound and avoid direct pressure. -recommend offloading bilateral heel deep tissue injuries avoid direct pressure on area-paint with Betadine -recommend air mattress to offload wounds -medical management per primary team -continue to monitor CBC and BMP -continue to monitor for signs of infection Plan of care discussed with Dr. Diego Thank you for consultation. Physician Review: Patient Assessed, Agree with Above Assessment and Plan
[2020-07-11] MEDS: ALBUTEROL 2.5 MG/3 ML NEB SOL NEB SCH ×2 (14:40→22:07)
[2020-07-11] MEDS: IPRATROPIUM BROM 0.5MG/2.5ML NEB SCH ×2 (14:40→22:07)
[2020-07-11] MEDS: MELATONIN 3 MG TABLET PO SCH (20:59)
[2020-07-11] MEDS: ATORVASTATIN 40 MG TAB PO SCH (20:59)
[2020-07-11] MEDS: ACETAMINOPHEN 325 MG TABLET PO PRN (21:00)
[2020-07-12] MEDS: IPRATROPIUM BROM 0.5MG/2.5ML NEB SCH ×3 (07:40→19:15)
[2020-07-12] MEDS: ALBUTEROL 2.5 MG/3 ML NEB SOL NEB SCH ×3 (07:40→19:15)
[2020-07-12] MEDS: HOME MED 1 EA UNK (Fluticasone/Umeclidin/Vilanter [Trelegy Ellipta 200-62.5-25] Blst.W.Dev IH SCH (09:00)
[2020-07-12] MEDS: ENSURE ENLIVE 237 ML CAN PO SCH ×2 (09:00→21:00)
[2020-07-12] MEDS: JUVEN PACKET PO SCH ×2 (09:00→21:00)
[2020-07-12] MEDS: RIVAROXABAN 20 MG TABLET PO SCH (09:36)
[2020-07-12] MEDS: GABAPENTIN 300 MG CAP PO SCH ×3 (09:36→21:42)
[2020-07-12] MEDS: AMPICILLIN TRIHYDRATE 500 MG CAP PO SCH ×4 (09:36→21:42)
[2020-07-12] MEDS: DOCUSATE NA 100 MG CAP PO PRN (09:36)
[2020-07-12] MEDS: ASPIRIN EC 81 MG TAB PO SCH (09:36)
[2020-07-12] MEDS ORDERED: SPIRONOLACTONE 25 MG TABLET PO ONE (11:51)
--- NOTE | 2020-07-12 14:28 | P.PN ---
Subjective Date of Service: 07/12/20 Chief Complaint: Sepsis, AMS Patient seen and examined at bedside with no acute complaints. Wounds stable. He remains afebrile with no leukocytosis. Is requiring 5 L NC, pulmonary consulted. Review of Systems 10-point ROS is otherwise unremarkable Physical Examination - Vital Signs Temperature: 96.9 F Blood Pressure: 121/70 Pulse: 93 Respirations: 18 Pulse Ox (%): 92 - Physical Exam Other Physical/Emotional Findings: General: Alert, In no apparent distress, Oriented x3. HEENT: Atraumatic, Normocephalic. Neck: Supple, 2+ carotid pulse no bruit, JVD not distended. Respiratory: clear to ascultation. Cardiovascular: No edema, Normal pulses. Capillary refill: <2 Seconds. Gastrointestinal: Normal bowel sounds, Soft and benign. Musculoskeletal: No clubbing, No swelling. 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 Minimal bleeding noted from wound site. ). Neurological: Normal speech. Urinary: Willoughby catheter. External genitalia: Deferred - Studies Laboratory Last Values WBC 21.80 K/uL (4.3-10.9) H* D 06/25/20 17:39 RBC 3.17 M/uL (4.33-5.43) L 06/25/20 17:39 Hgb 8.8 g/dL (13.6-17.9) L 06/25/20 17:39 Hct 28.2 % (39.6-49.0) L 06/25/20 17:39 MCV 88.8 fL (80-100) 06/25/20 17:39 MCH 27.7 pg (27.0-35.0) 06/25/20 17:39 MCHC 31.1 g/dL (32.0-36.0) L 06/25/20 17:39 RDW 17.9 % (12.1-15.2) H 06/25/20 17:39 Plt Count 76 K/uL (152-406) L D 06/25/20 17:39 MPV 9.5 fL (7.6-11.3) 06/25/20 17:39 Neutrophils % 88.4 % (41.7-73.7) H 06/25/20 17:39 Lymphocytes % 5.0 % (15.3-44.8) L 06/25/20 17:39 Monocytes % 6.4 % (3.3-12.3) 06/25/20 17:39 Eosinophils % 0.0 % (0-4.4) 06/25/20 17:39 Basophils % 0.2 % (0-1.3) 06/25/20 17:39 Absolute Neutrophils 19.3 K/uL (1.8-8.0) H 06/25/20 17:39 Segmented Neutrophils 88 % (40-80) H 06/25/20 17:39 Band Neutrophils 3 % (0-1) H 06/25/20 17:39 Absolute Lymphocytes 1.1 K/uL (0.7-4.9) 06/25/20 17:39 Lymphocytes 3 % (15-42) L 06/25/20 17:39 Monocytes 5 % (0-10) 06/25/20 17:39 Absolute Monocytes 1.4 K/uL (0.1-1.3) H 06/25/20 17:39 Eosinophils 1 % (0-3) 06/25/20 17:39 Absolute Eosinophils 0.0 K/uL (0-0.5) 06/25/20 17:39 Absolute Basophils 0.1 K/uL (0-0.5) 06/25/20 17:39 Toxic Granulation 1+ 06/25/20 17:39 Platelet Estimate Decr 06/25/20 17:39 Giant Platelets Present 06/25/20 17:39 Morphology Comment Not seen (NOT SEEN) 06/25/20 17:39 PT 36.0 SECONDS (9.5-12.5) H 06/25/20 17:39 INR 3.09 06/25/20 17:39 APTT 33.3 SECONDS (24.3-36.9) 06/25/20 17:39 Sodium 142 mmol/L (136-145) 06/25/20 17:39 Potassium 4.0 mmol/L (3.5-5.1) 06/25/20 17:39 Chloride 116 mmol/L (98-107) H 06/25/20 17:39 Carbon Dioxide 17 mmol/L (21-32) L 06/25/20 17:39 BUN 35 mg/dL (7-18) H 06/25/20 17:39 Creatinine 0.86 mg/dL (0.55-1.3) 06/25/20 17:39 Estimated GFR 86 mL/min (=/>90) L 06/25/20 17:39 Glucose 77 mg/dL (74-106) 06/25/20 17:39 Lactic Acid 1.2 mmol/L (0.4-2.0) 06/25/20 17:39 Calcium 7.8 mg/dL (8.5-10.1) L D 06/25/20 17:39 Total Bilirubin 1.0 mg/dL (0.2-1.0) 06/25/20 17:39 Direct Bilirubin 0.5 mg/dL (0-0.2) H 06/25/20 17:39 AST 28 U/L (15-37) 06/25/20 17:39 ALT 14 U/L (12-78) 06/25/20 17:39 Alkaline Phosphatase 99 U/L (45-117) 06/25/20 17:39 Creatine Kinase 35 U/L (39-308) L 06/25/20 17:39 CK-MB (CK-2) 1.3 ng/mL (0.3-3.6) 06/25/20 17:39 Rapid Troponin I 0.04 ng/mL (0.0-0.045) 06/25/20 17:39 Serum Total Protein 5.7 g/dL (6.4-8.2) L 06/25/20 17:39 Albumin 1.9 g/dL (3.4-5.0) L 06/25/20 17:39 Globulin 3.8 g/dL (2.3-3.5) H 06/25/20 17:39 Albumin/Globulin Ratio 0.5 (1.1-1.8) L 06/25/20 17:39 Amylase 16 U/L (25-115) L 06/25/20 17:39 Lipase 53 U/L (73-393) L 06/25/20 17:39 Procalcitonin 0.45 ng/mL (<0.050) H 06/25/20 17:39 Urine pH 5.0 (5.0-7.0) 06/25/20 19:11 Ur Specific [place] 1.025 (1.005-1.030) 06/25/20 19:11 Glucose (UA)(Auto) Negative (NEG) 06/25/20 19:11 Urine Ketones Trace (NEG) 06/25/20 19:11 Urine Blood Trace (NEG) H 06/25/20 19:11 Urine Nitrite Negative (NEG) 06/25/20 19:11 Ur Leukocyte Esterase Negative (NEG) 06/25/20 19:11 Urine RBC <5 /HPF (NONE SEEN) 06/25/20 19:01 Urine WBC <5 /HPF (<5) 06/25/20 19:01 Ur Squamous Epith Cells <5 /HPF (NONE SEEN) 06/25/20 19:01 Amorphous Sediment 2+ /HPF (NONE SEEN) H 06/25/20 19:01 Urine Bacteria <20 /HPF (NONE SEEN) 06/25/20 19:01 Urine Mucus Heavy /HPF (NONE SEEN) 06/25/20 19:01 Urine Culture Reflexed Not needed 06/25/20 19:01 Urine Total Protein Trace (NEG) 06/25/20 19:11 Influenza Type A RNA Negative (NEGATIVE) 06/25/20 17:25 Influenza Type B RNA Negative (NEGATIVE) 06/25/20 17:25 SARS-CoV-2 RNA (RT-PCR) Negative (NEGATIVE) 06/25/20 17:25 Medications List Reviewed: Yes Assessment And Plan - Plan Assessment: -sepsis -multiple skin tears/hematoma to upper and lower arm extremities -bilateral buttocks deep tissue injury--now stage 3 -bilateral foot deep tissue injurys -altered mental status/hypertension -congestive heart failure Plan -sepsis: Positive anaerobic and anaerobic blood cultures: grew Enterococcus facecalis sensitive to ampicillin. Repeat blood culture on 07/02 showed no growth. Continue ampicillin for two weeks-until 07/16. -recommend applying xerofrom to open skin tears on upper and lower extremities -bilateral buttock deep tissue injury: tissue has opened up-area has minimal bleeding and shows a stage III decubitus pressure ulcer more prominent over sacral area. Wound care orders include applying Medihoney to the area and covering with foam q Wednesday also offload the wound and avoid direct pressure. -recommend offloading bilateral heel deep tissue injuries avoid direct pressure on area-paint with Betadine -recommend air mattress to offload wounds -medical management per primary team -continue to monitor CBC and BMP -continue to monitor for signs of infection Plan of care discussed with Dr. Diego Thank you for consultation. Physician Review: Patient Assessed, Agree with Above Assessment and Plan
--- NOTE | 2020-07-12 15:58 | RAD REPORT ---
EXAM DESCRIPTION: RAD - Lumbar Spine 3 Views - 07/12/2020 3:24 pm CLINICAL HISTORY: Back pain FINDINGS: The examination is limited. Artifact overlies portions of the spine. The patient refused to have additional x-rays obtained No fracture or dislocation is seen involving lumbar spine. The bones are osteoporotic with mild spondylosis. IVC filter L1/2 level
--- NOTE | 2020-07-12 15:59 | RAD REPORT ---
EXAM DESCRIPTION: RAD - Hip Right 2 View - 07/12/2020 3:25 pm CLINICAL HISTORY: Right hip pain FINDINGS: No fracture or dislocation is seen. Bones are osteoporotic. Moderate narrowing of the right hip joint space. Right femoral line noted
[2020-07-12] MEDS: ACETAMINOPHEN 325 MG TABLET PO PRN (16:43)
--- NOTE | 2020-07-12 18:36 | PN ---
Date of Progress Note: 07/12/2020 The patient states he feels somewhat better today. His physical therapy has progressed significantly according to the therapist yesterday. His main complaint has been the back pain when he sits up, wh ich is mainly in the right lumbosacral area. His family was present today and stated that he has sim ilar problems a number of years ago, required some steroid shots and some physical therapy extensive. His oxygen requirement seems stabilized on 2-3 L. He is not nearly dyspneic, possibly addition of the Aldactone helped this. We will x-ray his back. If there is nothing dramatic there, I think he c ould be transferred back to the alf. The question is to whether he would be under the SNF o r self-pay. This should be resolved by Wednesday at the latest. HR/MODL Voice ID: [id number] Report ID: [id number]
[2020-07-12] MEDS: MELATONIN 3 MG TABLET PO SCH (21:00)
[2020-07-12] MEDS: ATORVASTATIN 40 MG TAB PO SCH (21:42)
[2020-07-13] MEDS: IPRATROPIUM BROM 0.5MG/2.5ML NEB SCH ×3 (07:19→19:30)
[2020-07-13] MEDS: ALBUTEROL 2.5 MG/3 ML NEB SOL NEB SCH ×3 (07:19→19:30)
[2020-07-13] MEDS: HOME MED 1 EA UNK (Fluticasone/Umeclidin/Vilanter [Trelegy Ellipta 200-62.5-25] Blst.W.Dev IH SCH (09:00)
[2020-07-13] MEDS: JUVEN PACKET PO SCH ×2 (09:00→21:00)
[2020-07-13] MEDS: ENSURE ENLIVE 237 ML CAN PO SCH ×2 (09:00→21:00)
[2020-07-13] MEDS: GABAPENTIN 300 MG CAP PO SCH ×3 (10:33→21:02)
[2020-07-13] MEDS: ASPIRIN EC 81 MG TAB PO SCH (10:33)
[2020-07-13] MEDS: RIVAROXABAN 20 MG TABLET PO SCH (10:34)
[2020-07-13] MEDS: AMPICILLIN TRIHYDRATE 500 MG CAP PO SCH ×4 (10:35→21:02)
[2020-07-13] MEDS: SPIRONOLACTONE 25 MG TABLET PO SCH (10:39)
[2020-07-13] MEDS: CODEINE 30MG/APAP 300MG TAB PO PRN (15:31)
--- NOTE | 2020-07-13 18:31 | PN ---
Date of Progress Note: 07/13/2020 The patient continues to improve with physical therapy. His problem has been when he sits in the bed with back and hip pain, and the x-rays did show some significant changes in the right hip more so th an in the back. This was probably the etiology, may be a factor in his mobilization as well. He merlene uld be discharged in next day or so and at that time, we can do a steroid injection for the hip. HR/MODL Voice ID: [id number] Report ID: [id number]
[2020-07-13] MEDS ORDERED: CODEINE 30MG/APAP 300MG TAB PO SCH (20:49)
[2020-07-13] MEDS: MELATONIN 3 MG TABLET PO SCH (21:00)
[2020-07-13] MEDS: ATORVASTATIN 40 MG TAB PO SCH (21:02)
[2020-07-14] MEDS: CODEINE 30MG/APAP 300MG TAB PO PRN (00:10)
[2020-07-14] MEDS: ALBUTEROL 2.5 MG/3 ML NEB SOL NEB SCH ×4 (06:25→19:40)
[2020-07-14] MEDS: IPRATROPIUM BROM 0.5MG/2.5ML NEB SCH ×4 (06:25→19:40)
[2020-07-14] MEDS: HOME MED 1 EA UNK (Fluticasone/Umeclidin/Vilanter [Trelegy Ellipta 200-62.5-25] Blst.W.Dev IH SCH (09:00)
[2020-07-14] MEDS: SPIRONOLACTONE 25 MG TABLET PO SCH (10:18)
[2020-07-14] MEDS: ASPIRIN EC 81 MG TAB PO SCH (10:18)
[2020-07-14] MEDS: GABAPENTIN 300 MG CAP PO SCH ×3 (10:18→20:45)
[2020-07-14] MEDS: RIVAROXABAN 20 MG TABLET PO SCH (10:18)
[2020-07-14] MEDS: ENSURE ENLIVE 237 ML CAN PO SCH ×2 (10:19→20:45)
[2020-07-14] MEDS: JUVEN PACKET PO SCH ×2 (10:19→20:45)
[2020-07-14] MEDS: AMPICILLIN TRIHYDRATE 500 MG CAP PO SCH ×4 (10:36→20:44)
[2020-07-14] MEDS: ACETAMINOPHEN 325 MG TABLET PO PRN (11:39)
--- NOTE | 2020-07-14 13:11 | PN ---
Basically status quo. The patient stated his appetite has improved. He continues to work with [employer], although it is slow going and we are waiting the insurance decision. However, I told the family that if it is not positive, then they need to make arrangements for him to be on a regular basis. In any event, he should be discharged either way tomorrow. HR/MODL Voice ID: [id number] Report ID: [id number]
[2020-07-14] MEDS: ATORVASTATIN 40 MG TAB PO SCH (20:44)
[2020-07-14] MEDS: MELATONIN 3 MG TABLET PO SCH (20:45)
[2020-07-15] MEDS: IPRATROPIUM BROM 0.5MG/2.5ML NEB SCH ×3 (07:58→19:20)
[2020-07-15] MEDS: ALBUTEROL 2.5 MG/3 ML NEB SOL NEB SCH ×3 (07:58→19:20)
[2020-07-15] MEDS: HOME MED 1 EA UNK (Fluticasone/Umeclidin/Vilanter [Trelegy Ellipta 200-62.5-25] Blst.W.Dev IH SCH (09:00)
[2020-07-15] MEDS: MEDIHONEY 44 ML TOPICAL TUBE TOP SCH (09:00)
[2020-07-15] MEDS: JUVEN PACKET PO SCH ×2 (09:00→20:58)
[2020-07-15] MEDS: ENSURE ENLIVE 237 ML CAN PO SCH ×2 (09:00→20:58)
[2020-07-15] MEDS: RIVAROXABAN 20 MG TABLET PO SCH (09:14)
[2020-07-15] MEDS: GABAPENTIN 300 MG CAP PO SCH ×3 (09:14→21:15)
[2020-07-15] MEDS: AMPICILLIN TRIHYDRATE 500 MG CAP PO SCH (09:14)
[2020-07-15] MEDS: ASPIRIN EC 81 MG TAB PO SCH (09:14)
[2020-07-15] MEDS: SPIRONOLACTONE 25 MG TABLET PO SCH (09:14)
[2020-07-15] MEDS: CODEINE 30MG/APAP 300MG TAB PO PRN (09:15)
[2020-07-15] MEDS: MELATONIN 3 MG TABLET PO SCH (21:16)
[2020-07-15] MEDS: ATORVASTATIN 40 MG TAB PO SCH (21:16)
[2020-07-16 02:46] VITALS: O2SAT 94
[2020-07-16] MEDS: IPRATROPIUM BROM 0.5MG/2.5ML NEB SCH (08:00)
[2020-07-16] MEDS: ALBUTEROL 2.5 MG/3 ML NEB SOL NEB SCH (08:00)
[2020-07-16] MEDS: HOME MED 1 EA UNK (Fluticasone/Umeclidin/Vilanter [Trelegy Ellipta 200-62.5-25] Blst.W.Dev IH SCH (09:00)
[2020-07-16] MEDS: JUVEN PACKET PO SCH (09:00)
[2020-07-16] MEDS: ENSURE ENLIVE 237 ML CAN PO SCH (09:00)
[2020-07-16] MEDS: SPIRONOLACTONE 25 MG TABLET PO SCH (11:27)
[2020-07-16] MEDS: ASPIRIN EC 81 MG TAB PO SCH (11:27)
[2020-07-16] MEDS: GABAPENTIN 300 MG CAP PO SCH ×2 (11:28→14:56)
[2020-07-16] MEDS: RIVAROXABAN 20 MG TABLET PO SCH (11:28)
[2020-07-16] MEDS: MEDIHONEY 44 ML TOPICAL TUBE TOP SCH (11:29)
[2020-07-16] MEDS: CODEINE 30MG/APAP 300MG TAB PO PRN ×2 (11:32→17:18)
--- NOTE | 2020-07-16 11:40 | PN ---
Date of Progress Note: 07/16/2020 The patient is basically status quo. He states his appetite has improved somewhat as confirmed by e nursing staff. Still awaiting placement decision from the insurance company. He has now finished the antibiotics. The physical exam remains the same with leg wounds, however, the peripheral edema h is stable, much less than initially seen and his vital signs are stable, so at this stage, he could b e transferred back to a SNF. HR/MODL Voice ID: [id number] Report ID: [id number]
--- NOTE | 2020-07-16 13:56 | P.PN ---
Subjective Date of Service: 07/16/20 Chief Complaint: Sepsis, AMS Patient seen and examined at bedside with no acute complaints. Patient has completed course of the antibiotics. Review of Systems 10-point ROS is otherwise unremarkable Physical Examination - Vital Signs Temperature: 97.2 F Blood Pressure: 101/71 Pulse: 111 Respirations: 16 Pulse Ox (%): 95 - Physical Exam Other Physical/Emotional Findings: General: Alert, In no apparent distress, Oriented x3. HEENT: Atraumatic, Normocephalic. Neck: Supple, 2+ carotid pulse no bruit, JVD not distended. Respiratory: clear to ascultation. Cardiovascular: No edema, Normal pulses. Capillary refill: <2 Seconds. Gastrointestinal: Normal bowel sounds, Soft and benign. Musculoskeletal: No clubbing, No swelling. 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 Minimal bleeding noted from wound site. ). Neurological: Normal speech. Urinary: Willoughby catheter. External genitalia: Deferred - Studies Medications List Reviewed: Yes Assessment And Plan - Plan Assessment: -sepsis -multiple skin tears/hematoma to upper and lower arm extremities -bilateral buttocks deep tissue injury--now stage 3 -bilateral foot deep tissue injurys -altered mental status/hypertension -congestive heart failure Plan -sepsis: Positive anaerobic and anaerobic blood cultures: grew Enterococcus facecalis sensitive to ampicillin. Repeat blood culture on 07/02 showed no growth. Continue ampicillin for two weeks-until 07/16. -recommend applying xerofrom to open skin tears on upper and lower extremities -bilateral buttock deep tissue injury: tissue has opened up-area has minimal bleeding and shows a stage III decubitus pressure ulcer more prominent over sacral area. Wound care orders include applying Medihoney to the area and covering with foam q Wednesday also offload the wound and avoid direct pressure. Wound stable at this time. -recommend offloading bilateral heel deep tissue injuries avoid direct pressure on area-paint with Betadine -recommend air mattress to offload wounds -medical management per primary team -continue to monitor CBC and BMP -continue to monitor for signs of infection Plan of care discussed with Dr. Diego Thank you for consultation. Physician Review: Patient Assessed, Agree with Above Assessment and Plan
[2020-07-16 18:12] VITALS: BP 126/81; TEMP 98.1
--- NOTE | 2020-09-03 21:38 | DS ---
Date of Discharge: 07/16/2020 Hospital Course: The patient was admitted to the hospital to 06/25 after presenting to the emergency room with altered mental status. A diagnosis of sepsis was made and then he was admitted to ICU. T he etiology of the sepsis is unclear, although most likely UTI, as the patient had some UTI symptoms approximately a week prior to admission, was placed on antibiotics, seemed to be doing okay as far as the [facility] was concerned and he became quite confused and was brought to the emergency room. He required boluses of Levophed drip and some antibiotics. For the next 24 to 48 hours, his blood pr essure has stabilized. His septic workup included 4+ staph but there was some question whether this was a contaminant or not. The patient had a somewhat similar episode approximately a month ago. At that time, he had cellulitis of the legs and also not been able to walk for a number of months now an d he continued to be bedridden throughout the remainder of his hospital stay. After the sepsis was c ontrolled, he was placed on medical care on the floor, placed on Cipro with some discussion with vari ous specialties as far as medication, as he had chronic AFib. However, his blood pressure remained l ow and his blood pressure medication was withheld as well as blood thinners. His blood count was low and he was transfused with 1 unit somewhat similar to the prior admission. Aspirin was therefore al so held. According to the family, the patient then as far as his mental status was concer gal back to what they felt was baseline. He was placed on physical therapy regimen. However, he had difficulty even with transferring and did sit up somewhat on the side of his bed from time to time, however and many times he could not tolerate anything more than passive movement. His appetite was a lso an issue and various dietary changes were made in an attempt to control this. During the final d ay of his hospital admission, there was some difficulty with placement, as it became somewhat of an i nsurance issue as to whether he should go local SNF or back to the penitentiary. Once his blood work was stabilized, his appetite had improved somewhat and disposition was finally made back to the SNF unit. By 07/11, he was stable enough to restart his spironolactone, still had some pulmonary deficit s. oxygen supplement anywhere from 2 to 5 L. It is worst at 5. However, his symptoms st abilized between 2 and 3. He was discharged in stable but condition on 07/16. Final Diagnoses: Sepsis, unknown etiology; probable urinary tract infection; hypotension; altered me ntal status, respiratory insufficiency; coronary artery disease with atrial fibrillation, chronic; an orexia. HR/MODL Voice ID: [id number] Report ID: [id number]
== END 2020-07-16 17:18 | DRG 871 ==
LOC: ER 16:55 → ERHOLD 22:49 → 4TH 06-28 14:31 → 2ND 07-04 18:28
PROVIDERS: ADMIT Family Medicine; ATTEND Family Medicine
PROC: 06HY33Z Insertion of Infusion Device into Lower Vein, Percutaneous Approach (ICD-10-PCS; principal; 2020-06-25)
PROC: 30233N1 Transfusion of Nonautologous Red Blood Cells into Peripheral Vein, Percutaneous Approach (ICD-10-PCS; 2020-06-26)
DX: A41.81 Sepsis due to Enterococcus (principal); L89.153 Pressure ulcer of sacral region, stage 3; G92 Toxic encephalopathy; R65.21 Severe sepsis with septic shock; J96.22 Acute and chronic respiratory failure with hypercapnia; J96.21 Acute and chronic respiratory failure with hypoxia; I48.20 Chronic atrial fibrillation, unspecified; I50.32 Chronic diastolic (congestive) heart failure; I13.0 Hypertensive heart and chronic kidney disease with heart failure and stage 1 through stage 4 chronic kidney disease, or unspecified chronic kidney disease; N18.30 Chronic kidney disease, stage 3 unspecified; M19.90 Unspecified osteoarthritis, unspecified site; E86.0 Dehydration; E87.70 Fluid overload, unspecified; I87.2 Venous insufficiency (chronic) (peripheral); E78.5 Hyperlipidemia, unspecified; E87.6 Hypokalemia; I25.10 Atherosclerotic heart disease of native coronary artery without angina pectoris; J44.9 Chronic obstructive pulmonary disease, unspecified; L89.156 Pressure-induced deep tissue damage of sacral region; L89.326 Pressure-induced deep tissue damage of left buttock; L89.316 Pressure-induced deep tissue damage of right buttock; L89.896 Pressure-induced deep tissue damage of other site; Z88.8 Allergy status to other drugs, medicaments and biological substances; Z66 Do not resuscitate; Z96.652 Presence of left artificial knee joint; Z79.01 Long term (current) use of anticoagulants; Z79.82 Long term (current) use of aspirin; Z79.899 Other long term (current) drug therapy; Z95.828 Presence of other vascular implants and grafts; Z95.0 Presence of cardiac pacemaker; Z86.718 Personal history of other venous thrombosis and embolism; Z91.018 Allergy to other foods; Z20.822 Contact with and (suspected) exposure to COVID-19
CPT/HCPCS: 0240U; 36415; 70450; 71045; 72100; 80048; 80076; 80202; 81003; 81015; 82150; 82550; 82553; 83605; 83690; 84132; 84145; 84484; 85014; 85018; 85025; 85610; 85730; 86850; 86900; 86901; 87040; 87070; 87077; 87081; 87086; 87088; 87186; 87205; 93005; 94640; 97110; 97112; 97161; 97530; 99285; J0290; J0692; J0696; J2185; J3370; J3480; J7030; J7040; J7050; J7060; P9016; P9047

== ENCOUNTER 2020-08-04 17:42 | Emergency (ER) | payer OTHER ==
[2020-08-04] MEDS ORDERED: EPINEPHrine 1 MG/10 ML SYR IV ONE (17:43)
--- OUTSIDE RECORDS SUMMARY | 2020-08-04 17:45 | XMS REPORT | Continuity of Care Document ---
:1940 Author Organization [facility] t Address [address] [place] [address] Care Team Providers Name Role Phone Macie COLUNGA T. Primary Care Physician Jovani Donahue DO [...] Date Stop Date Source Natural father Cancer [facility] Natural mother Heart disease [facility] Social History Social Habit Start Date Stop Date Quantity Comments Source Alcohol intake 2016-12-01 2016-12-01 Current drinker [place] [facility] 00:00:00 00:00:00 of alcohol (finding) Alcohol Comment 2016-11-25 2016-11-25 Very rare [place] [facility] 00:00:00 00:00:00 Sex [birth year] At [birth year] [place] [facility] 00:00:00 00:00:00 Smoking Status Start Date Stop Date Source Never smoker [facility] Medications Ordered Filled Start Stop Current Ordering [...] ston (AMBIEN) 10 8-01 by mouth Meth tyler mg tablet 12:31: nightly as st 09 needed for sleep. Procedures This patient has no known procedures. Plan of Care Planned Activity Planned Date Details Comments Source Future Scheduled 2019-12-02 INFLUENZA VACCINE [place] [facility] 00:00:00 [code = INFLUENZA VACCINE] Future Scheduled 2004-11-21 65+ PNEUMOCOCCAL [facility] 00:00:00 VACCINE (1 of 1 - PPSV23) [code = 65+ PNEUMOCOCCAL VACCINE (1 of 1 - PPSV23)] Future Scheduled 1989-11-21 SHINGLES VACCINES (#1) [place] [facility] [facility] 00:00:00 [code = SHINGLES VACCINES (#1)] Future Scheduled 1956 COVID-19 VACCINE (1) [facility] 00:00:00 [code = COVID-19 VACCINE (1)] Encounters Start End Encounter Admission Attending Care Care Encounter Source Date/Time Date/Time Type Type Clinicians Facility Department ID 2020-05-09 2020-05-09 Patient ELIJAH Donahue [id number] 00:00:00 00:00:00 Outreach Kadeem PRIMARY [id number] [facility] [id number] [place] [id number] 2020-05-06 2020-05-06 Orders Doctor JHON [id number] 00:00:00 00:00:00 Only Unassigned, [facility] [id number] [facility] [id number] 2020-02-01 2020-02-01 Telephone [facility] [id number] 00:00:00 00:00:00 [facility] [id number] [place] [id number] [place] [phone] [place] [id number] Office Building 2019-11-24 2019-11-24 Orders Doctor JHON [id number] 00:00:00 00:00:00 Only Unassigned, [facility] [id number] [facility] [id number] 2019-07-05 2019-07-05 Non [facility] [id number] 00:00:00 00:00:00 Facility [facility] [id number] [facility] [id number] [facility] [id number] [facility] Results This patient has no known results.
--- NOTE | 2020-08-04 18:11 | EDPHYS ---
Physician Documentation [facility] Name: Man Crowley Age: 79 yrs Sex: Male : 1940 Arrival Date: 08/04/2020 Time: 17:57 Bed 4 Private MD: ED Physician Kyree Welch HPI: 08/04 18:01 This 79 yrs old Male presents to ER via Unassigned with complaints of cardiac ma2 arrest . 18:01 Preceding the arrest, the patient collapsed. The arrest occurred at half-way. ma2 Pre-hospital course: Unable to obtain HPI due to patient is on ventilator. The patient has not experienced similar symptoms in the past. bib ems for cardiac arrest. 18:01 bib by ems with cardiac arrest that started 45 minutes ago, with no pulse or signs of ma2 life. Historical: - Allergies: 18:04 Blueberry; bp 18:04 Eliquis; bp - PMHx: 18:04 CHF; DVT; bilateral; Hypertension; Nonrheumatic aortic valve stenosis; Obesity; bp osteoarthritis; Prosthetic heart valve; Sleep Apnea; - Social history:: Patient/guardian denies using alcohol, street drugs, The patient lives with family. - Family history:: not pertinent. - Hospitalizations: : No recent hospitalization is reported. ROS: 18:01 Constitutional: Negative for fever, chills, and weight loss, Eyes: Negative for injury, ma2 pain, redness, and discharge. 18:01 All other systems are negative. 18:01 All other systems are negative. ma2 18:01 All other systems are negative. 18:01 Unable to obtain ROS due to carrdiac arrest. Exam: 18:01 Constitutional: no signs of trauma Head/Face: Normocephalic, atraumatic. ma2 Chest/axilla: Normal chest wall appearance and motion. no deformity. no breathing Cardiovascular: cardiac arrest Respiratory: intubated with no respiration Psych: dilated fix pupils Vital Signs: 17:41 Temp 97.1; bp Procedures: 18:08 CPR: Initial patient assessment: unresponsive, The presenting cardiac rhythm is PEA. ma2 Compressions: began prior to arrival. Meds given: See Meds list. despite ED evaluation and treatment, the patient . cpr continued for 45 minutes . MDM: 18:00 Patient medically screened. ma2 18:08 Differential diagnosis: arrythmia, cardiac arrest, respiratory arrest. Data reviewed: ma2 vital signs, nurses notes. Counseling: I had a detailed discussion with the patient and/or guardian regarding: the historical points, exam findings, and any diagnostic results supporting the discharge/admit diagnosis, the presence of at least one elevated blood pressure reading (>120/80) during this emergency department visit, the need for outpatient follow up. Response to treatment: There is no appreciated change of the patient's symptoms at this time, son on the way . Administered Medications: No medications were administered Disposition: 18:08 . ma2 Disposition: Patient pronounced on 08/04/20 18:10 by Kyree Welch. Impression: Cardiac arrest. Signatures: Celestine Tan RN RN Giovanni Bo RN RN Kyree Welch, MD COLUNGA ma2 Corrections: (The following items were deleted from the chart) 22:06 18:10 08/04/2020 18:10 Patient pronounced on 08/04/2020 at 18:10 by Kyree Welch. em Impression: Cardiac arrest. ma2
--- NOTE | 2020-08-04 18:11 | ER ---
Nurse's Notes [facility] Name: Man Crowley Age: 79 yrs Sex: Male : 1940 Arrival Date: 08/04/2020 Time: 17:57 Bed 4 Private MD: Diagnosis: Cardiac arrest Presentation: 08/04 17:41 Chief complaint: EMS states: CARDIOPULMONARY ARREST. Care prior to arrival: Oral airway bp placed, CPR via thumper performed by EMS and is still in progress Medication(s) given: EPI x4, BICARB x1 IV initiated. 17 GAUGE LEFT TIB IO. Compressions began at 17:00. 17:41 Method Of Arrival: EMS: [facility] bp 17:41 Acuity: LUIS 1 bp Triage Assessment: 17:41 General: Appears ill, Behavior is unresponsive. General: SEE CPR TAB. Pain: Unable to bp use pain scale. Pain: Denies pain. Historical: - Allergies: 18:04 Blueberry; bp 18:04 Eliquis; bp - PMHx: 18:04 CHF; DVT; bilateral; Hypertension; Nonrheumatic aortic valve stenosis; Obesity; bp osteoarthritis; Prosthetic heart valve; Sleep Apnea; - Social history:: Patient/guardian denies using alcohol, street drugs, The patient lives with family. - Family history:: not pertinent. - Hospitalizations: : No recent hospitalization is reported. Screenin:41 Abuse screen: Denies threats or abuse. Denies injuries from another. Nutritional bp screening: No deficits noted. Tuberculosis screening: No symptoms or risk factors identified. Assessment: 17:41 CPR assessment: unresponsive, pupils fixed \T\ dilated, no respiratory effort, intubated, bp Ambu ventilation, pulses present w/ compressions. Cardiac rhythm is asystole. General: Behavior is unresponsive. Neuro: Level of Consciousness is unresponsive. EENT: No deficits noted. Cardiovascular: Rhythm is asystole. Respiratory: Airway via oral intubation Respiratory effort is NONE. GI: No signs and/or symptoms were reported involving the gastrointestinal system. : No signs and/or symptoms were reported regarding the genitourinary system. Derm: SKIN TEARS NOTED TO BUE. Musculoskeletal: No deficits noted. 17:48 Reassessment: TOD BY DR BULL. PT GIVEN EPI x1. ASYSTOLE NOTED ON MONITOR THROUGHOUT bp RESUSCITATION EFFORTS. 18:00 Reassessment: CONTACT WITH RICARDO AT [facility]. PT NOT A CANDIDATE. bp 18:05 Reassessment: PER [facility], DR SAMUEL, PT PCP, AGREES TO SIGN CERTIFICATE. AWAITING bp ARRANGEMENTS FROM FAMILY. 19:50 Reassessment: spoke with Bella at [facility] at [place], [place] [phone], will em coordinate transportation for pt. 22:04 Reassessment: pt picked up and transferred to [facility] [phone]. em Vital Signs: 17:41 Temp 97.1; bp ED Course: 17:41 Patient has correct armband on for positive identification. Placed in gown. Bed in low bp position. Call light in reach. Side rails up X2. 17:41 Arm band placed on. bp 17:57 Patient arrived in ED. bp 18:00 Kyree Bull MD is Attending Physician. ma2 18:10 Kyree Bull MD is Pronouncing Provider. ma2 18:26 Giovanni Ochoa, RN is Primary Nurse. bp 18:29 Triage completed. bp Administered Medications: No medications were administered Outcome: 17:48 Outcome Patient bp 17:48 Patient : Time of 17:48 Pronounced by Kyree Knight MD notified 17:48 Condition: 22:06 Patient left the ED. em Signatures: Celestine Tan, RN RN em Giovanni Ochoa, RN RN bp Kyree Bull MD MD va2 Corrections: (The following items were deleted from the chart) 18:33 17:48 Reassessment: TOD BY DR BULL. PT GIVEN EPI x1. ASYSTOLE NOTED ON MONITOR bp DURING bp 20:08 18:32 Pain: Denies pain. bp em
== END 2020-08-04 22:06 ==
LOC: ER 17:42
PROC: 5A12012 Performance of Cardiac Output, Single, Manual (ICD-10-PCS; principal; 2020-08-04)
DX: I46.9 Cardiac arrest, cause unspecified (principal); I10 Essential (primary) hypertension; I50.9 Heart failure, unspecified; Z95.2 Presence of prosthetic heart valve; Z88.8 Allergy status to other drugs, medicaments and biological substances; Z91.018 Allergy to other foods
CPT/HCPCS: 92950; J0171; 99285